=== PATIENT | male | born 1950 | race Caucasian/White ===

== ENCOUNTER 2020-01-16 11:38 | Inpatient (IN) ==
[2020-01-16] MEDS ORDERED: HYDROcodone/APAP 10/325MG TABLET PO ONE (11:56)
--- NOTE | 2020-01-16 11:59 | Emergency Department Note ---
Male Urogenital HPI General Chief complaint: Skin/Abscess/Rash Stated complaint: wound on penis Time Seen by Provider: 01/16/20 11:42 Source: patient Mode of arrival: wheelchair Limitations: no limitations History of Present Illness HPI Narrative: Narrative: 70-year-old male patient referred to the emergency department from the urology clinic with chief complaint of ongoing difficulty with urination, ulceration to the glans penis, as well as suspected necrosis to the foreskin. Patient underwent a prostate resection several weeks ago. Unfortunately he has not been able to urinate since that time. Is an indwelling catheter in place that is being changed out every 4 weeks. Unfortunately he was evaluated by the urologist (Dr. Wren) earlier this morning and noted to have the ulceration as well as the necrotic tissue developing. At that time the urologist recommended the patient be sent over to the emergency department and then eventually admitted to the hospital for surgical management. Upon arrival, patient complains of some moderate pain to his penis. He still has the Morelos catheter in place. 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 ROS: Denies systemic illness, fever, sweats, chills. Denies runny nose, sinus congestion, or cough. Denies shortness of breath. Denies retrosternal chest pain or palpitations. Denies abdominal pain, nausea, vomiting, or diarrhea. Denies generalized or focal weakness. Related Data Home Medications Medication Instructions Recorded Confirmed Avatrip countor next test in vitro #1 ea 12/27/17 01/16/20 strip pen needle, diabetic 32 gauge x #50 each 12/27/17 01/16/20 1/4" spironolactone 25 mg tablet 25 mg PO QAM tab 12/27/17 01/16/20 omeprazole 20 mg capsule,delayed 40 mg PO QDAY cap 12/28/17 01/16/20 release insulin aspart U-100 100 unit/mL See Rx Instructions SUB-Q .COMPLEX 04/24/19 01/16/20 (3 mL) subcutaneous pen insulin glargine 100 unit/mL (3 65 unit SUB-Q QDAY ml 04/24/19 01/16/20 mL) subcutaneous pen dulaglutide 0.75 mg/0.5 mL 1.5 mg SUB-Q QWEEK 09/06/19 01/16/20 subcutaneous pen injector tamsulosin 0.4 mg capsule 0.8 mg PO QDAY cap 09/11/19 01/16/20 torsemide 20 mg tablet 40 mg PO QDAY tab 09/11/19 01/16/20 acetaminophen 325 mg capsule 650 mg PO Q6H PRN 10/29/19 01/16/20 aspirin 81 mg tablet,delayed 81 mg PO QDAY 10/29/19 01/16/20 release bethanechol chloride 50 mg tablet 50 mg PO BID 10/29/19 01/16/20 ferrous sulfate 325 mg (65 mg 325 mg PO QDAY 10/29/19 01/16/20 iron) tablet fexofenadine 180 mg tablet 180 mg PO Q24H 10/29/19 01/16/20 hydrocodone 10 mg-acetaminophen 1 tab PO Q4-5H PRN tab 10/29/19 01/16/20 325 mg tablet magnesium hydroxide 400 mg/5 mL 100 mg PO ONCE PRN ml 10/29/19 01/16/20 oral suspension escitalopram oxalate 5 mg tablet 5 mg PO QDAY 11/28/19 01/16/20 Previous Rx's Medication Instructions Recorded cholecalciferol (vitamin D3) 100 4,000 unit PO QDAY #90 tab 04/27/19 mcg (4,000 unit) tablet potassium chloride 10 mEq 10 meq PO QDAY #30 tab 08/06/19 tablet,extended release(part/cryst) atorvastatin 40 mg tablet 40 mg PO QDAY #30 tab 08/13/19 Allergies Allergy/AdvReac Type Severity Reaction Status Date / Time piperacillin [From Zosyn] Allergy Mild Rash Verified 01/16/20 13:39 tazobactam [From Zosyn] Allergy Mild Rash Verified 01/16/20 13:39 Sulfa (Sulfonamide Allergy Unknown Verified 01/16/20 11:46 Antibiotics) Review of Systems ROS ROS Narrative: Narrative: All systems ED: reviewed and negative except as stated. [facility] Narrative Patient History Narrative: Narrative: Medical/Surgical/Family History All Active Problems (Updated 01/16/20 @ 14:15 by Kojo Stone PA-C) Necrosis (Acute) Urethral erosion by catheter (Acute) Hydronephrosis (Acute) Balanitis (Acute) Cellulitis (Acute) Elevated serum creatinine (Acute) Localized edema due to fluid overload (Chronic) Secondary hyperparathyroidism of renal origin (Chronic) Vitamin D deficiency (Chronic) Anemia in stage 3 chronic kidney disease (Chronic) 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) Acute on chronic renal failure (Acute) Bladder mass (Acute) Status post insertion of Morelos catheter (Chronic) GERD (gastroesophageal reflux disease) (Chronic) Benign prostatic hyperplasia (Chronic) Edema (Chronic) Weakness (Chronic) Bilateral hydronephrosis (Chronic) Leukocytosis (Chronic) Hypoglycemia (Chronic) Obstructive uropathy (Chronic) Acute renal failure (Chronic) Morelos catheter in place (Chronic) Urinary retention (Chronic) Poor hygiene (Chronic) Knee pain (Chronic) Fatigue (Chronic) Hypertension (Chronic) Gout (Chronic) Elevated liver enzymes (Chronic) Mentally challenged (Chronic) Diabetes (Chronic) Arthritis (Chronic) Anxiety (Chronic) Bronchitis (Chronic) Asthma (Chronic) Shortness of breath (Chronic) Chronic kidney disease, stage 3 (Chronic) Medical History Acute renal failure (Chronic) Anxiety (Chronic) Arthritis (Chronic) Asthma (Chronic) Benign prostatic hyperplasia (Chronic) Bilateral hydronephrosis (Chronic) Bronchitis (Chronic) Chronic kidney disease, stage 3 (Chronic) Diabetes (Chronic) Edema (Chronic) Elevated liver enzymes (Chronic) Fatigue (Chronic) Morelos catheter in place (Chronic) GERD (gastroesophageal reflux disease) (Chronic) Gout (Chronic) Hypertension (Chronic) Hypoglycemia (Chronic) Knee pain (Chronic) Leukocytosis (Chronic) Mentally challenged (Chronic) Obstructive uropathy (Chronic) Poor hygiene (Chronic) Shortness of breath (Chronic) Urinary retention (Chronic) Weakness (Chronic) Surgical History History of colonoscopy (Chronic) Dr. Guevara Status post insertion of Morelos catheter (Chronic) Family History Mother Diabetes Father Heart disease Social History Smoking Status: Never smoker Alcohol Intake Frequency: does not drink Substance Use: does not use Exam Narrative Narrative: Narrative: General Limitations: no limitations General appearance: Present other (Well-developed, well-nourished, 70-year-old male patient laying semierect in no acute distress. He is afebrile with normal vital signs.) Eye Eye: Present normal appearance, PERRL and EOMI; Absent scleral icterus and conjunctival injection ENT ENT: Present normal oropharynx and mucous membranes moist Neck Neck: Present trachea midline; Absent lymphadenopathy and thyromegaly Chest Chest: Present symmetric chest wall rise Respiratory Respiratory: Present normal lung sounds bilaterally; Absent respiratory distress, wheezes, stridor, accessory muscle use and prolonged expiratory phase Cardiovascular Cardiovascular: Present regular rate and normal rhythm; Absent systolic murmur and diastolic murmur Adbominal Abdominal: Present soft; Absent distention, tenderness, guarding, rebound, rigidity, organomegaly and mass : Absent normal inspection Expanded : Present penile swelling, induration, erythema, balanitis, ulcerations and other (Morelos catheter still in place. Some dry as well as fresh bleeding noted to surrounding penis. Ulceration to the glans penis noted. Area of necrosis noted to the foreskin that extends circumferentially.) Extremities Extremities: Present normal inspection, full ROM and normal capillary refill Neurological Neurological: Present alert and oriented X3 Psychiatric Psychiatric: Present normal affect and normal mood Skin Skin: Present warm (WNL), dry and normal color Course Course Course Narrative: Patient was referred to the emergency department from urology for likely admission and surgical debridement of the wound to his penis. We are going to get some preoperative laboratory studies as well as EKG. Patient will get Zosyn 3.337 g IV. Patient has some discomfort and is currently on hydrocodone/APAP 10-325 mg tablets. I will give him two 5 mg hydrocodone tablets here prior to nursing staff cleansing his penis dressing this area. Reevaluation(s) Reevaluation #1: I reviewed the patient's diagnostics of the following: CBC WBC 9.8, RBC 4.03, hemoglobin 12.2, hematocrit 36.7, platelets 445. CMP BUN 26, creatinine 1.6, glucose 159, all others normal limits. Patient had the Zosyn infusion. Within approximately 5minutes of his completion the patient's left arm started becoming erythematous and itchy. Patient was given diphenhydramine 25 mg IV to help with this. Time: 14:10 Reevaluation #2: After reviewing all the data I reached out to our hospitalist (Dr. Powers) and discussed the case with him. At this time Dr. Powers mention that patient needs to be managed by urology in order to definitively treat the penile ulcer and necrosis. However he is happy to admit the patient here to our facility. He did recommend Maxipime 2 g every 12 hours. This was ordered. At this time patient is going to be admitted under the care of both the hospitalist as well as the urologist (Dr. Wren). All further treatment decisions, modalities, and ultimate patient disposition be carried out by the urologist in conjunction with the hospitalist. Time: 14:14 Vital Signs Vital signs: Vital Signs Temperature 98.7 F 01/16/20 11:43 Pulse Rate 80 01/16/20 11:43 Respiratory Rate 18 01/16/20 11:43 Blood Pressure 166/85 01/16/20 11:43 Pulse Oximetry (%) 100 01/16/20 11:43 Temperature 98.7 F 01/16/20 11:43 Pulse Rate 78 01/16/20 14:33 Respiratory Rate 18 01/16/20 14:33 Blood Pressure 105/80 01/16/20 14:33 Pulse Oximetry (%) 97 01/16/20 14:33 MDM MDM Narrative Medical decision making narrative: Narrative: Lab Data Lab results reviewed: Yes I reviewed the patient's lab results. Result diagrams: 01/16/20 12:20 01/16/20 12:20 Labs: Lab Results 01/16/20 01/16/20 Range/Units 12:20 12:20 WBC 9.8 (4.5-11.0) K/mcL RBC 4.03 L (4.50-5.90) M/mcL Hgb 12.2 L (13.5-16.5) g/dL Hct 36.7 L (41.0-55.0) % MCV 91.1 (80.0-100.0) fL MCH 30.3 (26.0-34.0) pg MCHC 33.2 (31.0-36.0) g/dL RDW 13.0 (11.5-14.5) % Plt Count 445 H (140-440) K/mcL MPV 9.5 (7.4-10.4) fL Neut % (Auto) 77.5 (38.0-78.0) % Lymph % (Auto) 12.1 L (15.0-49.0) % Pender % (Auto) 6.6 (1.0-12.0) % Eos % (Auto) 3.1 (0.0-7.0) % Baso % (Auto) 0.7 (0.0-2.0) % Lymph # (Auto) 1.18 L (1.50-4.80) K/mcL Pender # (Auto) 0.65 (0.10-0.90) K/mcL Eos # (Auto) 0.30 (0.00-0.70) K/mcL Baso # (Auto) 0.07 (0.00-0.20) K/mcL Absolute Neutrophils 7.59 (1.80-8.00) K/mcL Sodium 135 (133-145) mmol/L Potassium 4.0 (3.3-5.1) mmol/L Chloride 97 (96-108) mmol/L Carbon Dioxide 25 (22-30) mmol/L Anion Gap 13.0 (8.0-16.0) BUN 26 H (8-23) mg/dL Creatinine 1.6 H (0.7-1.2) mg/dL GFR Calculation 43 Glucose 159 H (70-105) mg/dL Calcium 9.8 (8.6-10.4) mg/dL Total Bilirubin 0.4 (0.1-1.0) mg/dL AST 20 (<40) U/L ALT 20 (<40) U/L Alkaline Phosphatase 96 (39-117) U/L Total Protein 6.9 (5.9-8.4) gm/dL Albumin 3.5 (3.2-5.2) gm/dL Globulin 3.4 (2.2-3.7) gm/dL Albumin/Globulin Ratio 1.0 (1.0-2.3) Discharge Plan Patient/Caregiver Discharge Instructions Pt seen by SPIKE DRIVER/PA only: Yes Clinical Impression: Necrosis Urethral erosion by catheter Qualifiers: Encounter type: initial encounter Qualified Code(s): T83.89XA - Other specified complication of genitourinary prosthetic devices, implants and grafts, initial encounter Cellulitis Qualifiers: Site of cellulitis: other site Qualified Code(s): L03.818 - Cellulitis of other sites Patient Disposition: Xfer As Inpt ([facility]) Condition: Good
[2020-01-16] MEDS ORDERED: PIPERACILLIN SODIUM/TAZOBACTAM 3.375 GM in DEXTROSE 5% IN WATER 50 ML IV ONE (12:00)
[2020-01-16] MEDS ORDERED: HYDROcodone/APAP 5/325MG TABLET PO ONE (12:09)
[2020-01-16 12:59] LABS: Basophils # (Auto) 0.07 K/mcL (0.00-0.20); Basophils % (Auto) 0.7 % (0.0-2.0); Eosinophils % (Auto) 3.1 % (0.0-7.0); Hematocrit 36.7 % (41.0-55.0); Hemoglobin 12.2 g/dL (13.5-16.5); Lymphocytes # (Auto) 1.18 K/mcL (1.50-4.80); Lymphocytes % (Auto) 12.1 % (15.0-49.0); Mean Cell Volume 91.1 fL (80.0-100.0); Mean Corpuscular HGB Conc 33.2 g/dL (31.0-36.0); Mean Platelet Volume 9.5 fL (7.4-10.4); Monocytes # (Auto) 0.65 K/mcL (0.10-0.90); Monocytes % (Auto) 6.6 % (1.0-12.0); Neutrophils % (Auto) 77.5 % (38.0-78.0); Platelet Count 445 K/mcL (140-440); RBC 4.03 M/mcL (4.50-5.90); WBC 9.8 K/mcL (4.5-11.0)
[2020-01-16 13:14] LABS: ALT/SGPT 20 U/L (<40); AST/SGOT 20 U/L (<40); Albumin 3.5 gm/dL (3.2-5.2); Alkaline Phosphatase 96 U/L (39-117); Bilirubin,Total 0.4 mg/dL (0.1-1.0); Blood Urea Nitrogen 26 mg/dL (8-23); Calcium 9.8 mg/dL (8.6-10.4); Carbon Dioxide 25 mmol/L (22-30); Chloride 97 mmol/L (96-108); Globulin 3.4 gm/dL (2.2-3.7); Glomerular Filtration Rate 43; Glucose 159 mg/dL (70-105)
[2020-01-16] MEDS ORDERED: diphenhydrAMINE 50 MG/ML VIAL IV ONE (13:24)
[2020-01-16] MEDS ORDERED: CEFEPIME 2 GM VIAL IV ONE (14:08)
--- NOTE | 2020-01-16 14:12 | Internal Med History&Physical ---
HPI History of Present Illness Patient information: Note initiated : 01/16/20 at 2:11 pm Service Date, if different from initiated Date: [] Patient: Fritz Esquivel 70 y/o M admitted on for wound on penis. Chief Complaint: Penile ulcer History of present illness: Mr. Esquivel is a 70 year old M with a history of DM type II/HTN/recent prostate surgery treated at [place] following urine retention and obstructive uropathy/RADHA, now with indwelling Morelos's, anxiety disorder/high functioning autistic/Aspergers who resides at [facility] and was evaluated at urology office for penile ulcer. Patient was transferred to the ER for suspected worsening of penile meatus/ureter ulcer likely secondary to catheter eroding into the urethra. Patient does endorse to abdominal discomfort/pain and burning sensation over the last couple of days but denies fever, shaking chills, diarrhea. Initial work-up in the ER was unremarkable except for creatinine 1.6. Hospital service was consulted while patient will undergo operative intervention for penile ulcer. At the time of my evaluation patient is alert and was able to answer most the questions. He endorsed history as above however could not provide an elaborate history and most of the information was obtained from review of medical records and ER physician and previous documentations. Denies chest pain, diarrhea, headache, photophobia, fever or shaking chills. Review of systems 10 point review system was performed and is negative except for ones discussed above PFSH PFSH All Active Problems Necrosis (Acute) Urethral erosion by catheter (Acute) Hydronephrosis (Acute) Balanitis (Acute) Cellulitis (Acute) Elevated serum creatinine (Acute) Localized edema due to fluid overload (Chronic) Secondary hyperparathyroidism of renal origin (Chronic) Vitamin D deficiency (Chronic) Anemia in stage 3 chronic kidney disease (Chronic) 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) Acute on chronic renal failure (Acute) Bladder mass (Acute) Status post insertion of Morelos catheter (Chronic) GERD (gastroesophageal reflux disease) (Chronic) Benign prostatic hyperplasia (Chronic) Edema (Chronic) Weakness (Chronic) Bilateral hydronephrosis (Chronic) Leukocytosis (Chronic) Hypoglycemia (Chronic) Obstructive uropathy (Chronic) Acute renal failure (Chronic) Morelos catheter in place (Chronic) Urinary retention (Chronic) Poor hygiene (Chronic) Knee pain (Chronic) Fatigue (Chronic) Hypertension (Chronic) Gout (Chronic) Elevated liver enzymes (Chronic) Mentally challenged (Chronic) Diabetes (Chronic) Arthritis (Chronic) Anxiety (Chronic) Bronchitis (Chronic) Asthma (Chronic) Shortness of breath (Chronic) Chronic kidney disease, stage 3 (Chronic) Medical History Acute renal failure (Chronic) Anxiety (Chronic) Arthritis (Chronic) Asthma (Chronic) Benign prostatic hyperplasia (Chronic) Bilateral hydronephrosis (Chronic) Bronchitis (Chronic) Chronic kidney disease, stage 3 (Chronic) Diabetes (Chronic) Edema (Chronic) Elevated liver enzymes (Chronic) Fatigue (Chronic) Morelos catheter in place (Chronic) GERD (gastroesophageal reflux disease) (Chronic) Gout (Chronic) Hypertension (Chronic) Hypoglycemia (Chronic) Knee pain (Chronic) Leukocytosis (Chronic) Mentally challenged (Chronic) Obstructive uropathy (Chronic) Poor hygiene (Chronic) Shortness of breath (Chronic) Urinary retention (Chronic) Weakness (Chronic) Surgical History History of colonoscopy (Chronic) Dr. Guevara Status post insertion of Morelos catheter (Chronic) Family History Mother Diabetes Father Heart disease Social History caregiver/support person: Yes household members: alone marital status: single education level: high school smoking status: Never smoker alcohol intake frequency: does not drink substance use type: does not use MEDS/ALLERGIES Home Medications and Allergies Home Medications Medication Instructions Recorded Confirmed Type Estevan countor next test in vitro #1 ea 12/27/17 01/16/20 History strip pen needle, diabetic 32 gauge x #50 each 12/27/17 01/16/20 History 1/4" spironolactone 25 mg tablet 25 mg PO QAM tab 12/27/17 01/16/20 History omeprazole 20 mg capsule,delayed 40 mg PO QDAY cap 12/28/17 01/16/20 History release insulin glargine 100 unit/mL (3 65 unit SUB-Q QDAY ml 04/24/19 01/16/20 History mL) subcutaneous pen cholecalciferol (vitamin D3) 100 4,000 unit PO QDAY #90 tab 04/27/19 01/16/20 Rx mcg (4,000 unit) tablet potassium chloride 10 mEq 10 meq PO QDAY #30 tab 08/06/19 01/16/20 Rx tablet,extended release(part/cryst) atorvastatin 40 mg tablet 40 mg PO QDAY #30 tab 08/13/19 01/16/20 Rx dulaglutide 0.75 mg/0.5 mL 1.5 mg SUB-Q QWEEK 09/06/19 01/16/20 History subcutaneous pen injector tamsulosin 0.4 mg capsule 0.8 mg PO QDAY cap 09/11/19 01/16/20 History torsemide 20 mg tablet 40 mg PO QDAY tab 09/11/19 01/16/20 History acetaminophen 325 mg capsule 650 mg PO Q4H PRN 10/29/19 01/16/20 History aspirin 81 mg tablet,delayed 81 mg PO QDAY 10/29/19 01/16/20 History release bethanechol chloride 50 mg tablet 50 mg PO BID 10/29/19 01/16/20 History ferrous sulfate 325 mg (65 mg 325 mg PO QDAY 10/29/19 01/16/20 History iron) tablet fexofenadine 180 mg tablet 180 mg PO Q24H 10/29/19 01/16/20 History hydrocodone 10 mg-acetaminophen 1 tab PO Q4 PRN tab 10/29/19 01/16/20 History 325 mg tablet escitalopram oxalate 5 mg tablet 5 mg PO QDAY 11/28/19 01/16/20 History Adult Probiotic 100 mg BID 01/16/20 01/16/20 History cholecalciferol (vitamin D3) 50,000 units WEEKLY 01/16/20 01/16/20 History doxycycline hyclate 100 mg BID 01/16/20 01/16/20 History insulin lispro See Rx Instructions .ROUTE .COMPLEX 01/16/20 01/16/20 History Allergies Allergy/AdvReac Type Severity Reaction Status Date / Time piperacillin [From Zosyn] Allergy Mild Rash Verified 01/16/20 13:39 tazobactam [From Zosyn] Allergy Mild Rash Verified 01/16/20 13:39 Sulfa (Sulfonamide Allergy Unknown Unknown Verified 01/17/20 07:07 Antibiotics) EXAM Constitutional Vitals: Temp Pulse Resp BP Pulse Ox 98.7 F 79 18 117/71 99 01/16/20 11:43 01/16/20 12:46 01/16/20 11:43 01/16/20 12:46 01/16/20 12:46 Anxious but alert and respond to commands Head normocephalic Oral cavity moist No ear nose discharge Eye movement symmetrical Neck supple no lymphadenopathy S1-S2 nonlabored breathing Nonlabored breathing Nondistended nontender abdomen, Morelos draining cloudy urine. Penile meatal/urethral ulceration Lower extremity no cyanosis clubbing or joint swelling Skin no suspicious lesion Psych anxious but alert cooperative Neuro moving all 4 extremities DATA Data Completed and Pending Labs: Labs from last 24 hours 01/16/20 01/16/20 12:20 12:20 WBC 9.8 RBC 4.03 L Hgb 12.2 L Hct 36.7 L MCV 91.1 MCH 30.3 MCHC 33.2 RDW 13.0 Plt Count 445 H MPV 9.5 Neut % (Auto) 77.5 Lymph % (Auto) 12.1 L Brown % (Auto) 6.6 Eos % (Auto) 3.1 Baso % (Auto) 0.7 Lymph # (Auto) 1.18 L Brown # (Auto) 0.65 Eos # (Auto) 0.30 Baso # (Auto) 0.07 Absolute Neutrophils 7.59 Sodium 135 Potassium 4.0 Chloride 97 Carbon Dioxide 25 Anion Gap 13.0 BUN 26 H Creatinine 1.6 H GFR Calculation 43 Glucose 159 H Calcium 9.8 Total Bilirubin 0.4 AST 20 ALT 20 Alkaline Phosphatase 96 Total Protein 6.9 Albumin 3.5 Globulin 3.4 Albumin/Globulin Ratio 1.0 A/P Narrative A/P Narrative: * Penile ulcer likely hardware related-urology consult for surgical int ervention. Initiate antibiotic coverage. * CKD stage IIIb, continue monitoring. Avoid nephrotoxins. * DM type II continue basal panel insulin * Hyperlipidemia continue statin * Anxiety disorder continue Lexapro * Hypertension continue spironolactone * urine retention continue BPH * GERD continue PPI * History Asperger's/autism high functioning. Continue directed therapies * prophylaxis heparin Plan * Observation admit * Urology consult * Antibiotic coverage * Pre-existing medical condition management as above * PT OT nutrition support Time Spent With Patient Time: Total time spent is greater than 50% in coordination of care (as documented) at patient's floor/unit and/or counseling patient:
[2020-01-16] MEDS ORDERED: MELATONIN 3 MG TABLET PO PRN (15:35)
[2020-01-16] MEDS ORDERED: POTASSIUM CHLORIDE 40 MEQ in DEXTROSE 5% IN WATER 500 ML IV PRN (15:35)
[2020-01-16] MEDS ORDERED: VANCOMYCIN PER PHARMACY IV SCH (15:35)
[2020-01-16] MEDS ORDERED: NON FORMULARY MEDICATION 1 DOSE MISCELL (Insulin Aspart U-100 [Novolog Flexpen U-100 Insul SUB-Q SCH (15:35)
[2020-01-16] MEDS ORDERED: 0.9 % SODIUM CHLORIDE 1,000 ML IV SCH (15:35)
[2020-01-16] MEDS ORDERED: ONDANSETRON 4 MG ODT TABLET SL PRN (15:35)
[2020-01-16] MEDS ORDERED: ACETAMINOPHEN 650 MG/65 ML BAG IV PRN (15:35)
[2020-01-16] MEDS ORDERED: POLYETHYLENE GLYCOL 3350 17 GM PACKET PO PRN (15:35)
[2020-01-16] MEDS ORDERED: MAGNESIUM HYDROXIDE 30 ML ORAL.SUSP PO PRN ×2 (15:35→21:00)
[2020-01-16] MEDS ORDERED: POTASSIUM CHLORIDE 20 MEQ PACKET PO PRN (15:35)
[2020-01-16] MEDS ORDERED: MAGNESIUM SULFATE 2 GM/50 ML BAG IV PRN (15:35)
[2020-01-16] MEDS ORDERED: ONDANSETRON 4 MG/2 ML VIAL IV PRN ×2 (15:35→22:22)
[2020-01-16] MEDS ORDERED: HYDROcodone/APAP 10/325MG TABLET PO PRN (15:35)
[2020-01-16] MEDS ORDERED: DEXTROSE 31 GM ORAL.SUSP PO PRN (15:35)
[2020-01-16] MEDS ORDERED: ACETAMINOPHEN 325 MG TABLET PO PRN (15:35)
[2020-01-16] MEDS ORDERED: DEXTROSE 50% 50 ML VIAL IV PRN (15:35)
[2020-01-16] MEDS ORDERED: CEFEPIME 2 GM in DEXTROSE 5% IN WATER 50 ML IV SCH (15:35)
[2020-01-16] MEDS ORDERED: NON FORMULARY MEDICATION 1 DOSE MISCELL (Acetaminophen 650 MG) PO PRN (15:35)
[2020-01-16] MEDS ORDERED: BISACODYL 10 MG SUPP.RECT PR PRN (15:35)
[2020-01-16] MEDS ORDERED: 0.9 % SODIUM CHLORIDE 1,000 ML IV ONE (15:56)
[2020-01-16] MEDS ORDERED: CEFEPIME 1 GM VIAL IV SCH (16:00)
[2020-01-16] MEDS ORDERED: VANCOMYCIN 1,500 MG in 0.9 % SODIUM CHLORIDE 500 ML IV SCH (16:00)
[2020-01-16] MEDS: INSULIN LISPRO 1 UNIT/0.01 ML UNIT SQ SCH ×2 (17:19→20:45)
[2020-01-16] MEDS ORDERED: HEPARIN 5,000 UNIT/ML VIAL SQ SCH (21:00)
[2020-01-16] MEDS ORDERED: SENNOSIDES/DOCUSATE SODIUM 1 TAB TABLET PO SCH (21:00)
[2020-01-16] MEDS ORDERED: DOCUSATE SODIUM 100 MG CAPSULE PO SCH (21:00)
[2020-01-16] MEDS ORDERED: BETHANECHOL 10 MG TABLET PO SCH (21:00)
[2020-01-16] MEDS ORDERED: 0.9 % SODIUM CHLORIDE 10 ML SYRINGE IV SCH (22:00)
--- NOTE | 2020-01-16 22:10 | Internal Medicine Consult Note ---
HPI Data of Consult Primary Care Provider: LAURIE Evans Consult Narrative Patient Information: Note initiated : 01/16/20 at 9:58 pm Service Date, if different from initiated Date: [] Patient: Fritz Esquivel 70 y/o M admitted on 01/16/20 for wound on penis. Patient with h/o urinary retention and possible prostate resection with the [place] urologist but still with indwelling catheter. Patient was seen today in clinic and found to have: 1) severe urethral traction erosion to near base scrotum from his urethral catheter with blood stained depends 2) necrotic area 2 o'clock on the foreskin with surrounding erythema Patient currently feels well. He was admitted as concern for very high risk progressive infection. Plan for local debridement and conversion to SP tube tomorrow in the OR with antibiotics tonight to address his likely colonized urine and possible burgeoning cellulitis of the foreskin. No signs fourniers when see in the clinic today. Evaluating the patient tonight for a wound check. Patient now concerningly unsure if he is circumcised or not. Denies increased penile pain. Chief Complaint: [] cc:: CC: Juan Diop Constitutional Constitutional: Absent chills, fever(s) and lethargy EENT Eyes: Absent blind spots, blurry vision and itchy eyes Cardiovascular Cardiovascular: Absent chest pain, chest pain at rest and chest pain with activity Respiratory Respiratory: Absent cough, dyspnea, dyspnea on exertion and wheezing Gastrointestinal Gastrointestinal: Absent abdominal pain, nausea and vomiting Genitourinary Genitourinary: as per HPI Musculoskeletal Musculoskeletal: Absent joint swelling, numbness and tingling Integumentary Integumentary: Present as per HPI Neurological Neurological: Absent dizziness, numbness and tingling Psychiatric Psychiatric: Absent anxiety, change in appetite and irritability Endocrine Endocrine: Absent palpitations, polydipsia and polyuria Hematologic/Lymphatic Hematologic/Lymphatic: Absent easy bleeding, easy bruising and lymphadenopathy Allergic/Immunologic Allergic/Immunologic: Absent itchy eyes, uticaria and wheezing PFSH PFSH All Active Problems Necrosis (Acute) Urethral erosion by catheter (Acute) Hydronephrosis (Acute) Balanitis (Acute) Cellulitis (Acute) Elevated serum creatinine (Acute) Localized edema due to fluid overload (Chronic) Secondary hyperparathyroidism of renal origin (Chronic) Vitamin D deficiency (Chronic) Anemia in stage 3 chronic kidney disease (Chronic) 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) Acute on chronic renal failure (Acute) Bladder mass (Acute) Status post insertion of Morelos catheter (Chronic) GERD (gastroesophageal reflux disease) (Chronic) Benign prostatic hyperplasia (Chronic) Edema (Chronic) Weakness (Chronic) Bilateral hydronephrosis (Chronic) Leukocytosis (Chronic) Hypoglycemia (Chronic) Obstructive uropathy (Chronic) Acute renal failure (Chronic) Morelos catheter in place (Chronic) Urinary retention (Chronic) Poor hygiene (Chronic) Knee pain (Chronic) Fatigue (Chronic) Hypertension (Chronic) Gout (Chronic) Elevated liver enzymes (Chronic) Mentally challenged (Chronic) Diabetes (Chronic) Arthritis (Chronic) Anxiety (Chronic) Bronchitis (Chronic) Asthma (Chronic) Shortness of breath (Chronic) Chronic kidney disease, stage 3 (Chronic) Medical History Acute renal failure (Chronic) Anxiety (Chronic) Arthritis (Chronic) Asthma (Chronic) Benign prostatic hyperplasia (Chronic) Bilateral hydronephrosis (Chronic) Bronchitis (Chronic) Chronic kidney disease, stage 3 (Chronic) Diabetes (Chronic) Edema (Chronic) Elevated liver enzymes (Chronic) Fatigue (Chronic) Morelos catheter in place (Chronic) GERD (gastroesophageal reflux disease) (Chronic) Gout (Chronic) Hypertension (Chronic) Hypoglycemia (Chronic) Knee pain (Chronic) Leukocytosis (Chronic) Mentally challenged (Chronic) Obstructive uropathy (Chronic) Poor hygiene (Chronic) Shortness of breath (Chronic) Urinary retention (Chronic) Weakness (Chronic) Surgical History History of colonoscopy (Chronic) Dr. Guevara Status post insertion of Morelos catheter (Chronic) Family History Mother Diabetes Father Heart disease Social History caregiver/support person: Yes household members: alone marital status: single education level: high school smoking status: Never smoker alcohol intake frequency: does not drink substance use type: does not use MEDS/ALLERGIES Home Medications and Allergies Home Medications Medication Instructions Recorded Confirmed Type Estevan countor next test in vitro #1 ea 12/27/17 01/16/20 History strip pen needle, diabetic 32 gauge x #50 each 12/27/17 01/16/20 History 1/4" spironolactone 25 mg tablet 25 mg PO QAM tab 12/27/17 01/16/20 History omeprazole 20 mg capsule,delayed 40 mg PO QDAY cap 12/28/17 01/16/20 History release insulin glargine 100 unit/mL (3 65 unit SUB-Q QDAY ml 04/24/19 01/16/20 History mL) subcutaneous pen cholecalciferol (vitamin D3) 100 4,000 unit PO QDAY #90 tab 04/27/19 01/16/20 Rx mcg (4,000 unit) tablet potassium chloride 10 mEq 10 meq PO QDAY #30 tab 08/06/19 01/16/20 Rx tablet,extended release(part/cryst) atorvastatin 40 mg tablet 40 mg PO QDAY #30 tab 08/13/19 01/16/20 Rx dulaglutide 0.75 mg/0.5 mL 1.5 mg SUB-Q QWEEK 09/06/19 01/16/20 History subcutaneous pen injector tamsulosin 0.4 mg capsule 0.8 mg PO QDAY cap 09/11/19 01/16/20 History torsemide 20 mg tablet 40 mg PO QDAY tab 09/11/19 01/16/20 History acetaminophen 325 mg capsule 650 mg PO Q4H PRN 10/29/19 01/16/20 History aspirin 81 mg tablet,delayed 81 mg PO QDAY 10/29/19 01/16/20 History release bethanechol chloride 50 mg tablet 50 mg PO BID 10/29/19 01/16/20 History ferrous sulfate 325 mg (65 mg 325 mg PO QDAY 10/29/19 01/16/20 History iron) tablet fexofenadine 180 mg tablet 180 mg PO Q24H 10/29/19 01/16/20 History hydrocodone 10 mg-acetaminophen 1 tab PO Q4 PRN tab 10/29/19 01/16/20 History 325 mg tablet escitalopram oxalate 5 mg tablet 5 mg PO QDAY 11/28/19 01/16/20 History Adult Probiotic 100 mg BID 01/16/20 01/16/20 History cholecalciferol (vitamin D3) 50,000 units WEEKLY 01/16/20 01/16/20 History doxycycline hyclate 100 mg BID 01/16/20 01/16/20 History insulin lispro See Rx Instructions .ROUTE .COMPLEX 01/16/20 01/16/20 History Allergies Allergy/AdvReac Type Severity Reaction Status Date / Time piperacillin [From Zosyn] Allergy Mild Rash Verified 01/16/20 13:39 tazobactam [From Zosyn] Allergy Mild Rash Verified 01/16/20 13:39 Sulfa (Sulfonamide Allergy Unknown Verified 01/16/20 11:46 Antibiotics) EXAM Constitutional Vitals: Temp Pulse Resp BP Pulse Ox 98.2 F 77 14 126/77 100 01/16/20 18:43 01/16/20 18:43 01/16/20 18:43 01/16/20 18:43 01/16/20 18:43 General appearance: average body habitus, cooperative and no acute distress Eye Eye exam: Present normal appearance; Absent periorbital swelling and scleral icterus Respiratory Respiratory exam: Absent respiratory distress, stridor and wheezes Cardiovascular Cardiovascular exam: Present RRR GI/Abdominal GI/Abdominal exam: Present soft; Absent distended, firm, guarding and rebound External exam: Present erythema and lacerations Additional comments: 1) urethral erosion to scrotum 2) necrotic area seen in clinic now sloughed and larger area involved with edema and concerning increase in necrosis and sloughed foreskin. No crepitus and no scrotal edema and does not appear to involve pubis. Penis paritaly buried in suprapubic fat pad Neurological Exam Neurological exam: Present alert and oriented X3 Psychiatric Psychiatric exam: Present normal affect; Absent agitated and anxious DATA Data Completed and Pending Labs: Labs from last 24 hours 01/16/20 01/16/20 12:20 12:20 WBC 9.8 RBC 4.03 L Hgb 12.2 L Hct 36.7 L MCV 91.1 MCH 30.3 MCHC 33.2 RDW 13.0 Plt Count 445 H MPV 9.5 Neut % (Auto) 77.5 Lymph % (Auto) 12.1 L [place] % (Auto) 6.6 Eos % (Auto) 3.1 Baso % (Auto) 0.7 Lymph # (Auto) 1.18 L [place] # (Auto) 0.65 Eos # (Auto) 0.30 Baso # (Auto) 0.07 Absolute Neutrophils 7.59 Sodium 135 Potassium 4.0 Chloride 97 Carbon Dioxide 25 Anion Gap 13.0 BUN 26 H Creatinine 1.6 H GFR Calculation 43 Glucose 159 H Calcium 9.8 Total Bilirubin 0.4 AST 20 ALT 20 Alkaline Phosphatase 96 Total Protein 6.9 Albumin 3.5 Globulin 3.4 Albumin/Globulin Ratio 1.0 A/P Narrative A/P Narrative: 1) urethral erosion secondary to catheter traction injury -will convert to suprapubic tube via cystotomy incision 2) Concern for necrotizing infection foreskin -his small necrotic area has sloughed and expanded, scrotum currently seems uninvolved -will take him emergently to the OR for radical debridement -his partially buried phallus may make wound care challenging -depending on the extent of the debridement necessary, he may need snf wound care, possible skin grafting or will see if [facility]cell wound sheets are available (or equivalent) This was gone over extensively with the patient, all questions were answered and he agreed to the above Time Spent With Patient Time: Total time spent is greater than 50% in coordination of care (as documented) at patient's floor/unit and/or counseling patient:
[2020-01-16] MEDS ORDERED: MEPERIDINE 25 MG/ML SYRINGE IV PRN (22:22)
[2020-01-16] MEDS ORDERED: BENZOCAINE/MENTHOL 1 LOZENGE PO PRN (22:22)
[2020-01-16] MEDS ORDERED: IPRATROPIUM/ALBUTEROL 3 ML AMPUL.NEB NEB PRN (22:22)
[2020-01-16] MEDS ORDERED: diphenhydrAMINE 50 MG/ML VIAL IV PRN (22:22)
[2020-01-16] MEDS ORDERED: NALOXONE HCL 0.4 MG/ML VIAL IV PRN (22:22)
[2020-01-16] MEDS ORDERED: PROMETHAZINE 25 MG/ML VIAL IV PRN (22:22)
[2020-01-16] MEDS ORDERED: LACTATED RINGERS 250 ML IV PRN (22:22)
[2020-01-16] MEDS ORDERED: ACETAMINOPHEN 1,000 MG/100 ML BAG IV ONE (22:22)
[2020-01-16] MEDS ORDERED: LACTATED RINGERS 1,000 ML IV SCH (22:30)
[2020-01-16] MEDS ORDERED: KETAMINE 100 MG/ML ML ONE (22:36)
[2020-01-16] MEDS ORDERED: LIDOCAINE HCL/PF 100 MG/5 ML SYRINGE IV ONE (22:36)
[2020-01-16] MEDS ORDERED: DEXAMETHASONE 10 MG/ML VIAL ONE (22:36)
[2020-01-16] MEDS ORDERED: PROPOFOL 200 MG/20 ML VIAL IV ONE (22:36)
[2020-01-16] MEDS ORDERED: ONDANSETRON 4 MG/2 ML VIAL ONE (22:36)
[2020-01-16] MEDS ORDERED: BACITRACIN TOPICAL OINT 15 GM TUBE TOPICAL ONE (22:50)
[2020-01-16] MEDS ORDERED: GENTAMICIN SULFATE 800 MG/20 ML VIAL IR ONE (22:50)
[2020-01-16] MEDS ORDERED: OPIUM/BELLADONNA ALKALOIDS 60 MG SUPP.RECT PR ONE ×2 (23:37→23:47)
--- NOTE | 2020-01-16 23:51 | Brief Operative Note ---
Brief Operative Note Date of procedure: 01/16/20 Pre-op diagnosis: necrotising infection foreskin, urethral traction injury Post-op diagnosis: same (evidence resection prostate with undermined bladder neck ) Procedure: radical debridement penis, cystoscopy, suprapubic tube placement via cystotomy incision, complicated urethral catheter placement over a wire Grafts/Implants: Yes (20 samoan suprapubic tube, 16 samoan [place] tipped catheter ) Anesthesia: GETA Findings: necrotic foreskin on dorsum phallus without obvious involvement scrotum or pubis, previously resected prostate with undermined bladder neck, no grossly visible urothelial lesions Complications: none Surgeon: Max Wren Estimated blood loss (cc): 25 Specimens Removed/Pathology: other (foreskin ) Condition: stable Disposition: PACU
[2020-01-17] MEDS: fentaNYL 100 MCG/2 ML VIAL IV PRN ×2 (00:02→00:05)
[2020-01-17] MEDS ORDERED: fentaNYL 100 MCG/2 ML VIAL IV ONE (00:08)
[2020-01-17] MEDS ORDERED: ONDANSETRON 4 MG/2 ML VIAL IV PRN (00:36)
[2020-01-17] MEDS ORDERED: ONDANSETRON 4 MG ODT TABLET SL PRN (00:36)
[2020-01-17] MEDS ORDERED: BISACODYL 10 MG SUPP.RECT PR PRN (00:36)
[2020-01-17] MEDS ORDERED: DEXTROSE 31 GM ORAL.SUSP PO PRN (00:36)
[2020-01-17] MEDS ORDERED: MELATONIN 3 MG TABLET PO PRN (00:36)
[2020-01-17] MEDS ORDERED: POLYETHYLENE GLYCOL 3350 17 GM PACKET PO PRN (00:36)
[2020-01-17] MEDS ORDERED: DEXTROSE 50% 50 ML VIAL IV PRN (00:36)
[2020-01-17] MEDS ORDERED: INSULIN LISPRO SCH (00:36)
[2020-01-17] MEDS ORDERED: POTASSIUM CHLORIDE 20 MEQ PACKET PO PRN (00:36)
[2020-01-17] MEDS ORDERED: VANCOMYCIN PER PHARMACY IV SCH (00:36)
[2020-01-17] MEDS ORDERED: MAGNESIUM HYDROXIDE 30 ML ORAL.SUSP PO PRN (00:36)
[2020-01-17] MEDS ORDERED: MAGNESIUM SULFATE 2 GM/50 ML BAG IV PRN (00:36)
[2020-01-17] MEDS ORDERED: ACETAMINOPHEN 650 MG/65 ML BAG IV PRN (00:36)
[2020-01-17] MEDS ORDERED: POTASSIUM CHLORIDE 40 MEQ in DEXTROSE 5% IN WATER 500 ML IV PRN (00:36)
[2020-01-17] MEDS: 0.9 % SODIUM CHLORIDE 1,000 ML IV SCH ×4 (01:00→19:34)
--- NOTE | 2020-01-17 01:03 | Operative Note ---
Operative Note Operative Note: Date of procedure: 01/16/20 Pre-op diagnosis: necrotising infection foreskin, urethral traction injury Post-op diagnosis: same (evidence resection prostate with undermined bladder neck ) Procedure: radical debridement penis, cystoscopy, suprapubic tube placement via cystotomy incision, complicated urethral catheter placement over a wire Grafts/Implants: Yes (20 romansh suprapubic tube, 16 romansh [place] tipped catheter ) Anesthesia: GETA Findings: necrotic foreskin on dorsum phallus without obvious involvement scrotum or pubis, previously resected prostate with undermined bladder neck, no grossly visible urothelial lesions Complications: none Surgeon: Max Wren Estimated blood loss (cc): 25 Specimens Removed/Pathology: other (foreskin ) Condition: stable Disposition: PACU Informed consent was obtained and preoperative antibiotics were given. Patient was taken to the operative suite and placed on the table in the supine position. Adequate anesthesia was initiated. Patient was then prepped and draped in the usual sterile fashion after being placed in the dorsolithotomy position. We began with evaluation of his penis. There is extensive urethral erosion due to catheter traction splitting his urethra down to nearly at the penoscrotal junction. On the dorsum of the penis at 2:00 there is a frankly necrotic area with surrounding skin sloughing and then a greater area of dusky color edematous foreskin. Allis clamps were used to grab the foreskin and provide countertraction and Metzenbaum scissors were used to sharply incise the necrotic foreskin and cut around the perimeter of the dusky tissue excising all avascular tissue and creating a margin of good vascularity on the remaining foreskin. About 45% of the foreskin was removed, removing most of the foreskin on the dorsum of the penis. All the edges had good vascularity. Palpation of the ventral portion of the foreskin over the residual portion of his urethra and the scrotum and the mons pubis revealed no crepitus, no edema, and good capillary refill of the tissue. The wound bed was then pulse lavaged extensively with antibiotic solution and the wound bed, was pink and well perfused after such. Electrocautery was used to achieve hemostasis of the wound bed. Attention was then turned to placement of the suprapubic tube catheter. The 21 Lao cystoscope with a 30 degree lens was attempted to be guided into the urethra and bladder. Once we reach his prostatic fossa there was evidence of previous resection. He had a very high riding and partially undermined bladder neck suggestive that his catheter had not been placed correctly into the bladder and there was trauma to the bladder neck. With some great difficulty we were able to navigate the scope over his undermined and very high riding bladder neck and enter into the bladder where the urine was cloudy. The bladder was drained and refilled and examined with a 30 and 70 degree lens. Her visibility was limited by his scarred and undermined and high riding bladder neck. There were no gross bladder lesions and were able to fill the bladder and palpate 2 fingers breaths above the symphysis pubis and seen excellent place for placement of the suprapubic tube. Patient was placed in steep Trendelenburg position. The bladder was filled. The scope was removed and with some difficulty given his high riding bladder neck we were able to navigate the Lowsley retractor into the bladder and around the symphysis pubis and palpate such 2 fingers breaths above the symphysis pubis. A scalpel was used to cut through the skin down on to the Lowsley retractor through the bladder creating a cystotomy incision. The Lowsley retractor was passed through the skin, a 20 Lao catheter was grasped and the jaws of the Lowsley retractor and pulled back out through the urethra. With finger palpation the catheter was backed into the bladder and inflated to 30 cc. The cystoscope was reentered into the bladder and we confirmed excellent position of the suprapubic tube catheter into the bladder lumen. Given the trauma seen to his bladder neck a stiff body Glidewire was placed into the bladder and the camera was removed and over this a 16 Lao [place] tip catheter was placed to allow us to have further access through the urethra if need be. The super pubic tube catheter incision was then closed with 2-0 nylon which was used to create a secure stitch to hold the catheter in place. Drain sponges and Tegaderm was applied. The catheter was connected to a StatLock and drainage bag. We applied a Vaseline gauze dressing to the clean wound bed on the penis. Covered with Telfa and fluff gauze the catheter was secured to another StatLock and drainage bag and mesh underwear was applied. Belladonna opiate suppository was placed. Patient tolerated the procedure well and went to recovery room in excellent condition. We will plan on repeat wound evaluation, repeat debridement if necessary but his wound was very clean so hopefully this will be sufficient. Wound care RNs will plan further management.
[2020-01-17] MEDS ORDERED: HYDROcodone/APAP 10/325MG TABLET PO ONE (01:59)
[2020-01-17] MEDS ORDERED: CEFEPIME 1 GM VIAL ONE (03:39)
[2020-01-17] MEDS: CEFEPIME 1 GM VIAL IV SCH ×2 (03:40→17:04)
[2020-01-17] MEDS: 0.9 % SODIUM CHLORIDE 10 ML SYRINGE IV SCH ×3 (06:08→20:38)
[2020-01-17] MEDS: OPIUM/BELLADONNA ALKALOIDS 60 MG SUPP.RECT PR SCH ×3 (06:08→23:00)
[2020-01-17] MEDS ORDERED: OPIUM/BELLADONNA ALKALOIDS 60 MG SUPP.RECT PR ONE (06:11)
[2020-01-17] MEDS: OMEPRAZOLE 20 MG CAPSULE PO SCH (07:27)
[2020-01-17] MEDS ORDERED: OMEPRAZOLE 20 MG CAPSULE PO SCH (07:30)
[2020-01-17] MEDS: INSULIN LISPRO 1 UNIT/0.01 ML UNIT SQ SCH ×4 (07:34→20:38)
[2020-01-17 07:53] LABS: ALT/SGPT 17 U/L (<40); AST/SGOT 15 U/L (<40); Albumin 3.4 gm/dL (3.2-5.2); Albumin/Globulin Ratio 1.1 (1.0-2.3); Alkaline Phosphatase 92 U/L (39-117); Bilirubin,Direct < 0.2 mg/dL (<0.3); Bilirubin,Total 0.4 mg/dL (0.1-1.0); Blood Urea Nitrogen 24 mg/dL (8-23); Calcium 9.2 mg/dL (8.6-10.4); Carbon Dioxide 22 mmol/L (22-30); Chloride 104 mmol/L (96-108); Globulin 3.1 gm/dL (2.2-3.7); Glomerular Filtration Rate 43; Glucose 155 mg/dL (70-105); Lactate Dehydrogenase 162 U/L (135-225); Phosphorous 3.8 mg/dL (2.5-4.5); Triglycerides 79 mg/dL (<150); Uric Acid 6.9 mg/dL (2.5-8.0)
[2020-01-17] MEDS ORDERED: POTASSIUM CHLORIDE 10 MEQ TABLET PO SCH (08:00)
[2020-01-17 08:22] LABS: Band Neutrophils % 2 % (0-10); Eosinophils % (Manual) 1 % (0-7); Hemoglobin 11.4 g/dL (13.5-16.5); Lymphocytes % 10 % (15-49); Mean Corpuscular HGB Conc 31.7 g/dL (31.0-36.0); Mean Platelet Volume 9.3 fL (7.4-10.4); Monocytes % (Manual) 1 % (1-12); Platelet Count 404 K/mcL (140-440); Platelet Estimate NORMAL (Normal); RBC 3.75 M/mcL (4.50-5.90); RBC Morphology NORMAL (Normal); Red Cell Distribution Width 13.1 % (11.5-14.5); Segmented Neutrophils % 86 % (38-78); WBC 8.7 K/mcL (4.5-11.0)
[2020-01-17] MEDS: HEPARIN 5,000 UNIT/ML VIAL SQ SCH ×2 (08:58→20:37)
[2020-01-17] MEDS: ATORVASTATIN 40 MG TABLET PO SCH (08:59)
[2020-01-17] MEDS: TORSEMIDE 10 MG TABLET PO SCH (08:59)
[2020-01-17] MEDS: POTASSIUM CHLORIDE 10 MEQ TABLET PO SCH (08:59)
[2020-01-17] MEDS ORDERED: MULTIVIT,THER IRON,CA,FA & MIN 1 TABLET PO SCH (09:00)
[2020-01-17] MEDS ORDERED: TAMSULOSIN 0.4 MG CAPSULE PO SCH (09:00)
[2020-01-17] MEDS ORDERED: ASPIRIN 81 MG TAB.CHEW PO SCH (09:00)
[2020-01-17] MEDS ORDERED: ATORVASTATIN 40 MG TABLET PO SCH (09:00)
[2020-01-17] MEDS ORDERED: TORSEMIDE 10 MG TABLET PO SCH (09:00)
[2020-01-17] MEDS ORDERED: SPIRONOLACTONE 25 MG TABLET PO SCH (09:00)
[2020-01-17] MEDS ORDERED: INSULIN GLARGINE, HUMAN 1 UNIT/0.01 ML SQ SCH (09:00)
[2020-01-17] MEDS ORDERED: VITAMIN D3 1,000 UNIT TABLET PO SCH (09:00)
[2020-01-17] MEDS ORDERED: ESCITALOPRAM 10 MG TABLET PO SCH (09:00)
[2020-01-17] MEDS: SPIRONOLACTONE 25 MG TABLET PO SCH (09:01)
[2020-01-17] MEDS: ESCITALOPRAM 10 MG TABLET PO SCH (09:01)
[2020-01-17] MEDS: VITAMIN D3 1,000 UNIT TABLET PO SCH (09:01)
[2020-01-17] MEDS: MULTIVIT,THER IRON,CA,FA & MIN 1 TABLET PO SCH (09:01)
[2020-01-17] MEDS: TAMSULOSIN 0.4 MG CAPSULE PO SCH (09:02)
[2020-01-17] MEDS: DOCUSATE SODIUM 100 MG CAPSULE PO SCH ×2 (09:02→20:37)
[2020-01-17] MEDS: ASPIRIN 81 MG TAB.CHEW PO SCH (09:02)
[2020-01-17] MEDS: INSULIN GLARGINE, HUMAN 1 UNIT/0.01 ML SQ SCH (09:05)
[2020-01-17] MEDS: VANCOMYCIN 1,500 MG in 0.9 % SODIUM CHLORIDE 500 ML IV SCH (09:29)
--- NOTE | 2020-01-17 12:01 | Internal Med Progress Note ---
SUBJECTIVE Subjective Patient information: Note initiated : 01/17/20 at 11:59 am Service Date, if different from initiated Date: [] Patient: Fritz Esquivel 70 y/o M admitted on 01/17/20 for urethral traction injury and foreskin necrosis that became progressively worsen last night and taken for emergent debridement last night and SP tube placed. Urethral hanley left for the short term to allow drainage. patient did well overnight. Pain well controlled. Tolerating PO. no fevers, no chills. Seen by architectural engineering teacher at bedside with me to evaluate wound bed. no issues with dressing overnight Chief Complaint: [] Constitutional Vitals: Vital Signs Temp Pulse Resp BP Pulse Ox 98.2 F 89 22 110/62 96 01/17/20 08:53 01/17/20 08:53 01/17/20 08:53 01/17/20 08:53 01/17/20 08:53 Period Temp Pulse Resp BP Sys/[place] Pulse Ox Last 24 Hr 97.3 F-98.7 F 51-96 - 100-156/60-89 81-100 Intake and Output 01/16/20 01/17/20 01/17/20 21:59 05:59 13:59 Intake Total 1620 1960 1240 Output Total 1250 300 Balance 370 1660 1240 Weight 211 lb 4.8 oz Intake & Output: Intake & Output 01/16/20 01/17/20 01/17/20 21:59 05:59 13:59 Intake Total 1620 1960 1240 Output Total 1250 300 Balance 370 1660 1240 Weight 211 lb 4.8 oz Intake: IV 4935 545 5646 Sodium Chloride 0.9% 1,000 ml @ 6660 868 8962 125 mls/hr IV .Q8H [facility] Rx#: [id number] Vancomycin 1,500 mg In Sodium 500 Chloride 0.9% 500 ml @ 333.3 mls/hr IV DAILY [facility] Rx#: [id number] Oral 120 360 240 IV - Manual Only 1400 Output: Urine Catheter Amount 1250 250 Estimated Blood Loss 50 Other: Meal Breakfast Percent of Meal Consumed 100% Feeding Ability Independent Urine Appearance Clear Clear Suprapubic Hematuria Clear Uretheral ([place]) Clear Hematuria Clear Urine Color Bright Yellow Blood Tinged Suprapubic Blood Tinged Straw Uretheral (Hanley) Dark Yellow Blood Tinged Straw Urine Odor Strong Uretheral (Hanley) Strong Stool Size Small Smear Stool Color Brown Brown Stool Consistency Soft Soft # of times incontinent of 1 1 Bowels General appearance: cooperative and no acute distress Head Head exam: Present atraumatic and normocephalic Eye Eye exam: Present EOMI; Absent periorbital swelling and scleral icterus Respiratory Respiratory exam: Absent respiratory distress, stridor and wheezes Cardiovascular Cardiovascular exam: Present RRR GI/Abdominal GI/Abdominal exam: Present soft; Absent distended, firm, guarding, mass, rebound and tenderness Additional comments: SP tube draining clear yellow urine, no pain at site, mild strike through on dressing. Additional comments: Wound bed with very mild fibrinous exudate, base pink and perfused, no gross necrosis present. urethral catheter well secured and tension free OBJ DATA Labs CBC & Chem 7: 01/17/20 05:43 01/17/20 05:43 Labs: Abnormal Lab Results 01/17/20 01/17/20 01/16/20 05:43 05:43 12:20 RBC 3.75 L Hgb 11.4 L Hct 36.0 L Plt Count Lymph % (Auto) Lymph # (Auto) Seg Neutrophils % 86 H Lymphocytes % 10 L BUN 24 H 26 H Creatinine 1.6 H 1.6 H Glucose 155 H 159 H 01/16/20 12:20 RBC 4.03 L Hgb 12.2 L Hct 36.7 L Plt Count 445 H Lymph % (Auto) 12.1 L Lymph # (Auto) 1.18 L Seg Neutrophils % Lymphocytes % BUN Creatinine Glucose Meds: Medications Acetaminophen (Tylenol) 650 mg PO Q4-6HP PRN; Protocol PRN Reason: Per Pain Protocol/Fever > 101 Hydrocodone Bitart/Acetaminophen ([place] 10/325mg) 1 tab PO Q4-5HP PRN; Protocol PRN Reason: Pain Aspirin (Aspirin) 81 mg PO DAILY [facility] Last Admin: 01/17/20 09:02 Dose: 81 mg Documented by: Atorvastatin Calcium (Lipitor) 40 mg PO QDAY [facility] Last Admin: 01/17/20 08:59 Dose: 40 mg Documented by: Belladonna Alkaloids/Opium (B & O) 60 mg NH Q8 [facility] Last Admin: 01/17/20 06:08 Dose: 60 mg Documented by: Bisacodyl (Dulcolax) 10 mg NH Q2-3DAYS PRN PRN Reason: Constipation Cefepime HCl (Maxipime) 1 gm IV Q12H [facility] Last Admin: 01/17/20 03:40 Dose: Not Given Documented by: Dextrose (Dextrose 50%) 0 ml IV UD PRN PRN Reason: Hypoglycemia Diagnostic Test (Pha) (Accu-Chek) 1 each FS ACHS [facility] Last Admin: 01/17/20 11:42 Dose: 1 each Documented by: Docusate Sodium (Colace) 100 mg PO BID [facility] Last Admin: 01/17/20 09:02 Dose: Not Given Documented by: Escitalopram Oxalate (Lexapro) 5 mg PO DAILY [facility] Last Admin: 01/17/20 09:01 Dose: 5 mg Documented by: Glucose (Insta-Glucose) 15 gm PO PRN PRN PRN Reason: Hypoglycemia Heparin Sodium (Porcine) (Heparin) 5,000 unit SQ Q12 [facility] Last Admin: 01/17/20 08:58 Dose: 5,000 unit Documented by: Magnesium Sulfate (Magnesium Sulfate) 2 gm in 50 mls @ 50 mls/hr IV UD PRN PRN Reason: MG = or < 1.7 Potassium Chloride 40 meq/ (Dextrose) 520 mls @ 130 mls/hr IV UD PRN PRN Reason: K+ = or < 3.5 Sodium Chloride (Sodium Chloride 0.9%) 1,000 mls @ 125 mls/hr IV .Q8H [facility] Stop: 01/18/20 00:35 Last Admin: 01/17/20 09:21 Dose: 125 mls/hr Documented by: Acetaminophen (Ofirmev) 650 mg in 65 mls @ 130 mls/hr IV Q6HP PRN; Protocol PRN Reason: Per Pain Protocol/Fever > 101 Vancomycin HCl 1,500 mg/ (Sodium Chloride) 500 mls @ 333.3 mls/hr IV DAILY [facility] Last Admin: 01/17/20 09:29 Dose: 333.3 mls/hr Documented by: Insulin Glargine (Lantus) 65 unit SQ DAILY [facility] Last Admin: 01/17/20 09:05 Dose: 65 units Documented by: Insulin Human Lispro (Humalog) 0 unit SQ ACHS [facility]; Protocol Last Admin: 01/17/20 07:34 Dose: Not Given Documented by: Iron Carb/Multivit/[place]/Folic Acid (Multivitamin W/Minerals) 1 tab PO DAILY [facility] Last Admin: 01/17/20 09:01 Dose: 1 tab Documented by: Magnesium Hydroxide (Milk Of Magnesia) 30 ml PO HSP PRN PRN Reason: Constipation Melatonin (Melatonin 3mg Tablet) 3 mg PO HSP PRN PRN Reason: Insomnia Omeprazole (Prilosec) 40 mg PO ACB [facility] Last Admin: 01/17/20 07:27 Dose: 40 mg Documented by: Ondansetron HCl (Zofran Odt) 4 mg SL Q4-6HP PRN; Protocol PRN Reason: Nausea And Vomiting Ondansetron HCl (Zofran) 4 mg IV Q4-6HP PRN; Protocol PRN Reason: Nausea And Vomiting Dulaglutide 1.5 Mg (Subcutaneous) 1 dose SUB-Q Mo@0900 [facility] Polyethylene Glycol (Miralax) 17 gm PO DAILYP PRN PRN Reason: Constipation Potassium Chloride (Kdur) 10 meq PO QAMCC [facility] Last Admin: 01/17/20 08:59 Dose: 10 meq Documented by: Potassium Chloride (Klor-Con) 40 meq PO DAILYP PRN PRN Reason: K+ < 3.5 Senna/Docusate Sodium (Senna Plus Tablet) 1 tab PO [facility] Sodium Chloride (Saline Flush) 10 ml IV Q8 [facility] Last Admin: 01/17/20 06:08 Dose: 10 ml Documented by: Spironolactone (Aldactone) 25 mg PO QAM [facility] Last Admin: 01/17/20 09:01 Dose: 25 mg Documented by: Tamsulosin HCl (Flomax) 0.8 mg PO QDAY [facility] Last Admin: 01/17/20 09:02 Dose: 0.8 mg Documented by: Torsemide (Demadex) 40 mg PO DAILY [facility] Last Admin: 01/17/20 08:59 Dose: 40 mg Documented by: Vancomycin HCl (Vancomycin Per Pharmacy) 1 order IV [facility]; Protocol Vitamin D (Vitamin D3) 4,000 unit PO DAILY [facility] Last Admin: 01/17/20 09:01 Dose: 4,000 unit Documented by: A/P Narrative A/P Narrative: POD#1 radical debridement foreskin and SP tube placement -evaluated with wound care team -they will start dressing and skin protectant protocol -social work consult for eventual wound care needs and placement Time Spent With Patient Time: Total time spent is greater than 50% in coordination of care (as documented) at patient's floor/unit and/or counseling patient: Total time spent with greater than 50% in coordination of care (as documented) at patient's floor/unit and/or counseling patient:: less than 15 minutes QUALITY VTE Deep Vein Thrombosis/Pulmonary Embolism Present on Admission: No
--- NOTE | 2020-01-17 16:39 | Internal Med Progress Note ---
SUBJECTIVE Subjective Patient information: Note initiated : 01/17/20 at 4:36 pm Service Date, if different from initiated Date: [] Patient: Fritz Esquivel 70 y/o M admitted on 01/17/20 for wound on penis. Chief Complaint: Mr. Esquivel is a 70 year old M with a history of DM type II/HTN/recent prostate surgery treated at [place] following urine retention and obstructive uropathy/RADHA, now with indwelling Morelos's, anxiety disorder/high functioning autistic/Aspergers who resides at [facility] and was evaluated at urology office for penile ulcer. Patient was transferred to the ER for suspected wo rsening of penile meatus/ureter ulcer likely secondary to catheter eroding into the urethra. Patient does endorse to abdominal discomfort/pain and burning sensation over the last couple of days but denies fever, shaking chills, diarrhea. Initial work-up in the ER was unremarkable except for creatinine 1.6. Hospital service was consulted while patient will undergo operative intervention for peni le ulcer. At the time of my evaluation patient is alert and was able to answer most the questions. He endorsed history as above however could not provide an elaborate history and most of the information was obtained from review of medical records and ER physician and previous documentations. Denies chest pain, diarrhea, headache, photophobia, fever or shaking chills. 01/16-patient doing well. No overnight events. Postop day 1. Reviewed by urology. Continue postop care per urology. On antibiotic coverage. Continue home medications for pre-existing medical issues. No fever chills. Wound care consulted Constitutional Vitals: Vital Signs Temp Pulse Resp BP Pulse Ox 98.6 F 85 97 H 138/68 97 01/17/20 16:00 01/17/20 16:00 01/17/20 16:00 01/17/20 16:00 01/17/20 16:00 Period Temp Pulse Resp BP Sys/[place] Pulse Ox Last 24 Hr 97.3 F-98.6 F 71-96 12-97 100-156/54-89 81-100 Intake and Output 01/17/20 01/17/20 01/17/20 05:59 13:59 21:59 Intake Total 1960 1240 480 Output Total 300 Balance 1660 1240 480 alert oriented no anxiety Nonlabored breathing Morelos is draining clear urine Intake & Output: Intake & Output 01/17/20 01/17/20 01/17/20 05:59 13:59 21:59 Intake Total 1960 1240 480 Output Total 300 Balance 1660 1240 480 Intake: IV 200 1000 Sodium Chloride 0.9% 1,000 ml @ 100 1000 125 mls/hr IV .Q8H [facility] Rx#: [id number] Oral 360 240 480 IV - Manual Only 1400 Output: Urine Catheter Amount 250 Estimated Blood Loss 50 Other: Meal Breakfast Lunch Percent of Meal Consumed 100% 100% Feeding Ability Independent Independent Urine Appearance Clear Suprapubic Hematuria Clear Uretheral (Morelos) Hematuria Clear Urine Color Blood Tinged Suprapubic Blood Tinged Straw Uretheral (Morelos) Blood Tinged Straw Stool Size Small Smear Stool Color Brown Brown Stool Consistency Soft Soft # of times incontinent of 1 1 Bowels OBJ DATA Labs CBC & Chem 7: 01/17/20 05:43 01/17/20 05:43 Labs: Abnormal Lab Results 01/17/20 01/17/20 01/16/20 05:43 05:43 12:20 RBC 3.75 L Hgb 11.4 L Hct 36.0 L Plt Count Lymph % (Auto) Lymph # (Auto) Seg Neutrophils % 86 H Lymphocytes % 10 L BUN 24 H 26 H Creatinine 1.6 H 1.6 H Glucose 155 H 159 H 01/16/20 12:20 RBC 4.03 L Hgb 12.2 L Hct 36.7 L Plt Count 445 H Lymph % (Auto) 12.1 L Lymph # (Auto) 1.18 L Seg Neutrophils % Lymphocytes % BUN Creatinine Glucose Meds: Medications Acetaminophen (Tylenol) 650 mg PO Q4-6HP PRN; Protocol PRN Reason: Per Pain Protocol/Fever > 101 Hydrocodone Bitart/Acetaminophen ([place] 10/325mg) 1 tab PO Q4-5HP PRN; Protocol PRN Reason: Pain Aspirin (Aspirin) 81 mg PO DAILY [facility] Last Admin: 01/17/20 09:02 Dose: 81 mg Documented by: Atorvastatin Calcium (Lipitor) 40 mg PO QDAY [facility] Last Admin: 01/17/20 08:59 Dose: 40 mg Documented by: Belladonna Alkaloids/Opium (B & O) [address] Q8 [facility] Last Admin: 01/17/20 06:08 Dose: 60 mg Documented by: Bisacodyl (Dulcolax) [address] Q2-3DAYS PRN PRN Reason: Constipation Cefepime HCl (Maxipime) 1 gm IV Q12H [facility] Last Admin: 01/17/20 03:40 Dose: Not Given Documented by: Dextrose (Dextrose 50%) 0 ml IV UD PRN PRN Reason: Hypoglycemia Diagnostic Test (Pha) (Accu-Chek) 1 each FS ACHS [facility] Last Admin: 01/17/20 11:42 Dose: 1 each Documented by: Docusate Sodium (Colace) 100 mg PO BID [facility] Last Admin: 01/17/20 09:02 Dose: Not Given Documented by: Escitalopram Oxalate (Lexapro) 5 mg PO DAILY [facility] Last Admin: 01/17/20 09:01 Dose: 5 mg Documented by: Glucose (Insta-Glucose) 15 gm PO PRN PRN PRN Reason: Hypoglycemia Heparin Sodium (Porcine) (Heparin) 5,000 unit SQ Q12 [facility] Last Admin: 01/17/20 08:58 Dose: 5,000 unit Documented by: Magnesium Sulfate (Magnesium Sulfate) 2 gm in 50 mls @ 50 mls/hr IV UD PRN PRN Reason: MG = or < 1.7 Potassium Chloride 40 meq/ (Dextrose) 520 mls @ 130 mls/hr IV UD PRN PRN Reason: K+ = or < 3.5 Sodium Chloride (Sodium Chloride 0.9%) 1,000 mls @ 125 mls/hr IV .Q8H [facility] Stop: 01/18/20 00:35 Last Admin: 01/17/20 09:21 Dose: 125 mls/hr Documented by: Acetaminophen (Ofirmev) 650 mg in 65 mls @ 130 mls/hr IV Q6HP PRN; Protocol PRN Reason: Per Pain Protocol/Fever > 101 Vancomycin HCl 1,500 mg/ (Sodium Chloride) 500 mls @ 333.3 mls/hr IV DAILY [facility] Last Admin: 01/17/20 09:29 Dose: 333.3 mls/hr Documented by: Insulin Glargine (Lantus) 65 unit SQ DAILY [facility] Last Admin: 01/17/20 09:05 Dose: 65 units Documented by: Insulin Human Lispro (Humalog) 0 unit SQ ACHS [facility]; Protocol Last Admin: 01/17/20 12:16 Dose: 2 units Documented by: Iron Carb/Multivit/[place]/Folic Acid (Multivitamin W/Minerals) 1 tab PO DAILY [facility] Last Admin: 01/17/20 09:01 Dose: 1 tab Documented by: Magnesium Hydroxide (Milk Of Magnesia) 30 ml PO HSP PRN PRN Reason: Constipation Melatonin (Melatonin 3mg Tablet) 3 mg PO HSP PRN PRN Reason: Insomnia Mupirocin (Bactroban Oint 2%) 1 dose NARES BID [facility] Omeprazole (Prilosec) 40 mg PO ACB [facility] Last Admin: 01/17/20 07:27 Dose: 40 mg Documented by: Ondansetron HCl (Zofran Odt) 4 mg SL Q4-6HP PRN; Protocol PRN Reason: Nausea And Vomiting Ondansetron HCl (Zofran) 4 mg IV Q4-6HP PRN; Protocol PRN Reason: Nausea And Vomiting Dulaglutide 1.5 Mg (Subcutaneous) 1 dose SUB-Q Mo@0900 [facility] Polyethylene Glycol (Miralax) 17 gm PO DAILYP PRN PRN Reason: Constipation Potassium Chloride (Kdur) 10 meq PO QAMCC [facility] Last Admin: 01/17/20 08:59 Dose: 10 meq Documented by: Potassium Chloride (Klor-Con) 40 meq PO DAILYP PRN PRN Reason: K+ < 3.5 Senna/Docusate Sodium (Senna Plus Tablet) 1 tab PO HS [facility] Sodium Chloride (Saline Flush) 10 ml IV Q8 [facility] Last Admin: 01/17/20 06:08 Dose: 10 ml Documented by: Spironolactone (Aldactone) 25 mg PO QAM [facility] Last Admin: 01/17/20 09:01 Dose: 25 mg Documented by: Tamsulosin HCl (Flomax) 0.8 mg PO QDAY [facility] Last Admin: 01/17/20 09:02 Dose: 0.8 mg Documented by: Torsemide (Demadex) 40 mg PO DAILY [facility] Last Admin: 01/17/20 08:59 Dose: 40 mg Documented by: Vancomycin HCl (Vancomycin Per Pharmacy) 1 order IV UD [facility]; Protocol Vitamin D (Vitamin D3) 4,000 unit PO DAILY [facility] Last Admin: 01/17/20 09:01 Dose: 4,000 unit Documented by: A/P Narrative A/P Narrative: * Penile ulcer -postop day 1. Managed per urology * Postsurgical wound continue management per wound care Dr. Phan Hospitalist consult for management of medical issues as below * CKD stage IIIb, stable. Avoid nephrotoxins * DM type II continue basal panel insulin * Hyperlipidemia continue statin * Anxiety disorder stable on home dose Lexapro * Hypertension continue spironolactone * urine retention continue BPH * GERD continue PPI * History Asperger's/autism high functioning. Continue directed therapies * prophylaxis heparin Plan * Postop care per urology * Wound care per Dr. Phan * Continue antibiotic coverage * Pre-existing medical condition management as above * PT OT nutrition support * Discharge planning per case management likely SNF Time Spent With Patient Time: Total time spent is greater than 50% in coordination of care (as documented) at patient's floor/unit and/or counseling patient: QUALITY VTE Deep Vein Thrombosis/Pulmonary Embolism Present on Admission: No
[2020-01-17] MEDS: MUPIROCIN OINT 2% 22GM NARES SCH (20:37)
[2020-01-17] MEDS: SENNOSIDES/DOCUSATE SODIUM 1 TAB TABLET PO SCH (20:37)
[2020-01-18] MEDS: CEFEPIME 1 GM VIAL IV SCH ×2 (03:46→16:28)
[2020-01-18] MEDS: 0.9 % SODIUM CHLORIDE 10 ML SYRINGE IV SCH ×2 (05:53→16:28)
[2020-01-18] MEDS: OPIUM/BELLADONNA ALKALOIDS 60 MG SUPP.RECT PR SCH ×3 (05:54→23:20)
--- NOTE | 2020-01-18 06:24 | XRay Report ---
INDICATION: Interval Change. Altered mental status TECHNIQUE: AP portable upright chest x-ray COMPARISON: None FINDINGS: Lungs:Lungs are negative. No focal pulmonary parenchymal infiltrate or mass Heart, vascular:No significant cardiomegaly. Pulmonary vascularity is normal. No pulmonary edema or pulmonary congestion Mediastinum, destiny:No mediastinal widening. No hilar mass Pleura:No pleural fluid. No pleural-based mass or calcification Skeletal:Negative. IMPRESSION: Negative AP chest six Interpreted and Authenticated by: Lauro Mary 01/18/20
[2020-01-18] MEDS: INSULIN LISPRO 1 UNIT/0.01 ML UNIT SQ SCH ×4 (07:17→21:35)
[2020-01-18 07:21] LABS: ALT/SGPT 14 U/L (<40); AST/SGOT 15 U/L (<40); Albumin 2.9 gm/dL (3.2-5.2); Alkaline Phosphatase 75 U/L (39-117); Bilirubin,Direct < 0.2 mg/dL (<0.3); Bilirubin,Total 0.2 mg/dL (0.1-1.0); Blood Urea Nitrogen 25 mg/dL (8-23); Calcium 8.8 mg/dL (8.6-10.4); Carbon Dioxide 24 mmol/L (22-30); Chloride 103 mmol/L (96-108); Globulin 2.8 gm/dL (2.2-3.7); Glomerular Filtration Rate 47; Glucose 101 mg/dL (70-105); Lactate Dehydrogenase 145 U/L (135-225); Phosphorous 3.3 mg/dL (2.5-4.5); Triglycerides 90 mg/dL (<150); Uric Acid 6.8 mg/dL (2.5-8.0)
[2020-01-18 08:14] LABS: Basophils # (Auto) 0.04 K/mcL (0.00-0.20); Basophils % (Auto) 0.4 % (0.0-2.0); Eosinophils # (Auto) 0.09 K/mcL (0.00-0.70); Hematocrit 31.5 % (41.0-55.0); Hemoglobin 10.1 g/dL (13.5-16.5); Lymphocytes # (Auto) 1.39 K/mcL (1.50-4.80); Lymphocytes % (Auto) 15.1 % (15.0-49.0); Mean Cell Volume 95.2 fL (80.0-100.0); Mean Corpuscular HGB Conc 32.1 g/dL (31.0-36.0); Mean Platelet Volume 10.6 fL (7.4-10.4); Monocytes # (Auto) 0.79 K/mcL (0.10-0.90); Monocytes % (Auto) 8.6 % (1.0-12.0); Neutrophils % (Auto) 74.9 % (38.0-78.0); Platelet Count 291 K/mcL (140-440); RBC 3.31 M/mcL (4.50-5.90); Red Cell Distribution Width 13.3 % (11.5-14.5); WBC 9.2 K/mcL (4.5-11.0)
[2020-01-18] MEDS: POTASSIUM CHLORIDE 10 MEQ TABLET PO SCH (08:16)
[2020-01-18] MEDS: MULTIVIT,THER IRON,CA,FA & MIN 1 TABLET PO SCH (08:16)
[2020-01-18] MEDS: ESCITALOPRAM 10 MG TABLET PO SCH (08:16)
[2020-01-18] MEDS: TAMSULOSIN 0.4 MG CAPSULE PO SCH (08:17)
[2020-01-18] MEDS: SPIRONOLACTONE 25 MG TABLET PO SCH (08:17)
[2020-01-18] MEDS: TORSEMIDE 10 MG TABLET PO SCH (08:18)
[2020-01-18] MEDS: ATORVASTATIN 40 MG TABLET PO SCH (08:18)
[2020-01-18] MEDS: VITAMIN D3 1,000 UNIT TABLET PO SCH (08:19)
[2020-01-18] MEDS: ASPIRIN 81 MG TAB.CHEW PO SCH (08:20)
[2020-01-18] MEDS: OMEPRAZOLE 20 MG CAPSULE PO SCH (08:20)
[2020-01-18] MEDS: MUPIROCIN OINT 2% 22GM NARES SCH ×2 (08:21→21:48)
[2020-01-18] MEDS: DOCUSATE SODIUM 100 MG CAPSULE PO SCH ×2 (08:22→21:51)
[2020-01-18] MEDS: HEPARIN 5,000 UNIT/ML VIAL SQ SCH ×2 (08:22→21:48)
[2020-01-18] MEDS: INSULIN GLARGINE, HUMAN 1 UNIT/0.01 ML SQ SCH (08:22)
--- NOTE | 2020-01-18 09:05 | Internal Med Progress Note ---
SUBJECTIVE Subjective Patient information: 01/17Note initiated : 01/18/20 at 9:02 am Service Date, if different from initiated Date: [] Patient: Fritz Esquivel 70 y/o M admitted on 01/17/20 for wound on penis. Chief Complaint: Mr. Esquivel is a 70 year old M with a history of DM type II/HTN/recent prostate surgery treated at [place] following urine retention and obstructive uropathy/RADHA, now with indwelling Morelos's, anxiety disorder/high functioning autistic/Aspergers who resides at [facility] and was evaluated at urology office for penile ulcer. Patient was transferred to the ER for suspected worsening of penile meatus/ureter ulcer likely secondary to catheter eroding into the urethra. Patient does endorse to abdominal discomfort/pain and burning sensation over the last couple of days but denies fever, shaking chills, diarrhea. Initial work-up in the ER was unremarkable except for creatinine 1.6. Hospital service was consulted while patient will undergo operative intervention for penile ulcer. At the time of my evaluation patient is alert and was able to answer most the questions. He endorsed history as above however could not provide an elaborate history and most of the information was obtained from review of medical records and ER physician and previous documentations. Denies chest pain, diarrhea, headache, photophobia, fever or shaking chills. 01/16-patient doing well. No overnight events. Postop day 1. Reviewed by urology. Continue postop care per urology. On antibiotic coverage. Continue home medications for pre-existing medical issues. No fever chills. Wound care consulted 01/17-Patient doing well. No overnight events. Suprapubic catheter in place. No hematuria. Denies abdominal discomfort. Case management coordinating SNF transfer. Ongoing postoperative care per urology. Stable hemodynamics and labs. Creatinine baseline 1.5. Constitutional Vitals: Vital Signs Temp Pulse Resp BP Pulse Ox 97.2 F 86 20 124/86 95 01/18/20 06:56 01/18/20 06:56 01/18/20 06:56 01/18/20 06:56 01/18/20 06:56 Period Temp Pulse Resp BP Sys/[place]gl[place] Pulse Ox Last 24 Hr 97.2 F-98.7 F 69-86 16-97 107-138/54-86 93-97 Intake and Output 01/17/20 01/18/20 01/18/20 21:59 05:59 13:59 Intake Total 1480 120 200 Output Total 925 2475 Balance 555 -3433 200 Weight 97.976 kg No anxiety Nonlabored breathing suprapubic catheter Nondistended abdomen Intake & Output: Intake & Output 01/17/20 01/18/20 01/18/20 21:59 05:59 13:59 Intake Total 1480 120 200 Output Total 925 6832 Balance 555 -1790 200 Weight 97.976 kg Intake: IV 1000 Sodium Chloride 0.9% 1,000 ml @ 1000 125 mls/hr IV .Q8H [facility] Rx#: [id number] Oral 480 120 200 Output: Urine Catheter Amount 921 2083 Other: Meal Lunch Breakfast Percent of Meal Consumed 100% 100% Feeding Ability Independent Independent Urine Appearance Clear Clear Clear Suprapubic Clear Clear Clear Uretheral (Morelos) Clear Clear Urine Color Pale Pale Pale Suprapubic Pale Pale Pale Uretheral (Morelos) Pale Pale Urine Odor Normal Stool Size Small Smear Stool Color Brown Brown Stool Consistency Soft Soft # of times incontinent of 1 Bowels OBJ DATA Labs CBC & Chem 7: 01/18/20 05:23 01/18/20 05:22 Labs: Abnormal Lab Results 01/18/20 01/18/20 01/17/20 05:23 05:22 05:43 RBC 3.31 L 3.75 L Hgb 10.1 L 11.4 L Hct 31.5 L 36.0 L Plt Count MPV 10.6 H Lymph % (Auto) Lymph # (Auto) 1.39 L Seg Neutrophils % 86 H Lymphocytes % 10 L BUN 25 H Creatinine 1.5 H Glucose Total Protein 5.7 L Albumin 2.9 L 01/17/20 01/16/20 01/16/20 05:43 12:20 12:20 RBC 4.03 L Hgb 12.2 L Hct 36.7 L Plt Count 445 H MPV Lymph % (Auto) 12.1 L Lymph # (Auto) 1.18 L Seg Neutrophils % Lymphocytes % BUN 24 H 26 H Creatinine 1.6 H 1.6 H Glucose 155 H 159 H Total Protein Albumin Meds: Medications Acetaminophen (Tylenol) 650 mg PO Q4-6HP PRN; Protocol PRN Reason: Per Pain Protocol/Fever > 101 Hydrocodone Bitart/Acetaminophen ([place] 10/325mg) 1 tab PO Q4-5HP PRN; Protocol PRN Reason: Pain Aspirin (Aspirin) 81 mg PO DAILY [facility] Last Admin: 01/18/20 08:20 Dose: 81 mg Documented by: Atorvastatin Calcium (Lipitor) 40 mg PO QDAY [facility] Last Admin: 01/18/20 08:18 Dose: 40 mg Documented by: Belladonna Alkaloids/Opium (B & O) 60 mg PA Q8 [facility] Last Admin: 01/18/20 05:54 Dose: 60 mg Documented by: Bisacodyl (Dulcolax) 10 mg PA Q2-3DAYS PRN PRN Reason: Constipation Cefepime HCl (Maxipime) 1 gm IV Q12H [facility] Last Admin: 01/18/20 03:46 Dose: 1 gm Documented by: Dextrose (Dextrose 50%) 0 ml IV UD PRN PRN Reason: Hypoglycemia Diagnostic Test (Pha) (Accu-Chek) 1 each FS ACHS [facility] Last Admin: 01/18/20 07:17 Dose: 1 each Documented by: Docusate Sodium (Colace) 100 mg PO BID [facility] Last Admin: 01/18/20 08:22 Dose: Not Given Documented by: Escitalopram Oxalate (Lexapro) 5 mg PO DAILY [facility] Last Admin: 01/18/20 08:16 Dose: 5 mg Documented by: Glucose (Insta-Glucose) 15 gm PO PRN PRN PRN Reason: Hypoglycemia Heparin Sodium (Porcine) (Heparin) 5,000 unit SQ Q12 [facility] Last Admin: 01/18/20 08:22 Dose: 5,000 unit Documented by: Magnesium Sulfate (Magnesium Sulfate) 2 gm in 50 mls @ 50 mls/hr IV UD PRN PRN Reason: MG = or < 1.7 Potassium Chloride 40 meq/ (Dextrose) 520 mls @ 130 mls/hr IV UD PRN PRN Reason: K+ = or < 3.5 Acetaminophen (Ofirmev) 650 mg in 65 mls @ 130 mls/hr IV Q6HP PRN; Protocol PRN Reason: Per Pain Protocol/Fever > 101 Vancomycin HCl 1,500 mg/ (Sodium Chloride) 500 mls @ 333.3 mls/hr IV DAILY [facility] Last Infusion: 01/17/20 11:00 Dose: Infused Documented by: Insulin Glargine (Lantus) 65 unit SQ DAILY [facility] Last Admin: 01/18/20 08:22 Dose: 65 units Documented by: Insulin Human Lispro (Humalog) 0 unit SQ [facility]; Protocol Last Admin: 01/18/20 07:17 Dose: Not Given Documented by: Iron Carb/Multivit/[place]/Folic Acid (Multivitamin W/Minerals) 1 tab PO DAILY [facility] Last Admin: 01/18/20 08:16 Dose: 1 tab Documented by: Magnesium Hydroxide (Milk Of Magnesia) 30 ml PO HSP PRN PRN Reason: Constipation Melatonin (Melatonin 3mg Tablet) 3 mg PO HSP PRN PRN Reason: Insomnia Mupirocin (Bactroban Oint 2%) 1 dose NARES BID [facility] Last Admin: 01/18/20 08:21 Dose: 1 dose Documented by: Omeprazole (Prilosec) 40 mg PO ACB [facility] Last Admin: 01/18/20 08:20 Dose: 40 mg Documented by: Ondansetron HCl (Zofran Odt) 4 mg SL Q4-6HP PRN; Protocol PRN Reason: Nausea And Vomiting Ondansetron HCl (Zofran) 4 mg IV Q4-6HP PRN; Protocol PRN Reason: Nausea And Vomiting Dulaglutide 1.5 Mg (Subcutaneous) 1 dose SUB-Q Mo@0900 [facility] Polyethylene Glycol (Miralax) 17 gm PO DAILYP PRN PRN Reason: Constipation Potassium Chloride (Kdur) 10 meq PO QAMCC [facility] Last Admin: 01/18/20 08:16 Dose: 10 meq Documented by: Potassium Chloride (Klor-Con) 40 meq PO DAILYP PRN PRN Reason: K+ < 3.5 Senna/Docusate Sodium (Senna Plus Tablet) 1 tab PO HS [facility] Last Admin: 01/17/20 20:37 Dose: 1 tab Documented by: Sodium Chloride (Saline Flush) 10 ml IV Q8 [facility] Last Admin: 01/18/20 05:53 Dose: 10 ml Documented by: Spironolactone (Aldactone) 25 mg PO QAM [facility] Last Admin: 01/18/20 08:17 Dose: 25 mg Documented by: Tamsulosin HCl (Flomax) 0.8 mg PO QDAY [facility] Last Admin: 01/18/20 08:17 Dose: 0.8 mg Documented by: Torsemide (Demadex) 40 mg PO DAILY [facility] Last Admin: 01/18/20 08:18 Dose: 40 mg Documented by: Vancomycin HCl (Vancomycin Per Pharmacy) 1 order IV UD [facility]; Protocol Vitamin D (Vitamin D3) 4,000 unit PO DAILY [facility] Last Admin: 01/18/20 08:19 Dose: 4,000 unit Documented by: A/P Narrative A/P Narrative: * Penile ulcer -postop day 2. Managed per urology. Suprapubic catheter in place * Postsurgical wound continue management per wound care Dr. Juárez Hospitalist consult for management of medical issues as below * CKD stage IIIb, stable. Creatinine 1.5 * DM type II well controlled on basal prandial insulin. A.m. blood sugar 101 * Hyperlipidemia continue statin * Anxiety disorder stable on home dose Lexapro * Hypertension continue spironolactone * urine retention continue BPH * GERD continue PPI * History Asperger's/autism high functioning at baseline. Continue directed therapies * prophylaxis heparin Plan * Continue postop care per urology * Wound care per Dr. Juárez * Continue antibiotic coverage * Pre-existing medical condition management as above * PT OT nutrition support * SNF transfer coordination per case management Time Spent With Patient Time: Total time spent is greater than 50% in coordination of care (as documented) at patient's floor/unit and/or counseling patient: QUALITY VTE Deep Vein Thrombosis/Pulmonary Embolism Present on Admission: No
[2020-01-18] MEDS: VANCOMYCIN 1,500 MG in 0.9 % SODIUM CHLORIDE 500 ML IV SCH (10:28)
[2020-01-18] MEDS: VANCOMYCIN 1,000 MG in 0.9 % SODIUM CHLORIDE 250 ML IV SCH (10:42)
[2020-01-18] MEDS: ACETAMINOPHEN 325 MG TABLET PO PRN ×2 (11:50→19:36)
--- NOTE | 2020-01-18 13:25 | General Surgery Consult Note ---
HPI Data of Consult Primary Care Provider: LAURIE Evans Consult Narrative Patient Information: Note initiated : 01/18/20 at 1:12 pm Service Date, if different from initiated Date: [] Patient: Fritz Esquivel 70 y/o M admitted on 01/17/20 for wound on penis. Chief Complaint: [] cc:: CC: Juan Diop Encounter Note: I saw this gentleman along with Valerie NAVA. Subsequently discussed his care with treating urologist Dr. Nadia Wren. This 70 year old gentleman underwent Urological surgical procedures for urethral scarring and trauma following a prostatectomy procedure in past. He needed a Penile catheter insertion after glide wire manipulation and cystoscopy. Additionally he underwent a suprapubic catheter placement as well. He tolerated these procedures and recovered well. O/E WBWN gentleman in no distress. AVSS. HD Stable. Unremarkable GEMINI. L/E. Soft abdomen. SP catheter functioning well. Clear urine. Penile Red Catheter for stenting urethral passage. NO signs of acute infection or inflammation. Assessment: Successful catheterization of penile urethra and SP catheter placement. Satisfactory post surgical progress and wound healing. Plan: Wound care as discussed with Valerie NAVA. Anticipate removal of urethral catheter later. Supra Pubic catheter to stay. Will see patient intermittently, whilst still hospitalized OR F/U at wound care center after discharge. Thanks for the courtesy of this consult. PFSH PFSH All Active Problems Necrosis (Acute) Urethral erosion by catheter (Acute) Hydronephrosis (Acute) Balanitis (Acute) Cellulitis (Acute) Elevated serum creatinine (Acute) Localized edema due to fluid overload (Chronic) Secondary hyperparathyroidism of renal origin (Chronic) Vitamin D deficiency (Chronic) Anemia in stage 3 chronic kidney disease (Chronic) 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) Acute on chronic renal failure (Acute) Bladder mass (Acute) Status post insertion of Morelos catheter (Chronic) GERD (gastroesophageal reflux disease) (Chronic) Benign prostatic hyperplasia (Chronic) Edema (Chronic) Weakness (Chronic) Bilateral hydronephrosis (Chronic) Leukocytosis (Chronic) Hypoglycemia (Chronic) Obstructive uropathy (Chronic) Acute renal failure (Chronic) Morelos catheter in place (Chronic) Urinary retention (Chronic) Poor hygiene (Chronic) Knee pain (Chronic) Fatigue (Chronic) Hypertension (Chronic) Gout (Chronic) Elevated liver enzymes (Chronic) Mentally challenged (Chronic) Diabetes (Chronic) Arthritis (Chronic) Anxiety (Chronic) Bronchitis (Chronic) Asthma (Chronic) Shortness of breath (Chronic) Chronic kidney disease, stage 3 (Chronic) Medical History Acute renal failure (Chronic) Anxiety (Chronic) Arthritis (Chronic) Asthma (Chronic) Benign prostatic hyperplasia (Chronic) Bilateral hydronephrosis (Chronic) Bronchitis (Chronic) Chronic kidney disease, stage 3 (Chronic) Diabetes (Chronic) Edema (Chronic) Elevated liver enzymes (Chronic) Fatigue (Chronic) Morelos catheter in place (Chronic) GERD (gastroesophageal reflux disease) (Chronic) Gout (Chronic) Hypertension (Chronic) Hypoglycemia (Chronic) Knee pain (Chronic) Leukocytosis (Chronic) Mentally challenged (Chronic) Obstructive uropathy (Chronic) Poor hygiene (Chronic) Shortness of breath (Chronic) Urinary retention (Chronic) Weakness (Chronic) Surgical History History of colonoscopy (Chronic) Dr. Guevara Status post insertion of Morelos catheter (Chronic) Family History Mother Diabetes Father Heart disease Social History caregiver/support person: Yes household members: alone marital status: single education level: high school smoking status: Never smoker alcohol intake frequency: does not drink substance use type: does not use MEDS/ALLERGIES Home Medications and Allergies Home Medications Medication Instructions Recorded Confirmed Type Estevan countor next test in vitro #1 ea 12/27/17 01/16/20 History strip pen needle, diabetic 32 gauge x #50 each 12/27/17 01/16/20 History 1/4" spironolactone 25 mg tablet 25 mg PO QAM tab 12/27/17 01/16/20 History omeprazole 20 mg capsule,delayed 40 mg PO QDAY cap 12/28/17 01/16/20 History release insulin glargine 100 unit/mL (3 65 unit SUB-Q QDAY ml 04/24/19 01/16/20 History mL) subcutaneous pen cholecalciferol (vitamin D3) 100 4,000 unit PO QDAY #90 tab 04/27/19 01/16/20 Rx mcg (4,000 unit) tablet potassium chloride 10 mEq 10 meq PO QDAY #30 tab 08/06/19 01/16/20 Rx tablet,extended release(part/cryst) atorvastatin 40 mg tablet 40 mg PO QDAY #30 tab 08/13/19 01/16/20 Rx dulaglutide 0.75 mg/0.5 mL 1.5 mg SUB-Q QWEEK 09/06/19 01/16/20 History subcutaneous pen injector tamsulosin 0.4 mg capsule 0.8 mg PO QDAY cap 09/11/19 01/16/20 History torsemide 20 mg tablet 40 mg PO QDAY tab 09/11/19 01/16/20 History acetaminophen 325 mg capsule 650 mg PO Q4H PRN 10/29/19 01/16/20 History aspirin 81 mg tablet,delayed 81 mg PO QDAY 10/29/19 01/16/20 History release bethanechol chloride 50 mg tablet 50 mg PO BID 10/29/19 01/16/20 History ferrous sulfate 325 mg (65 mg 325 mg PO QDAY 10/29/19 01/16/20 History iron) tablet fexofenadine 180 mg tablet 180 mg PO Q24H 10/29/19 01/16/20 History hydrocodone 10 mg-acetaminophen 1 tab PO Q4 PRN tab 10/29/19 01/16/20 History 325 mg tablet escitalopram oxalate 5 mg tablet 5 mg PO QDAY 11/28/19 01/16/20 History Adult Probiotic 100 mg BID 01/16/20 01/16/20 History cholecalciferol (vitamin D3) 50,000 units WEEKLY 01/16/20 01/16/20 History doxycycline hyclate 100 mg BID 01/16/20 01/16/20 History insulin lispro See Rx Instructions .ROUTE .COMPLEX 01/16/20 01/16/20 History Allergies Allergy/AdvReac Type Severity Reaction Status Date / Time piperacillin [From Zosyn] Allergy Mild Rash Verified 01/16/20 13:39 tazobactam [From Zosyn] Allergy Mild Rash Verified 01/16/20 13:39 Sulfa (Sulfonamide Allergy Unknown Unknown Verified 01/17/20 07:07 Antibiotics) Physical Examination Vital Signs Vital signs: Temp Pulse Resp BP Pulse Ox 97.7 F 63 18 118/82 94 01/18/20 12:00 01/18/20 12:00 01/18/20 12:00 01/18/20 12:00 01/18/20 12:00 Results Labs Result diagrams: 01/18/20 05:23 01/18/20 05:22 Labs: Abnormal lab results 01/18/20 01/18/20 Range/Units 05:22 05:23 RBC 3.31 L (4.50-5.90) M/mcL Hgb 10.1 L (13.5-16.5) g/dL Hct 31.5 L (41.0-55.0) % MPV 10.6 H (7.4-10.4) fL Lymph # (Auto) 1.39 L (1.50-4.80) K/mcL BUN 25 H (8-23) mg/dL Creatinine 1.5 H (0.7-1.2) mg/dL Total Protein 5.7 L (5.9-8.4) gm/dL Albumin 2.9 L (3.2-5.2) gm/dL Diabetes panel 01/18/20 Range/Units 05:22 Sodium 137 (133-145) mmol/L Potassium 4.2 (3.3-5.1) mmol/L Chloride 103 (96-108) mmol/L Carbon Dioxide 24 (22-30) mmol/L BUN 25 H (8-23) mg/dL Creatinine 1.5 H (0.7-1.2) mg/dL Glucose 101 (70-105) mg/dL Calcium 8.8 (8.6-10.4) mg/dL AST 15 (<40) U/L ALT 14 (<40) U/L Alkaline Phosphatase 75 (39-117) U/L Total Protein 5.7 L (5.9-8.4) gm/dL Albumin 2.9 L (3.2-5.2) gm/dL Triglycerides 90 (<150) mg/dL Calcium panel 01/18/20 Range/Units 05:22 Calcium 8.8 (8.6-10.4) mg/dL Phosphorus 3.3 (2.5-4.5) mg/dL Albumin 2.9 L (3.2-5.2) gm/dL Pituitary panel 01/18/20 Range/Units 05:22 Sodium 137 (133-145) mmol/L Potassium 4.2 (3.3-5.1) mmol/L Chloride 103 (96-108) mmol/L Carbon Dioxide 24 (22-30) mmol/L BUN 25 H (8-23) mg/dL Creatinine 1.5 H (0.7-1.2) mg/dL Glucose 101 (70-105) mg/dL Calcium 8.8 (8.6-10.4) mg/dL Adrenal panel 01/18/20 Range/Units 05:22 Sodium 137 (133-145) mmol/L Potassium 4.2 (3.3-5.1) mmol/L Chloride 103 (96-108) mmol/L Carbon Dioxide 24 (22-30) mmol/L BUN 25 H (8-23) mg/dL Creatinine 1.5 H (0.7-1.2) mg/dL Glucose 101 (70-105) mg/dL Calcium 8.8 (8.6-10.4) mg/dL Total Bilirubin 0.2 (0.1-1.0) mg/dL AST 15 (<40) U/L ALT 14 (<40) U/L Alkaline Phosphatase 75 (39-117) U/L Total Protein 5.7 L (5.9-8.4) gm/dL Albumin 2.9 L (3.2-5.2) gm/dL All other labs normal. A/P Time Spent With Patient Time: Total time spent is greater than 50% in coordination of care (as documented) at patient's floor/unit and/or counseling patient:
--- NOTE | 2020-01-18 13:42 | Surgical Pathology Report ---
Histology Microscopic Diagnosis Specimen A- PENIS, FORESKIN, EXCISION: -- ULCERATION AND NECROSIS WITH ACUTE/CHRONIC INFLAMMATION. -- NO DYSPLASIA OR MALIGNANCY IDENTIFIED. (RLF:sln) Gross Description Received in formalin labeled penis biopsy, is a 3.1 x 2.3 x 0.9 cm wrinkled portion of sharma skin. On the skin surface there is a 2.5 x 1 cm discolored woodard-sharma to red-brown area. The margin is inked black. Sectioned, totally submitted - four cassettes with the tips in A1. (KGW:sln) Electronically Signed Janet Escalera MD, FCAP Electronically Signed 01/18/2020 1:39 PM
[2020-01-18] MEDS: SENNOSIDES/DOCUSATE SODIUM 1 TAB TABLET PO SCH (22:09)
[2020-01-19] MEDS: 0.9 % SODIUM CHLORIDE 10 ML SYRINGE IV SCH ×4 (00:32→23:55)
[2020-01-19] MEDS: ACETAMINOPHEN 325 MG TABLET PO PRN (02:41)
[2020-01-19] MEDS: CEFEPIME 1 GM VIAL IV SCH ×2 (04:27→15:51)
[2020-01-19] MEDS: HYDROcodone/APAP 10/325MG TABLET PO PRN ×2 (04:48→20:17)
[2020-01-19] MEDS: OPIUM/BELLADONNA ALKALOIDS 60 MG SUPP.RECT PR SCH ×3 (05:37→21:15)
[2020-01-19 07:01] LABS: Basophils # (Auto) 0.05 K/mcL (0.00-0.20); Basophils % (Auto) 0.7 % (0.0-2.0); Eosinophils # (Auto) 0.44 K/mcL (0.00-0.70); Eosinophils % (Auto) 5.8 % (0.0-7.0); Hematocrit 34.7 % (41.0-55.0); Lymphocytes # (Auto) 1.66 K/mcL (1.50-4.80); Lymphocytes % (Auto) 21.9 % (15.0-49.0); Mean Cell Volume 95.3 fL (80.0-100.0); Mean Corpuscular HGB Conc 31.7 g/dL (31.0-36.0); Mean Platelet Volume 9.7 fL (7.4-10.4); Monocytes # (Auto) 0.72 K/mcL (0.10-0.90); Monocytes % (Auto) 9.5 % (1.0-12.0); Neutrophils % (Auto) 62.1 % (38.0-78.0); Platelet Count 408 K/mcL (140-440); RBC 3.64 M/mcL (4.50-5.90); Red Cell Distribution Width 13.3 % (11.5-14.5); WBC 7.6 K/mcL (4.5-11.0)
[2020-01-19 08:16] LABS: ALT/SGPT 25 U/L (<40); AST/SGOT 25 U/L (<40); Alkaline Phosphatase 79 U/L (39-117); Bilirubin,Direct < 0.2 mg/dL (<0.3); Bilirubin,Total < 0.2 mg/dL (0.1-1.0); Blood Urea Nitrogen 26 mg/dL (8-23); Calcium 9.3 mg/dL (8.6-10.4); Carbon Dioxide 27 mmol/L (22-30); Chloride 103 mmol/L (96-108); Globulin 3.1 gm/dL (2.2-3.7); Glomerular Filtration Rate 51; Glucose 90 mg/dL (70-105); Lactate Dehydrogenase 148 U/L (135-225); Triglycerides 148 mg/dL (<150)
--- NOTE | 2020-01-19 08:58 | Internal Med Progress Note ---
SUBJECTIVE Subjective Patient information: Note initiated : 01/19/20 at 8:55 am Service Date, if different from initiated Date: [] Patient: Fritz Esquivel 70 y/o M admitted on 01/17/20 for wound on penis. Chief Complaint: [] Interval history: Mr. Esquivel is a 70 year old M with a history of DM type II/HTN/recent prostate surgery treated at [place] following urine retention and obstructive uropathy/RADHA, now with indwelling Morelos's, anxiety disorder/high functioning autistic/Aspergers who resides at [facility] and was evaluated at urology office for penile ulcer. Patient was transferred to the ER for suspected worsening of penile meatus/ureter ulcer likely secondary to catheter eroding into the urethra. Patient does endorse to abdominal discomfort/pain and burning sensation over the last couple of days but denies fever, shaking chills, diarrhea. Initial work-up in the ER was unremarkable except for creatinine 1.6. Hospital service was consulted while patient will undergo operative intervention for penile ulcer. At the time of my evaluation patient is alert and was able to answer most the questions. He endorsed history as above however could not provide an elaborate history and most of the information was obtained from review of medical records and ER physician and previous documentations. Denies chest pain, diarrhea, headache, photophobia, fever or shaking chills. 01/16-patient doing well. No overnight events. Postop day 1. Reviewed by urology. Continue postop care per urology. On antibiotic coverage. Continue home medications for pre-existing medical issues. No fever chills. Wound care consulted 01/17-Patient doing well. No overnight events. Suprapubic catheter in place. No hematuria. Denies abdominal discomfort. Case management coordinating SNF transfer. Ongoing postoperative care per urology. Stable hemodynamics and labs. Creatinine baseline 1.5. 01/18-patient doing well. No overnight events. No active concerns per nursing staff. Suprapubic catheter draining clear urine. Ongoing care per wound physician Dr. Juárez and Dr. Balderas urology. White count 7.6, hemoglobin 11, creatinine 1.4, stable hemodynamics. Constitutional Vitals: Vital Signs Temp Pulse Resp BP Pulse Ox 97.9 F 76 18 118/78 97 01/19/20 06:51 01/19/20 06:51 01/19/20 06:51 01/19/20 06:51 01/19/20 06:51 Period Temp Pulse Resp BP Sys/Anglin Pulse Ox Last 24 Hr 97.7 F-98.5 F 63-76 99-118/62-82 94-97 Intake and Output 01/18/20 01/19/20 01/19/20 21:59 05:59 13:59 Intake Total 480 745 Output Total 950 475 Balance -470 270 Weight 96.751 kg Pleasant elderly No anxiety Suprapubic cath draining clear urine Intake & Output: Intake & Output 01/18/20 01/19/20 01/19/20 21:59 05:59 13:59 Intake Total 480 745 Output Total 950 475 Balance -470 270 Weight 96.751 kg Intake: Oral 480 745 Output: Urine Catheter Amount 475 Void Amount 950 Other: Meal Dinner Percent of Meal Consumed 100% Feeding Ability Independent Urine Appearance Clear Clear Suprapubic Clear Urine Color Pale Bright Yellow Suprapubic Bright Yellow Stool Size Smear Smear Stool Color Brown Brown # Bowel Movements 1 1 OBJ DATA Labs CBC & Chem 7: 01/19/20 05:16 01/19/20 05:16 Labs: Abnormal Lab Results 01/19/20 01/19/20 01/18/20 05:16 05:16 05:23 RBC 3.64 L 3.31 L Hgb 11.0 L 10.1 L Hct 34.7 L 31.5 L Plt Count MPV 10.6 H Lymph % (Auto) Lymph # (Auto) 1.39 L Seg Neutrophils % Lymphocytes % BUN 26 H Creatinine 1.4 H Glucose Total Protein Albumin 3.0 L 01/18/20 01/17/20 01/17/20 05:22 05:43 05:43 RBC 3.75 L Hgb 11.4 L Hct 36.0 L Plt Count MPV Lymph % (Auto) Lymph # (Auto) Seg Neutrophils % 86 H Lymphocytes % 10 L BUN 25 H 24 H Creatinine 1.5 H 1.6 H Glucose 155 H Total Protein 5.7 L Albumin 2.9 L 01/16/20 01/16/20 12:20 12:20 RBC 4.03 L Hgb 12.2 L Hct 36.7 L Plt Count 445 H MPV Lymph % (Auto) 12.1 L Lymph # (Auto) 1.18 L Seg Neutrophils % Lymphocytes % BUN 26 H Creatinine 1.6 H Glucose 159 H Total Protein Albumin Meds: Medications Acetaminophen (Tylenol) 650 mg PO Q4-6HP PRN; Protocol PRN Reason: Per Pain Protocol/Fever > 101 Last Admin: 01/19/20 02:41 Dose: 650 mg Documented by: Hydrocodone Bitart/Acetaminophen ([place] 10/325mg) 1 tab PO Q4-5HP PRN; Protocol PRN Reason: Pain Last Admin: 01/19/20 04:48 Dose: 1 tab Documented by: Aspirin (Aspirin) 81 mg PO DAILY [facility] Last Admin: 01/18/20 08:20 Dose: 81 mg Documented by: Atorvastatin Calcium (Lipitor) 40 mg PO QDAY [facility] Last Admin: 01/18/20 08:18 Dose: 40 mg Documented by: Belladonna Alkaloids/Opium (B & O) 60 mg OK Q8 [facility] Last Admin: 01/19/20 05:37 Dose: 60 mg Documented by: Bisacodyl (Dulcolax) 10 mg OK Q2-3DAYS PRN PRN Reason: Constipation Cefepime HCl (Maxipime) 1 gm IV Q12H [facility] Last Admin: 01/19/20 04:27 Dose: 1 gm Documented by: Dextrose (Dextrose 50%) 0 ml IV UD PRN PRN Reason: Hypoglycemia Diagnostic Test (Pha) (Accu-Chek) 1 each FS ACHS [facility] Last Admin: 01/18/20 19:35 Dose: 1 each Documented by: Docusate Sodium (Colace) 100 mg PO BID [facility] Last Admin: 01/18/20 21:51 Dose: 100 mg Documented by: Escitalopram Oxalate (Lexapro) 5 mg PO DAILY [facility] Last Admin: 01/18/20 08:16 Dose: 5 mg Documented by: Glucose (Insta-Glucose) 15 gm PO PRN PRN PRN Reason: Hypoglycemia Heparin Sodium (Porcine) (Heparin) 5,000 unit SQ Q12 [facility] Last Admin: 01/18/20 21:48 Dose: 5,000 unit Documented by: Magnesium Sulfate (Magnesium Sulfate) 2 gm in 50 mls @ 50 mls/hr IV UD PRN PRN Reason: MG = or < 1.7 Potassium Chloride 40 meq/ (Dextrose) 520 mls @ 130 mls/hr IV UD PRN PRN Reason: K+ = or < 3.5 Acetaminophen (Ofirmev) 650 mg in 65 mls @ 130 mls/hr IV Q6HP PRN; Protocol PRN Reason: Per Pain Protocol/Fever > 101 Vancomycin HCl 1,000 mg/ (Sodium Chloride) 250 mls @ 250 mls/hr IV DAILY [facility] Last Infusion: 01/18/20 11:42 Dose: Infused Documented by: Insulin Glargine (Lantus) 65 unit SQ DAILY [facility] Last Admin: 01/18/20 08:22 Dose: 65 units Documented by: Insulin Human Lispro (Humalog) 0 unit SQ ACHS [facility]; Protocol Last Admin: 01/18/20 21:35 Dose: Not Given Documented by: Iron Carb/Multivit/Lucas/Folic Acid (Multivitamin W/Minerals) 1 tab PO DAILY [facility] Last Admin: 01/18/20 08:16 Dose: 1 tab Documented by: Magnesium Hydroxide (Milk Of Magnesia) 30 ml PO HSP PRN PRN Reason: Constipation Melatonin (Melatonin 3mg Tablet) 3 mg PO HSP PRN PRN Reason: Insomnia Mupirocin (Bactroban Oint 2%) 1 dose NARES BID [facility] Last Admin: 01/18/20 21:48 Dose: 1 dose Documented by: Omeprazole (Prilosec) 40 mg PO ACB [facility] Last Admin: 01/18/20 08:20 Dose: 40 mg Documented by: Ondansetron HCl (Zofran Odt) 4 mg SL Q4-6HP PRN; Protocol PRN Reason: Nausea And Vomiting Ondansetron HCl (Zofran) 4 mg IV Q4-6HP PRN; Protocol PRN Reason: Nausea And Vomiting Dulaglutide 1.5 Mg (Subcutaneous) 1 dose SUB-Q Mo@0900 [facility] Polyethylene Glycol (Miralax) 17 gm PO DAILYP PRN PRN Reason: Constipation Potassium Chloride (Kdur) 10 meq PO QAMCC [facility] Last Admin: 01/18/20 08:16 Dose: 10 meq Documented by: Potassium Chloride (Klor-Con) 40 meq PO DAILYP PRN PRN Reason: K+ < 3.5 Senna/Docusate Sodium (Senna Plus Tablet) 1 tab PO HS [facility] Last Admin: 01/18/20 22:09 Dose: Not Given Documented by: Sodium Chloride (Saline Flush) 10 ml IV Q8 [facility] Last Admin: 01/19/20 04:35 Dose: 10 ml Documented by: Spironolactone (Aldactone) 25 mg PO QAM [facility] Last Admin: 01/18/20 08:17 Dose: 25 mg Documented by: Tamsulosin HCl (Flomax) 0.8 mg PO QDAY [facility] Last Admin: 01/18/20 08:17 Dose: 0.8 mg Documented by: Torsemide (Demadex) 40 mg PO DAILY [facility] Last Admin: 01/18/20 08:18 Dose: 40 mg Documented by: Vancomycin HCl (Vancomycin Per Pharmacy) 1 order IV UD [facility]; Protocol Vitamin D (Vitamin D3) 4,000 unit PO DAILY [facility] Last Admin: 01/18/20 08:19 Dose: 4,000 unit Documented by: A/P Narrative A/P Narrative: * Penile ulcer -postop day 2. Managed per urology. Suprapubic catheter in place * Postsurgical wound continue management per wound care Dr. Juárez Hospitalist consult for management of medical issues as below * CKD stage IIIb, stable. Creatinine 1.4 * DM type II well controlled on basal prandial insulin. Blood sugars at goal * Hyperlipidemia continue statin * Anxiety disorder stable on home dose Lexapro * Hypertension continue spironolactone * urine retention continue BPH * GERD continue PPI * History Asperger's/autism high functioning at baseline. Continue directed therapies * prophylaxis heparin Plan * Continue postoperative care/suprapubic catheter per urology * Wound care per Dr. Juárez * De-escalate antibiotic coverage in 24 hours * Pre-existing medical condition management as above * PT OT nutrition support * SNF transfer coordination per case management Time Spent With Patient Time: Total time spent is greater than 50% in coordination of care (as documented) at patient's floor/unit and/or counseling patient: QUALITY VTE Deep Vein Thrombosis/Pulmonary Embolism Present on Admission: No
[2020-01-19] MEDS: INSULIN LISPRO 1 UNIT/0.01 ML UNIT SQ SCH ×4 (09:43→20:21)
[2020-01-19] MEDS: ESCITALOPRAM 10 MG TABLET PO SCH (09:49)
[2020-01-19] MEDS ORDERED: INSULIN GLARGINE, HUMAN 1 UNIT/0.01 ML SQ SCH (09:50)
[2020-01-19] MEDS: OMEPRAZOLE 20 MG CAPSULE PO SCH (09:50)
[2020-01-19] MEDS: POTASSIUM CHLORIDE 10 MEQ TABLET PO SCH (09:51)
[2020-01-19] MEDS: ATORVASTATIN 40 MG TABLET PO SCH (09:52)
[2020-01-19] MEDS: TAMSULOSIN 0.4 MG CAPSULE PO SCH (09:52)
[2020-01-19] MEDS: DOCUSATE SODIUM 100 MG CAPSULE PO SCH ×2 (09:53→20:17)
[2020-01-19] MEDS: SPIRONOLACTONE 25 MG TABLET PO SCH (09:53)
[2020-01-19] MEDS: MULTIVIT,THER IRON,CA,FA & MIN 1 TABLET PO SCH (09:53)
[2020-01-19] MEDS: ASPIRIN 81 MG TAB.CHEW PO SCH (09:54)
[2020-01-19] MEDS: VITAMIN D3 1,000 UNIT TABLET PO SCH (09:54)
[2020-01-19] MEDS: TORSEMIDE 10 MG TABLET PO SCH (09:56)
[2020-01-19] MEDS: VANCOMYCIN 1,000 MG in 0.9 % SODIUM CHLORIDE 250 ML IV SCH (09:57)
[2020-01-19] MEDS: INSULIN GLARGINE, HUMAN 1 UNIT/0.01 ML SQ SCH ×2 (10:03→10:21)
[2020-01-19] MEDS: HEPARIN 5,000 UNIT/ML VIAL SQ SCH ×2 (10:06→20:16)
[2020-01-19] MEDS: MUPIROCIN OINT 2% 22GM NARES SCH ×2 (10:08→21:15)
[2020-01-19] MEDS: SENNOSIDES/DOCUSATE SODIUM 1 TAB TABLET PO SCH (20:42)
--- NOTE | 2020-01-19 22:14 | Internal Med Progress Note ---
SUBJECTIVE Subjective Patient information: Note initiated : 01/19/20 at 10:03 pm Service Date, if different from initiated Date: [] Patient: Fritz Esquivel 70 y/o M admitted on 01/17/20 for wound on penis. Patient doing well. Urethral hanley removed yesterday and tolerating SP tube without pain. No leakage urine per urethra. Tolerating dressing changes well. He is worried about his placement after he is discharged. no fevers, no chills, no nausea, no emesis. Chief Complaint: [] Constitutional Vitals: Vital Signs Temp Pulse Resp BP Pulse Ox 97.7 F 64 18 127/72 96 01/19/20 19:22 01/19/20 19:22 01/19/20 19:22 01/19/20 19:22 01/19/20 19:22 Period Temp Pulse Resp BP Sys/[place] Pulse Ox Last 24 Hr 97.6 F-98.5 F 64-83 16-20 99-127/64-78 96-97 Intake and Output 01/19/20 01/19/20 01/20/20 13:59 21:59 05:59 Intake Total 890 556 Output Total 400 1550 Balance 490 -994 Weight 214 lb 12.8 oz Patient Weight 01/20/20 05:59 Weight 214 lb 12.8 oz Intake & Output: Intake & Output 01/19/20 01/19/20 01/20/20 13:59 21:59 05:59 Intake Total 890 556 Output Total 400 1550 Balance 490 -994 Weight 214 lb 12.8 oz Intake: IV 250 Vancomycin 1,000 mg In Sodium 250 Chloride 0.9% 250 ml @ 250 mls/ hr IV DAILY [facility] Rx#:[id number] Oral 640 556 Output: Void Amount 400 1550 Other: Meal Lunch Dinner Percent of Meal Consumed 75% 100% Feeding Ability Assist with Tray Set Up Needs Supervision Urine Appearance Clear Cloudy Suprapubic Clear Clear Urine Color Bright Yellow Dark Yellow Suprapubic Bright Yellow Bright Yellow Urine Odor Normal Normal Suprapubic Normal Stool Size Small Stool Color Brown Stool Consistency Soft # Bowel Movements 1 # of times incontinent of 1 Bowels General appearance: cooperative and no acute distress Head Head exam: Present atraumatic and normocephalic Eye Eye exam: Absent periorbital swelling and scleral icterus Respiratory Respiratory exam: Absent respiratory distress, stridor and wheezes Cardiovascular Cardiovascular exam: Present RRR GI/Abdominal GI/Abdominal exam: Present soft; Absent firm, guarding, mass, rebound, rigid and tenderness Additional comments: SP tube in good position with no erythema, no discharge, no induration, no tenderness around site. Draining clear yellow urine. Phallus debridement site pink with out further necrosis. Psychiatric Psychiatric exam: Present flat affect; Absent agitated and anxious OBJ DATA Labs CBC & Chem 7: 01/19/20 05:16 01/19/20 05:16 Labs: Abnormal Lab Results 01/19/20 01/19/20 01/18/20 05:16 05:16 05:23 RBC 3.64 L 3.31 L Hgb 11.0 L 10.1 L Hct 34.7 L 31.5 L MPV 10.6 H Lymph # (Auto) 1.39 L Seg Neutrophils % Lymphocytes % BUN 26 H Creatinine 1.4 H Glucose Total Protein Albumin 3.0 L 01/18/20 01/17/20 01/17/20 05:22 05:43 05:43 RBC 3.75 L Hgb 11.4 L Hct 36.0 L MPV Lymph # (Auto) Seg Neutrophils % 86 H Lymphocytes % 10 L BUN 25 H 24 H Creatinine 1.5 H 1.6 H Glucose 155 H Total Protein 5.7 L Albumin 2.9 L Meds: Medications Acetaminophen (Tylenol) 650 mg PO Q4-6HP PRN; Protocol PRN Reason: Per Pain Protocol/Fever > 101 Last Admin: 01/19/20 02:41 Dose: 650 mg Documented by: Hydrocodone Bitart/Acetaminophen ([place] 10/325mg) 1 tab PO Q4-5HP PRN; Protocol PRN Reason: Pain Last Admin: 01/19/20 20:17 Dose: 1 tab Documented by: Aspirin (Aspirin) 81 mg PO DAILY [facility] Last Admin: 01/19/20 09:54 Dose: 81 mg Documented by: Atorvastatin Calcium (Lipitor) 40 mg PO QDAY [facility] Last Admin: 01/19/20 09:52 Dose: 40 mg Documented by: Belladonna Alkaloids/Opium (B & O) 60 mg NV Q8 [facility] Last Admin: 01/19/20 21:15 Dose: 60 mg Documented by: Bisacodyl (Dulcolax) 10 mg NV Q2-3DAYS PRN PRN Reason: Constipation Cefepime HCl (Maxipime) 1 gm IV Q12H [facility] Last Admin: 01/19/20 15:51 Dose: 1 gm Documented by: Dextrose (Dextrose 50%) 0 ml IV UD PRN PRN Reason: Hypoglycemia Diagnostic Test (Pha) (Accu-Chek) 1 each FS ACHS [facility] Last Admin: 01/19/20 20:16 Dose: 1 each Documented by: Docusate Sodium (Colace) 100 mg PO BID [facility] Last Admin: 01/19/20 20:17 Dose: 100 mg Documented by: Escitalopram Oxalate (Lexapro) 5 mg PO DAILY [facility] Last Admin: 01/19/20 09:49 Dose: 5 mg Documented by: Glucose (Insta-Glucose) 15 gm PO PRN PRN PRN Reason: Hypoglycemia Heparin Sodium (Porcine) (Heparin) 5,000 unit SQ Q12 [facility] Last Admin: 01/19/20 20:16 Dose: 5,000 unit Documented by: Magnesium Sulfate (Magnesium Sulfate) 2 gm in 50 mls @ 50 mls/hr IV UD PRN PRN Reason: MG = or < 1.7 Potassium Chloride 40 meq/ (Dextrose) 520 mls @ 130 mls/hr IV UD PRN PRN Reason: K+ = or < 3.5 Acetaminophen (Ofirmev) 650 mg in 65 mls @ 130 mls/hr IV Q6HP PRN; Protocol PRN Reason: Per Pain Protocol/Fever > 101 Vancomycin HCl 1,000 mg/ (Sodium Chloride) 250 mls @ 250 mls/hr IV DAILY [facility] Last Infusion: 01/19/20 11:00 Dose: Infused Documented by: Insulin Glargine (Lantus) 50 unit SQ DAILY [facility] Last Admin: 01/19/20 10:03 Dose: 50 units Documented by: Insulin Human Lispro (Humalog) 0 unit SQ ACHS [facility]; Protocol Last Admin: 01/19/20 20:21 Dose: Not Given Documented by: Iron Carb/Multivit/[place]/Folic Acid (Multivitamin W/Minerals) 1 tab PO DAILY [facility] Last Admin: 01/19/20 09:53 Dose: 1 tab Documented by: Magnesium Hydroxide (Milk Of Magnesia) 30 ml PO HSP PRN PRN Reason: Constipation Melatonin (Melatonin 3mg Tablet) 3 mg PO HSP PRN PRN Reason: Insomnia Mupirocin (Bactroban Oint 2%) 1 dose NARES BID [facility] Last Admin: 01/19/20 21:15 Dose: 1 dose Documented by: Omeprazole (Prilosec) 40 mg PO ACB [facility] Last Admin: 01/19/20 09:50 Dose: 40 mg Documented by: Ondansetron HCl (Zofran Odt) 4 mg SL Q4-6HP PRN; Protocol PRN Reason: Nausea And Vomiting Ondansetron HCl (Zofran) 4 mg IV Q4-6HP PRN; Protocol PRN Reason: Nausea And Vomiting Dulaglutide 1.5 Mg (Subcutaneous) 1 dose SUB-Q Mo@0900 [facility] Polyethylene Glycol (Miralax) 17 gm PO DAILYP PRN PRN Reason: Constipation Potassium Chloride (Kdur) 10 meq PO QAMCC [facility] Last Admin: 01/19/20 09:51 Dose: 10 meq Documented by: Potassium Chloride (Klor-Con) 40 meq PO DAILYP PRN PRN Reason: K+ < 3.5 Senna/Docusate Sodium (Senna Plus Tablet) 1 tab PO HS [facility] Last Admin: 01/19/20 20:42 Dose: Not Given Documented by: Sodium Chloride (Saline Flush) 10 ml IV Q8 [facility] Last Admin: 01/19/20 14:32 Dose: 10 ml Documented by: Spironolactone (Aldactone) 25 mg PO QAM [facility] Last Admin: 01/19/20 09:53 Dose: 25 mg Documented by: Tamsulosin HCl (Flomax) 0.8 mg PO QDAY [facility] Last Admin: 01/19/20 09:52 Dose: 0.8 mg Documented by: Torsemide (Demadex) 40 mg PO DAILY [facility] Last Admin: 01/19/20 09:56 Dose: 40 mg Documented by: Vancomycin HCl (Vancomycin Per Pharmacy) 1 order IV UD [facility]; Protocol Vitamin D (Vitamin D3) 4,000 unit PO DAILY [facility] Last Admin: 01/19/20 09:54 Dose: 4,000 unit Documented by: A/P Narrative A/P Narrative: POD#3 radical debridement foreskin for necrosis and placement suprapubic tube for severe urethral erosion due to catheter traction. -urethral catheter removed (he had an undermined bladder neck from recent prostate resection and possible catheter placed into prostatic fossa) and doing well with just SP tube -appreciate wound care involvement and management of the debridement site -plan to remove sutures around the SP tube site after one week and first SP tube change 4-6 weeks and then q 4 weeks thereafter Time Spent With Patient Time: Total time spent is greater than 50% in coordination of care (as documented) at patient's floor/unit and/or counseling patient: QUALITY VTE Deep Vein Thrombosis/Pulmonary Embolism Present on Admission: No
[2020-01-20] MEDS: CEFEPIME 1 GM VIAL IV SCH ×2 (04:03→15:26)
[2020-01-20] MEDS: 0.9 % SODIUM CHLORIDE 10 ML SYRINGE IV SCH ×4 (04:03→22:10)
[2020-01-20] MEDS: OPIUM/BELLADONNA ALKALOIDS 60 MG SUPP.RECT PR SCH ×3 (05:30→22:09)
[2020-01-20 06:41] LABS: Basophils # (Auto) 0.08 K/mcL (0.00-0.20); Basophils % (Auto) 0.9 % (0.0-2.0); Eosinophils # (Auto) 0.53 K/mcL (0.00-0.70); Eosinophils % (Auto) 6.1 % (0.0-7.0); Hematocrit 37.7 % (41.0-55.0); Lymphocytes # (Auto) 1.72 K/mcL (1.50-4.80); Lymphocytes % (Auto) 19.9 % (15.0-49.0); Mean Cell Volume 94.7 fL (80.0-100.0); Mean Corpuscular HGB Conc 31.8 g/dL (31.0-36.0); Mean Platelet Volume 9.7 fL (7.4-10.4); Monocytes # (Auto) 0.84 K/mcL (0.10-0.90); Monocytes % (Auto) 9.7 % (1.0-12.0); Neutrophils % (Auto) 63.4 % (38.0-78.0); Platelet Count 409 K/mcL (140-440); RBC 3.98 M/mcL (4.50-5.90); Red Cell Distribution Width 13.2 % (11.5-14.5); WBC 8.7 K/mcL (4.5-11.0)
[2020-01-20 07:06] LABS: ALT/SGPT 29 U/L (<40); AST/SGOT 24 U/L (<40); Albumin 3.3 gm/dL (3.2-5.2); Alkaline Phosphatase 78 U/L (39-117); Bilirubin,Direct < 0.2 mg/dL (<0.3); Bilirubin,Total 0.3 mg/dL (0.1-1.0); Blood Urea Nitrogen 27 mg/dL (8-23); Calcium 9.6 mg/dL (8.6-10.4); Carbon Dioxide 30 mmol/L (22-30); Chloride 100 mmol/L (96-108); Globulin 3.2 gm/dL (2.2-3.7); Glomerular Filtration Rate 56; Glucose 97 mg/dL (70-105); Lactate Dehydrogenase 155 U/L (135-225); Phosphorous 3.3 mg/dL (2.5-4.5); Triglycerides 181 mg/dL (<150); Uric Acid 7.2 mg/dL (2.5-8.0)
[2020-01-20] MEDS: POTASSIUM CHLORIDE 10 MEQ TABLET PO SCH (07:32)
[2020-01-20] MEDS: OMEPRAZOLE 20 MG CAPSULE PO SCH (07:32)
[2020-01-20] MEDS: INSULIN LISPRO 1 UNIT/0.01 ML UNIT SQ SCH ×4 (07:38→22:10)
[2020-01-20] MEDS: TORSEMIDE 10 MG TABLET PO SCH (08:51)
[2020-01-20] MEDS: TAMSULOSIN 0.4 MG CAPSULE PO SCH (08:52)
[2020-01-20] MEDS: ESCITALOPRAM 10 MG TABLET PO SCH (08:52)
[2020-01-20] MEDS: MULTIVIT,THER IRON,CA,FA & MIN 1 TABLET PO SCH (08:53)
[2020-01-20] MEDS: ATORVASTATIN 40 MG TABLET PO SCH (08:53)
[2020-01-20] MEDS: ASPIRIN 81 MG TAB.CHEW PO SCH (08:53)
[2020-01-20] MEDS: DOCUSATE SODIUM 100 MG CAPSULE PO SCH ×2 (08:53→22:10)
[2020-01-20] MEDS: VITAMIN D3 1,000 UNIT TABLET PO SCH (08:53)
[2020-01-20] MEDS: SPIRONOLACTONE 25 MG TABLET PO SCH (08:53)
[2020-01-20] MEDS: HEPARIN 5,000 UNIT/ML VIAL SQ SCH ×2 (08:56→22:09)
[2020-01-20] MEDS: MUPIROCIN OINT 2% 22GM NARES SCH ×2 (08:59→22:10)
[2020-01-20] MEDS: VANCOMYCIN 1,000 MG in 0.9 % SODIUM CHLORIDE 250 ML IV SCH (10:15)
[2020-01-20] MEDS: INSULIN GLARGINE, HUMAN 1 UNIT/0.01 ML SQ SCH (10:19)
--- NOTE | 2020-01-20 18:38 | Internal Med Progress Note ---
SUBJECTIVE Subjective Patient information: Note initiated : 01/20/20 at 6:31 pm Service Date, if different from initiated Date: [] Patient: Fritz Esquivel 70 y/o M admitted on 01/17/20 for wound on penis. Chief Complaint: [Wound on penis] Interval history: Mr. Esquivel is a 70 year old M with a history of DM type II/HTN/recent prostate surgery treated at [facility] following urine retention and obstructive uropathy/RADHA, now with indwelling Morelos's, anxiety disorder/high functioning autistic/Aspergers who resides at [facility] and was evaluated at urology office for penile ulcer. Patient was transferred to the ER for suspected worsening of penile meatus/ureter ulcer likely secondary to catheter eroding into the urethra. Patient does endorse to abdominal discomfort/pain and burning sensation over the last couple of days but denies fever, shaking chills, diarrhea. Initial work-up in the ER was unremarkable except for creatinine 1.6. Hospital service was consulted while patient will undergo operative intervention for penile ulcer. 01/16-patient doing well. No overnight events. Postop day 1. Reviewed by urology. Continue postop care per urology. On antibiotic coverage. Continue home medications for pre-existing medical issues. No fever chills. Wound care consulted 01/17-Patient doing well. No overnight events. Suprapubic catheter in place. No hematuria. Denies abdominal discomfort. Case management coordinating SNF transfer. Ongoing postoperative care per urology. Stable hemodynamics and labs. Creatinine baseline 1.5. 01/18-patient doing well. No overnight events. No active concerns per nursing staff. Suprapubic catheter draining clear urine. Ongoing care per wound physician Dr. Juárez and Dr. Balderas urology. White count 7.6, hemoglobin 11, creatinine 1.4, stable hemodynamics. 01/19-patient stable, Morelos catheter removed 01/17, de-escalate antibiotics to cephalexin, anticipate discharge tomorrow to SNF. Constitutional Vitals: Vital Signs Temp Pulse Resp BP Pulse Ox 97.3 F 64 16 114/76 96 01/20/20 15:54 01/20/20 15:54 01/20/20 15:54 01/20/20 15:54 01/20/20 15:54 Period Temp Pulse Resp BP Sys/[place]gl[place] Pulse Ox Last 24 Hr 97.3 F-97.7 F 59-72 16-18 112-128/63-76 95-97 Intake and Output 01/20/20 01/20/20 01/20/20 05:59 13:59 21:59 Intake Total 600 600 300 Output Total 2700 1000 650 Balance -2100 -400 -350 Intake & Output: Intake & Output 01/20/20 01/20/20 01/20/20 05:59 13:59 21:59 Intake Total 600 600 300 Output Total 2700 1000 650 Balance -2100 -400 -350 Intake: Oral 600 600 300 Output: Urine Catheter Amount 2700 650 Void Amount 1000 Other: Meal Breakfast Lunch Percent of Meal Consumed 75% 100% Feeding Ability Independent Assist with Tray Set Up Urine Appearance Clear Clear Clear Suprapubic Clear Clear Urine Color Bright Yellow Pale Pale Suprapubic Bright Yellow Bright Yellow Urine Odor Normal Suprapubic Normal Normal Stool Size Smear Small Stool Color Brown Brown Stool Consistency Soft Soft # Bowel Movements 1 # of times incontinent of 1 1 Bowels Head Head exam: Present atraumatic and normal inspection Eye Eye exam: Present normal appearance Neck Neck exam: Present full ROM Respiratory Respiratory exam: Present normal respiratory exam Cardiovascular Cardiovascular exam: Present normal rate and rhythm GI/Abdominal GI/Abdominal exam: Present soft; Absent tenderness Additional comments: Wound on penis does not appear infected. Extremities Exam Extremities exam: Present full ROM and normal inspection Neurological Exam Neurological exam: Present CN II-XII intact and oriented X3 Psychiatric Psychiatric exam: Present normal mood; Absent agitated and anxious Skin Additional comments: Wound present on penis does not appear infected. OBJ DATA Labs CBC & Chem 7: 01/20/20 05:25 01/20/20 05:25 Labs: Abnormal Lab Results 01/20/20 01/20/20 01/20/20 08:12 05:25 05:25 RBC 3.98 L Hgb 12.0 L Hct 37.7 L MPV Lymph # (Auto) BUN 27 H Creatinine 1.3 H Total Protein Albumin Triglycerides 181 H Vancomycin Trough 20.2 H* 01/19/20 01/19/20 01/18/20 05:16 05:16 05:23 RBC 3.64 L 3.31 L Hgb 11.0 L 10.1 L Hct 34.7 L 31.5 L MPV 10.6 H Lymph # (Auto) 1.39 L BUN 26 H Creatinine 1.4 H Total Protein Albumin 3.0 L Triglycerides Vancomycin Trough 01/18/20 05:22 RBC Hgb Hct MPV Lymph # (Auto) BUN 25 H Creatinine 1.5 H Total Protein 5.7 L Albumin 2.9 L Triglycerides Vancomycin Trough Meds: Medications Acetaminophen (Tylenol) 650 mg PO Q4-6HP PRN; Protocol PRN Reason: Per Pain Protocol/Fever > 101 Last Admin: 01/19/20 02:41 Dose: 650 mg Documented by: Hydrocodone Bitart/Acetaminophen ([place] 10/325mg) 1 tab PO Q4-5HP PRN; Protocol PRN Reason: Pain Last Admin: 01/19/20 20:17 Dose: 1 tab Documented by: Aspirin (Aspirin) 81 mg PO DAILY [facility] Last Admin: 01/20/20 08:53 Dose: 81 mg Documented by: Atorvastatin Calcium (Lipitor) 40 mg PO QDAY [facility] Last Admin: 01/20/20 08:53 Dose: 40 mg Documented by: Belladonna Alkaloids/Opium (B & O) 60 mg UT Q8 [facility] Last Admin: 01/20/20 14:38 Dose: 60 mg Documented by: Bisacodyl (Dulcolax) 10 mg UT Q2-3DAYS PRN PRN Reason: Constipation Cefepime HCl (Maxipime) 1 gm IV Q12H [facility] Last Admin: 01/20/20 15:26 Dose: 1 gm Documented by: Dextrose (Dextrose 50%) 0 ml IV UD PRN PRN Reason: Hypoglycemia Diagnostic Test (Pha) (Accu-Chek) 1 each FS ACHS [facility] Last Admin: 01/20/20 16:52 Dose: 1 each Documented by: Docusate Sodium (Colace) 100 mg PO BID [facility] Last Admin: 01/20/20 08:53 Dose: 100 mg Documented by: Escitalopram Oxalate (Lexapro) 5 mg PO DAILY [facility] Last Admin: 01/20/20 08:52 Dose: 5 mg Documented by: Glucose (Insta-Glucose) 15 gm PO PRN PRN PRN Reason: Hypoglycemia Heparin Sodium (Porcine) (Heparin) 5,000 unit SQ Q12 [facility] Last Admin: 01/20/20 08:56 Dose: 5,000 unit Documented by: Magnesium Sulfate (Magnesium Sulfate) 2 gm in 50 mls @ 50 mls/hr IV UD PRN PRN Reason: MG = or < 1.7 Potassium Chloride 40 meq/ (Dextrose) 520 mls @ 130 mls/hr IV UD PRN PRN Reason: K+ = or < 3.5 Acetaminophen (Ofirmev) 650 mg in 65 mls @ 130 mls/hr IV Q6HP PRN; Protocol PRN Reason: Per Pain Protocol/Fever > 101 Insulin Glargine (Lantus) 50 unit SQ DAILY [facility] Last Admin: 01/20/20 10:19 Dose: 50 units Documented by: Insulin Human Lispro (Humalog) 0 unit SQ ACHS [facility]; Protocol Last Admin: 01/20/20 16:58 Dose: 1 units Documented by: Iron Carb/Multivit/[place]/Folic Acid (Multivitamin W/Minerals) 1 tab PO DAILY [facility] Last Admin: 01/20/20 08:53 Dose: 1 tab Documented by: Magnesium Hydroxide (Milk Of Magnesia) 30 ml PO HSP PRN PRN Reason: Constipation Melatonin (Melatonin 3mg Tablet) 3 mg PO HSP PRN PRN Reason: Insomnia Mupirocin (Bactroban Oint 2%) 1 dose NARES BID [facility] Last Admin: 01/20/20 08:59 Dose: 1 dose Documented by: Omeprazole (Prilosec) 40 mg PO ACB [facility] Last Admin: 01/20/20 07:32 Dose: 40 mg Documented by: Ondansetron HCl (Zofran Odt) 4 mg SL Q4-6HP PRN; Protocol PRN Reason: Nausea And Vomiting Ondansetron HCl (Zofran) 4 mg IV Q4-6HP PRN; Protocol PRN Reason: Nausea And Vomiting Dulaglutide 1.5 Mg (Subcutaneous) 1 dose SUB-Q Mo@0900 [facility] Polyethylene Glycol (Miralax) 17 gm PO DAILYP PRN PRN Reason: Constipation Potassium Chloride (Kdur) 10 meq PO QAMCC [facility] Last Admin: 01/20/20 07:32 Dose: 10 meq Documented by: Potassium Chloride (Klor-Con) 40 meq PO DAILYP PRN PRN Reason: K+ < 3.5 Senna/Docusate Sodium (Senna Plus Tablet) 1 tab PO HS [facility] Last Admin: 01/19/20 20:42 Dose: Not Given Documented by: Sodium Chloride (Saline Flush) 10 ml IV Q8 [facility] Last Admin: 01/20/20 14:42 Dose: 10 ml Documented by: Spironolactone (Aldactone) 25 mg PO QAM [facility] Last Admin: 01/20/20 08:53 Dose: 25 mg Documented by: Tamsulosin HCl (Flomax) 0.8 mg PO QDAY [facility] Last Admin: 01/20/20 08:52 Dose: 0.8 mg Documented by: Torsemide (Demadex) 40 mg PO DAILY [facility] Last Admin: 01/20/20 08:51 Dose: 40 mg Documented by: Vancomycin HCl (Vancomycin Per Pharmacy) 1 order IV UD [facility]; Protocol Vitamin D (Vitamin D3) 4,000 unit PO DAILY [facility] Last Admin: 01/20/20 08:53 Dose: 4,000 unit Documented by: A/P Narrative A/P Narrative: Assessment: 70-year-old male with DM type II, CKD stage III, hyperlipidemia, anxiety, hypertension, urinary retention secondary to BPH, GERD, Asperger's/autism admitted for penile ulcer secondary to Morelos catheter. The patient had a radical debridement of skin for necrosis and now has a suprapubic catheter, ongoing wound care and discharge planning. #Penile ulcer-appears to be healing well after a debridement, discontinued vancomycin IV and cefepime, started Cephalexin 500 mg QID for completion of antibiotics treatment-planning for 7 total days. Follow-up with urology to remove sutures around suprapubic catheter site, first suprapubic catheter exchange in 4 to 6 weeks then 4 weeks thereafter. #Diastolic heart failure-stable, continue torsemide and spironolactone. #Hyperlipidemia-continue atorvastatin. #Diabetes mellitus-stable continue basal bolus. #BPH-flomax. #Depression-lexapro. #GERD-prilosec. #DVT prophylaxis-heparin SQ. Time Spent With Patient Time: Total time spent is greater than 50% in coordination of care (as documented) at patient's floor/unit and/or counseling patient: Total time spent with greater than 50% in coordination of care (as documented) at patient's floor/unit and/or counseling patient:: 25 - 35 minutes QUALITY VTE Deep Vein Thrombosis/Pulmonary Embolism Present on Admission: No
[2020-01-20] MEDS ORDERED: CEPHALEXIN 500 MG CAPSULE PO SCH (21:00)
[2020-01-20] MEDS: SENNOSIDES/DOCUSATE SODIUM 1 TAB TABLET PO SCH (22:10)
[2020-01-21] MEDS: OPIUM/BELLADONNA ALKALOIDS 60 MG SUPP.RECT PR SCH ×2 (05:16→16:35)
[2020-01-21] MEDS: 0.9 % SODIUM CHLORIDE 10 ML SYRINGE IV SCH ×2 (05:16→16:35)
[2020-01-21 06:47] LABS: Basophils # (Auto) 0.07 K/mcL (0.00-0.20); Basophils % (Auto) 0.8 % (0.0-2.0); Eosinophils # (Auto) 0.43 K/mcL (0.00-0.70); Eosinophils % (Auto) 4.6 % (0.0-7.0); Hematocrit 37.6 % (41.0-55.0); Lymphocytes # (Auto) 1.47 K/mcL (1.50-4.80); Lymphocytes % (Auto) 15.8 % (15.0-49.0); Mean Cell Volume 93.8 fL (80.0-100.0); Mean Corpuscular HGB Conc 31.9 g/dL (31.0-36.0); Mean Platelet Volume 9.8 fL (7.4-10.4); Monocytes # (Auto) 0.98 K/mcL (0.10-0.90); Monocytes % (Auto) 10.5 % (1.0-12.0); Neutrophils % (Auto) 68.3 % (38.0-78.0); Platelet Count 429 K/mcL (140-440); RBC 4.01 M/mcL (4.50-5.90); Red Cell Distribution Width 13.2 % (11.5-14.5); WBC 9.3 K/mcL (4.5-11.0)
[2020-01-21 06:54] LABS: Vancomycin,Random 11.9 ug/mL
[2020-01-21] MEDS: OMEPRAZOLE 20 MG CAPSULE PO SCH (07:11)
[2020-01-21] MEDS: POTASSIUM CHLORIDE 10 MEQ TABLET PO SCH (07:12)
[2020-01-21 07:13] LABS: ALT/SGPT 28 U/L (<40); AST/SGOT 23 U/L (<40); Albumin 3.2 gm/dL (3.2-5.2); Alkaline Phosphatase 83 U/L (39-117); Bilirubin,Direct < 0.2 mg/dL (<0.3); Bilirubin,Total 0.2 mg/dL (0.1-1.0); Blood Urea Nitrogen 31 mg/dL (8-23); Calcium 9.6 mg/dL (8.6-10.4); Carbon Dioxide 26 mmol/L (22-30); Chloride 98 mmol/L (96-108); Globulin 3.2 gm/dL (2.2-3.7); Glomerular Filtration Rate 51; Glucose 123 mg/dL (70-105); Lactate Dehydrogenase 163 U/L (135-225); Phosphorous 3.3 mg/dL (2.5-4.5); Triglycerides 175 mg/dL (<150)
[2020-01-21] MEDS: INSULIN LISPRO 1 UNIT/0.01 ML UNIT SQ SCH ×2 (07:14→11:16)
[2020-01-21] MEDS ORDERED: BACITRACIN TOPICAL OINT 15 GM TUBE TOPICAL SCH (09:00)
[2020-01-21] MEDS: TORSEMIDE 10 MG TABLET PO SCH (11:07)
[2020-01-21] MEDS: TAMSULOSIN 0.4 MG CAPSULE PO SCH (11:08)
[2020-01-21] MEDS: MULTIVIT,THER IRON,CA,FA & MIN 1 TABLET PO SCH (11:09)
[2020-01-21] MEDS: SPIRONOLACTONE 25 MG TABLET PO SCH (11:09)
[2020-01-21] MEDS: ESCITALOPRAM 10 MG TABLET PO SCH (11:09)
[2020-01-21] MEDS: ATORVASTATIN 40 MG TABLET PO SCH (11:10)
[2020-01-21] MEDS: DOCUSATE SODIUM 100 MG CAPSULE PO SCH (11:11)
[2020-01-21] MEDS: ASPIRIN 81 MG TAB.CHEW PO SCH (11:11)
[2020-01-21] MEDS: HEPARIN 5,000 UNIT/ML VIAL SQ SCH (11:12)
[2020-01-21] MEDS: INSULIN GLARGINE, HUMAN 1 UNIT/0.01 ML SQ SCH (11:14)
[2020-01-21] MEDS: MUPIROCIN OINT 2% 22GM NARES SCH ×2 (11:17→11:19)
--- NOTE | 2020-01-21 11:59 | Discharge Summary ---
Discharge Provider Provider Patient information: Note initiated : 01/21/20 at 11:46 am Service Date, if different from initiated Date: [] Patient: Fritz Esquivel 70 y/o M admitted on 01/17/20 for wound on penis. Chief Complaint: [Penile wound] Date of admission: 01/17/20 00:20 Discharge date: 01/21/20 Primary care physician: LAURIE Evans Consults: 01/16/20 14:07 Consult to Physician [CONS] Stat Comment: Consulting Provider: Juan Diop Reason For Exam: Physician to Consult 01/16/20 15:35 Consult to Physician [CONS] Routine Comment: Consulting Provider: Max Wren Reason For Exam: Physician to Consult 01/17/20 10:49 Consult to Physician [CONS] Routine Comment: examine penile debridement Consulting Provider: Emiliano Juárez Reason For Exam: Physician to Consult Discharge Meds Discharge Medications Home Medications Estevan countor next test in vitro strip #1 ea 12/27/17 [History Confirmed 01/16/20 Last Taken Unknown] pen needle, diabetic 32 gauge x 1/4" #50 each 12/27/17 [History Confirmed 01/16/20 Last Taken Unknown] spironolactone 25 mg tablet 25 mg PO QAM tab 12/27/17 [History Confirmed 01/16/20 Last Taken 01/16/20] omeprazole 20 mg capsule,delayed release 40 mg PO QDAY cap 12/28/17 [History Confirmed 01/16/20 Last Taken 01/16/20] cholecalciferol (vitamin D3) 100 mcg (4,000 unit) tablet 4,000 unit PO QDAY #90 tab 04/27/19 [Rx Confirmed 01/16/20 Last Taken 01/16/20] potassium chloride 10 mEq tablet,extended release(part/cryst) 10 meq PO QDAY #30 tab 08/06/19 [Rx Confirmed 01/16/20 Last Taken 01/16/20] atorvastatin 40 mg tablet 40 mg PO QDAY #30 tab 08/13/19 [Rx Confirmed 01/16/20 Last Taken 01/16/20] dulaglutide 0.75 mg/0.5 mL subcutaneous pen injector 1.5 mg SUB-Q QWEEK 09/06/19 [History Confirmed 01/16/20 Last Taken 01/14/20] tamsulosin 0.4 mg capsule 0.8 mg PO QDAY cap 09/11/19 [History Confirmed 01/16/20 Last Taken 01/15/20] torsemide 20 mg tablet 40 mg PO QDAY tab 09/11/19 [History Confirmed 01/16/20 Last Taken 01/16/20] acetaminophen 325 mg capsule 650 mg PO Q4H PRN 10/29/19 [History Confirmed 01/16/20 Last Taken 01/10/20] aspirin 81 mg tablet,delayed release 81 mg PO QDAY 10/29/19 [History Confirmed 01/16/20 Last Taken 01/16/20] bethanechol chloride 50 mg tablet 50 mg PO BID 10/29/19 [History Confirmed 01/16/20 Last Taken 01/15/20] ferrous sulfate 325 mg (65 mg iron) tablet 325 mg PO QDAY 10/29/19 [History Confirmed 01/16/20 Last Taken 01/16/20] fexofenadine 180 mg tablet 180 mg PO Q24H 10/29/19 [History Confirmed 01/16/20 Last Taken 01/15/20] hydrocodone 10 mg-acetaminophen 325 mg tablet 1 tab PO Q4 PRN tab 10/29/19 [History Confirmed 01/16/20 Last Taken 01/15/20] escitalopram oxalate 5 mg tablet 5 mg PO QDAY 11/28/19 [History Confirmed 01/16/20 Last Taken 01/16/20] Adult Probiotic 100 mg BID 01/16/20 [History Confirmed 01/16/20 Last Taken 01/16/20] cholecalciferol (vitamin D3) 50,000 units WEEKLY 01/16/20 [History Confirmed 01/16/20 Last Taken 01/14/20] insulin lispro See Rx Instructions .ROUTE .COMPLEX 01/16/20 [History Confirmed 01/16/20 Last Taken 01/16/20 07:30] bacitracin 1 applic TOPICAL TID 14 Days #14 g 01/21/20 [Rx Last Taken Unknown] insulin glargine [Lantus U-100 Insulin] 50 unit SQ DAILY #10 ml 01/21/20 [Rx [facility] Taken Unknown] COURSE Hospital Course Hospital course: Mr. Esquivel is a 70 year old M with a history of DM type II/HTN/CKD/recent prostate surgery treated at [facility] following urine retention and obstructive uropathy/RADHA, now with indwelling Hanley's, anxiety disorder/high functioning autistic/Aspergers who was at [facility] prior to this admission. The patinet was evaluated at urology office for penile ulcer and transferred to the ED for suspected worsening of penile meatus/ureter ulcer likely secondary to catheter eroding into the urethra. ED workup was remarkable for an elevated creatinine of 1.6 consistent with an RADHA on CKD. The patient was started on antibiotics, urology continued to follow, wound surgery was consulted. A suprapubic catheter was placed and the hanley catheter removed. The RADHA resolved and there were no issues with the suprapubic catheter. Wound surgery continued to follow, the wound appeared to be healing well. Topical bacitracin was started and systemic antibiotics discontinued. The plan is for the patient to follow up with wound surgery and urology after discharge. The patient was discharged to a SNF. At discharge I continued Lantus 50 unit daily instead of the 65 units daily which was patient was previously taking as his morning blood sugars were well controlled with Lantus 50 units daily. To do; Follow up with urology to remove suprapubic catheter sutures in about a week and for the first catheter exchange in 4 - 6 weeks. Follow up with wound surgery. Follow glucose leves for recent decrease in Lantus dose from 65 unit daily to 50 units daily. Wound cares for penile wound-topical bacitracin until ok to discontinue per wound surgery, bandage exchanges, keep wound clean. Discharge diagnosis: Penile wound Time Spent with Patient Time attestation: Total time spent providing and/or coordinating discharge services: Time spent: Greater than 30 minutes EXAM Constitutional Vitals: Temp Pulse Resp BP Pulse Ox 98.0 F 68 18 119/75 98 01/21/20 08:00 01/21/20 08:00 01/21/20 08:00 01/21/20 08:00 01/21/20 08:00 Head Head exam: Present atraumatic and normal inspection Eye Eye exam: Present normal appearance; Absent scleral icterus Neck Neck exam: Present full ROM Respiratory Respiratory exam: Absent accessory muscle use and respiratory distress Cardiovascular Cardiovascular exam: Present normal rate and rhythm GI/Abdominal GI/Abdominal exam: Present soft; Absent tenderness Additional comments: Penile wound covered in clean bandage. Extremities Exam Extremities exam: Present full ROM and normal inspection Neurological Exam Neurological exam: Present alert and CN II-XII intact Psychiatric Psychiatric exam: Present anxious and normal mood; Absent agitated Skin Additional comments: Penile wound does not appear infected. Discharge Data Data Completed and Pending Labs on day of discharge: Labs from last 24 hours 01/21/20 01/21/20 01/21/20 05:47 05:47 05:47 WBC 9.3 RBC 4.01 L Hgb 12.0 L Hct 37.6 L MCV 93.8 MCH 29.9 MCHC 31.9 RDW 13.2 Plt Count 429 MPV 9.8 Neut % (Auto) 68.3 Lymph % (Auto) 15.8 Desha % (Auto) 10.5 Eos % (Auto) 4.6 Baso % (Auto) 0.8 Lymph # (Auto) 1.47 L Desha # (Auto) 0.98 H Eos # (Auto) 0.43 Baso # (Auto) 0.07 Absolute Neutrophils 6.34 Sodium 136 Potassium 4.0 Chloride 98 Carbon Dioxide 26 Anion Gap 12.0 BUN 31 H Creatinine 1.4 H GFR Calculation 51 Glucose 123 H Uric Acid 7.0 Calcium 9.6 Phosphorus 3.3 Magnesium 2.0 Total Bilirubin 0.2 Direct Bilirubin < 0.2 GGT 19 AST 23 ALT 28 Alkaline Phosphatase 83 Lactate Dehydrogenase 163 Total Protein 6.4 Albumin 3.2 Globulin 3.2 Albumin/Globulin Ratio 1.0 Triglycerides 175 H Random Vancomycin 11.9 Preliminary micro results at discharge 01/16/20 12:20 Blood Culture - Preliminary Blood 01/16/20 12:16 Blood Culture - Preliminary Blood Discharge Plan Patient/Caregiver Discharge Instructions Activity: resume usual activities as tolerated Diet: Low Sodium (2gm) and Consistent Carbohydrate Activity Restrictions/Additional Instructions: Wound care for penile ulcer, apply topical bacitracin TID. Prescriptions: New Lantus U-100 Insulin 100 unit/mL Solution 50 unit SQ DAILY Qty: 10 RF: 4 bacitracin 500 unit/gram Ointment 1 applic topical TID 14 Days Qty: 14 RF: 1 Continued potassium chloride [Klor-Con M10] 10 mEq tablet,ER particles/crystals 10 meq PO QDAY Qty: 30 RF: 4 atorvastatin [Lipitor] 40 mg tablet 40 mg PO QDAY Qty: 30 RF: 4 spironolactone 25 mg tablet 25 mg PO QAM RF: 0 (DME) pen needle, diabetic [CareFine Pen Needle] 32 gauge x 1/4" needle See Dose Instructions .ROUTE .MEDSUPPLY Qty: 50 RF: 0 (DME) Estevan countor next test in vitro strip Qty: 1 RF: 0 omeprazole 20 mg capsule,delayed release(DR/EC) 40 mg PO QDAY RF: 0 dulaglutide 0.75 mg/0.5 mL pen injector 1.5 mg SUB-Q QWEEK RF: 0 tamsulosin 0.4 mg capsule 0.8 mg PO QDAY RF: 0 torsemide 20 mg tablet 40 mg PO QDAY RF: 0 cholecalciferol (vitamin D3) 4,000 unit tablet 4,000 unit PO QDAY Qty: 90 RF: 4 acetaminophen 325 mg capsule 650 mg PO Q4H PRN (Reason: Pain) RF: 0 aspirin [Adult Aspirin Regimen] 81 mg tablet,delayed release (DR/EC) 81 mg PO QDAY RF: 0 bethanechol chloride 50 mg tablet 50 mg PO BID RF: 0 ferrous sulfate 325 mg (65 mg iron) tablet 325 mg PO QDAY RF: 0 fexofenadine [Allergy Relief (fexofenadine)] 180 mg tablet 180 mg PO Q24H RF: 0 hydrocodone-acetaminophen 10-325 mg tablet 1 tab PO Q4 PRN (Reason: Pain) RF: 0 escitalopram oxalate [Lexapro] 5 mg tablet 5 mg PO QDAY RF: 0 Adult Probiotic 100 mg 100 mg BID RF: 0 cholecalciferol (vitamin D3) 50,000 unit 50,000 units WEEKLY RF: 0 insulin lispro 100 units/ml See Rx Instructions .ROUTE .COMPLEX RF: 0 Discontinued Lantus Solostar U-100 Insulin 100 unit/mL (3 mL) insulin pen 65 unit SUB-Q QDAY RF: 0 doxycycline hyclate 100 mg 100 mg BID RF: 0 Follow Up Plan Follow up with: Max Wren MD [Physician] - 01/28/20 (Follow up for suprapubic catheter suture removal. ) Emiliano Juárez MD [Physician] - 01/23/20 (Penile wound cares. ) Wilberto Rivera ARNP [Primary Care Provider] - Patient Disposition: Xfer SNF Prognosis: Good I certify that the patient requires SNF services: Yes Discharge Orders: Discharge Order (Routine); Ordered 12/14/20 Ordered By: Andrea KNAPP VTE Deep Vein Thrombosis/Pulmonary Embolism Present on Admission: No
[2020-01-28] MEDS ORDERED: DULAGLUTIDE 1.5 MG SUB-Q SCH ×2 (09:00)
== END 2020-01-21 14:13 | DRG 988 ==
LOC: ED 11:38 → MEDSUR 11:38
PROVIDERS: ADMIT Internal Medicine; ATTEND Internal Medicine

== ENCOUNTER 2020-01-28 07:50 | Inpatient (IN) ==
--- NOTE | 2020-01-28 08:11 | Emergency Department Note ---
Weakness HPI General Chief complaint: Weakness Stated complaint: sweatiness Time Seen by Provider: 01/28/20 08:00 Source: patient, EMS and RN notes reviewed Mode of arrival: EMS Limitations: no limitations History of Present Illness HPI Narrative: This patient was sent in from a [facility] because he had had sweats and diaphoresis through the night and had to change his sheets. This patient is mentally delayed. He seems to indicate that he is having some discomfort in his abdomen but no history of nausea vomiting or diarrhea. He was tested negative for Covid yesterday. Has not had cough or shortness of breath. His vital signs are normal. Related Data Home Medications Medication Instructions Recorded Confirmed spironolactone 25 mg tablet 25 mg PO QAM tab 12/27/17 01/16/20 omeprazole 20 mg capsule,delayed 40 mg PO QDAY cap 12/28/17 01/16/20 release dulaglutide 0.75 mg/0.5 mL 1.5 mg SUB-Q QWEEK 09/06/19 01/16/20 subcutaneous pen injector tamsulosin 0.4 mg capsule 0.8 mg PO QDAY cap 09/11/19 01/16/20 torsemide 20 mg tablet 40 mg PO QDAY tab 09/11/19 01/16/20 acetaminophen 325 mg capsule 650 mg PO Q4H PRN 10/29/19 01/16/20 aspirin 81 mg tablet,delayed 81 mg PO QDAY 10/29/19 01/16/20 release bethanechol chloride 50 mg tablet 50 mg PO BID 10/29/19 01/16/20 ferrous sulfate 325 mg (65 mg 325 mg PO QDAY 10/29/19 01/16/20 iron) tablet fexofenadine 180 mg tablet 180 mg PO Q24H 10/29/19 01/16/20 hydrocodone 10 mg-acetaminophen 1 tab PO Q4 PRN tab 10/29/19 01/16/20 325 mg tablet escitalopram oxalate 5 mg tablet 5 mg PO QDAY 11/28/19 01/16/20 Adult Probiotic 100 mg BID 01/16/20 01/16/20 cholecalciferol (vitamin D3) 50,000 units WEEKLY 01/16/20 01/16/20 insulin lispro See Rx Instructions .ROUTE .COMPLEX 01/16/20 01/16/20 Previous Rx's Medication Instructions Recorded cholecalciferol (vitamin D3) 100 4,000 unit PO QDAY #90 tab 04/27/19 mcg (4,000 unit) tablet potassium chloride 10 mEq 10 meq PO QDAY #30 tab 08/06/19 tablet,extended release(part/cryst) atorvastatin 40 mg tablet 40 mg PO QDAY #30 tab 08/13/19 insulin glargine [Lantus U-100 50 unit SQ DAILY #10 ml 01/21/20 Insulin] Allergies Allergy/AdvReac Type Severity Reaction Status Date / Time piperacillin [From Zosyn] Allergy Mild Rash Verified 01/28/20 07:56 tazobactam [From Zosyn] Allergy Mild Rash Verified 01/28/20 07:56 Sulfa (Sulfonamide Allergy Unknown Unknown Verified 01/28/20 07:56 Antibiotics) Review of Systems ROS ROS Narrative: Narrative: All systems ED: reviewed and negative except as stated. [facility] Narrative Patient History Narrative: Narrative: Medical/Surgical/Family History All Active Problems (Updated 01/28/20 @ 08:58 by Micheal Dasilva MD) Cold sweat (Acute) Necrosis (Acute) Urethral erosion by catheter (Acute) Hydronephrosis (Acute) Balanitis (Acute) Cellulitis (Acute) Elevated serum creatinine (Acute) Localized edema due to fluid overload (Chronic) Secondary hyperparathyroidism of renal origin (Chronic) Vitamin D deficiency (Chronic) Anemia in stage 3 chronic kidney disease (Chronic) 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) Acute on chronic renal failure (Acute) Bladder mass (Acute) Status post insertion of Morelos catheter (Chronic) GERD (gastroesophageal reflux disease) (Chronic) Benign prostatic hyperplasia (Chronic) Edema (Chronic) Weakness (Chronic) Bilateral hydronephrosis (Chronic) Leukocytosis (Chronic) Hypoglycemia (Chronic) Obstructive uropathy (Chronic) Acute renal failure (Chronic) Morelos catheter in place (Chronic) Urinary retention (Chronic) Poor hygiene (Chronic) Knee pain (Chronic) Fatigue (Chronic) Hypertension (Chronic) Gout (Chronic) Elevated liver enzymes (Chronic) Mentally challenged (Chronic) Diabetes (Chronic) Arthritis (Chronic) Anxiety (Chronic) Bronchitis (Chronic) Asthma (Chronic) Shortness of breath (Chronic) Chronic kidney disease, stage 3 (Chronic) Medical History (Updated 01/28/20 @ 08:58 by Micheal Dasilva MD) Acute renal failure (Chronic) Anxiety (Chronic) Arthritis (Chronic) Asthma (Chronic) Benign prostatic hyperplasia (Chronic) Bilateral hydronephrosis (Chronic) Bronchitis (Chronic) Chronic kidney disease, stage 3 (Chronic) Diabetes (Chronic) Edema (Chronic) Elevated liver enzymes (Chronic) Fatigue (Chronic) Morelos catheter in place (Chronic) GERD (gastroesophageal reflux disease) (Chronic) Gout (Chronic) Hypertension (Chronic) Hypoglycemia (Chronic) Knee pain (Chronic) Leukocytosis (Chronic) Mentally challenged (Chronic) Obstructive uropathy (Chronic) Poor hygiene (Chronic) Shortness of breath (Chronic) Urinary retention (Chronic) Weakness (Chronic) Surgical History History of colonoscopy (Chronic) Dr. Guevara Status post insertion of Morelos catheter (Chronic) Family History Mother Diabetes Father Heart disease Social History Smoking Status: Never smoker Alcohol Intake Frequency: does not drink Substance Use: does not use Exam Narrative Narrative: Narrative: General Limitations: no limitations Head Head: Present atraumatic, normocephalic and normal inspection Eye Eye: Present normal appearance and EOMI; Absent scleral icterus and conjunctival injection ENT ENT: Present normal exam, normal oropharynx and mucous membranes moist Neck Neck: Present normal inspection and full ROM Chest Chest: Present normal inspection and symmetric chest wall rise; Absent tenderness Respiratory Respiratory: Present other (Patient is unable to sit up due to some discomfort in his abdomen but listening to his lungs in the supine position sounds normal) Cardiovascular Cardiovascular: Present regular rate, normal rhythm and normal heart sounds Adbominal Abdominal: Present soft, tenderness, normal bowel sounds and other (Patient is very obese); Absent distention, guarding, rebound and rigidity Expanded Abdominal Abdominal Tenderness: Present diffuse and mild Extremities Extremities: Present normal inspection and full ROM; Absent pedal edema and pretibial edema Neurological Neurological: Present alert Psychiatric Psychiatric: Present normal affect Skin Skin: Present warm (WNL) and diaphoresis (Very mild diaphoresis) Course Vital Signs Vital signs: Vital Signs Temperature 97.8 F 01/28/20 07:54 Pulse Rate 92 H 01/28/20 07:54 Respiratory Rate 16 01/28/20 07:54 Blood Pressure 124/80 01/28/20 07:54 Pulse Oximetry (%) 94 01/28/20 07:54 Temperature 97.8 F 01/28/20 07:54 Pulse Rate 86 01/28/20 08:45 Respiratory Rate 16 01/28/20 08:45 Blood Pressure 96/67 01/28/20 08:45 Pulse Oximetry (%) 92 01/28/20 08:45 MDM MDM Narrative Medical decision making narrative: Narrative: Case handed off to Dr. Mcintosh at 9:00am Lab Data Result diagrams: 01/28/20 08:07 01/28/20 08:07 Discharge Plan Patient/Caregiver Discharge Instructions Pt seen by PROVIDER RELATIONS REPRESENTATIVE/PA only: No Clinical Impression: Cold sweat Patient Disposition: Still a Patient Follow up with: Wilberto Rivera ARNP [Primary Care Provider] - Prescriptions: No Action potassium chloride [Klor-Con M10] 10 mEq tablet,ER particles/crystals 10 meq PO QDAY Qty: 30 RF: 4 atorvastatin [Lipitor] 40 mg tablet 40 mg PO QDAY Qty: 30 RF: 4 spironolactone 25 mg tablet 25 mg PO QAM RF: 0 omeprazole 20 mg capsule,delayed release(DR/EC) 40 mg PO QDAY RF: 0 dulaglutide 0.75 mg/0.5 mL pen injector 1.5 mg SUB-Q QWEEK RF: 0 tamsulosin 0.4 mg capsule 0.8 mg PO QDAY RF: 0 torsemide 20 mg tablet 40 mg PO QDAY RF: 0 cholecalciferol (vitamin D3) 4,000 unit tablet 4,000 unit PO QDAY Qty: 90 RF: 4 acetaminophen 325 mg capsule 650 mg PO Q4H PRN (Reason: Pain) RF: 0 aspirin [Adult Aspirin Regimen] 81 mg tablet,delayed release (DR/EC) 81 mg PO QDAY RF: 0 bethanechol chloride 50 mg tablet 50 mg PO BID RF: 0 ferrous sulfate 325 mg (65 mg iron) tablet 325 mg PO QDAY RF: 0 fexofenadine [Allergy Relief (fexofenadine)] 180 mg tablet 180 mg PO Q24H RF: 0 hydrocodone-acetaminophen 10-325 mg tablet 1 tab PO Q4 PRN (Reason: Pain) RF: 0 escitalopram oxalate [Lexapro] 5 mg tablet 5 mg PO QDAY RF: 0 Adult Probiotic 100 mg 100 mg BID RF: 0 cholecalciferol (vitamin D3) 50,000 unit 50,000 units WEEKLY RF: 0 insulin lispro 100 units/ml See Rx Instructions .ROUTE .COMPLEX RF: 0 Lantus U-100 Insulin 100 unit/mL Solution 50 unit SQ DAILY Qty: 10 RF: 4
[2020-01-28] MEDS: LACTATED RINGERS 1,000 ML IV SCH ×2 (08:34→13:48)
--- NOTE | 2020-01-28 08:53 | XRay Report ---
CLINICAL INFORMATION: Diaphoresis COMPARISON: 01/18/2020 TECHNIQUE: Portable FINDINGS: The heart size, mediastinum and pulmonary vessels are unremarkable. The lungs are clear. There are no effusions. The bones and soft tissues are within normal limits. IMPRESSION: Normal chest. Interpreted and Authenticated by: Lauro Rodney 01/28/20
[2020-01-28 09:08] LABS: ALT/SGPT 35 U/L (<40); AST/SGOT 22 U/L (<40); Albumin/Globulin Ratio 0.9 (1.0-2.3); Alkaline Phosphatase 148 U/L (39-117); Bilirubin,Total 0.6 mg/dL (0.1-1.0); Blood Urea Nitrogen 46 mg/dL (8-23); Calcium 10.6 mg/dL (8.6-10.4); Carbon Dioxide 23 mmol/L (22-30); Chloride 101 mmol/L (96-108); Globulin 4.4 gm/dL (2.2-3.7); Glomerular Filtration Rate 27; Glucose 233 mg/dL (70-105)
[2020-01-28 09:16] LABS: Basophils # (Auto) 0.04 K/mcL (0.00-0.20); Basophils % (Auto) 0.1 % (0.0-2.0); Eosinophils # (Auto) 0.05 K/mcL (0.00-0.70); Eosinophils % (Auto) 0.1 % (0.0-7.0); Hematocrit 48.7 % (41.0-55.0); Hemoglobin 15.6 g/dL (13.5-16.5); Lymphocytes # (Auto) 0.78 K/mcL (1.50-4.80); Lymphocytes % (Auto) 2.1 % (15.0-49.0); Mean Cell Volume 95.5 fL (80.0-100.0); Mean Platelet Volume 9.5 fL (7.4-10.4); Monocytes # (Auto) 1.84 K/mcL (0.10-0.90); Monocytes % (Auto) 4.9 % (1.0-12.0); Neutrophils % (Auto) 92.8 % (38.0-78.0); Platelet Count 645 K/mcL (140-440); Red Cell Distribution Width 14.4 % (11.5-14.5); WBC 37.3 K/mcL (4.5-11.0)
[2020-01-28] MEDS ORDERED: LEVOFLOXACIN 500 MG/100 ML BAG IV ONE (09:58)
[2020-01-28] MEDS ORDERED: 0.9 % SODIUM CHLORIDE 1,000 ML IV ONE (10:15)
--- NOTE | 2020-01-28 10:29 | Cat Scan Report ---
CLINICAL INFORMATION: Abdominal pain. Evaluate for infection COMPARISON: None. TECHNIQUE: Enteric contrast was utilized. 80 cc of Isovue-[id number] were injected intravenously, and 50 seconds later 2.5 mm helical slices were obtained from the lung apices through the subtrochanteric regions of the femurs. Following reconstruction, 2.5 mm sagittal, coronal and axial reformatted images were processed and reviewed at multiple windows and levels. 7 mm MIP reconstructions were obtained through the lungs to optimize nodule detection.The exam was performed using radiation dose optimization techniques including, but not limited to, automated exposure control, adjustment of the mA and/or kV according to patient size and use of iterative reconstruction technique. FINDINGS: Pulmonary parenchymal windows shows bronchitis featuring elevated lung volumes and dilatation/wall thickening of the bronchi. On the right, there is tubular bronchiectasis within the segmental and subsegmental medial posterior basilar segmental bronchi of the left lower lobe. Minimal patchy airspace disease in the lingula and the posterior lower lobe likely reflects atelectasis and/or scarring. No definite infiltrate. No effusions. The mediastinal windows show the noncontrast thoracic aorta and pulmonary arteries are normal diameter. The heart is normal in size. Heavy calcification in the aortic valve appreciated. There is only minimal scattered calcific plaque in the coronary arteries. Esophagus is moderately dilated possibly due to a GE junction stricture. There is no adenopathy in the mediastinal, hilar or axillary region. The thyroid is unremarkable. Abdominal images show the noncontrasted gallbladder and bile ducts, liver, both adrenal glands, spleen, pancreas and aorta are likely normal in size configuration and attenuation without focal lesion. 18 mm simple cyst present in the anterior mid left kidney. A 7 mm hyperdense lesion, in the inferior pole left kidney, likely represents hyperdense cyst. There is moderate bilateral hydroureter/hydronephrosis with bilateral ureteral dilatation to the level of the iliac crossing. Both distal ureters appear to be narrow. The urinary bladder, is decompressed by suprapubic catheter, but demonstrates only diffuse wall thickening. A very large amount of stool is present within the rectosigmoid colon. Mild mucosal enhancement and wall thickening of the rectum is appreciated. The remaining colon, appendix small bowel and stomach are grossly normal. There is no free air, free fluid or adenopathy within the abdomen or pelvis Bone windows show chronic bilateral L5-S1 spondylolysis with grade 1 spondylolisthesis resulting in severe bilateral IV foraminal narrowing impinging exiting L5 nerve roots. Moderate central canal stenosis. No focal osseous lesions. IMPRESSION: 1. Urinary bladder is decompressed by a well-positioned suprapubic catheter. Probable diffuse urinary bladder wall thickening suggesting cystitis or other pathologic infiltration. There is moderate bilateral hydronephrosis/hydroureter. It is unclear, on the basis of this noncontrast study, whether the obstruction is at the bladder level or due to bilateral distal ureteral strictures. Consider urology evaluation. 2. Very large amount of stool in rectosigmoid colon. There is minimal wall thickening and mucosal enhancement of the rectum. Although, this is likely within normal limits, the possibility of proctitis should be entertained. Mild ileus is noted. 3. Moderate esophageal dilatation possibly due to a stricture of the distal esophagus at the GE junction. Suggest esophagram 4. Chronic bronchitis changes with minimal scarring in the posterior left lower lobe and lingula. No patricia infiltrate. 5. Chronic bilateral L5-S1 spondylolysis grade 1 spondylolisthesis and disc protrusion results in severe IV foraminal narrowing with compression the exiting L5 nerve roots. Moderate central canal stenosis Interpreted and Authenticated by: Lauro Rodney 01/28/20
--- NOTE | 2020-01-28 10:34 | Emergency Department Note ---
HPI General Chief complaint: Weakness Stated complaint: sweatiness Time Seen by Provider: 01/28/20 08:00 Source: patient, EMS and RN notes reviewed Mode of arrival: EMS Limitations: no limitations History of Present Illness HPI Narrative: Narrative: See history and physical dictated by Dr. Dasilva. I am assuming care of patient after change in shift. Related Data Home Medications Medication Instructions Recorded Confirmed spironolactone 25 mg tablet 25 mg PO QAM tab 12/27/17 01/28/20 omeprazole 20 mg capsule,delayed 40 mg PO QDAY cap 12/28/17 01/28/20 release dulaglutide 0.75 mg/0.5 mL 1.5 mg SUB-Q QWEEK 09/06/19 01/28/20 subcutaneous pen injector tamsulosin 0.4 mg capsule 0.8 mg PO QDAY cap 09/11/19 01/28/20 torsemide 20 mg tablet 40 mg PO QDAY tab 09/11/19 01/28/20 acetaminophen 325 mg capsule 650 mg PO Q4H PRN 10/29/19 01/28/20 aspirin 81 mg tablet,delayed 81 mg PO QDAY 10/29/19 01/28/20 release bethanechol chloride 50 mg tablet 50 mg PO BID 10/29/19 01/28/20 ferrous sulfate 325 mg (65 mg 325 mg PO QDAY 10/29/19 01/28/20 iron) tablet fexofenadine 180 mg tablet 180 mg PO Q24H 10/29/19 01/28/20 hydrocodone 10 mg-acetaminophen 1 tab PO Q4 PRN tab 10/29/19 01/28/20 325 mg tablet escitalopram oxalate 5 mg tablet 5 mg PO QDAY 11/28/19 01/28/20 Adult Probiotic 100 mg BID 01/16/20 01/28/20 cholecalciferol (vitamin D3) 50,000 units WEEKLY 01/16/20 01/28/20 insulin lispro See Rx Instructions .ROUTE .COMPLEX 01/16/20 01/28/20 Previous Rx's Medication Instructions Recorded cholecalciferol (vitamin D3) 100 4,000 unit PO QDAY #90 tab 04/27/19 mcg (4,000 unit) tablet potassium chloride 10 mEq 10 meq PO QDAY #30 tab 08/06/19 tablet,extended release(part/cryst) atorvastatin 40 mg tablet 40 mg PO QDAY #30 tab 08/13/19 insulin glargine [Lantus U-100 50 unit SQ DAILY #10 ml 01/21/20 Insulin] Allergies Allergy/AdvReac Type Severity Reaction Status Date / Time piperacillin [From Zosyn] Allergy Mild Rash Verified 01/28/20 07:56 tazobactam [From Zosyn] Allergy Mild Rash Verified 01/28/20 07:56 Sulfa (Sulfonamide Allergy Unknown Unknown Verified 01/28/20 07:56 Antibiotics) FOR[facility]LY [facility], [facility] Narrative Patient History Narrative: Narrative: Medical/Surgical/Family History All Active Problems (Updated 01/28/20 @ 11:29 by Julien Mcintosh DO) Sepsis (Acute) Urinary tract infection associated with cystostomy catheter (Acute) Chronic renal failure, stage 3 (moderate) (Acute) Hypoxia (Acute) Status post excisional debridement (Acute) Necrosis (Acute) Urethral erosion by catheter (Acute) Hydronephrosis (Acute) Balanitis (Acute) Cellulitis (Acute) Elevated serum creatinine (Acute) Localized edema due to fluid overload (Chronic) Secondary hyperparathyroidism of renal origin (Chronic) Vitamin D deficiency (Chronic) Anemia in stage 3 chronic kidney disease (Chronic) 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) Acute on chronic renal failure (Acute) Bladder mass (Acute) Status post insertion of Morelos catheter (Chronic) GERD (gastroesophageal reflux disease) (Chronic) Benign prostatic hyperplasia (Chronic) Edema (Chronic) Weakness (Chronic) Bilateral hydronephrosis (Chronic) Leukocytosis (Chronic) Hypoglycemia (Chronic) Obstructive uropathy (Chronic) Acute renal failure (Chronic) Morelos catheter in place (Chronic) Urinary retention (Chronic) Poor hygiene (Chronic) Knee pain (Chronic) Fatigue (Chronic) Hypertension (Chronic) Gout (Chronic) Elevated liver enzymes (Chronic) Mentally challenged (Chronic) Diabetes (Chronic) Arthritis (Chronic) Anxiety (Chronic) Bronchitis (Chronic) Asthma (Chronic) Shortness of breath (Chronic) Chronic kidney disease, stage 3 (Chronic) Medical History (Updated 01/28/20 @ 11:29 by Julien Mcintosh DO) Acute renal failure (Chronic) Anxiety (Chronic) Arthritis (Chronic) Asthma (Chronic) Benign prostatic hyperplasia (Chronic) Bilateral hydronephrosis (Chronic) Bronchitis (Chronic) Chronic kidney disease, stage 3 (Chronic) Diabetes (Chronic) Edema (Chronic) Elevated liver enzymes (Chronic) Fatigue (Chronic) Morelos catheter in place (Chronic) GERD (gastroesophageal reflux disease) (Chronic) Gout (Chronic) Hypertension (Chronic) Hypoglycemia (Chronic) Knee pain (Chronic) Leukocytosis (Chronic) Mentally challenged (Chronic) Obstructive uropathy (Chronic) Poor hygiene (Chronic) Shortness of breath (Chronic) Urinary retention (Chronic) Weakness (Chronic) Surgical History (Updated 01/28/20 @ 11:29 by Julien Mcintosh DO) History of colonoscopy (Chronic) Dr. Guevara Status post insertion of Morelos catheter (Chronic) Family History Father Diabetes Mother Heart disease Father Social History Smoking Status: Never smoker Alcohol Intake Frequency: does not drink Substance Use: does not use Exam Narrative Narrative: Narrative: See exam by Dr. Dasilva. On my exam he is alert and interactive. He is quite simplistic childlike in some of his observations, comments, questions, conversation. He is not toxic in any way. He appears alert and appropriate. Is on oxygen with saturations above 92%. Abdomen is quite large and somewhat bloated and even a little temp and headache but only mildly tender. See the CT scan results below. Rectal exam done also see below. Extremities: No cyanosis or clubbing. No calf tenderness. General Limitations: no limitations Course Vital Signs Vital signs: Vital Signs Temperature 97.8 F 01/28/20 07:54 Pulse Rate 92 H 01/28/20 07:54 Respiratory Rate 16 01/28/20 07:54 Blood Pressure 124/80 01/28/20 07:54 Pulse Oximetry (%) 94 01/28/20 07:54 Temperature 97.8 F 01/28/20 07:54 Pulse Rate 92 H 01/28/20 11:00 Respiratory Rate 12 01/28/20 11:00 Blood Pressure 119/70 01/28/20 11:00 Pulse Oximetry (%) 95 01/28/20 11:00 [facility] Narrative Medical decision making narrative: Narrative: 10:30 AM I was notified earlier of patient's elevated white count of 37.3, and then later lactic acid 5.0, also quite elevated. Blood cultures have been ob tained. Urine culture being obtained. Levaquin has already been ordered. He is allergic with a rash to Zosyn. Additional review includes sodium 146, anion gap 22.0, BUN and creatinine 46 and 2.4 which is elevated from his normal chronic renal insufficiency with creatinines in the range of 1.3-1.6 most of the time. Because the source of his sweating and abdominal discomfort, poor historian, etc ., imaging was necessary and a CT of his chest abdomen and pelvis was ordered. This without contrast due to his elevated creatinine. Results now show: 1. Urinary bladder is decompressed by a well-positioned suprapubic catheter. Probable diffuse urinary bladder wall thickening suggesting cystitis or other pathologic infiltration. There is moderate bilateral hydronephrosis/hydroureter. It is unclear, on the basis of this noncontrast study, whether the obstruction is at the bladder level or due to bilateral distal ureteral strictures. Consider urology evaluation. 2. Very large amount of stool in rectosigmoid colon. There is minimal wall thickening and mucosal enhancement of the rectum. Although, this is likely within normal limits, the possibility of proctitis should be entertained. Mild ileus is noted. 3. Moderate esophageal dilatation possibly due to a stricture of the distal esophagus at the GE junction. Suggest esophagram. 4. Chronic bronchitis changes with minimal scarring in the posterior left lower lobe and lingula. No patricia infiltrate. 5. Chronic bilateral L5-S1 spondylolysis grade 1 spondylolisthesis and disc protrusion results in severe IV foraminal narrowing with compression the exiting L5 nerve roots. Moderate central canal stenosis. 10:44 AM - call out to urology to discuss the above findings. 10:53 AM I spoke with Dr. Wren, urologist, who is seen this patient recently. There was debridement of necrotic skin around the penis around the 11 17 or . She reviewed the CT scan findings. The hydronephrosis is chronic. The thickening of the gallbladder is thickening. This is urosepsis as long as there is not a cellulitis of significance. The catheter that is suprapubic has been recently changed. It can be flushed if there is suspicion of blockage. But it does not need to be changed out. She recommends wound care and admission for urosepsis. 11:05 AM call out to hospitalist. Of note is that patient was examined for cellulitis. There is no erythema or swelling of the penis. There is no swelling or erythema around the suprapubic site but a little tiny bit of mucoid discharge and some drainage. There is some drainage of the penile area as well. There is some erythema and granulation tissue around the distal penis near the alba where previous debridement/surgical attention had been given. There is discharge on his depends that have been placed that appears serosanguineous/possibly mildly purulent. No foul odor present. It is tender to retract the fat pad and visualize this area. He has some rectal incontinence currently. The CT scan above showed constipation. Digital rectal exam reveals a large amount of stool in the rectal vault that is moderately soft. Treatment with enema could be helpful but could contaminate other areas. Will try Dulcolax suppository. Hemoccult is negative. Prostate is moderate in size. 11:21 AM - spoke with hospitalist, Dr. Mark Anthony Hawley, who accepts this patient and will be down soon to see him. I spoke with him regarding wound care, conversation with Dr. De Souza, etc. Antibiotic choice also. Source of his hypoxia still uncertain at this point. Lab Data Result diagrams: 01/28/20 08:07 01/28/20 08:07 Labs: Lab Results 01/28/20 01/28/20 01/28/20 Range/Units 08:07 08:07 08:27 WBC 37.3 H* (4.5-11.0) K/mcL RBC 5.10 (4.50-5.90) M/mcL Hgb 15.6 (13.5-16.5) g/dL Hct 48.7 (41.0-55.0) % MCV 95.5 (80.0-100.0) fL MCH 30.6 (26.0-34.0) pg MCHC 32.0 (31.0-36.0) g/dL RDW 14.4 (11.5-14.5) % Plt Count 645 H (140-440) K/mcL MPV 9.5 (7.4-10.4) fL Neut % (Auto) 92.8 H (38.0-78.0) % Lymph % (Auto) 2.1 L (15.0-49.0) % [place] % (Auto) 4.9 (1.0-12.0) % Eos % (Auto) 0.1 (0.0-7.0) % Baso % (Auto) 0.1 (0.0-2.0) % Lymph # (Auto) 0.78 L (1.50-4.80) K/mcL [place] # (Auto) 1.84 H (0.10-0.90) K/mcL Eos # (Auto) 0.05 (0.00-0.70) K/mcL Baso # (Auto) 0.04 (0.00-0.20) K/mcL Absolute Neutrophils 34.58 H (1.80-8.00) K/mcL VBG Lactic Acid 5.0 H* (0.5-2.0) mmol/L Sodium 146 H (133-145) mmol/L Potassium 5.1 (3.3-5.1) mmol/L Chloride 101 (96-108) mmol/L Carbon Dioxide 23 (22-30) mmol/L Anion Gap 22.0 H (8.0-16.0) BUN 46 H (8-23) mg/dL Creatinine 2.4 H (0.7-1.2) mg/dL GFR Calculation 27 Glucose 233 H (70-105) mg/dL Calcium 10.6 H (8.6-10.4) mg/dL Total Bilirubin 0.6 (0.1-1.0) mg/dL AST 22 (<40) U/L ALT 35 (<40) U/L Alkaline Phosphatase 148 H (39-117) U/L Total Protein 8.4 (5.9-8.4) gm/dL Albumin 4.0 (3.2-5.2) gm/dL Globulin 4.4 H (2.2-3.7) gm/dL Albumin/Globulin Ratio 0.9 L (1.0-2.3) Discharge Plan Patient/Caregiver Discharge Instructions 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: No Clinical Impression: Hypoxia, Status post excisional debridement Sepsis Qualifiers: Sepsis type: sepsis due to unspecified organism Sepsis acute organ dysfunction status: with acute organ dysfunction Severe sepsis acute organ dysfunction type: acute renal failure Acute renal failure type: unspecified Severe sepsis shock status: without septic shock Qualified Code(s): A41.9 - Sepsis, unspecified organism Urinary tract infection associated with cystostomy catheter Qualifiers: Encounter type: initial encounter Qualified Code(s): T83.510A - Infection and inflammatory reaction due to cystostomy catheter, initial encounter Chronic renal failure, stage 3 (moderate) Qualifiers: Chronic kidney disease stage 3 subtype: unspecified whether 3a or 3b Qualified Code(s): N18.30 - Chronic kidney disease, stage 3 unspecified Patient Disposition: Still a Patient Follow up with: Wilberto Rivera ARNP [Primary Care Provider] - Prescriptions: No Action potassium chloride [Klor-Con M10] 10 mEq tablet,ER particles/crystals 10 meq PO QDAY Qty: 30 RF: 4 atorvastatin [Lipitor] 40 mg tablet 40 mg PO QDAY Qty: 30 RF: 4 spironolactone 25 mg tablet 25 mg PO QAM RF: 0 omeprazole 20 mg capsule,delayed release(DR/EC) 40 mg PO QDAY RF: 0 dulaglutide 0.75 mg/0.5 mL pen injector 1.5 mg SUB-Q QWEEK RF: 0 tamsulosin 0.4 mg capsule 0.8 mg PO QDAY RF: 0 torsemide 20 mg tablet 40 mg PO QDAY RF: 0 cholecalciferol (vitamin D3) 4,000 unit tablet 4,000 unit PO QDAY Qty: 90 RF: 4 acetaminophen 325 mg capsule 650 mg PO Q4H PRN (Reason: Pain) RF: 0 aspirin [Adult Aspirin Regimen] 81 mg tablet,delayed release (DR/EC) 81 mg PO QDAY RF: 0 bethanechol chloride 50 mg tablet 50 mg PO BID RF: 0 ferrous sulfate 325 mg (65 mg iron) tablet 325 mg PO QDAY RF: 0 fexofenadine [Allergy Relief (fexofenadine)] 180 mg tablet 180 mg PO Q24H RF: 0 hydrocodone-acetaminophen 10-325 mg tablet 1 tab PO Q4 PRN (Reason: Pain) RF: 0 escitalopram oxalate [Lexapro] 5 mg tablet 5 mg PO QDAY RF: 0 Adult Probiotic 100 mg 100 mg BID RF: 0 cholecalciferol (vitamin D3) 50,000 unit 50,000 units WEEKLY RF: 0 insulin lispro 100 units/ml See Rx Instructions .ROUTE .COMPLEX RF: 0 Lantus U-100 Insulin 100 unit/mL Solution 50 unit SQ DAILY Qty: 10 RF: 4
[2020-01-28] MEDS ORDERED: BISACODYL 10 MG SUPP.RECT PR ONE (11:18)
--- NOTE | 2020-01-28 11:48 | Internal Med History&Physical ---
HPI History of Present Illness Patient information: Note initiated : 01/28/20 at 11:38 am Service Date, if different from initiated Date: [] Patient: Fritz Esquivel 70 y/o M admitted on for Sweatiness. Chief Complaint: [] History of present illness: Mr. Esquivel is a 70 year old M Presents from [facility] due to being sweaty all night and feeling lightheaded and weak. Did have episode nausea vomiting last night as well. He has some degree of mental delay and history is most days obtained from chart. He had a rapid Covid test which was negative. He was afebrile in the ED but found to have a leukocytosis of 37,000. His lact ate was 5.0. Had acute kidney injury. Elevated sodium. Low blood pressure on arrival. Given several liters of IV fluid in the ED. Imaging of the chest abdomen pelvis residual view of the lungs to be okay, there was a concern initially from aspiration. Did show hydroureters and hydronephrosis. Case discussed with Dr. Wren recently put in a suprapubic catheter for ulcer and cellulitis earlier in the month. Blood pressure stable. Patient also found of constipation. Says he was feeling fine yesterday morning but in the afternoon started feeling crummy and lightheaded weak and sweaty. Review of Systems: Pertinent positives as above. Denies headache/fever/chills/chest pain/cough/dyspnea/diarrhea. Many 10 point review of system reviewed negative PFSH PFSH All Active Problems (Updated 01/28/20 @ 11:29 by Julien Mcintosh DO) Sepsis (Acute) Urinary tract infection associated with cystostomy catheter (Acute) Chronic renal failure, stage 3 (moderate) (Acute) Hypoxia (Acute) Status post excisional debridement (Acute) Necrosis (Acute) Urethral erosion by catheter (Acute) Hydronephrosis (Acute) Balanitis (Acute) Cellulitis (Acute) Elevated serum creatinine (Acute) Localized edema due to fluid overload (Chronic) Secondary hyperparathyroidism of renal origin (Chronic) Vitamin D deficiency (Chronic) Anemia in stage 3 chronic kidney disease (Chronic) 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) Acute on chronic renal failure (Acute) Bladder mass (Acute) Status post insertion of Morelos catheter (Chronic) GERD (gastroesophageal reflux disease) (Chronic) Benign prostatic hyperplasia (Chronic) Edema (Chronic) Weakness (Chronic) Bilateral hydronephrosis (Chronic) Leukocytosis (Chronic) Hypoglycemia (Chronic) Obstructive uropathy (Chronic) Acute renal failure (Chronic) Morelos catheter in place (Chronic) Urinary retention (Chronic) Poor hygiene (Chronic) Knee pain (Chronic) Fatigue (Chronic) Hypertension (Chronic) Gout (Chronic) Elevated liver enzymes (Chronic) Mentally challenged (Chronic) Diabetes (Chronic) Arthritis (Chronic) Anxiety (Chronic) Bronchitis (Chronic) Asthma (Chronic) Shortness of breath (Chronic) Chronic kidney disease, stage 3 (Chronic) Medical History (Updated 01/28/20 @ 11:29 by Julien Mcintosh DO) Acute renal failure (Chronic) Anxiety (Chronic) Arthritis (Chronic) Asthma (Chronic) Benign prostatic hyperplasia (Chronic) Bilateral hydronephrosis (Chronic) Bronchitis (Chronic) Chronic kidney disease, stage 3 (Chronic) Diabetes (Chronic) Edema (Chronic) Elevated liver enzymes (Chronic) Fatigue (Chronic) Morelos catheter in place (Chronic) GERD (gastroesophageal reflux disease) (Chronic) Gout (Chronic) Hypertension (Chronic) Hypoglycemia (Chronic) Knee pain (Chronic) Leukocytosis (Chronic) Mentally challenged (Chronic) Obstructive uropathy (Chronic) Poor hygiene (Chronic) Shortness of breath (Chronic) Urinary retention (Chronic) Weakness (Chronic) Surgical History (Updated 01/28/20 @ 11:29 by Julien Mcintosh DO) History of colonoscopy (Chronic) Dr. Guevara Status post insertion of Morelos catheter (Chronic) Family History Mother Diabetes Father Heart disease Social History caregiver/support person: Yes household members: alone marital status: single education level: high school smoking status: Never smoker alcohol intake frequency: does not drink substance use type: does not use MEDS/ALLERGIES Home Medications and Allergies Home Medications Medication Instructions Recorded Confirmed Type spironolactone 25 mg tablet 25 mg PO QAM tab 12/27/17 01/28/20 History omeprazole 20 mg capsule,delayed 40 mg PO QDAY cap 12/28/17 01/28/20 History release cholecalciferol (vitamin D3) 100 4,000 unit PO QDAY #90 tab 04/27/19 01/28/20 Rx mcg (4,000 unit) tablet potassium chloride 10 mEq 10 meq PO QDAY #30 tab 08/06/19 01/28/20 Rx tablet,extended release(part/cryst) atorvastatin 40 mg tablet 40 mg PO QDAY #30 tab 08/13/19 01/28/20 Rx dulaglutide 0.75 mg/0.5 mL 1.5 mg SUB-Q QWEEK 09/06/19 01/28/20 History subcutaneous pen injector tamsulosin 0.4 mg capsule 0.8 mg PO QDAY cap 09/11/19 01/28/20 History torsemide 20 mg tablet 40 mg PO QDAY tab 09/11/19 01/28/20 History acetaminophen 325 mg capsule 650 mg PO Q4H PRN 10/29/19 01/28/20 History aspirin 81 mg tablet,delayed 81 mg PO QDAY 10/29/19 01/28/20 History release bethanechol chloride 50 mg tablet 50 mg PO BID 10/29/19 01/28/20 History ferrous sulfate 325 mg (65 mg 325 mg PO QDAY 10/29/19 01/28/20 History iron) tablet fexofenadine 180 mg tablet 180 mg PO Q24H 10/29/19 01/28/20 History hydrocodone 10 mg-acetaminophen 1 tab PO Q4 PRN tab 10/29/19 01/28/20 History 325 mg tablet escitalopram oxalate 5 mg tablet 5 mg PO QDAY 11/28/19 01/28/20 History Adult Probiotic 100 mg BID 01/16/20 01/28/20 History cholecalciferol (vitamin D3) 50,000 units WEEKLY 01/16/20 01/28/20 History insulin lispro See Rx Instructions .ROUTE .COMPLEX 01/16/20 01/28/20 History insulin glargine [Lantus U-100 50 unit SQ DAILY #10 ml 01/21/20 01/28/20 Rx Insulin] Allergies Allergy/AdvReac Type Severity Reaction Status Date / Time piperacillin [From Zosyn] Allergy Mild Rash Verified 01/28/20 07:56 tazobactam [From Zosyn] Allergy Mild Rash Verified 01/28/20 07:56 Sulfa (Sulfonamide Allergy Unknown Unknown Verified 01/28/20 07:56 Antibiotics) EXAM Constitutional Vitals: Temp Pulse Resp BP Pulse Ox 97.8 F 90 13 122/74 100 01/28/20 07:54 01/28/20 11:30 01/28/20 11:30 01/28/20 11:30 01/28/20 11:30 Exam: General: Alert, Awake, No acute Distress Eyes/N/T: EOMI, PERRL, dry MM Head/Neck: neck supple, normocephalic atraumatic CV: RRR, No murmurs, normal s1/s2 Pulm: Clear b/l, no wheezing/rhonchi/rales Abd: soft, nontender, +BS x4, suprapubic catheter in place Ext: no clubbing/cyanosis/edema Neuro: Alert, no focal deficits, moves all extremities, CN 2-12 grossly intact, symmetrical strength b/l upper/lower, sensations intact b/l upper/lower Skin: warm/dry DATA Data Completed and Pending Labs: Labs from last 24 hours 01/28/20 01/28/20 01/28/20 11:12 08:27 08:07 WBC RBC Hgb Hct MCV MCH MCHC RDW Plt Count MPV Neut % (Auto) Lymph % (Auto) [place] % (Auto) Eos % (Auto) Baso % (Auto) Lymph # (Auto) [place] # (Auto) Eos # (Auto) Baso # (Auto) Absolute Neutrophils Platelet Estimate RBC Morphology VBG Lactic Acid 5.0 H* Sodium Potassium Chloride Carbon Dioxide Anion Gap BUN Creatinine GFR Calculation Glucose Calcium Total Bilirubin AST ALT Alkaline Phosphatase Total Protein Albumin Globulin Albumin/Globulin Ratio Procalcitonin Pending Urine Color Pending Urine Appearance Pending Urine pH Pending Ur Specific [place] Pending Urine Protein Pending Urine Glucose (UA) Pending Urine Ketones Pending Urine Occult Blood Pending Urine Nitrate Pending Urine Bilirubin Pending Urine Urobilinogen Pending Ur Leukocyte Esterase Pending 01/28/20 01/28/20 01/28/20 08:07 08:07 08:07 WBC 37.3 H* RBC 5.10 Hgb 15.6 Hct 48.7 MCV 95.5 MCH 30.6 MCHC 32.0 RDW 14.4 Plt Count 645 H MPV 9.5 Neut % (Auto) 92.8 H Lymph % (Auto) 2.1 L [place] % (Auto) 4.9 Eos % (Auto) 0.1 Baso % (Auto) 0.1 Lymph # (Auto) 0.78 L [place] # (Auto) 1.84 H Eos # (Auto) 0.05 Baso # (Auto) 0.04 Absolute Neutrophils 34.58 H Platelet Estimate Pending RBC Morphology Pending VBG Lactic Acid Sodium 146 H Potassium 5.1 Chloride 101 Carbon Dioxide 23 Anion Gap 22.0 H BUN 46 H Creatinine 2.4 H GFR Calculation 27 Glucose 233 H Calcium 10.6 H Total Bilirubin 0.6 AST 22 ALT 35 Alkaline Phosphatase 148 H Total Protein 8.4 Albumin 4.0 Globulin 4.4 H Albumin/Globulin Ratio 0.9 L Procalcitonin Urine Color Urine Appearance Urine pH Ur Specific [place] Urine Protein Urine Glucose (UA) Urine Ketones Urine Occult Blood Urine Nitrate Urine Bilirubin Urine Urobilinogen Ur Leukocyte Esterase A/P Narrative A/P Narrative: A: *Sepsis w/lactic acidosis: 2/2 likely source given recent penile ulcer/cellulitis -Chest imaging unremarkable -LA 5.0, wbc 37k, reactive thrombocytopenia *RADHA on CKD III: *b/l hydroureter: ?significance per urology, Urology following *Recent penile ulcer/cellulitis: suprapubic cath placed by Urology last admit *Hypernatermia/dehydration: *Mental delay: *DM: *h/o diastolic(grade I)CHF: *GERD: *Depression *Constipation: * P: -IVF, f/u lactate -Cefepime, pending BC/UC -Urology following -hold home aldactone/torsemide - -basal and SSI -bowel regimen -pt/ot -ppx: lovenox/home ppi Time Spent With Patient Time: Total time spent is greater than 50% in coordination of care (as documented) at patient's floor/unit and/or counseling patient:
[2020-01-28 12:05] LABS: Appearance,Urine HAZY (Clear); Bacteria,Urine FEW /hpf (0); Bilirubin,Urine Negative (Negative); Calcium Oxalate Crystals,Urine MANY /hpf; Color,Urine AMBER; Culture Indicated,Urine yes; Glucose,Urine (UA) Negative (Negative); Ketones,Urine Negative (Negative); Leukocyte Esterase,Urine 250 /ug (Negative); Nitrate,Urine Negative (Negative); Protein,Urine 30 mg/dL (Negative); Specific Gravity,Urine 1.024 (1.000-1.035); Sulfosalicylic Acid,Urine 1+ mg/dL (NEGATIVE); Urine Broad Cast 5 /lph (0-0); Urine Hyaline Cast 5 /lph (0-2); Urine RBC 62 /hpf (0-1); Urine Squamous Epithelial Cell < 1 /hpf (0-4); Urine Transitional Epi Cells < 1 /hpf (0-2); Urine WBC 74 /hpf (0-4)
[2020-01-28 12:11] LABS: Band Neutrophils % 4 % (0-10); Lymphocytes % 4 % (15-49); Monocytes % (Manual) 6 % (1-12); Platelet Estimate INCREASED (Normal); RBC Morphology NORMAL (Normal); Segmented Neutrophils % 86 % (38-78)
[2020-01-28] MEDS ORDERED: LACTULOSE 20 GM/30 ML ORAL.SOL PO PRN (13:46)
[2020-01-28] MEDS ORDERED: POLYETHYLENE GLYCOL 3350 17 GM PACKET PO PRN (13:46)
[2020-01-28] MEDS ORDERED: POTASSIUM CHLORIDE 20 MEQ TABLET PO PRN ×2 (13:46)
[2020-01-28] MEDS ORDERED: POTASSIUM CHLORIDE 40 MEQ in DEXTROSE 5% IN WATER 500 ML IV PRN (13:46)
[2020-01-28] MEDS ORDERED: MAGNESIUM SULFATE 2 GM/50 ML BAG IV PRN (13:46)
[2020-01-28] MEDS ORDERED: SENNOSIDES 1 TABLET PO PRN (13:46)
[2020-01-28] MEDS ORDERED: INSULIN LISPRO SCH (13:46)
[2020-01-28] MEDS ORDERED: IPRATROPIUM/ALBUTEROL 3 ML AMPUL.NEB NEB PRN (13:46)
[2020-01-28] MEDS: 0.45 % SODIUM CHLORIDE 1,000 ML IV SCH ×2 (13:52→23:51)
[2020-01-28] MEDS ORDERED: ACETAMINOPHEN 325 MG TABLET PO PRN (13:54)
[2020-01-28] MEDS: 0.9 % SODIUM CHLORIDE 10 ML SYRINGE IV SCH ×2 (13:57→21:24)
[2020-01-28] MEDS: INSULIN LISPRO 1 UNIT/0.01 ML UNIT SQ SCH ×2 (17:11→20:39)
[2020-01-28] MEDS: LACTOBACILLUS 1 CAPSULE PO SCH (20:18)
[2020-01-28] MEDS: DOCUSATE SODIUM 100 MG CAPSULE PO SCH (20:19)
[2020-01-28] MEDS: CEFEPIME 2 GM VIAL IV SCH (20:39)
[2020-01-28] MEDS: BETHANECHOL 10 MG TABLET PO SCH (21:23)
[2020-01-28] MEDS: ONDANSETRON 4 MG/2 ML VIAL IV PRN (23:51)
[2020-01-29] MEDS: ONDANSETRON 4 MG/2 ML VIAL IV PRN (05:09)
[2020-01-29] MEDS: 0.9 % SODIUM CHLORIDE 10 ML SYRINGE IV SCH ×3 (05:09→20:25)
[2020-01-29 06:42] LABS: Hematocrit 41.5 % (41.0-55.0); Hemoglobin 13.3 g/dL (13.5-16.5); Mean Cell Volume 94.5 fL (80.0-100.0); Mean Platelet Volume 10.2 fL (7.4-10.4); Platelet Count 498 K/mcL (140-440); RBC 4.39 M/mcL (4.50-5.90); Red Cell Distribution Width 14.6 % (11.5-14.5); WBC 24.3 K/mcL (4.5-11.0)
[2020-01-29 07:15] LABS: ALT/SGPT 22 U/L (<40); AST/SGOT 21 U/L (<40); Albumin 3.1 gm/dL (3.2-5.2); Albumin/Globulin Ratio 0.8 (1.0-2.3); Alkaline Phosphatase 118 U/L (39-117); Bilirubin,Direct < 0.2 mg/dL (<0.3); Bilirubin,Total 0.3 mg/dL (0.1-1.0); Blood Urea Nitrogen 54 mg/dL (8-23); Calcium 9.3 mg/dL (8.6-10.4); Carbon Dioxide 21 mmol/L (22-30); Chloride 102 mmol/L (96-108); Globulin 3.9 gm/dL (2.2-3.7); Glomerular Filtration Rate 35; Glucose 136 mg/dL (70-105); Lactate Dehydrogenase 315 U/L (135-225); Phosphorous 4.6 mg/dL (2.5-4.5); Triglycerides 135 mg/dL (<150); Uric Acid 7.8 mg/dL (2.5-8.0)
[2020-01-29] MEDS ORDERED: MINERAL OIL 1 DOSE ENEMA PR ONE (07:26)
--- NOTE | 2020-01-29 07:28 | Internal Med Progress Note ---
SUBJECTIVE Subjective Patient information: Note initiated : 01/29/20 at 7:24 am Service Date, if different from initiated Date: [] Patient: Fritz Esquivel 70 y/o M admitted on 01/28/20 for Sweatiness. Chief Complaint: [] Interval history: History of present illness: Mr. Esquivel is a 70 year old M Presents from [facility] due to being sweaty all night and feeling lightheaded and weak. Did have episode nausea vomiting last night as well. He has some degree of mental delay and history is most days obtained from chart. He had a rapid Covid test which was negative. He was afebrile in the ED but found to have a leukocytosis of 37,000. His lactate was 5.0. Had acute kidney injury. Elevated sodium. Low blood pressure on arrival. Given several liters of IV fluid in the ED. Imaging of the chest abdomen pelvis residual view of the lungs to be okay, there was a concern initially from aspiration. Did show hydroureters and hydronephrosis. Case discussed with Dr. Wren recently put in a suprapubic catheter for ulcer and cellulitis earlier in the month. Blood pressure stable. Patient also found of constipation. Says he was feeling fine yesterday morning but in the afternoon started feeling crummy and lightheaded weak and sweaty. 01/28 Feeling better today. Leukocytosis improving. Lactic acidosis resolved. Renal function slowly improving. pEnding cultures. Review of Systems: denies headache/fever/chills/nausea/vomiting/chest or abdominal pain/cough/dyspnea/diarrhea. Otherwise see above. Constitutional Vitals: Vital Signs Temp Pulse Resp BP Pulse Ox 98.4 F 97 H 21 134/75 97 01/29/20 05:31 01/28/20 13:52 01/29/20 05:01 01/29/20 05:01 01/29/20 02:00 Period Temp Pulse Resp BP Sys/[place] Pulse Ox Last 24 Hr 96.9 F-98.8 F 84-97 -26 91-156/59-99 86-100 Intake and Output 01/28/20 01/29/20 01/29/20 21:59 05:59 13:59 Intake Total 480 2153 Output Total 225 725 Balance 255 1428 Weight 93.984 kg Intake & Output: Intake & Output 01/28/20 01/29/20 01/29/20 21:59 05:59 13:59 Intake Total 480 2153 Output Total 225 725 Balance 255 1428 Weight 93.984 kg Intake: IV 998 Sodium Chloride 0.45% 1,000 ml 998 @ 100 mls/hr IV .Q10H [facility] Rx#: [id number] Oral 480 1155 Output: Urine Catheter Amount 225 350 Emesis 375 Other: Meal Dinner Percent of Meal Consumed 100% Feeding Ability Assist with Tray Set Up Urine Appearance Cloudy Cloudy Suprapubic Cloudy Cloudy Urine Color Dark Lexi Tea Colored Suprapubic Dark Yellow Dark Yellow Urine Odor Strong Strong Suprapubic Strong Strong Exam: General: Alert, Awake, No acute Distress Eyes/N/T: EOMI, Head/Neck: neck supple, CV: RRR, No murmurs, Pulm: Clear b/l, no wheezing/rhonchi/rales Abd: soft, nontender, +BS x4, suprapubic catheter in place Ext: no clubbing/cyanosis/edema Neuro: Alert, no focal deficits, moves all extremities, Skin: warm/dry OBJ DATA Labs CBC & Chem 7: 01/29/20 05:25 01/29/20 05:25 Labs: Abnormal Lab Results 01/29/20 01/29/20 01/28/20 05:25 05:25 16:10 WBC 24.3 H RBC 4.39 L Hgb 13.3 L RDW 14.6 H Plt Count 498 H Neut % (Auto) Lymph % (Auto) Lymph # (Auto) [place] # (Auto) Seg Neutrophils % Lymphocytes % Absolute Neutrophils Platelet Estimate VBG Lactic Acid 3.2 H Sodium Carbon Dioxide 21 L Anion Gap 17.0 H BUN 54 H Creatinine 1.9 H Glucose 136 H Calcium Phosphorus 4.6 H Magnesium 3.3 H Alkaline Phosphatase 118 H Lactate Dehydrogenase 315 H Albumin 3.1 L Globulin 3.9 H Albumin/Globulin Ratio 0.8 L Procalcitonin Urine Appearance Urine Protein Prot Sulfosalicylic Acd Urine Urobilinogen Ur Leukocyte Esterase Urine RBC Urine WBC Calcium Oxalate Crystal Urine Bacteria Hyaline Casts Broad Casts 01/28/20 01/28/20 01/28/20 11:12 08:27 08:07 WBC RBC Hgb RDW Plt Count Neut % (Auto) Lymph % (Auto) Lymph # (Auto) [place] # (Auto) Seg Neutrophils % Lymphocytes % Absolute Neutrophils Platelet Estimate VBG Lactic Acid 5.0 H* Sodium Carbon Dioxide Anion Gap BUN Creatinine Glucose Calcium Phosphorus Magnesium Alkaline Phosphatase Lactate Dehydrogenase Albumin Globulin Albumin/Globulin Ratio Procalcitonin 2.79 H Urine Appearance Hazy A Urine Protein 30 A Prot Sulfosalicylic Acd 1+ A Urine Urobilinogen 4.0 A Ur Leukocyte Esterase 250 A Urine RBC 62 H Urine WBC 74 H Calcium Oxalate Crystal Many A Urine Bacteria Few A Hyaline Casts 5 H Broad Casts 5 H 01/28/20 01/28/20 01/28/20 08:07 08:07 08:07 WBC 37.3 H* RBC Hgb RDW Plt Count 645 H Neut % (Auto) 92.8 H Lymph % (Auto) 2.1 L Lymph # (Auto) 0.78 L [place] # (Auto) 1.84 H Seg Neutrophils % 86 H Lymphocytes % 4 L Absolute Neutrophils 34.58 H Platelet Estimate Increased A VBG Lactic Acid Sodium 146 H Carbon Dioxide Anion Gap 22.0 H BUN 46 H Creatinine 2.4 H Glucose 233 H Calcium 10.6 H Phosphorus Magnesium Alkaline Phosphatase 148 H Lactate Dehydrogenase Albumin Globulin 4.4 H Albumin/Globulin Ratio 0.9 L Procalcitonin Urine Appearance Urine Protein Prot Sulfosalicylic Acd Urine Urobilinogen Ur Leukocyte Esterase Urine RBC Urine WBC Calcium Oxalate Crystal Urine Bacteria Hyaline Casts Broad Casts Meds: Medications Acetaminophen (Tylenol) 650 mg PO Q4HP PRN PRN Reason: PAIN/FEVER > 101 Last Admin: 01/29/20 02:23 Dose: 650 mg Documented by: Hydrocodone Bitart/Acetaminophen ([place] 10/325mg) 1 tab PO Q4 PRN; Protocol PRN Reason: Pain Albuterol/Ipratropium (Duoneb) 3 ml NEB Q4HP PRN PRN Reason: Shortness Of Breath Last Admin: 01/29/20 04:21 Dose: 3 ml Documented by: Aspirin (Aspirin) 81 mg PO DAILY [facility] Atorvastatin Calcium (Lipitor) 40 mg PO QDAY [facility] Bethanechol Chloride (Urecholine) 50 mg PO BID [facility] Last Admin: 01/28/20 21:23 Dose: 50 mg Documented by: Cefepime HCl (Maxipime) 2 gm IV Q12H [facility]; Protocol Last Admin: 01/28/20 20:39 Dose: 2 gm Documented by: Diagnostic Test (Pha) (Accu-Chek) 1 each FS ACHS [facility] Last Admin: 01/28/20 20:19 Dose: 1 each Documented by: Docusate Sodium (Colace) 100 mg PO BID [facility] Last Admin: 01/28/20 20:19 Dose: 100 mg Documented by: Enoxaparin Sodium (Lovenox) 30 mg SQ DAILY [facility] Escitalopram Oxalate (Lexapro) 5 mg PO DAILY [facility] Potassium Chloride 40 meq/ (Dextrose) 520 mls @ 130 mls/hr IV UD PRN PRN Reason: Potassium < 3 Magnesium Sulfate (Magnesium Sulfate) 2 gm in 50 mls @ 50 mls/hr IV UD PRN PRN Reason: Magnesium </= 1.6 Sodium Chloride (Sodium Chloride 0.45%) 1,000 mls @ 100 mls/hr IV .Q10H [facility] Stop: 01/29/20 09:45 Last Admin: 01/28/20 23:51 Dose: 100 mls/hr Documented by: Insulin Glargine (Lantus) 50 unit SQ DAILY [facility] Insulin Human Lispro (Humalog) 0 unit SQ ACHS [facility]; Protocol Last Admin: 01/28/20 20:39 Dose: 2 units Documented by: Lactobacillus Rhamnosus (Culturelle) 1 cap PO BID [facility] Last Admin: 01/28/20 20:18 Dose: 1 cap Documented by: Lactulose (Cephulac) 20 gm PO DAILYP PRN PRN Reason: Constipation Last Admin: 01/29/20 01:14 Dose: 20 gm Documented by: Omeprazole (Prilosec) 40 mg PO QDAY [facility] Ondansetron HCl (Zofran) 4 mg IV Q4HP PRN PRN Reason: Nausea And Vomiting Last Admin: 01/29/20 05:09 Dose: 4 mg Documented by: Polyethylene Glycol (Miralax) 17 gm PO DAILYP PRN PRN Reason: Constipation Potassium Chloride (Kdur) 40 meq PO UD PRN PRN Reason: Potssium is 3-3.5 Potassium Chloride (Kdur) 40 meq PO UD PRN PRN Reason: Potassium < 3 Senna (Senokot) 2 tab PO DAILYP PRN PRN Reason: Constipation Sodium Chloride (Saline Flush) 10 ml IV Q8 [facility] Last Admin: 01/29/20 05:09 Dose: 10 ml Documented by: Tamsulosin HCl (Flomax) 0.8 mg PO QDAY [facility] A/P Narrative A/P Narrative: A: *Sepsis w/lactic acidosis: 2/2 likely source given recent penile ulcer/cellulitis -Chest imaging unremarkable -leukocytosis improving, lactic acidosis resolved *RADHA on CKD III: -improving *b/l hydroureter: ?significance per urology, Urology following *Recent penile ulcer/cellulitis: suprapubic cath placed by Urology last admit *Hypernatermia w/dehydration: resolved *Mental delay: *DM: *h/o diastolic(grade I)CHF: *GERD: *Depression *Constipation: * P: -IVF, f/u lactate -Cefepime, pending BC/UC -Urology following -hold home aldactone/torsemide - -basal and SSI -bowel regimen -pt/ot -ppx: lovenox/home ppi Time Spent With Patient Time: Total time spent is greater than 50% in coordination of care (as documented) at patient's floor/unit and/or counseling patient: QUALITY VTE Deep Vein Thrombosis/Pulmonary Embolism Present on Admission: No
[2020-01-29] MEDS: INSULIN LISPRO 1 UNIT/0.01 ML UNIT SQ SCH ×4 (08:21→20:30)
[2020-01-29] MEDS: HYDROcodone/APAP 10/325MG TABLET PO PRN ×2 (08:57→13:07)
[2020-01-29] MEDS ORDERED: OMEPRAZOLE 20 MG CAPSULE PO SCH (09:00)
[2020-01-29] MEDS ORDERED: ESCITALOPRAM 10 MG TABLET PO SCH (09:00)
[2020-01-29] MEDS ORDERED: ASPIRIN 81 MG TAB.CHEW PO SCH (09:00)
[2020-01-29] MEDS ORDERED: ATORVASTATIN 40 MG TABLET PO SCH (09:00)
[2020-01-29] MEDS ORDERED: ENOXAPARIN 30 MG/0.3 ML SYRINGE SQ SCH (09:00)
[2020-01-29] MEDS ORDERED: INSULIN GLARGINE, HUMAN 1 UNIT/0.01 ML SQ SCH (09:00)
[2020-01-29] MEDS ORDERED: TAMSULOSIN 0.4 MG CAPSULE PO SCH (09:00)
[2020-01-29] MEDS: BETHANECHOL 10 MG TABLET PO SCH ×2 (09:09→20:25)
[2020-01-29] MEDS: CEFEPIME 2 GM VIAL IV SCH ×2 (09:09→20:25)
[2020-01-29] MEDS: DOCUSATE SODIUM 100 MG CAPSULE PO SCH ×2 (09:10→20:25)
[2020-01-29 09:16] LABS: Basophils % (Manual) 1 % (0-2); Lymphocytes % 4 % (15-49); Monocytes % (Manual) 10 % (1-12); Platelet Estimate INCREASED (Normal); RBC Morphology NORMAL (Normal); Segmented Neutrophils % 85 % (38-78)
[2020-01-29] MEDS: LACTOBACILLUS 1 CAPSULE PO SCH ×2 (09:59→20:25)
[2020-01-29] MEDS ORDERED: POTASSIUM CHLORIDE 20 MEQ TABLET PO PRN (17:45)
[2020-01-29] MEDS ORDERED: POTASSIUM CHLORIDE 40 MEQ in DEXTROSE 5% IN WATER 500 ML IV PRN (17:45)
[2020-01-29] MEDS ORDERED: MAGNESIUM SULFATE 2 GM/50 ML BAG IV PRN (17:45)
[2020-01-29] MEDS ORDERED: ONDANSETRON 4 MG/2 ML VIAL IV PRN (17:45)
[2020-01-29] MEDS ORDERED: IPRATROPIUM/ALBUTEROL 3 ML AMPUL.NEB NEB PRN (17:45)
[2020-01-30] MEDS: 0.9 % SODIUM CHLORIDE 10 ML SYRINGE IV SCH ×3 (06:00→20:10)
[2020-01-30 06:36] LABS: Basophils # (Auto) 0.08 K/mcL (0.00-0.20); Basophils % (Auto) 0.5 % (0.0-2.0); Eosinophils # (Auto) 0.14 K/mcL (0.00-0.70); Eosinophils % (Auto) 0.9 % (0.0-7.0); Hematocrit 36.1 % (41.0-55.0); Hemoglobin 11.5 g/dL (13.5-16.5); Lymphocytes # (Auto) 0.89 K/mcL (1.50-4.80); Lymphocytes % (Auto) 5.9 % (15.0-49.0); Mean Cell Volume 94.8 fL (80.0-100.0); Mean Corpuscular HGB Conc 31.9 g/dL (31.0-36.0); Mean Platelet Volume 10.1 fL (7.4-10.4); Monocytes # (Auto) 1.46 K/mcL (0.10-0.90); Monocytes % (Auto) 9.6 % (1.0-12.0); Neutrophils % (Auto) 83.1 % (38.0-78.0); Platelet Count 449 K/mcL (140-440); RBC 3.81 M/mcL (4.50-5.90); Red Cell Distribution Width 14.6 % (11.5-14.5); WBC 15.1 K/mcL (4.5-11.0)
[2020-01-30 07:04] LABS: ALT/SGPT 26 U/L (<40); AST/SGOT 24 U/L (<40); Albumin 2.8 gm/dL (3.2-5.2); Albumin/Globulin Ratio 0.8 (1.0-2.3); Alkaline Phosphatase 94 U/L (39-117); Bilirubin,Direct < 0.2 mg/dL (<0.3); Bilirubin,Total 0.3 mg/dL (0.1-1.0); Blood Urea Nitrogen 52 mg/dL (8-23); Calcium 8.9 mg/dL (8.6-10.4); Carbon Dioxide 22 mmol/L (22-30); Chloride 100 mmol/L (96-108); Globulin 3.3 gm/dL (2.2-3.7); Glomerular Filtration Rate 47; Glucose 95 mg/dL (70-105); Lactate Dehydrogenase 181 U/L (135-225); Phosphorous 2.9 mg/dL (2.5-4.5); Triglycerides 122 mg/dL (<150); Uric Acid 7.9 mg/dL (2.5-8.0)
[2020-01-30] MEDS: INSULIN LISPRO 1 UNIT/0.01 ML UNIT SQ SCH ×4 (07:51→20:06)
[2020-01-30] MEDS: LACTOBACILLUS 1 CAPSULE PO SCH ×2 (08:19→19:59)
[2020-01-30] MEDS: ESCITALOPRAM 10 MG TABLET PO SCH (08:19)
[2020-01-30] MEDS: ASPIRIN 81 MG TAB.CHEW PO SCH (08:20)
[2020-01-30] MEDS: ATORVASTATIN 40 MG TABLET PO SCH (08:20)
[2020-01-30] MEDS: OMEPRAZOLE 20 MG CAPSULE PO SCH (08:21)
[2020-01-30] MEDS: DOCUSATE SODIUM 100 MG CAPSULE PO SCH ×2 (08:21→19:59)
[2020-01-30] MEDS: TAMSULOSIN 0.4 MG CAPSULE PO SCH (08:21)
[2020-01-30] MEDS: CEFEPIME 2 GM VIAL IV SCH ×2 (08:23→20:10)
[2020-01-30] MEDS: INSULIN GLARGINE, HUMAN 1 UNIT/0.01 ML SQ SCH (08:25)
[2020-01-30] MEDS: ENOXAPARIN 30 MG/0.3 ML SYRINGE SQ SCH (08:25)
[2020-01-30] MEDS: BETHANECHOL 10 MG TABLET PO SCH ×2 (08:26→19:59)
[2020-01-30] MEDS: HYDROcodone/APAP 10/325MG TABLET PO PRN (20:00)
--- NOTE | 2020-01-30 22:09 | Internal Med Progress Note ---
SUBJECTIVE Subjective Patient information: Note initiated : 01/30/20 at 10:03 pm Service Date, if different from initiated Date: [] Patient: Fritz Esquivel 70 y/o M admitted on 01/28/20 for Sweatiness. Chief Complaint: [] Interval history: History of present illness: Mr. Esquivel is a 70 year old M Presents from [facility] due to being sweaty all night and feeling lightheaded and weak. Did have episode nausea vomiting last night as well. He has some degree of mental delay and history is most days obtained from chart. He had a rapid Covid test which was negative. He was afebrile in the ED but found to have a leukocytosis of 37,000. His lactate was 5.0. Had acute kidney injury. Elevated sodium. Low blood pressure on arrival. Given several liters of IV fluid in the ED. Imaging of the chest abdomen pelvis residual view of the lungs to be okay, there was a concern initially from aspiration. Did show hydroureters and hydronephrosis. Case discussed with Dr. Wren recently put in a suprapubic catheter for ulcer and cellulitis earlier in the month. Blood pressure stable. Patient also found of constipation. Says he was feeling fine yesterday morning but in the afternoon started feeling crummy and lightheaded weak and sweaty. 01/28 Feeling better today. Leukocytosis improving. Lactic acidosis resolved. Renal function slowly improving. pEnding cultures. 01/29 Patient does not have any complaints today. WBC 15.1 which was 24.3 yesterday Creatinine 1.5 which was 1.[address] Wren for Hydroureter Review of Systems: denies headache/fever/chills/nausea/vomiting/chest or abdominal pain/cough/dyspnea/diarrhea. Otherwise see above. Constitutional Vitals: Vital Signs Temp Pulse Resp BP Pulse Ox 98.2 F 87 16 113/60 96 01/30/20 18:56 01/30/20 18:56 01/30/20 18:56 01/30/20 18:56 01/30/20 18:56 Period Temp Pulse Resp BP Sys/[place]glin Pulse Ox Last 24 Hr 97.4 F-98.4 F 82-95 16-18 113-163/60-75 93-98 Intake and Output 01/30/20 01/30/20 01/31/20 13:59 21:59 05:59 Intake Total 720 360 Balance 720 360 Weight 94.937 kg Patient Weight 01/31/20 05:59 Weight 94.937 kg Intake & Output: Intake & Output 01/30/20 01/30/20 01/31/20 13:59 21:59 05:59 Intake Total 720 360 Balance 720 360 Weight 94.937 kg Intake: Oral 720 360 Other: Meal Lunch Dinner Percent of Meal Consumed 75% 25% Feeding Ability Independent Independent Urine Appearance Clear Suprapubic Cloudy Urine Color Bright Yellow Suprapubic Dark Yellow Urine Odor Strong Suprapubic Strong Stool Size Small Stool Color Brown Stool Consistency Formed # Bowel Movements 1 Additional findings Additional findings: General: Alert, Awake, No acute Distress Eyes/N/T: EOMI, Head/Neck: neck supple, CV: RRR, No murmurs, Pulm: Clear b/l, no wheezing/rhonchi/rales Abd: soft, nontender, +BS x4, suprapubic catheter in place Ext: no clubbing/cyanosis/edema Neuro: Alert, no focal deficits, moves all extremities, Skin: warm/dry OBJ DATA Labs CBC & Chem 7: 01/30/20 05:11 01/30/20 05:11 Labs: Abnormal Lab Results 01/30/20 01/30/20 01/30/20 05:11 05:11 05:11 WBC 15.1 H RBC 3.81 L Hgb 11.5 L Hct 36.1 L RDW 14.6 H Plt Count 449 H Neut % (Auto) 83.1 H Lymph % (Auto) 5.9 L Lymph # (Auto) 0.89 L [place] # (Auto) 1.46 H Seg Neutrophils % Lymphocytes % Absolute Neutrophils 12.56 H Platelet Estimate VBG Lactic Acid Sodium Carbon Dioxide Anion Gap BUN 52 H Creatinine 1.5 H Glucose Calcium Phosphorus Magnesium 3.0 H Alkaline Phosphatase Lactate Dehydrogenase Albumin 2.8 L Globulin Albumin/Globulin Ratio 0.8 L Procalcitonin 0.87 H Urine Appearance Urine Protein Prot Sulfosalicylic Acd Urine Urobilinogen Ur Leukocyte Esterase Urine RBC Urine WBC Calcium Oxalate Crystal Urine Bacteria Hyaline Casts Broad Casts 01/29/20 01/29/20 01/29/20 05:25 05:25 05:25 WBC 24.3 H RBC 4.39 L Hgb 13.3 L Hct RDW 14.6 H Plt Count 498 H Neut % (Auto) Lymph % (Auto) Lymph # (Auto) [place] # (Auto) Seg Neutrophils % 85 H Lymphocytes % 4 L Absolute Neutrophils Platelet Estimate Increased A VBG Lactic Acid Sodium Carbon Dioxide 21 L Anion Gap 17.0 H BUN 54 H Creatinine 1.9 H Glucose 136 H Calcium Phosphorus 4.6 H Magnesium 3.3 H Alkaline Phosphatase 118 H Lactate Dehydrogenase 315 H Albumin 3.1 L Globulin 3.9 H Albumin/Globulin Ratio 0.8 L Procalcitonin 1.51 H Urine Appearance Urine Protein Prot Sulfosalicylic Acd Urine Urobilinogen Ur Leukocyte Esterase Urine RBC Urine WBC Calcium Oxalate Crystal Urine Bacteria Hyaline Casts Broad Casts 01/28/20 01/28/20 01/28/20 16:10 11:12 08:27 WBC RBC Hgb Hct RDW Plt Count Neut % (Auto) Lymph % (Auto) Lymph # (Auto) [place] # (Auto) Seg Neutrophils % Lymphocytes % Absolute Neutrophils Platelet Estimate VBG Lactic Acid 3.2 H 5.0 H* Sodium Carbon Dioxide Anion Gap BUN Creatinine Glucose Calcium Phosphorus Magnesium Alkaline Phosphatase Lactate Dehydrogenase Albumin Globulin Albumin/Globulin Ratio Procalcitonin Urine Appearance Hazy A Urine Protein 30 A Prot Sulfosalicylic Acd 1+ A Urine Urobilinogen 4.0 A Ur Leukocyte Esterase 250 A Urine RBC 62 H Urine WBC 74 H Calcium Oxalate Crystal Many A Urine Bacteria Few A Hyaline Casts 5 H Broad Casts 5 H 01/28/20 01/28/20 01/28/20 08:07 08:07 08:07 WBC RBC Hgb Hct RDW Plt Count Neut % (Auto) Lymph % (Auto) Lymph # (Auto) [place] # (Auto) Seg Neutrophils % 86 H Lymphocytes % 4 L Absolute Neutrophils Platelet Estimate Increased A VBG Lactic Acid Sodium 146 H Carbon Dioxide Anion Gap 22.0 H BUN 46 H Creatinine 2.4 H Glucose 233 H Calcium 10.6 H Phosphorus Magnesium Alkaline Phosphatase 148 H Lactate Dehydrogenase Albumin Globulin 4.4 H Albumin/Globulin Ratio 0.9 L Procalcitonin 2.79 H Urine Appearance Urine Protein Prot Sulfosalicylic Acd Urine Urobilinogen Ur Leukocyte Esterase Urine RBC Urine WBC Calcium Oxalate Crystal Urine Bacteria Hyaline Casts Broad Casts 01/28/20 08:07 WBC 37.3 H* RBC Hgb Hct RDW Plt Count 645 H Neut % (Auto) 92.8 H Lymph % (Auto) 2.1 L Lymph # (Auto) 0.78 L [place] # (Auto) 1.84 H Seg Neutrophils % Lymphocytes % Absolute Neutrophils 34.58 H Platelet Estimate VBG Lactic Acid Sodium Carbon Dioxide Anion Gap BUN Creatinine Glucose Calcium Phosphorus Magnesium Alkaline Phosphatase Lactate Dehydrogenase Albumin Globulin Albumin/Globulin Ratio Procalcitonin Urine Appearance Urine Protein Prot Sulfosalicylic Acd Urine Urobilinogen Ur Leukocyte Esterase Urine RBC Urine WBC Calcium Oxalate Crystal Urine Bacteria Hyaline Casts Broad Casts Meds: Medications Acetaminophen (Tylenol) 650 mg PO Q4HP PRN PRN Reason: PAIN/FEVER > 101 Hydrocodone Bitart/Acetaminophen ([place] 10/325mg) 1 tab PO Q4HP PRN; Protocol PRN Reason: Pain Last Admin: 01/30/20 20:00 Dose: 1 tab Documented by: Albuterol/Ipratropium (Duoneb) 3 ml NEB Q4HP PRN PRN Reason: Shortness Of Breath Aspirin (Aspirin) 81 mg PO DAILY [facility] Last Admin: 01/30/20 08:20 Dose: 81 mg Documented by: Atorvastatin Calcium (Lipitor) 40 mg PO QDAY [facility] Last Admin: 01/30/20 08:20 Dose: 40 mg Documented by: Bethanechol Chloride (Urecholine) 50 mg PO BID [facility] Last Admin: 01/30/20 19:59 Dose: 50 mg Documented by: Cefepime HCl (Maxipime) 2 gm IV Q12H [facility]; Protocol Last Admin: 01/30/20 20:10 Dose: 2 gm Documented by: Diagnostic Test (Pha) (Accu-Chek) 1 each FS ACHS [facility] Last Admin: 01/30/20 19:59 Dose: 1 each Documented by: Docusate Sodium (Colace) 100 mg PO BID [facility] Last Admin: 01/30/20 19:59 Dose: 100 mg Documented by: Enoxaparin Sodium (Lovenox) 30 mg SQ DAILY [facility] Last Admin: 01/30/20 08:25 Dose: 30 mg Documented by: Escitalopram Oxalate (Lexapro) 5 mg PO DAILY [facility] Last Admin: 01/30/20 08:19 Dose: 5 mg Documented by: Magnesium Sulfate (Magnesium Sulfate) 2 gm in 50 mls @ 50 mls/hr IV UD PRN PRN Reason: Magnesium </= 1.6 Potassium Chloride 40 meq/ (Dextrose) 520 mls @ 130 mls/hr IV UD PRN PRN Reason: Potassium < 3 Insulin Glargine (Lantus) 50 unit SQ DAILY [facility] Last Admin: 01/30/20 08:25 Dose: 50 units Documented by: Insulin Human Lispro (Humalog) 0 unit SQ ACHS [facility]; Protocol Last Admin: 01/30/20 20:06 Dose: Not Given Documented by: Lactobacillus Rhamnosus (Culturelle) 1 cap PO BID [facility] Last Admin: 01/30/20 19:59 Dose: 1 cap Documented by: Lactulose (Cephulac) 20 gm PO DAILYP PRN PRN Reason: Constipation Omeprazole (Prilosec) 40 mg PO ACB [facility] Last Admin: 01/30/20 08:21 Dose: 40 mg Documented by: Ondansetron HCl (Zofran) 4 mg IV Q4HP PRN PRN Reason: Nausea And Vomiting Polyethylene Glycol (Miralax) 17 gm PO DAILYP PRN PRN Reason: Constipation Potassium Chloride (Kdur) 40 meq PO UD PRN PRN Reason: Potssium is 3-3.5 Potassium Chloride (Kdur) 40 meq PO UD PRN PRN Reason: Potassium < 3 Senna (Senokot) 2 tab PO DAILYP PRN PRN Reason: Constipation Sodium Chloride (Saline Flush) 10 ml IV Q8 [facility] Last Admin: 01/30/20 20:10 Dose: 10 ml Documented by: Tamsulosin HCl (Flomax) 0.8 mg PO QDAY [facility] Last Admin: 01/30/20 08:21 Dose: 0.8 mg Documented by: A/P Narrative A/P Narrative: 1. Sepsis w/lactic acidosis: 2/2 likely source given recent penile ulcer/cellulitis -Chest imaging unremarkable -leukocytosis improving, lactic acidosis resolved 2. RADHA on CKD III: -improving 3. b/l hydroureter: Urology Dr. Wren is on board. Really appreciate it. 4. Recent penile ulcer/cellulitis: suprapubic cath placed by Urology last admit 5. Hypernatermia w/dehydration: resolved 6. Mental delay: 7. DM: 8. h/o diastolic(grade I)CHF: 9. GERD: 10. Depression 11. Constipation: 12. Esophageal stricture: f/u with GI as an outpt. P: -IVF -Continue Cefepime, pending BC/UC -Urology following -hold home aldactone/torsemide -basal and SSI -bowel regimen -pt/ot -ppx: lovenox/home ppi Time Spent With Patient Time: Total time spent is greater than 50% in coordination of care (as documented) at patient's floor/unit and/or counseling patient: QUALITY VTE Deep Vein Thrombosis/Pulmonary Embolism Present on Admission: No
--- NOTE | 2020-01-31 01:26 | Internal Medicine Consult Note ---
HPI Data of Consult Consult date: 01/30/20 Primary Care Provider: LAURIE Evans Consult Narrative Patient Information: Note initiated : 01/31/20 at 1:06 am Service Date, if different from initiated Date: [] Patient: Fritz Esquivel 70 y/o M admitted on 01/28/20 for Sweatiness. 70-year-old gentleman known to us for necrosis of the foreskin which was radically debrided and a suprapubic tube was placed additionally because he had a severely eroded urethra from catheter trauma. He was sent off to a an assisted living facility to continue his wound care but presented back to the emergency room with likely severe urinary tract infection and some degree of hydronephrosis. His suprapubic tube was draining nicely and he was admitted for IV antibiotics. He has now improved markedly, feels well, and reports no pain. He is happy with the suprapubic tube. And he has been seen routinely by wound care who is managing the penile wound. He reports no issues around the suprapubic tube site, no tenderness, no discharge, no urine leakage, no erythema or induration. So far, his urine and blood cultures have not grown any organisms. He did have a profound leucocytosis, renal insufficiency and constipation though. Ct scan with increased hydronephrosis but SP tube draining well. 1. Urinary bladder is decompressed by a well-positioned suprapubic catheter. Probable diffuse urinary bladder wall thickening suggesting cystitis or other pathologic infiltration. There is moderate bilateral hydronephrosis/hydroureter. It is unclear, on the basis of this noncontrast study, whether the obstruction is at the bladder level or due to bilateral distal ureteral strictures. Consider urology evaluation. 2. Very large amount of stool in rectosigmoid colon. There is minimal wall thickening and mucosal enhancement of the rectum. Although, this is likely within normal limits, the possibility of proctitis should be entertained. Mild ileus is noted. 3. Moderate esophageal dilatation possibly due to a stricture of the distal esophagus at the GE junction. Suggest esophagram 4. Chronic bronchitis changes with minimal scarring in the posterior left lower lobe and lingula. No patricia infiltrate. 5. Chronic bilateral L5-S1 spondylolysis grade 1 spondylolisthesis and disc protrusion results in severe IV foraminal narrowing with compression the exiting L5 nerve roots. Moderate central canal stenosis Chief Complaint: [] cc:: CC: Mark Anthony Hawley Constitutional Constitutional: Absent anorexia, chills and fever(s) EENT Eyes: Absent dry eye, irritation and itchy eyes Cardiovascular Cardiovascular: Absent chest pain, chest pain at rest, chest pain with activity and diaphoresis Respiratory Respiratory: Absent cough, dyspnea, dyspnea on exertion and wheezing Gastrointestinal Gastrointestinal: Absent abdominal pain, nausea and vomiting Genitourinary Genitourinary: as per HPI Musculoskeletal Musculoskeletal: Present muscle weakness; Absent numbness and tingling Integumentary Integumentary: Absent new lesions, non-healing lesions, pruritus and rash Neurological Neurological: Present weakness; Absent sensory deficit and tingling Psychiatric Psychiatric: Absent behavioral changes, confusion and memory loss Endocrine Endocrine: Absent palpitations, polydipsia and polyuria Hematologic/Lymphatic Hematologic/Lymphatic: Absent easy bleeding, easy bruising and lymphadenopathy Allergic/Immunologic Allergic/Immunologic: Absent itchy eyes, uticaria and wheezing PFSH PFSH All Active Problems Sepsis (Acute) Urinary tract infection associated with cystostomy catheter (Acute) Chronic renal failure, stage 3 (moderate) (Acute) Hypoxia (Acute) Status post excisional debridement (Acute) Necrosis (Acute) Urethral erosion by catheter (Acute) Hydronephrosis (Acute) Balanitis (Acute) Cellulitis (Acute) Elevated serum creatinine (Acute) Localized edema due to fluid overload (Chronic) Secondary hyperparathyroidism of renal origin (Chronic) Vitamin D deficiency (Chronic) Anemia in stage 3 chronic kidney disease (Chronic) 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) Acute on chronic renal failure (Acute) Bladder mass (Acute) Status post insertion of Morelos catheter (Chronic) GERD (gastroesophageal reflux disease) (Chronic) Benign prostatic hyperplasia (Chronic) Edema (Chronic) Weakness (Chronic) Bilateral hydronephrosis (Chronic) Leukocytosis (Chronic) Hypoglycemia (Chronic) Obstructive uropathy (Chronic) Acute renal failure (Chronic) Morelos catheter in place (Chronic) Urinary retention (Chronic) Poor hygiene (Chronic) Knee pain (Chronic) Fatigue (Chronic) Hypertension (Chronic) Gout (Chronic) Elevated liver enzymes (Chronic) Mentally challenged (Chronic) Diabetes (Chronic) Arthritis (Chronic) Anxiety (Chronic) Bronchitis (Chronic) Asthma (Chronic) Shortness of breath (Chronic) Chronic kidney disease, stage 3 (Chronic) Medical History Acute renal failure (Chronic) Anxiety (Chronic) Arthritis (Chronic) Asthma (Chronic) Benign prostatic hyperplasia (Chronic) Bilateral hydronephrosis (Chronic) Bronchitis (Chronic) Chronic kidney disease, stage 3 (Chronic) Diabetes (Chronic) Edema (Chronic) Elevated liver enzymes (Chronic) Fatigue (Chronic) Morelos catheter in place (Chronic) GERD (gastroesophageal reflux disease) (Chronic) Gout (Chronic) Hypertension (Chronic) Hypoglycemia (Chronic) Knee pain (Chronic) Leukocytosis (Chronic) Mentally challenged (Chronic) Obstructive uropathy (Chronic) Poor hygiene (Chronic) Shortness of breath (Chronic) Urinary retention (Chronic) Weakness (Chronic) Surgical History History of colonoscopy (Chronic) Dr. Guevara Status post insertion of Morelos catheter (Chronic) Family History Mother Diabetes Father Heart disease Social History caregiver/support person: Yes household members: alone marital status: single education level: high school smoking status: Never smoker alcohol intake frequency: does not drink substance use type: does not use MEDS/ALLERGIES Home Medications and Allergies Home Medications Medication Instructions Recorded Confirmed Type spironolactone 25 mg tablet 25 mg PO QAM tab 12/27/17 01/28/20 History omeprazole 20 mg capsule,delayed 40 mg PO QDAY cap 12/28/17 01/28/20 History release cholecalciferol (vitamin D3) 100 4,000 unit PO QDAY #90 tab 04/27/19 01/28/20 Rx mcg (4,000 unit) tablet potassium chloride 10 mEq 10 meq PO QDAY #30 tab 08/06/19 01/28/20 Rx tablet,extended release(part/cryst) atorvastatin 40 mg tablet 40 mg PO QDAY #30 tab 08/13/19 01/28/20 Rx dulaglutide 0.75 mg/0.5 mL 1.5 mg SUB-Q QWEEK 09/06/19 01/28/20 History subcutaneous pen injector tamsulosin 0.4 mg capsule 0.8 mg PO QDAY cap 09/11/19 01/28/20 History torsemide 20 mg tablet 40 mg PO QDAY tab 09/11/19 01/28/20 History acetaminophen 325 mg capsule 650 mg PO Q4H PRN 10/29/19 01/28/20 History aspirin 81 mg tablet,delayed 81 mg PO QDAY 10/29/19 01/28/20 History release bethanechol chloride 50 mg tablet 50 mg PO BID 10/29/19 01/28/20 History ferrous sulfate 325 mg (65 mg 325 mg PO QDAY 10/29/19 01/28/20 History iron) tablet fexofenadine 180 mg tablet 180 mg PO Q24H 10/29/19 01/28/20 History hydrocodone 10 mg-acetaminophen 1 tab PO Q4 PRN tab 10/29/19 01/28/20 History 325 mg tablet escitalopram oxalate 5 mg tablet 5 mg PO QDAY 11/28/19 01/28/20 History Adult Probiotic 100 mg BID 01/16/20 01/28/20 History cholecalciferol (vitamin D3) 50,000 units WEEKLY 01/16/20 01/28/20 History insulin lispro See Rx Instructions .ROUTE .COMPLEX 01/16/20 01/28/20 History insulin glargine [Lantus U-100 50 unit SQ DAILY #10 ml 01/21/20 01/28/20 Rx Insulin] Allergies Allergy/AdvReac Type Severity Reaction Status Date / Time piperacillin [From Zosyn] Allergy Mild Rash Verified 01/28/20 07:56 tazobactam [From Zosyn] Allergy Mild Rash Verified 01/28/20 07:56 Sulfa (Sulfonamide Allergy Unknown Unknown Verified 01/28/20 07:56 Antibiotics) EXAM Constitutional Vitals: Temp Pulse Resp BP Pulse Ox 98.1 F 94 H 16 129/77 96 01/30/20 22:36 01/30/20 22:36 01/30/20 22:36 01/30/20 22:36 01/30/20 22:36 General appearance: cooperative and no acute distress Head Head exam: Present atraumatic and normal inspection Eye Eye exam: Present EOMI and normal appearance; Absent scleral icterus Respiratory Respiratory exam: Absent respiratory distress, stridor and wheezes Cardiovascular Cardiovascular exam: Present RRR GI/Abdominal GI/Abdominal exam: Present soft; Absent distended, firm, guarding, mass, rebound, rigid and tenderness Additional comments: SP tube in good position with site well healed. Sutures removed easily. catheter in good position draining clear urine. Phallus wound bed with increased granulation tissue and no signs infection. Neurological Exam Neurological exam: Present alert and oriented X3 Psychiatric Psychiatric exam: Present flat affect and normal mood; Absent agitated and anxious DATA Data Completed and Pending Labs: Labs from last 24 hours 01/30/20 01/30/20 01/30/20 05:11 05:11 05:11 WBC 15.1 H RBC 3.81 L Hgb 11.5 L Hct 36.1 L MCV 94.8 MCH 30.2 MCHC 31.9 RDW 14.6 H Plt Count 449 H MPV 10.1 Neut % (Auto) 83.1 H Lymph % (Auto) 5.9 L [place] % (Auto) 9.6 Eos % (Auto) 0.9 Baso % (Auto) 0.5 Lymph # (Auto) 0.89 L [place] # (Auto) 1.46 H Eos # (Auto) 0.14 Baso # (Auto) 0.08 Absolute Neutrophils 12.56 H Sodium 135 Potassium 4.1 Chloride 100 Carbon Dioxide 22 Anion Gap 13.0 BUN 52 H Creatinine 1.5 H GFR Calculation 47 Glucose 95 Uric Acid 7.9 Calcium 8.9 Phosphorus 2.9 Magnesium 3.0 H Total Bilirubin 0.3 Direct Bilirubin < 0.2 GGT 17 AST 24 ALT 26 Alkaline Phosphatase 94 Lactate Dehydrogenase 181 Total Protein 6.1 Albumin 2.8 L Globulin 3.3 Albumin/Globulin Ratio 0.8 L Triglycerides 122 Procalcitonin 0.87 H Preliminary micro results at discharge 01/28/20 08:27 Blood Culture - Preliminary Blood 01/28/20 08:20 Blood Culture - Preliminary Blood A/P Assessment and plan (1) Urethral erosion by catheter: Status: Acute Qualifiers: Encounter type: initial encounter Qualified Code(s): T83.89XA - Other specified complication of genitourinary prosthetic devices, implants and grafts, initial encounter; N36.8 - Other specified disorders of urethra (2) Hydronephrosis: Status: Acute (3) Status post excisional debridement: Status: Acute (4) Sepsis: Status: Acute Qualifiers: Acute renal failure type: unspecified Sepsis acute organ dysfunction status: with acute organ dysfunction Sepsis type: sepsis due to unspecified organism Severe sepsis acute organ dysfunction type: acute renal failure Severe sepsis shock status: without septic shock Qualified Code(s): A41.9 - Sepsis, unspecified organism; R65.20 - Severe sepsis without septic shock; N17.9 - Acute kidney failure, unspecified Narrative A/P Narrative: 1) Marked leucocytosis: -urine and blood cultures negative but improving with antibiotics -CPM for now as he is improving -WBC decreased from 37 to 15 2) constipation: -would aggressively correct as can be contributing to his hydronephrosis -repeat CT KUB (without oral or IV contrast in the am to monitor for improvement or need for further intervention) 3) hydronephrosis: -both acute urinary tract infection and constipation can lead to hydroureter -repeat CT KUB (without oral or IV contrast in the am to monitor for improvement or need for further intervention) -Cr improved from 2.4 to 1.5 4) penile debridement site -wound care is managing well and improved granulation tissue and no further signs acute infection 5) urethral trauma: -traumatic hypospadia from catheter now less inflamed with catheter removed 6) SP tube: -sutures removed and site well healed and draining well -first change due at 4-6 weeks in the office by the [employer] -then change Q 3-4 weeks and PRN issues -would prefer it be changed in the urology office and NOT at the facility repeat CT KUB in the am to assess for improvement in constipation and hydronephrosis Time Spent With Patient Time: Total time spent is greater than 50% in coordination of care (as documented) at patient's floor/unit and/or counseling patient:
[2020-01-31] MEDS: 0.9 % SODIUM CHLORIDE 10 ML SYRINGE IV SCH ×3 (06:00→20:28)
[2020-01-31] MEDS: INSULIN LISPRO 1 UNIT/0.01 ML UNIT SQ SCH ×4 (07:34→20:14)
[2020-01-31] MEDS: HYDROcodone/APAP 10/325MG TABLET PO PRN ×2 (07:36→22:49)
[2020-01-31] MEDS: OMEPRAZOLE 20 MG CAPSULE PO SCH (07:36)
[2020-01-31 09:19] LABS: Basophils # (Auto) 0.08 K/mcL (0.00-0.20); Basophils % (Auto) 0.8 % (0.0-2.0); Eosinophils # (Auto) 0.28 K/mcL (0.00-0.70); Eosinophils % (Auto) 2.8 % (0.0-7.0); Hemoglobin 11.4 g/dL (13.5-16.5); Lymphocytes # (Auto) 0.81 K/mcL (1.50-4.80); Lymphocytes % (Auto) 8.2 % (15.0-49.0); Mean Cell Volume 95.2 fL (80.0-100.0); Mean Corpuscular HGB Conc 31.7 g/dL (31.0-36.0); Mean Platelet Volume 9.9 fL (7.4-10.4); Monocytes # (Auto) 1.03 K/mcL (0.10-0.90); Monocytes % (Auto) 10.4 % (1.0-12.0); Neutrophils % (Auto) 77.8 % (38.0-78.0); Platelet Count 455 K/mcL (140-440); RBC 3.78 M/mcL (4.50-5.90); Red Cell Distribution Width 14.5 % (11.5-14.5); WBC 9.9 K/mcL (4.5-11.0)
--- NOTE | 2020-01-31 09:19 | XRay Report ---
CLINICAL INFORMATION: constipation COMPARISON: None. FINDINGS: A large amount of stool is seen throughout the colon which is mildly dilated. Stomach and small bowel are grossly normal. No free air, soft tissue mass organomegaly or pathologic calcification. IMPRESSION: Large amount of colonic stool. No acute disease Interpreted and Authenticated by: Lauro Rodney 01/31/20
[2020-01-31 09:39] LABS: ALT/SGPT 58 U/L (<40); AST/SGOT 53 U/L (<40); Albumin 2.5 gm/dL (3.2-5.2); Albumin/Globulin Ratio 0.6 (1.0-2.3); Alkaline Phosphatase 92 U/L (39-117); Bilirubin,Total 0.4 mg/dL (0.1-1.0); Blood Urea Nitrogen 41 mg/dL (8-23); Calcium 9.5 mg/dL (8.6-10.4); Carbon Dioxide 21 mmol/L (22-30); Chloride 103 mmol/L (96-108); Globulin 3.9 gm/dL (2.2-3.7); Glomerular Filtration Rate 56; Glucose 120 mg/dL (70-105)
[2020-01-31] MEDS ORDERED: FLEETS ADULT ENEMA PR ONE (09:43)
[2020-01-31] MEDS: CEFEPIME 2 GM VIAL IV SCH ×2 (10:24→20:27)
[2020-01-31] MEDS: LACTULOSE 20 GM/30 ML ORAL.SOL PO PRN (10:24)
[2020-01-31] MEDS: ENOXAPARIN 30 MG/0.3 ML SYRINGE SQ SCH (10:24)
[2020-01-31] MEDS: INSULIN GLARGINE, HUMAN 1 UNIT/0.01 ML SQ SCH (10:24)
[2020-01-31] MEDS: LACTOBACILLUS 1 CAPSULE PO SCH ×2 (10:24→20:15)
[2020-01-31] MEDS: BETHANECHOL 10 MG TABLET PO SCH ×2 (10:25→20:14)
[2020-01-31] MEDS: ESCITALOPRAM 10 MG TABLET PO SCH (10:25)
[2020-01-31] MEDS: TAMSULOSIN 0.4 MG CAPSULE PO SCH (10:25)
[2020-01-31] MEDS: ASPIRIN 81 MG TAB.CHEW PO SCH (10:25)
[2020-01-31] MEDS: ATORVASTATIN 40 MG TABLET PO SCH (10:26)
[2020-01-31] MEDS: DOCUSATE SODIUM 100 MG CAPSULE PO SCH ×2 (10:26→20:15)
--- NOTE | 2020-01-31 14:21 | Internal Med Progress Note ---
SUBJECTIVE Subjective Patient information: Note initiated : 01/31/20 at 2:16 pm Service Date, if different from initiated Date: [] Patient: Fritz Esquivel 70 y/o M admitted on 01/28/20 for Sweatiness. Chief Complaint: [] Interval history: History of present illness: Mr. Esquivel is a 70 year old M Presents from [facility] due to being sweaty all night and feeling lightheaded and weak. Did have episode nausea vomiting last night as well. He has some degree of mental delay and history is most days obtained from chart. He had a rapid Covid test which was negative. He was afebrile in the ED but found to have a leukocytosis of 37,000. His lactate was 5.0. Had acute kidney injury. Elevated sodium. Low blood pressure on arrival. Given several liters of IV fluid in the ED. Imaging of the chest abdomen pelvis residual view of the lungs to be okay, there was a concern initially from aspiration. Did show hydroureters and hydronephrosis. Case discussed with Dr. Wren recently put in a suprapubic catheter for ulcer and cellulitis earlier in the month. Blood pressure stable. Patient also found of constipation. Says he was feeling fine yesterday morning but in the afternoon started feeling crummy and lightheaded weak and sweaty. 01/28 Feeling better today. Leukocytosis improving. Lactic acidosis resolved. Renal function slowly improving. pEnding cultures. 01/29 Patient does not have any complaints today. WBC 15.1 which was 24.3 yesterday Creatinine 1.5 which was 1.[address] Wren for Hydroureter 01/30 Patient does not have any new complaints. He told me this morning he had a little bowel movement last night. WBC normalized today, 9.9. Creatinine 1.3 today Liver enzymes AST 53 and LAT 58 today Abd xray - Large amount of colonic stool. fleet enema Review of Systems: denies headache/fever/chills/nausea/vomiting/chest or abdominal pain/cough/dyspnea/diarrhea. Otherwise see above Constitutional Vitals: Vital Signs Temp Pulse Resp BP Pulse Ox 97.6 F 80 18 142/80 97 01/31/20 12:00 01/31/20 12:01/31/20 12:01/31/20 12:00 01/31/20 12:00 Period Temp Pulse Resp BP Sys/Anglin Pulse Ox Last 24 Hr 97.4 F-98.2 F 75-94 16-18 113-149/60-80 95-98 Intake and Output 01/31/20 01/31/20 01/31/20 05:59 13:59 21:59 Intake Total 200 520 Output Total 400 Balance -200 520 Intake & Output: Intake & Output 01/31/20 01/31/20 01/31/20 05:59 13:59 21:59 Intake Total 200 520 Output Total 400 Balance -200 520 Intake: Oral 200 520 Output: Urine Catheter Amount 400 Other: Meal Lunch Percent of Meal Consumed 75% Feeding Ability Independent Urine Appearance Clear Suprapubic Clear Urine Color Dark Yellow Suprapubic Dark Yellow Stool Size Large Stool Color Brown Stool Consistency Soft Additional findings Additional findings: General: Alert, Awake, No acute Distress Eyes/N/T: EOMI, Head/Neck: neck supple, CV: RRR, No murmurs, Pulm: Clear b/l, no wheezing/rhonchi/rales Abd: soft, nontender, +BS x4, suprapubic catheter in place Ext: no clubbing/cyanosis/edema Neuro: Alert, no focal deficits, moves all extremities, Skin: warm/dry OBJ DATA Labs CBC & Chem 7: 01/31/20 08:40 01/31/20 08:40 Labs: Abnormal Lab Results 01/31/20 01/31/20 01/30/20 08:40 08:40 05:11 WBC RBC 3.78 L Hgb 11.4 L Hct 36.0 L RDW Plt Count 455 H Neut % (Auto) Lymph % (Auto) 8.2 L Lymph # (Auto) 0.81 L [place] # (Auto) 1.03 H Seg Neutrophils % Lymphocytes % Absolute Neutrophils Platelet Estimate VBG Lactic Acid Carbon Dioxide 21 L Anion Gap BUN 41 H 52 H Creatinine 1.3 H 1.5 H Glucose 120 H Phosphorus Magnesium 3.0 H AST 53 H ALT 58 H Alkaline Phosphatase Lactate Dehydrogenase Albumin 2.5 L 2.8 L Globulin 3.9 H Albumin/Globulin Ratio 0.6 L 0.8 L Procalcitonin 01/30/20 01/30/20 01/29/20 05:11 05:11 05:25 WBC 15.1 H RBC 3.81 L Hgb 11.5 L Hct 36.1 L RDW 14.6 H Plt Count 449 H Neut % (Auto) 83.1 H Lymph % (Auto) 5.9 L Lymph # (Auto) 0.89 L [place] # (Auto) 1.46 H Seg Neutrophils % Lymphocytes % Absolute Neutrophils 12.56 H Platelet Estimate VBG Lactic Acid Carbon Dioxide 21 L Anion Gap 17.0 H BUN 54 H Creatinine 1.9 H Glucose 136 H Phosphorus 4.6 H Magnesium 3.3 H AST ALT Alkaline Phosphatase 118 H Lactate Dehydrogenase 315 H Albumin 3.1 L Globulin 3.9 H Albumin/Globulin Ratio 0.8 L Procalcitonin 0.87 H 01/29/20 01/29/20 01/28/20 05:25 05:25 16:10 WBC 24.3 H RBC 4.39 L Hgb 13.3 L Hct RDW 14.6 H Plt Count 498 H Neut % (Auto) Lymph % (Auto) Lymph # (Auto) [place] # (Auto) Seg Neutrophils % 85 H Lymphocytes % 4 L Absolute Neutrophils Platelet Estimate Increased A VBG Lactic Acid 3.2 H Carbon Dioxide Anion Gap BUN Creatinine Glucose Phosphorus Magnesium AST ALT Alkaline Phosphatase Lactate Dehydrogenase Albumin Globulin Albumin/Globulin Ratio Procalcitonin 1.51 H Meds: Medications Acetaminophen (Tylenol) 650 mg PO Q4HP PRN PRN Reason: PAIN/FEVER > 101 Hydrocodone Bitart/Acetaminophen (Jarratt 10/325mg) 1 tab PO Q4HP PRN; Protocol PRN Reason: Pain Last Admin: 01/31/20 07:36 Dose: 1 tab Documented by: Albuterol/Ipratropium (Duoneb) 3 ml NEB Q4HP PRN PRN Reason: Shortness Of Breath Aspirin (Aspirin) 81 mg PO DAILY [facility] Last Admin: 01/31/20 10:25 Dose: 81 mg Documented by: Atorvastatin Calcium (Lipitor) 40 mg PO QDAY [facility] Last Admin: 01/31/20 10:26 Dose: 40 mg Documented by: Bethanechol Chloride (Urecholine) 50 mg PO BID [facility] Last Admin: 01/31/20 10:25 Dose: 50 mg Documented by: Cefepime HCl (Maxipime) 2 gm IV Q12H [facility]; Protocol Last Admin: 01/31/20 10:24 Dose: 2 gm Documented by: Diagnostic Test (Pha) (Accu-Chek) 1 each FS ACHS [facility] Last Admin: 01/31/20 10:27 Dose: 1 each Documented by: Docusate Sodium (Colace) 100 mg PO BID [facility] Last Admin: 01/31/20 10:26 Dose: 100 mg Documented by: Enoxaparin Sodium (Lovenox) 30 mg SQ DAILY [facility] Last Admin: 01/31/20 10:24 Dose: 30 mg Documented by: Escitalopram Oxalate (Lexapro) 5 mg PO DAILY [facility] Last Admin: 01/31/20 10:25 Dose: 5 mg Documented by: Magnesium Sulfate (Magnesium Sulfate) 2 gm in 50 mls @ 50 mls/hr IV UD PRN PRN Reason: Magnesium </= 1.6 Potassium Chloride 40 meq/ (Dextrose) 520 mls @ 130 mls/hr IV UD PRN PRN Reason: Potassium < 3 Insulin Glargine (Lantus) 50 unit SQ DAILY [facility] Last Admin: 01/31/20 10:24 Dose: 50 units Documented by: Insulin Human Lispro (Humalog) 0 unit SQ [facility]; Protocol Last Admin: 01/31/20 11:50 Dose: Not Given Documented by: Lactobacillus Rhamnosus (Culturelle) 1 cap PO BID [facility] Last Admin: 01/31/20 10:24 Dose: 1 cap Documented by: Lactulose (Cephulac) 20 gm PO DAILYP PRN PRN Reason: Constipation Last Admin: 01/31/20 10:24 Dose: 20 gm Documented by: Omeprazole (Prilosec) 40 mg PO ACB [facility] Last Admin: 01/31/20 07:36 Dose: 40 mg Documented by: Ondansetron HCl (Zofran) 4 mg IV Q4HP PRN PRN Reason: Nausea And Vomiting Polyethylene Glycol (Miralax) 17 gm PO DAILYP PRN PRN Reason: Constipation Potassium Chloride (Kdur) 40 meq PO UD PRN PRN Reason: Potssium is 3-3.5 Potassium Chloride (Kdur) 40 meq PO UD PRN PRN Reason: Potassium < 3 Senna (Senokot) 2 tab PO DAILYP PRN PRN Reason: Constipation Sodium Chloride (Saline Flush) 10 ml IV Q8 [facility] Last Admin: 01/31/20 06:00 Dose: Not Given Documented by: Tamsulosin HCl (Flomax) 0.8 mg PO QDAY [facility] Last Admin: 01/31/20 10:25 Dose: 0.8 mg Documented by: A/P Narrative A/P Narrative: 1. Sepsis w/lactic acidosis: 2/2 likely source given recent penile ulcer/cellulitis -Chest imaging unremarkable -WBC normalized today, 9.9, lactic acidosis resolved 2. RADHA on CKD III: -improving 3. b/l hydroureter: Urology Dr. Wren is on board. Really appreciate it. 4. Recent penile ulcer/cellulitis: suprapubic cath placed by Urology last admit 5. Hypernatermia w/dehydration: resolved 6. Mental delay: 7. DM: 8. h/o diastolic(grade I)CHF: 9. GERD: 10. Depression 11. Constipation: as per Dr. Wren, contipation and UTI can contribute to hydroneprhosis. Abd xray - Large amount of colonic stool. fleet enema 12. Esophageal stricture: f/u with GI as an outpt. P: -IVF -Continue Cefepime, pending BC/UC -Urology following -hold home aldactone/torsemide -basal and SSI -bowel regimen -pt/ot -ppx: lovenox/home ppi Time Spent With Patient Time: Total time spent is greater than 50% in coordination of care (as documented) at patient's floor/unit and/or counseling patient: QUALITY VTE Deep Vein Thrombosis/Pulmonary Embolism Present on Admission: No
[2020-01-31] MEDS: POLYETHYLENE GLYCOL 3350 17 GM PACKET PO PRN (15:21)
[2020-01-31] MEDS: SENNOSIDES 1 TABLET PO PRN (20:15)
[2020-02-01] MEDS: POLYETHYLENE GLYCOL 3350 17 GM PACKET PO PRN (02:39)
[2020-02-01] MEDS: ACETAMINOPHEN 325 MG TABLET PO PRN ×3 (02:39→21:05)
[2020-02-01] MEDS: LACTULOSE 20 GM/30 ML ORAL.SOL PO PRN (03:45)
[2020-02-01] MEDS: 0.9 % SODIUM CHLORIDE 10 ML SYRINGE IV SCH ×3 (05:59→21:41)
[2020-02-01] MEDS: INSULIN LISPRO 1 UNIT/0.01 ML UNIT SQ SCH ×4 (07:28→21:40)
[2020-02-01] MEDS: OMEPRAZOLE 20 MG CAPSULE PO SCH (07:31)
[2020-02-01] MEDS: ESCITALOPRAM 10 MG TABLET PO SCH (08:54)
[2020-02-01] MEDS: INSULIN GLARGINE, HUMAN 1 UNIT/0.01 ML SQ SCH (08:54)
[2020-02-01] MEDS: TAMSULOSIN 0.4 MG CAPSULE PO SCH (08:54)
[2020-02-01] MEDS: ENOXAPARIN 30 MG/0.3 ML SYRINGE SQ SCH (08:55)
[2020-02-01] MEDS: DOCUSATE SODIUM 100 MG CAPSULE PO SCH ×2 (08:55→21:05)
[2020-02-01] MEDS: LACTOBACILLUS 1 CAPSULE PO SCH ×2 (08:55→21:05)
[2020-02-01] MEDS: ASPIRIN 81 MG TAB.CHEW PO SCH (08:55)
[2020-02-01] MEDS: ATORVASTATIN 40 MG TABLET PO SCH (08:55)
[2020-02-01] MEDS: BETHANECHOL 10 MG TABLET PO SCH ×2 (08:57→21:40)
[2020-02-01] MEDS: CEFEPIME 2 GM VIAL IV SCH ×2 (10:00→21:05)
--- NOTE | 2020-02-01 12:16 | Internal Med Progress Note ---
SUBJECTIVE Subjective Patient information: Note initiated : 02/01/20 at 12:14 pm Service Date, if different from initiated Date: [] Patient: Fritz Esquivel 70 y/o M admitted on 01/28/20 for Sweatiness. Chief Complaint: [] Interval history: History of present illness: Mr. Esquivel is a 70 year old M Presents from [facility] due to being sweaty all night and feeling lightheaded and weak. Did have episode nausea vomiting last night as well. He has some degree of mental delay and history is most days obtained from chart. He had a rapid Covid test which was negative. He was afebrile in the ED but found to have a leukocytosis of 37,000. His lactate was 5.0. Had acute kidney injury. Elevated sodium. Low blood pressure on arrival. Given several liters of IV fluid in the ED. Imaging of the chest abdomen pelvis residual view of the lungs to be okay, there was a concern initially from aspiration. Did show hydroureters and hydronephrosis. Case discussed with Dr. Wren recently put in a suprapubic catheter for ulcer and cellulitis earlier in the month. Blood pressure stable. Patient also found of constipation. Says he was feeling fine yesterday morning but in the afternoon started feeling crummy and lightheaded weak and sweaty. 01/28 Feeling better today. Leukocytosis improving. Lactic acidosis resolved. Renal function slowly improving. pEnding cultures. 01/29 Patient does not have any complaints today. WBC 15.1 which was 24.3 yesterday Creatinine 1.5 which was 1.[address] Wren for Hydroureter 01/30 Patient does not have any new complaints. He told me this morning he had a little bowel movement last night. WBC normalized today, 9.9. Creatinine 1.3 today Liver enzymes AST 53 and LAT 58 today Abd xray - Large amount of colonic stool. fleet enema 01/31 No new complaints. He had a large bowel movement yesterday and a small bowel movement today. Morning labs not available today Review of Systems: denies headache/fever/chills/nausea/vomiting/chest or abdominal pain/cough/dyspnea/diarrhea. Otherwise see above Constitutional Vitals: Vital Signs Temp Pulse Resp BP Pulse Ox 97.8 F 91 H 22 161/87 95 02/01/20 11:41 02/01/20 11:41 02/01/20 11:41 02/01/20 11:41 02/01/20 11:41 Period Temp Pulse Resp BP Sys/[place] Pulse Ox Last 24 Hr 97.8 F-98.4 F 81-103 18-91 119-161/71-87 94-97 Intake and Output 01/31/20 02/01/20 02/01/20 21:59 05:59 13:59 Intake Total 480 1040 Output Total 700 650 Balance -220 390 Weight 95.283 kg Intake & Output: Intake & Output 01/31/20 02/01/20 02/01/20 21:59 05:59 13:59 Intake Total 480 1040 Output Total 700 650 Balance -220 390 Weight 95.283 kg Intake: Oral 480 1040 Output: Urine Catheter Amount 700 Void Amount 650 Other: Meal Dinner Percent of Meal Consumed 50% Feeding Ability Assist with Tray Set Up Urine Appearance Clear Clear Clear Suprapubic Clear Clear Urine Color Dark Yellow Straw Straw Suprapubic Straw Straw Urine Odor Strong Suprapubic Normal Stool Size Moderate Smear Stool Color Brown Brown Stool Consistency Soft Soft # Bowel Movements 1 # of times incontinent of 1 Bowels OBJ DATA Labs CBC & Chem 7: 01/31/20 08:40 01/31/20 08:40 Labs: Abnormal Lab Results 01/31/20 01/31/20 01/30/20 08:40 08:40 05:11 WBC RBC 3.78 L Hgb 11.4 L Hct 36.0 L RDW Plt Count 455 H Neut % (Auto) Lymph % (Auto) 8.2 L Lymph # (Auto) 0.81 L [place] # (Auto) 1.03 H Absolute Neutrophils Carbon Dioxide 21 L BUN 41 H 52 H Creatinine 1.3 H 1.5 H Glucose 120 H Magnesium 3.0 H AST 53 H ALT 58 H Albumin 2.5 L 2.8 L Globulin 3.9 H Albumin/Globulin Ratio 0.6 L 0.8 L Procalcitonin 01/30/20 01/30/20 05:11 05:11 WBC 15.1 H RBC 3.81 L Hgb 11.5 L Hct 36.1 L RDW 14.6 H Plt Count 449 H Neut % (Auto) 83.1 H Lymph % (Auto) 5.9 L Lymph # (Auto) 0.89 L [place] # (Auto) 1.46 H Absolute Neutrophils 12.56 H Carbon Dioxide BUN Creatinine Glucose Magnesium AST ALT Albumin Globulin Albumin/Globulin Ratio Procalcitonin 0.87 H Meds: Medications Acetaminophen (Tylenol) 650 mg PO Q4HP PRN PRN Reason: PAIN/FEVER > 101 Last Admin: 02/01/20 02:39 Dose: 650 mg Documented by: Hydrocodone Bitart/Acetaminophen ([place] 10/325mg) 1 tab PO Q4HP PRN; Protocol PRN Reason: Pain Last Admin: 01/31/20 22:49 Dose: 1 tab Documented by: Albuterol/Ipratropium (Duoneb) 3 ml NEB Q4HP PRN PRN Reason: Shortness Of Breath Aspirin (Aspirin) 81 mg PO DAILY [facility] Last Admin: 02/01/20 08:55 Dose: 81 mg Documented by: Atorvastatin Calcium (Lipitor) 40 mg PO QDAY [facility] Last Admin: 02/01/20 08:55 Dose: 40 mg Documented by: Bethanechol Chloride (Urecholine) 50 mg PO BID [facility] Last Admin: 02/01/20 08:57 Dose: 50 mg Documented by: Cefepime HCl (Maxipime) 2 gm IV Q12H [facility]; Protocol Last Admin: 02/01/20 10:00 Dose: 2 gm Documented by: Diagnostic Test (Pha) (Accu-Chek) 1 each FS ACHS [facility] Last Admin: 02/01/20 11:20 Dose: 1 each Documented by: Docusate Sodium (Colace) 100 mg PO BID [facility] Last Admin: 02/01/20 08:55 Dose: 100 mg Documented by: Enoxaparin Sodium (Lovenox) 30 mg SQ DAILY [facility] Last Admin: 02/01/20 08:55 Dose: 30 mg Documented by: Escitalopram Oxalate (Lexapro) 5 mg PO DAILY [facility] Last Admin: 02/01/20 08:54 Dose: 5 mg Documented by: Magnesium Sulfate (Magnesium Sulfate) 2 gm in 50 mls @ 50 mls/hr IV UD PRN PRN Reason: Magnesium </= 1.6 Potassium Chloride 40 meq/ (Dextrose) 520 mls @ 130 mls/hr IV UD PRN PRN Reason: Potassium < 3 Insulin Glargine (Lantus) 50 unit SQ DAILY [facility] Last Admin: 02/01/20 08:54 Dose: 50 units Documented by: Insulin Human Lispro (Humalog) 0 unit SQ ACHS [facility]; Protocol Last Admin: 02/01/20 11:37 Dose: 2 units Documented by: Lactobacillus Rhamnosus (Culturelle) 1 cap PO BID [facility] Last Admin: 02/01/20 08:55 Dose: 1 cap Documented by: Lactulose (Cephulac) 20 gm PO DAILYP PRN PRN Reason: Constipation Last Admin: 02/01/20 03:45 Dose: 20 gm Documented by: Omeprazole (Prilosec) 40 mg PO ACB [facility] Last Admin: 02/01/20 07:31 Dose: 40 mg Documented by: Ondansetron HCl (Zofran) 4 mg IV Q4HP PRN PRN Reason: Nausea And Vomiting Polyethylene Glycol (Miralax) 17 gm PO DAILYP PRN PRN Reason: Constipation Last Admin: 02/01/20 02:39 Dose: 17 gm Documented by: Potassium Chloride (Kdur) 40 meq PO UD PRN PRN Reason: Potssium is 3-3.5 Potassium Chloride (Kdur) 40 meq PO UD PRN PRN Reason: Potassium < 3 Senna (Senokot) 2 tab PO DAILYP PRN PRN Reason: Constipation Last Admin: 01/31/20 20:15 Dose: 2 tab Documented by: Sodium Chloride (Saline Flush) 10 ml IV Q8 [facility] Last Admin: 02/01/20 05:59 Dose: 10 ml Documented by: Tamsulosin HCl (Flomax) 0.8 mg PO QDAY [facility] Last Admin: 02/01/20 08:54 Dose: 0.8 mg Documented by: A/P Narrative A/P Narrative: 1. Sepsis w/lactic acidosis: 2/2 likely source given recent penile ulcer/cellulitis -Chest imaging unremarkable -WBC normalized today, 9.9, lactic acidosis resolved 2. RADHA on CKD III: -improving 3. b/l hydroureter: Urology Dr. Wren is on board. Really appreciate it. 4. Recent penile ulcer/cellulitis: suprapubic cath placed by Urology last admit 5. Hypernatermia w/dehydration: resolved 6. Mental delay: 7. DM: 8. h/o diastolic(grade I)CHF: 9. GERD: 10. Depression 11. Constipation: Had a large BM yesterday and a small BM today. 12. Esophageal stricture: f/u with GI as an outpt. P: -IVF -Continue Cefepime, pending BC/UC -Urology following -hold home aldactone/torsemide -basal and SSI -bowel regimen -pt/ot -ppx: lovenox/home ppi Time Spent With Patient Time: Total time spent is greater than 50% in coordination of care (as documented) at patient's floor/unit and/or counseling patient: QUALITY VTE Deep Vein Thrombosis/Pulmonary Embolism Present on Admission: No
[2020-02-01] MEDS: SENNOSIDES 1 TABLET PO PRN (15:24)
[2020-02-01 17:54] LABS: Basophils # (Auto) 0.11 K/mcL (0.00-0.20); Basophils % (Auto) 0.8 % (0.0-2.0); Eosinophils # (Auto) 0.21 K/mcL (0.00-0.70); Eosinophils % (Auto) 1.6 % (0.0-7.0); Hematocrit 40.7 % (41.0-55.0); Hemoglobin 13.1 g/dL (13.5-16.5); Lymphocytes # (Auto) 0.89 K/mcL (1.50-4.80); Lymphocytes % (Auto) 6.8 % (15.0-49.0); Mean Cell Volume 94.2 fL (80.0-100.0); Mean Corpuscular HGB Conc 32.2 g/dL (31.0-36.0); Mean Platelet Volume 9.6 fL (7.4-10.4); Monocytes # (Auto) 1.86 K/mcL (0.10-0.90); Monocytes % (Auto) 14.2 % (1.0-12.0); Neutrophils % (Auto) 76.6 % (38.0-78.0); Platelet Count 553 K/mcL (140-440); RBC 4.32 M/mcL (4.50-5.90); Red Cell Distribution Width 14.4 % (11.5-14.5); WBC 13.1 K/mcL (4.5-11.0)
[2020-02-01 18:39] LABS: ALT/SGPT 68 U/L (<40); AST/SGOT 53 U/L (<40); Albumin 2.9 gm/dL (3.2-5.2); Albumin/Globulin Ratio 0.8 (1.0-2.3); Alkaline Phosphatase 95 U/L (39-117); Bilirubin,Total 0.4 mg/dL (0.1-1.0); Blood Urea Nitrogen 34 mg/dL (8-23); Calcium 9.8 mg/dL (8.6-10.4); Carbon Dioxide 22 mmol/L (22-30); Chloride 104 mmol/L (96-108); Globulin 3.8 gm/dL (2.2-3.7); Glomerular Filtration Rate 61; Glucose 116 mg/dL (70-105)
[2020-02-01] MEDS ORDERED: FLEETS ADULT ENEMA PR ONE ×3 (19:02→21:06)
[2020-02-01] MEDS ORDERED: 0.9 % SODIUM CHLORIDE 1,000 ML IV SCH (22:45)
[2020-02-01] MEDS ORDERED: morphine 2 MG/ML VIAL IV PRN (22:45)
--- NOTE | 2020-02-01 23:25 | Event Note ---
Event Note Event Note: This afternoon pt complained of N/V and abd distension. He had a large BM yesterday and small BM today. 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 But Mechanical obstruction is not fully excluded. Discussed with GS Dr. Moore, who suggested NG tube low degree intermittent suction. NPO IVF Pain meds Dr. Moore will follow tomorrow. Really appreciate it.
--- NOTE | 2020-02-02 05:36 | XRay Report ---
CLINICAL INFORMATION: constipation, abd distended COMPARISON: 01/31/2020 FINDINGS: The descending and rectosigmoid colon are now decompressed. The right and transverse colon are mildly dilated and stool-filled. Multiple loops of small bowel and stomach are mildly dilated. There is no free air, soft tissue mass or organomegaly. 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 If Abdomen and pelvic CT are repeated, suggest oral enteric contrast with delayed imaging (six hours following oral contrast administration) Interpreted and Authenticated by: Lauro Rodney 02/02/20
--- NOTE | 2020-02-02 05:38 | XRay Report ---
CLINICAL INFORMATION: NG placement COMPARISON: Plain films 02/01/2020 1918 hours FINDINGS: NG tube overlies the mid gastric region. Stomach, small bowel right and transverse colon are mildly dilated - as previously seen. Descending colon decompressed. No free air IMPRESSION: NG tube overlies the epigastric region. Issac pattern unchanged Interpreted and Authenticated by: Lauro Rodney 02/02/20
[2020-02-02 06:00] LABS: Basophils % (Auto) 0.9 % (0.0-2.0); Eosinophils % (Auto) 1.8 % (0.0-7.0); Hematocrit 39.6 % (41.0-55.0); Hemoglobin 12.6 g/dL (13.5-16.5); Lymphocytes # (Auto) 0.94 K/mcL (1.50-4.80); Lymphocytes % (Auto) 8.4 % (15.0-49.0); Mean Cell Volume 93.6 fL (80.0-100.0); Mean Corpuscular HGB Conc 31.8 g/dL (31.0-36.0); Mean Platelet Volume 9.8 fL (7.4-10.4); Monocytes # (Auto) 1.56 K/mcL (0.10-0.90); Monocytes % (Auto) 13.9 % (1.0-12.0); Platelet Count 518 K/mcL (140-440); RBC 4.23 M/mcL (4.50-5.90); Red Cell Distribution Width 14.4 % (11.5-14.5); WBC 11.2 K/mcL (4.5-11.0)
[2020-02-02 06:44] LABS: ALT/SGPT 64 U/L (<40); AST/SGOT 44 U/L (<40); Albumin 3.1 gm/dL (3.2-5.2); Albumin/Globulin Ratio 0.8 (1.0-2.3); Alkaline Phosphatase 114 U/L (39-117); Bilirubin,Total 0.5 mg/dL (0.1-1.0); Blood Urea Nitrogen 45 mg/dL (8-23); Calcium 10.1 mg/dL (8.6-10.4); Carbon Dioxide 22 mmol/L (22-30); Chloride 105 mmol/L (96-108); Globulin 3.9 gm/dL (2.2-3.7); Glomerular Filtration Rate 47; Glucose 115 mg/dL (70-105)
[2020-02-02] MEDS: 0.9 % SODIUM CHLORIDE 10 ML SYRINGE IV SCH ×3 (07:08→21:19)
[2020-02-02] MEDS: OMEPRAZOLE 20 MG CAPSULE PO SCH (07:36)
[2020-02-02] MEDS: INSULIN LISPRO 1 UNIT/0.01 ML UNIT SQ SCH ×4 (07:36→20:52)
[2020-02-02] MEDS: DOCUSATE SODIUM 100 MG CAPSULE PO SCH ×2 (08:03→20:51)
[2020-02-02] MEDS: ASPIRIN 81 MG TAB.CHEW PO SCH (08:03)
[2020-02-02] MEDS: BETHANECHOL 10 MG TABLET PO SCH ×2 (08:04→20:50)
[2020-02-02] MEDS: ATORVASTATIN 40 MG TABLET PO SCH (08:04)
[2020-02-02] MEDS: LACTOBACILLUS 1 CAPSULE PO SCH ×2 (08:04→20:50)
[2020-02-02] MEDS: TAMSULOSIN 0.4 MG CAPSULE PO SCH (08:04)
[2020-02-02] MEDS: ESCITALOPRAM 10 MG TABLET PO SCH (08:04)
[2020-02-02] MEDS: INSULIN GLARGINE, HUMAN 1 UNIT/0.01 ML SQ SCH (08:12)
[2020-02-02] MEDS: ENOXAPARIN 40 MG/0.4 ML SYRINGE SQ SCH (08:12)
[2020-02-02] MEDS: CEFEPIME 2 GM VIAL IV SCH ×2 (08:21→21:19)
[2020-02-02] MEDS ORDERED: LACTATED RINGERS 1,000 ML IV SCH (10:00)
--- NOTE | 2020-02-02 12:04 | Internal Med Progress Note ---
SUBJECTIVE Subjective Patient information: Note initiated : 02/02/20 at 12:03 pm Service Date, if different from initiated Date: [] Patient: Fritz Esquivel 70 y/o M admitted on 01/28/20 for Sweatiness. Chief Complaint: [] Interval history: History of present illness: Mr. Esquivel is a 70 year old M Presents from [facility] due to being sweaty all night and feeling lightheaded and weak. Did have episode nausea vomiting last night as well. He has some degree of mental delay and history is most days obtained from chart. He had a rapid Covid test which was negative. He was afebrile in the ED but found to have a leukocytosis of 37,000. His lactate was 5.0. Had acute kidney injury. Elevated sodium. Low blood pressure on arrival. Given several liters of IV fluid in the ED. Imaging of the chest abdomen pelvis residual view of the lungs to be okay, there was a concern initially from aspiration. Did show hydroureters and hydronephrosis. Case discussed with Dr. Wren recently put in a suprapubic catheter for ulcer and cellulitis earlier in the month. Blood pressure stable. Patient also found of constipation. Says he was feeling fine yesterday morning but in the afternoon started feeling crummy and lightheaded weak and sweaty. 01/28 Feeling better today. Leukocytosis improving. Lactic acidosis resolved. Renal function slowly improving. pEnding cultures. 01/29 Patient does not have any complaints today. WBC 15.1 which was 24.3 yesterday Creatinine 1.5 which was 1.[address] Wren for Hydroureter 01/30 Patient does not have any new complaints. He told me this morning he had a little bowel movement last night. WBC normalized today, 9.9. Creatinine 1.3 today Liver enzymes AST 53 and LAT 58 today Abd xray - Large amount of colonic stool. fleet enema 01/31 No new complaints. He had a large bowel movement yesterday and a small bowel movement today. Morning labs not available today 02/01 Patient abdomen was more distended than yesterday. Also patient felt nauseated and vomiting yesterday. abdomen x-ray showed possible Issac syndrome and a mechanical obstruction cannot be excluded Discussed with general surgeon Dr. Lorenzo, NG tube was placed was suction was started. But earlier this morning patient pulled NG tube out. 1200 cc was out in total. Patient abdomen is less distended. He also has a large very loose bowel movement. Heart rate 104 WBC 12.2 Creatinine 1[address] Wren and Dr Toribio are on board Review of Systems: denies headache/fever/chills/nausea/vomiting/chest or abdominal pain/cough/dyspnea/diarrhea. Otherwise see above Constitutional Vitals: Vital Signs Temp Pulse Resp BP Pulse Ox 98.2 F 101 H 18 128/84 94 02/02/20 11:39 02/02/20 11:39 02/02/20 11:39 02/02/20 11:39 02/02/20 11:39 Period Temp Pulse Resp BP Sys/[place] Pulse Ox Last 24 Hr 97.5 F-98.2 F 100-130 18-24 91-154/60-84 94-97 Intake and Output 02/01/20 02/02/20 02/02/20 21:59 05:59 13:59 Intake Total 560 300 Output Total 500 2175 Balance 60 -1875 Weight 95.51 kg Intake & Output: Intake & Output 02/01/20 02/02/20 02/02/20 21:59 05:59 13:59 Intake Total 560 300 Output Total 500 2175 Balance 60 -1875 Weight 95.51 kg Intake: Oral 560 300 Output: Gastric Drainage 1950 NG/OG 1950 Urine Catheter Amount 500 225 Other: Meal Dinner Percent of Meal Consumed 75% Feeding Ability Independent Urine Appearance Clear Clear Suprapubic Clear Clear Urine Color Light Lexi Dark Yellow Dark Yellow Suprapubic Straw Straw Urine Odor Strong Suprapubic Normal Stool Size Large Large Copious Stool Color Brown Brown Brown Stool Consistency Soft Soft Liquid # Unmeasured Emesis 1 # Bowel Movements 1 # of times incontinent of 2 1 2 Bowels Additional findings Additional findings: General: Alert, Awake, No acute Distress Eyes/N/T: EOMI, Head/Neck: neck supple, CV: RRR, No murmurs, Pulm: Clear b/l, no wheezing/rhonchi/rales Abd: soft, nontender, distended, decreased BSs, suprapubic catheter in place Ext: no clubbing/cyanosis/edema Neuro: Alert, no focal deficits, moves all extremities, Skin: warm/dry OBJ DATA Labs CBC & Chem 7: 02/02/20 04:55 02/02/20 04:54 Labs: Abnormal Lab Results 02/02/20 02/02/20 02/02/20 04:55 04:54 04:54 WBC 11.2 H RBC 4.23 L Hgb 12.6 L Hct 39.6 L Plt Count 518 H Lymph % (Auto) 8.4 L [place] % (Auto) 13.9 H Lymph # (Auto) 0.94 L [place] # (Auto) 1.56 H Absolute Neutrophils 8.41 H Carbon Dioxide BUN 45 H Creatinine 1.5 H Glucose 115 H Magnesium 2.8 H AST 44 H ALT 64 H Albumin 3.1 L Globulin 3.9 H Albumin/Globulin Ratio 0.8 L 02/01/20 02/01/20 01/31/20 17:32 05:40 08:40 WBC 13.1 H RBC 4.32 L Hgb 13.1 L Hct 40.7 L Plt Count 553 H Lymph % (Auto) 6.8 L [place] % (Auto) 14.2 H Lymph # (Auto) 0.89 L [place] # (Auto) 1.86 H Absolute Neutrophils 10.01 H Carbon Dioxide 21 L BUN 34 H 41 H Creatinine 1.3 H Glucose 116 H 120 H Magnesium AST 53 H 53 H ALT 68 H 58 H Albumin 2.9 L 2.5 L Globulin 3.8 H 3.9 H Albumin/Globulin Ratio 0.8 L 0.6 L 01/31/20 08:40 WBC RBC 3.78 L Hgb 11.4 L Hct 36.0 L Plt Count 455 H Lymph % (Auto) 8.2 L [place] % (Auto) Lymph # (Auto) 0.81 L [place] # (Auto) 1.03 H Absolute Neutrophils Carbon Dioxide BUN Creatinine Glucose Magnesium AST ALT Albumin Globulin Albumin/Globulin Ratio Meds: Medications Acetaminophen (Tylenol) 650 mg PO Q4HP PRN PRN Reason: PAIN/FEVER > 101 Last Admin: 02/01/20 21:05 Dose: 650 mg Documented by: Hydrocodone Bitart/Acetaminophen ([place] 10/325mg) 1 tab PO Q4HP PRN; Protocol PRN Reason: Pain Last Admin: 01/31/20 22:49 Dose: 1 tab Documented by: Albuterol/Ipratropium (Duoneb) 3 ml NEB Q4HP PRN PRN Reason: Shortness Of Breath Aspirin (Aspirin) 81 mg PO DAILY [facility] Last Admin: 02/02/20 08:03 Dose: Not Given Documented by: Atorvastatin Calcium (Lipitor) 40 mg PO QDAY [facility] Last Admin: 02/02/20 08:04 Dose: Not Given Documented by: Bethanechol Chloride (Urecholine) 50 mg PO BID [facility] Last Admin: 02/02/20 08:04 Dose: Not Given Documented by: Cefepime HCl (Maxipime) 2 gm IV Q12H [facility]; Protocol Last Admin: 02/02/20 08:21 Dose: 2 gm Documented by: Diagnostic Test (Pha) (Accu-Chek) 1 each FS ACHS [facility] Last Admin: 02/02/20 11:12 Dose: 1 each Documented by: Docusate Sodium (Colace) 100 mg PO BID [facility] Last Admin: 02/02/20 08:03 Dose: Not Given Documented by: Enoxaparin Sodium (Lovenox) 40 mg SQ DAILY [facility] Last Admin: 02/02/20 08:12 Dose: 40 mg Documented by: Escitalopram Oxalate (Lexapro) 5 mg PO DAILY [facility] Last Admin: 02/02/20 08:04 Dose: Not Given Documented by: Magnesium Sulfate (Magnesium Sulfate) 2 gm in 50 mls @ 50 mls/hr IV UD PRN PRN Reason: Magnesium </= 1.6 Potassium Chloride 40 meq/ (Dextrose) 520 mls @ 130 mls/hr IV UD PRN PRN Reason: Potassium < 3 Lactated Ringer's (Lactated Ringers) 1,000 mls @ 150 mls/hr IV .Q6H40M [facility] Last Admin: 02/02/20 10:33 Dose: 150 mls/hr Documented by: Insulin Glargine (Lantus) 50 unit SQ DAILY [facility] Last Admin: 02/02/20 08:12 Dose: 50 units Documented by: Insulin Human Lispro (Humalog) 0 unit SQ ACHS [facility]; Protocol Last Admin: 02/02/20 11:13 Dose: Not Given Documented by: Lactobacillus Rhamnosus (Culturelle) 1 cap PO BID [facility] Last Admin: 02/02/20 08:04 Dose: Not Given Documented by: Lactulose (Cephulac) 20 gm PO DAILYP PRN PRN Reason: Constipation Last Admin: 02/01/20 03:45 Dose: 20 gm Documented by: Morphine Sulfate (Morphine) 2 mg IV Q4HP PRN; Protocol PRN Reason: Per Pain Protocol Omeprazole (Prilosec) 40 mg PO ACB [facility] Last Admin: 02/02/20 07:36 Dose: Not Given Documented by: Ondansetron HCl (Zofran) 4 mg IV Q4HP PRN PRN Reason: Nausea And Vomiting Last Admin: 02/01/20 22:35 Dose: 4 mg Documented by: Polyethylene Glycol (Miralax) 34 gm PO BID [facility] Potassium Chloride (Kdur) 40 meq PO UD PRN PRN Reason: Potssium is 3-3.5 Potassium Chloride (Kdur) 40 meq PO UD PRN PRN Reason: Potassium < 3 Senna (Senokot) 2 tab PO DAILYP PRN PRN Reason: Constipation Last Admin: 02/01/20 15:24 Dose: 2 tab Documented by: Sodium Chloride (Saline Flush) 10 ml IV Q8 [facility] Last Admin: 02/02/20 07:08 Dose: Not Given Documented by: Tamsulosin HCl (Flomax) 0.8 mg PO QDAY [facility] Last Admin: 02/02/20 08:04 Dose: Not Given Documented by: A/P Narrative A/P Narrative: 1. Sepsis w/lactic acidosis: 2/2 likely source given recent penile ulcer/cellulitis -Chest imaging unremarkable -WBC 11.2 today, lactic acidosis resolved 2. RADHA on CKD III: -improving 3. b/l hydroureter: Urology Dr. Wren is on board. Really appreciate it. 4. Recent penile ulcer/cellulitis: suprapubic cath placed by Urology last admit 5. Hypernatermia w/dehydration: resolved 6. Mental delay: 7. DM: 8. h/o diastolic(grade I)CHF: 9. GERD: 10. Depression 11. Constipation: Had a large BM yesterday and a small BM today. 12. Esophageal stricture: f/u with GI as an outpt. 13. 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 Wren and Dr Toribio are on board - NPO, NG tube was removed by pt self and refused to reinsert it. -IVF -Continue Cefepime, pending BC/UC -hold home aldactone/torsemide -basal and SSI -bowel regimen -pt/ot -ppx: lovenox/home ppi Time Spent With Patient Time: Total time spent is greater than 50% in coordination of care (as d ocumented) at patient's floor/unit and/or counseling patient: QUALITY VTE Deep Vein Thrombosis/Pulmonary Embolism Present on Admission: No
--- NOTE | 2020-02-02 12:40 | XRay Report ---
CLINICAL INFORMATION: NG placement COMPARISON: 02/01/2020 FINDINGS: NG tube coiled in the gastric body. The stomach and small bowel are partially decompressed following NG suction. There is also less gas within the visualized transverse colon. No free air IMPRESSION: NG tube coiled in the gastric body. Interval partial decompression of the stomach, small bowel and colon. Interpreted and Authenticated by: Lauro Rodney 02/02/20
[2020-02-02] MEDS: 0.9 % SODIUM CHLORIDE 1,000 ML IV SCH (12:44)
--- NOTE | 2020-02-02 14:50 | General Surgery Consult Note ---
HPI Data of Consult Primary Care Provider: LAURIE Evans Consult Narrative Patient Information: Note initiated : 02/02/20 at 2:31 pm Service Date, if different from initiated Date: [] Patient: Fritz Esquivel 70 y/o M admitted on 01/28/20 for Sweatiness. Chief Complaint: abdominal distention 70 yo man with history of suprapubic urinary catheter placement after penile wound now HD6 after being admitted for suspected pyelonephritis and sepsis with initial WBC of 37 and lactate of 5. He was noted to have hydroureter perhaps from a remarkably large amount of stool burden in rectum/sigmoid colon as well as elsewhere in the colon. 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 Pt with nausea and vomiting. However pt had several large bowel movements with aid of enemas and bowel regiment. He again had a large BM this morning. Yesterday evening a NGT was placed with 1.9L of output I reviewed his admission CT and his serial abdominal plain films. Showing diminished stool burden but dilated loops of large and small bowel as well as distended stomach. cc:: CC: Mark Anthony Hawley Constitutional Constitutional: Present fatigue EENT Ears: Absent ear discharge Cardiovascular Cardiovascular: Present diaphoresis Respiratory Respiratory: Absent stridor Gastrointestinal Gastrointestinal: Present belching Musculoskeletal Musculoskeletal: Present muscle cramps Integumentary Integumentary: Absent acne Neurological Neurological: Absent abnormal speech Psychiatric Psychiatric: Absent visual hallucinations Hematologic/Lymphatic Hematologic/Lymphatic: Absent easy bleeding PFSH PFSH All Active Problems (Updated 02/02/20 @ 14:50 by Pravin Deleon MD) Ileus (Acute) Sepsis (Acute) Urinary tract infection associated with cystostomy catheter (Acute) Chronic renal failure, stage 3 (moderate) (Acute) Hypoxia (Acute) Status post excisional debridement (Acute) Necrosis (Acute) Urethral erosion by catheter (Acute) Hydronephrosis (Acute) Balanitis (Acute) Cellulitis (Acute) Elevated serum creatinine (Acute) Localized edema due to fluid overload (Chronic) Secondary hyperparathyroidism of renal origin (Chronic) Vitamin D deficiency (Chronic) Anemia in stage 3 chronic kidney disease (Chronic) 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) Acute on chronic renal failure (Acute) Bladder mass (Acute) Status post insertion of Morelos catheter (Chronic) GERD (gastroesophageal reflux disease) (Chronic) Benign prostatic hyperplasia (Chronic) Edema (Chronic) Weakness (Chronic) Bilateral hydronephrosis (Chronic) Leukocytosis (Chronic) Hypoglycemia (Chronic) Obstructive uropathy (Chronic) Acute renal failure (Chronic) Morelos catheter in place (Chronic) Urinary retention (Chronic) Poor hygiene (Chronic) Knee pain (Chronic) Fatigue (Chronic) Hypertension (Chronic) Gout (Chronic) Elevated liver enzymes (Chronic) Mentally challenged (Chronic) Diabetes (Chronic) Arthritis (Chronic) Anxiety (Chronic) Bronchitis (Chronic) Asthma (Chronic) Shortness of breath (Chronic) Chronic kidney disease, stage 3 (Chronic) Medical History Acute renal failure (Chronic) Anxiety (Chronic) Arthritis (Chronic) Asthma (Chronic) Benign prostatic hyperplasia (Chronic) Bilateral hydronephrosis (Chronic) Bronchitis (Chronic) Chronic kidney disease, stage 3 (Chronic) Diabetes (Chronic) Edema (Chronic) Elevated liver enzymes (Chronic) Fatigue (Chronic) Morelos catheter in place (Chronic) GERD (gastroesophageal reflux disease) (Chronic) Gout (Chronic) Hypertension (Chronic) Hypoglycemia (Chronic) Knee pain (Chronic) Leukocytosis (Chronic) Mentally challenged (Chronic) Obstructive uropathy (Chronic) Poor hygiene (Chronic) Shortness of breath (Chronic) Urinary retention (Chronic) Weakness (Chronic) Surgical History History of colonoscopy (Chronic) Dr. Guevara Status post insertion of Morelos catheter (Chronic) Family History Mother Diabetes Father Heart disease Social History caregiver/support person: Yes household members: alone marital status: single education level: high school smoking status: Never smoker alcohol intake frequency: does not drink substance use type: does not use MEDS/ALLERGIES Home Medications and Allergies Home Medications Medication Instructions Recorded Confirmed Type spironolactone 25 mg tablet 25 mg PO QAM tab 12/27/17 01/28/20 History omeprazole 20 mg capsule,delayed 40 mg PO QDAY cap 12/28/17 01/28/20 History release cholecalciferol (vitamin D3) 100 4,000 unit PO QDAY #90 tab 04/27/19 01/28/20 Rx mcg (4,000 unit) tablet potassium chloride 10 mEq 10 meq PO QDAY #30 tab 08/06/19 01/28/20 Rx tablet,extended release(part/cryst) atorvastatin 40 mg tablet 40 mg PO QDAY #30 tab 08/13/19 01/28/20 Rx dulaglutide 0.75 mg/0.5 mL 1.5 mg SUB-Q QWEEK 09/06/19 01/28/20 History subcutaneous pen injector tamsulosin 0.4 mg capsule 0.8 mg PO QDAY cap 09/11/19 01/28/20 History torsemide 20 mg tablet 40 mg PO QDAY tab 09/11/19 01/28/20 History acetaminophen 325 mg capsule 650 mg PO Q4H PRN 10/29/19 01/28/20 History aspirin 81 mg tablet,delayed 81 mg PO QDAY 10/29/19 01/28/20 History release bethanechol chloride 50 mg tablet 50 mg PO BID 10/29/19 01/28/20 History ferrous sulfate 325 mg (65 mg 325 mg PO QDAY 10/29/19 01/28/20 History iron) tablet fexofenadine 180 mg tablet 180 mg PO Q24H 10/29/19 01/28/20 History hydrocodone 10 mg-acetaminophen 1 tab PO Q4 PRN tab 10/29/19 01/28/20 History 325 mg tablet escitalopram oxalate 5 mg tablet 5 mg PO QDAY 11/28/19 01/28/20 History Adult Probiotic 100 mg BID 01/16/20 01/28/20 History cholecalciferol (vitamin D3) 50,000 units WEEKLY 01/16/20 01/28/20 History insulin lispro See Rx Instructions .ROUTE .COMPLEX 01/16/20 01/28/20 History insulin glargine [Lantus U-100 50 unit SQ DAILY #10 ml 01/21/20 01/28/20 Rx Insulin] Allergies Allergy/AdvReac Type Severity Reaction Status Date / Time piperacillin [From Zosyn] Allergy Mild Rash Verified 01/28/20 07:56 tazobactam [From Zosyn] Allergy Mild Rash Verified 01/28/20 07:56 Sulfa (Sulfonamide Allergy Unknown Unknown Verified 01/28/20 07:56 Antibiotics) Physical Examination Vital Signs Vital signs: Temp Pulse Resp BP Pulse Ox 36.8 C 101 H 18 128/84 94 02/02/20 11:39 02/02/20 11:39 02/02/20 11:39 02/02/20 11:39 02/02/20 11:39 General physical appearance General physical exam: other (oriented to hospital, date, time etc) Eyes Eye exam: negative icteric ENT ENT exam: negative normal mucosa Head Head exam IM: Present atraumatic and normocephalic Neck Neck exam: negative no lymphadenopathy Cardiovascular Cardiovascular: strong radial pulse Respiratory Respiratory exam: other (breathing easily) Abdomen Abdomen: Present soft (distended reportedly less than yesterday, soft, tympanitic, minimally tender in RLQ - not impressive, neg bedshake test ) Genitourinary Genitourinary (Male): Present other (super pubic cath in place - with clear yellow urine) Integumentary Integumentary: Present no rash Results Labs Result diagrams: 02/02/20 04:55 02/02/20 04:54 Labs: Abnormal lab results 02/01/20 02/01/20 02/02/20 Range/Units 05:40 17:32 04:54 WBC 13.1 H (4.5-11.0) K/mcL RBC 4.32 L (4.50-5.90) M/mcL Hgb 13.1 L (13.5-16.5) g/dL Hct 40.7 L (41.0-55.0) % Plt Count 553 H (140-440) K/mcL Lymph % (Auto) 6.8 L (15.0-49.0) % [place] % (Auto) 14.2 H (1.0-12.0) % Lymph # (Auto) 0.89 L (1.50-4.80) K/mcL [place] # (Auto) 1.86 H (0.10-0.90) K/mcL Absolute Neutrophils 10.01 H (1.80-8.00) K/mcL BUN 34 H 45 H (8-23) mg/dL Creatinine 1.5 H (0.7-1.2) mg/dL Glucose 116 H 115 H (70-105) mg/dL Magnesium (1.6-2.5) mg/dL AST 53 H 44 H (<40) U/L ALT 68 H 64 H (<40) U/L Albumin 2.9 L 3.1 L (3.2-5.2) gm/dL Globulin 3.8 H 3.9 H (2.2-3.7) gm/dL Albumin/Globulin Ratio 0.8 L 0.8 L (1.0-2.3) 02/02/20 02/02/20 Range/Units 04:54 04:55 WBC 11.2 H (4.5-11.0) K/mcL RBC 4.23 L (4.50-5.90) M/mcL Hgb 12.6 L (13.5-16.5) g/dL Hct 39.6 L (41.0-55.0) % Plt Count 518 H (140-440) K/mcL Lymph % (Auto) 8.4 L (15.0-49.0) % [place] % (Auto) 13.9 H (1.0-12.0) % Lymph # (Auto) 0.94 L (1.50-4.80) K/mcL [place] # (Auto) 1.56 H (0.10-0.90) K/mcL Absolute Neutrophils 8.41 H (1.80-8.00) K/mcL BUN (8-23) mg/dL Creatinine (0.7-1.2) mg/dL Glucose (70-105) mg/dL Magnesium 2.8 H (1.6-2.5) mg/dL AST (<40) U/L ALT (<40) U/L Albumin (3.2-5.2) gm/dL Globulin (2.2-3.7) gm/dL Albumin/Globulin Ratio (1.0-2.3) Diabetes panel 02/01/20 02/02/20 Range/Units 05:40 04:54 Sodium 136 138 (133-145) mmol/L Potassium 4.3 4.7 (3.3-5.1) mmol/L Chloride 104 105 (96-108) mmol/L Carbon Dioxide 22 22 (22-30) mmol/L BUN 34 H 45 H (8-23) mg/dL Creatinine 1.2 1.5 H (0.7-1.2) mg/dL Glucose 116 H 115 H (70-105) mg/dL Calcium 9.8 10.1 (8.6-10.4) mg/dL AST 53 H 44 H (<40) U/L ALT 68 H 64 H (<40) U/L Alkaline Phosphatase 95 114 (39-117) U/L Total Protein 6.7 7.0 (5.9-8.4) gm/dL Albumin 2.9 L 3.1 L (3.2-5.2) gm/dL Calcium panel 02/01/20 02/02/20 Range/Units 05:40 04:54 Calcium 9.8 10.1 (8.6-10.4) mg/dL Albumin 2.9 L 3.1 L (3.2-5.2) gm/dL Pituitary panel 02/01/20 02/02/20 Range/Units 05:40 04:54 Sodium 136 138 (133-145) mmol/L Potassium 4.3 4.7 (3.3-5.1) mmol/L Chloride 104 105 (96-108) mmol/L Carbon Dioxide 22 22 (22-30) mmol/L BUN 34 H 45 H (8-23) mg/dL Creatinine 1.2 1.5 H (0.7-1.2) mg/dL Glucose 116 H 115 H (70-105) mg/dL Calcium 9.8 10.1 (8.6-10.4) mg/dL Adrenal panel 02/01/20 02/02/20 Range/Units 05:40 04:54 Sodium 136 138 (133-145) mmol/L Potassium 4.3 4.7 (3.3-5.1) mmol/L Chloride 104 105 (96-108) mmol/L Carbon Dioxide 22 22 (22-30) mmol/L BUN 34 H 45 H (8-23) mg/dL Creatinine 1.2 1.5 H (0.7-1.2) mg/dL Glucose 116 H 115 H (70-105) mg/dL Calcium 9.8 10.1 (8.6-10.4) mg/dL Total Bilirubin 0.4 0.5 (0.1-1.0) mg/dL AST 53 H 44 H (<40) U/L ALT 68 H 64 H (<40) U/L Alkaline Phosphatase 95 114 (39-117) U/L Total Protein 6.7 7.0 (5.9-8.4) gm/dL Albumin 2.9 L 3.1 L (3.2-5.2) gm/dL All other labs normal. A/P Assessment and plan (1) Ileus: Status: Acute Comment: 70 yo man with distended large and small bowel and very large stomach now admitted for resolving sepsis from urinary source. Overall picture is one of ileus. He is having bowel function with several large BM's that effectively rules out Issac syndrome. Additionally pts large stool burden on admission and potential contribution to ureter obstruction and pyelonephritis - needs a stool clean out and a home bowel regiment to prevent recurrence. Plan: Ileus management: - NGT to LWIS, ok for PO/PT meds with 1hr clamp - Keep K above 4, and mag above 2 - Encourage early ambulation Stool burden - Miralax ordered 34g BID - Home regiment upon discharge for 1-2 soft BM daily Pravin Deleon MD Time Spent With Patient Time: Total time spent is greater than 50% in coordination of care (as documented) at patient's floor/unit and/or counseling patient:
[2020-02-02] MEDS: POLYETHYLENE GLYCOL 3350 17 GM PACKET PO SCH (20:51)
[2020-02-03] MEDS: 0.9 % SODIUM CHLORIDE 1,000 ML IV SCH ×2 (01:52→15:23)
[2020-02-03] MEDS ORDERED: DEXTROSE 50% 50 ML SYRINGE IV PRN (03:02)
[2020-02-03] MEDS: 0.9 % SODIUM CHLORIDE 10 ML SYRINGE IV SCH ×3 (04:38→21:44)
[2020-02-03] MEDS: OMEPRAZOLE 20 MG CAPSULE PO SCH (07:11)
[2020-02-03] MEDS: INSULIN LISPRO 1 UNIT/0.01 ML UNIT SQ SCH ×4 (07:17→21:43)
[2020-02-03 07:21] LABS: Basophils % (Auto) 1.2 % (0.0-2.0); Hematocrit 39.6 % (41.0-55.0); Hemoglobin 12.9 g/dL (13.5-16.5); Lymphocytes # (Auto) 1.16 K/mcL (1.50-4.80); Mean Cell Volume 93.4 fL (80.0-100.0); Mean Corpuscular HGB Conc 32.6 g/dL (31.0-36.0); Mean Platelet Volume 10.2 fL (7.4-10.4); Monocytes % (Auto) 12.1 % (1.0-12.0); Neutrophils % (Auto) 66.7 % (38.0-78.0); Platelet Count 391 K/mcL (140-440); RBC 4.24 M/mcL (4.50-5.90); Red Cell Distribution Width 14.8 % (11.5-14.5); WBC 8.3 K/mcL (4.5-11.0)
[2020-02-03 07:40] LABS: ALT/SGPT 49 U/L (<40); AST/SGOT 35 U/L (<40); Albumin 2.7 gm/dL (3.2-5.2); Albumin/Globulin Ratio 0.8 (1.0-2.3); Alkaline Phosphatase 103 U/L (39-117); Bilirubin,Total 0.2 mg/dL (0.1-1.0); Blood Urea Nitrogen 45 mg/dL (8-23); Calcium 9.3 mg/dL (8.6-10.4); Carbon Dioxide 21 mmol/L (22-30); Chloride 108 mmol/L (96-108); Globulin 3.5 gm/dL (2.2-3.7); Glomerular Filtration Rate 56; Glucose 83 mg/dL (70-105)
[2020-02-03] MEDS: INSULIN GLARGINE, HUMAN 1 UNIT/0.01 ML SQ SCH (07:52)
[2020-02-03] MEDS: ASPIRIN 81 MG TAB.CHEW PO SCH (08:21)
[2020-02-03] MEDS: ATORVASTATIN 40 MG TABLET PO SCH (08:21)
[2020-02-03] MEDS: LACTOBACILLUS 1 CAPSULE PO SCH ×2 (08:21→21:43)
[2020-02-03] MEDS: POLYETHYLENE GLYCOL 3350 17 GM PACKET PO SCH (08:21)
[2020-02-03] MEDS: ESCITALOPRAM 10 MG TABLET PO SCH (08:21)
[2020-02-03] MEDS: ENOXAPARIN 40 MG/0.4 ML SYRINGE SQ SCH (08:22)
[2020-02-03] MEDS: TAMSULOSIN 0.4 MG CAPSULE PO SCH (08:22)
[2020-02-03] MEDS: BETHANECHOL 10 MG TABLET PO SCH ×2 (08:27→21:42)
[2020-02-03] MEDS: CEFEPIME 2 GM VIAL IV SCH ×2 (08:27→21:44)
[2020-02-03] MEDS: DOCUSATE SODIUM 100 MG CAPSULE PO SCH ×2 (08:36→21:44)
[2020-02-03] MEDS ORDERED: INSULIN GLARGINE, HUMAN 1 UNIT/0.01 ML SQ SCH (09:00)
--- NOTE | 2020-02-03 11:38 | General Surgery Progress Note ---
SUBJECTIVE Subjective Patient information: Note initiated : 02/03/20 at 11:34 am Service Date, if different from initiated Date: [] Patient: Fritz Esquivel 70 y/o M admitted on 01/28/20 for Sweatiness. Chief Complaint: S: feeling better, no nausea, hungry repetively asking for food and soda. Feels abd distention is less, no abdominal pain O: VSS NGT 750 in last 24hrs, bilious Abd rotund, soft, still but less distended and tympanitic from my exam yesteray periphery warm A/P 70 yo man HD7 with ileus from resolving sepsis from urinary source. falling NGT output and improving distention. Ongoing BMs, XR today with signficantly less stool burden Plan: Ileus management: - NGT to LWIS, ok for PO/PT meds with 1hr clamp - Keep K above 4, and mag above 2 - Encourage early ambulation Stool burden - Miralax reduced to 17g daily - Home regiment upon discharge for 1-2 soft BM daily Will continue to follow with you, Pravin Deleon MD Constitutional Vitals: Vital Signs Temp Pulse Resp BP Pulse Ox 36.4 C 80 18 112/59 96 02/03/20 09:00 02/03/20 09:00 02/03/20 09:00 02/03/20 09:00 02/03/20 09:00 Period Temp Pulse Resp BP Sys/[place] Pulse Ox Last 24 Hr 36.4 C-36.8 C 75-101 18-20 108-150/59-84 94-99 Intake and Output 02/02/20 02/03/20 02/03/20 21:59 05:59 13:59 Intake Total 240 1345 Output Total 550 1050 Balance -310 295 Weight 93.242 kg Intake & Output: Intake & Output 02/02/20 02/03/20 02/03/20 21:59 05:59 13:59 Intake Total 240 1345 Output Total 550 1050 Balance -310 295 Weight 93.242 kg Intake: IV 985 Sodium Chloride 0.9% 1,000 ml @ 985 75 mls/hr IV .[id number] [facility] Rx#: [id number] Oral 240 360 Output: Gastric Drainage 150 600 NG/OG 150 600 Urine Catheter Amount 400 450 Other: Urine Appearance Clear Clear Sediment Sediment Suprapubic Sediment Sediment Urine Color Dark Yellow Dark Yellow Suprapubic Dark Yellow Dark Yellow Urine Odor Normal Normal Suprapubic Normal Stool Size Copious Moderate Moderate Stool Color Brown Brown Brown Stool Consistency Liquid Soft Loose # Bowel Movements 1 # of times incontinent of 1 1 1 Bowels A/P Time Spent With Patient Time: Total time spent is greater than 50% in coordination of care (as documented) at patient's floor/unit and/or counseling patient:
--- NOTE | 2020-02-03 13:58 | Internal Med Progress Note ---
SUBJECTIVE Subjective Patient information: Note initiated : 02/03/20 at 1:53 pm Service Date, if different from initiated Date: [] Patient: Fritz Esquivel 70 y/o M admitted on 01/28/20 for Sweatiness. Chief Complaint: [] Interval history: History of present illness: Mr. Esquivel is a 70 year old M Presents from [facility] due to being sweaty all night and feeling lightheaded and weak. Did have episode nausea vomiting last night as well. He has some degree of mental delay and history is most days obtained from chart. He had a rapid Covid test which was negative. He was afebrile in the ED but found to have a leukocytosis of 37,000. His lactate was 5.0. Had acute kidney injury. Elevated sodium. Low blood pressure on arrival. Given several liters of IV fluid in the ED. Imaging of the chest abdomen pelvis residual view of the lungs to be okay, there was a concern initially from aspiration. Did show hydroureters and hydronephrosis. Case discussed with Dr. Wren recently put in a suprapubic catheter for ulcer and cellulitis earlier in the month. Blood pressure stable. Patient also found of constipation. Says he was feeling fine yesterday morning but in the afternoon started feeling crummy and lightheaded weak and sweaty. 01/28 Feeling better today. Leukocytosis improving. Lactic acidosis resolved. Renal function slowly improving. pEnding cultures. 01/29 Patient does not have any complaints today. WBC 15.1 which was 24.3 yesterday Creatinine 1.5 which was 1.[address] Wren for Hydroureter 01/30 Patient does not have any new complaints. He told me this morning he had a little bowel movement last night. WBC normalized today, 9.9. Creatinine 1.3 today Liver enzymes AST 53 and LAT 58 today Abd xray - Large amount of colonic stool. fleet enema 01/31 No new complaints. He had a large bowel movement yesterday and a small bowel movement today. Morning labs not available today 02/01 Patient abdomen was more distended than yesterday. Also patient felt nauseated and vomiting yesterday. abdomen x-ray showed possible Issac syndrome and a mechanical obstruction cannot be excluded Discussed with general surgeon Dr. Lorenzo, NG tube was placed was suction was started. But earlier this morning patient pulled NG tube out. 1200 cc was out in total. Patient abdomen is less distended. He also has a large very loose bowel movement. Heart rate 104 WBC 12.2 Creatinine [address] Wren and Dr Toribio are on board 02/02 Patient feels better. Abdomen less distended Dr. Rock is on board. continue NG tube to suction His blood sugar running 74-93, decreased Lantus to 45 units at from 50 units WBC normalized 8.3, creatinine 1.3 Review of Systems: denies headache/fever/chills/nausea/vomiting/chest or abdominal pain/cough/dyspnea/diarrhea. Otherwise see above Constitutional Vitals: Vital Signs Temp Pulse Resp BP Pulse Ox 97.4 F 78 18 116/62 95 02/03/20 11:51 02/03/20 11:51 02/03/20 11:51 02/03/20 11:51 02/03/20 11:51 Period Temp Pulse Resp BP Sys/[place] Pulse Ox Last 24 Hr 97.4 F-97.7 F 75-98 108-150/59-76 95-99 Intake and Output 02/02/20 02/03/20 02/03/20 21:59 05:59 13:59 Intake Total 240 1345 Output Total 550 1050 Balance -310 295 Weight 93.242 kg Intake & Output: Intake & Output 02/02/20 02/03/20 02/03/20 21:59 05:59 13:59 Intake Total 240 1345 Output Total 550 1050 Balance -310 295 Weight 93.242 kg Intake: IV 985 Sodium Chloride 0.9% 1,000 ml @ 985 75 mls/hr IV .[id number] [facility] Rx#: [id number] Oral 240 360 Output: Gastric Drainage 150 600 NG/OG 150 600 Urine Catheter Amount 400 450 Other: Urine Appearance Clear Clear Sediment Sediment Suprapubic Sediment Sediment Urine Color Dark Yellow Dark Yellow Suprapubic Dark Yellow Dark Yellow Urine Odor Normal Normal Suprapubic Normal Stool Size Copious Moderate Copious Stool Color Brown Brown Brown Stool Consistency Liquid Soft Liquid # Bowel Movements 1 # of times incontinent of 1 1 1 Bowels Additional findings Additional findings: General: Alert, Awake, No acute Distress Eyes/N/T: EOMI, Head/Neck: neck supple, CV: RRR, No murmurs, Pulm: Clear b/l, no wheezing/rhonchi/rales Abd: soft, nontender, distended, decreased BSs, suprapubic catheter in place Ext: no clubbing/cyanosis/edema Neuro: Alert, no focal deficits, moves all extremities, Skin: warm/dry OBJ DATA Labs CBC & Chem 7: 02/03/20 05:20 02/03/20 05:20 Labs: Abnormal Lab Results 02/03/20 02/03/20 02/02/20 05:20 05:20 04:55 WBC 11.2 H RBC 4.24 L 4.23 L Hgb 12.9 L 12.6 L Hct 39.6 L 39.6 L RDW 14.8 H Plt Count 518 H Lymph % (Auto) 14.0 L 8.4 L [place] % (Auto) 12.1 H 13.9 H Lymph # (Auto) 1.16 L 0.94 L [place] # (Auto) 1.00 H 1.56 H Absolute Neutrophils 8.41 H Carbon Dioxide 21 L BUN 45 H Creatinine 1.3 H Glucose Magnesium AST ALT 49 H Albumin 2.7 L Globulin Albumin/Globulin Ratio 0.8 L 02/02/20 02/02/20 02/01/20 04:54 04:54 17:32 WBC 13.1 H RBC 4.32 L Hgb 13.1 L Hct 40.7 L RDW Plt Count 553 H Lymph % (Auto) 6.8 L [place] % (Auto) 14.2 H Lymph # (Auto) 0.89 L [place] # (Auto) 1.86 H Absolute Neutrophils 10.01 H Carbon Dioxide BUN 45 H Creatinine 1.5 H Glucose 115 H Magnesium 2.8 H AST 44 H ALT 64 H Albumin 3.1 L Globulin 3.9 H Albumin/Globulin Ratio 0.8 L 02/01/20 05:40 WBC RBC Hgb Hct RDW Plt Count Lymph % (Auto) [place] % (Auto) Lymph # (Auto) [place] # (Auto) Absolute Neutrophils Carbon Dioxide BUN 34 H Creatinine Glucose 116 H Magnesium AST 53 H ALT 68 H Albumin 2.9 L Globulin 3.8 H Albumin/Globulin Ratio 0.8 L Meds: Medications Acetaminophen (Tylenol) 650 mg PO Q4HP PRN PRN Reason: PAIN/FEVER > 101 Last Admin: 02/01/20 21:05 Dose: 650 mg Documented by: Hydrocodone Bitart/Acetaminophen ([place] 10/325mg) 1 tab PO Q4HP PRN; Protocol PRN Reason: Pain Last Admin: 01/31/20 22:49 Dose: 1 tab Documented by: Albuterol/Ipratropium (Duoneb) 3 ml NEB Q4HP PRN PRN Reason: Shortness Of Breath Aspirin (Aspirin) 81 mg PO DAILY [facility] Last Admin: 02/03/20 08:21 Dose: 81 mg Documented by: Atorvastatin Calcium (Lipitor) 40 mg PO QDAY [facility] Last Admin: 02/03/20 08:21 Dose: 40 mg Documented by: Bethanechol Chloride (Urecholine) 50 mg PO BID [facility] Last Admin: 02/03/20 08:27 Dose: 50 mg Documented by: Cefepime HCl (Maxipime) 2 gm IV Q12H [facility]; Protocol Last Admin: 02/03/20 08:27 Dose: 2 gm Documented by: Dextrose (Dextrose 50%) 25 ml IV PRN PRN PRN Reason: Hypoglycemia Diagnostic Test (Pha) (Accu-Chek) 1 each FS ACHS [facility] Last Admin: 02/03/20 11:21 Dose: 1 each Documented by: Docusate Sodium (Colace) 100 mg PO BID [facility] Last Admin: 02/03/20 08:36 Dose: Not Given Documented by: Enoxaparin Sodium (Lovenox) 40 mg SQ DAILY [facility] Last Admin: 02/03/20 08:22 Dose: 40 mg Documented by: Escitalopram Oxalate (Lexapro) 5 mg PO DAILY [facility] Last Admin: 02/03/20 08:21 Dose: 5 mg Documented by: Magnesium Sulfate (Magnesium Sulfate) 2 gm in 50 mls @ 50 mls/hr IV UD PRN PRN Reason: Magnesium </= 1.6 Potassium Chloride 40 meq/ (Dextrose) 520 mls @ 130 mls/hr IV UD PRN PRN Reason: Potassium < 3 Sodium Chloride (Sodium Chloride 0.9%) 1,000 mls @ 75 mls/hr IV .[id number] [facility] Last Admin: 02/03/20 01:52 Dose: 75 mls/hr Documented by: Insulin Glargine (Lantus) 45 unit SQ DAILY [facility] Last Admin: 02/03/20 09:39 Dose: Not Given Documented by: Insulin Human Lispro (Humalog) 0 unit SQ ACHS [facility]; Protocol Last Admin: 02/03/20 11:21 Dose: Not Given Documented by: Lactobacillus Rhamnosus (Culturelle) 1 cap PO BID [facility] Last Admin: 02/03/20 08:21 Dose: 1 cap Documented by: Lactulose (Cephulac) 20 gm PO DAILYP PRN PRN Reason: Constipation Last Admin: 02/01/20 03:45 Dose: 20 gm Documented by: Morphine Sulfate (Morphine) 2 mg IV Q4HP PRN; Protocol PRN Reason: Per Pain Protocol Omeprazole (Prilosec) 40 mg PO ACB [facility] Last Admin: 02/03/20 07:11 Dose: 40 mg Documented by: Ondansetron HCl (Zofran) 4 mg IV Q4HP PRN PRN Reason: Nausea And Vomiting Last Admin: 02/01/20 22:35 Dose: 4 mg Documented by: Polyethylene Glycol (Miralax) 17 gm PO DAILY [facility] Potassium Chloride (Kdur) 40 meq PO UD PRN PRN Reason: Potssium is 3-3.5 Potassium Chloride (Kdur) 40 meq PO UD PRN PRN Reason: Potassium < 3 Senna (Senokot) 2 tab PO DAILYP PRN PRN Reason: Constipation Last Admin: 02/01/20 15:24 Dose: 2 tab Documented by: Sodium Chloride (Saline Flush) 10 ml IV Q8 [facility] Last Admin: 02/03/20 13:51 Dose: Not Given Documented by: Tamsulosin HCl (Flomax) 0.8 mg PO QDAY [facility] Last Admin: 02/03/20 08:22 Dose: 0.8 mg Documented by: A/P Narrative A/P Narrative: 1. Sepsis w/lactic acidosis: 2/2 likely source given recent penile ulcer/cellulitis -Chest imaging unremarkable -WBC 8.3 today, lactic acidosis resolved 2. RADHA on CKD III: -improving, creatinine 1.3 3. b/l hydroureter: Urology Dr. Wren is on board. Really appreciate it. 4. Recent penile ulcer/cellulitis: suprapubic cath placed by Urology last admit 5. Hypernatermia w/dehydration: resolved 6. Mental delay: 7. DM: Decreased Lantus to 45 units daily from 50 units daily 8. h/o diastolic(grade I)CHF: 9. GERD: 10. Depression 11. Constipation: Had a large BM yesterday and a small BM today. 12. Esophageal stricture: f/u with GI as an outpt. 13. 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 Wren and Dr Toribio are on board - NG tube suction -IVF -Continue Cefepime, pending BC/UC -hold home aldactone/torsemide -basal and SSI -bowel regimen -pt/ot -ppx: lovenox/home ppi Time Spent With Patient Time: Total time spent is greater than 50% in coordination of care (as documented) at patient's floor/unit and/or counseling patient: QUALITY VTE Deep Vein Thrombosis/Pulmonary Embolism Present on Admission: No
--- NOTE | 2020-02-03 17:06 | XRay Report ---
CLINICAL INFORMATION: f/u COMPARISON: 02/02/2020 FINDINGS: NG tube coiled in the gastric fundus. The stomach and duodenum are decompressed. There are few loops of mildly dilated small bowel in the mid and left upper quadrant. The distal small bowel and colon are relatively decompressed. No free air. IMPRESSION: Nonspecific stool gas pattern. It is more likely atypical ileus than developing small bowel obstruction. Interpreted and Authenticated by: Lauro Rodney 02/03/20
[2020-02-03] MEDS ORDERED: POTASSIUM CHLORIDE 20 MEQ TABLET PO ONE (20:55)
[2020-02-04] MEDS: 0.9 % SODIUM CHLORIDE 10 ML SYRINGE IV SCH ×3 (04:36→20:52)
[2020-02-04] MEDS: 0.9 % SODIUM CHLORIDE 1,000 ML IV SCH (04:36)
[2020-02-04] MEDS ORDERED: DEXTROSE 50% 50 ML VIAL IV ONE (04:45)
[2020-02-04 06:40] LABS: Basophils # (Auto) 0.12 K/mcL (0.00-0.20); Basophils % (Auto) 1.4 % (0.0-2.0); Eosinophils # (Auto) 0.44 K/mcL (0.00-0.70); Eosinophils % (Auto) 5.1 % (0.0-7.0); Hematocrit 38.7 % (41.0-55.0); Hemoglobin 12.2 g/dL (13.5-16.5); Lymphocytes # (Auto) 1.23 K/mcL (1.50-4.80); Lymphocytes % (Auto) 14.2 % (15.0-49.0); Mean Cell Volume 94.4 fL (80.0-100.0); Mean Corpuscular HGB Conc 31.5 g/dL (31.0-36.0); Mean Platelet Volume 9.5 fL (7.4-10.4); Monocytes # (Auto) 0.97 K/mcL (0.10-0.90); Monocytes % (Auto) 11.2 % (1.0-12.0); Neutrophils % (Auto) 68.1 % (38.0-78.0); Platelet Count 545 K/mcL (140-440); Red Cell Distribution Width 14.7 % (11.5-14.5); WBC 8.7 K/mcL (4.5-11.0)
[2020-02-04 07:05] LABS: ALT/SGPT 41 U/L (<40); AST/SGOT 30 U/L (<40); Albumin 2.8 gm/dL (3.2-5.2); Albumin/Globulin Ratio 0.8 (1.0-2.3); Alkaline Phosphatase 100 U/L (39-117); Bilirubin,Total 0.2 mg/dL (0.1-1.0); Blood Urea Nitrogen 33 mg/dL (8-23); Calcium 9.3 mg/dL (8.6-10.4); Carbon Dioxide 21 mmol/L (22-30); Chloride 116 mmol/L (96-108); Globulin 3.7 gm/dL (2.2-3.7); Glomerular Filtration Rate 56; Glucose 60 mg/dL (70-105)
[2020-02-04] MEDS ORDERED: LACTATED RINGERS 1,000 ML IV SCH (07:45)
[2020-02-04] MEDS: INSULIN LISPRO 1 UNIT/0.01 ML UNIT SQ SCH ×5 (08:39→23:29)
[2020-02-04] MEDS: CEFEPIME 2 GM VIAL IV SCH ×2 (08:42→20:51)
[2020-02-04] MEDS: ENOXAPARIN 40 MG/0.4 ML SYRINGE SQ SCH (08:44)
[2020-02-04] MEDS: ESCITALOPRAM 10 MG TABLET PO SCH (08:47)
[2020-02-04] MEDS: DOCUSATE SODIUM 100 MG CAPSULE PO SCH ×2 (08:47→20:52)
[2020-02-04] MEDS: LACTOBACILLUS 1 CAPSULE PO SCH ×2 (08:47→20:52)
[2020-02-04] MEDS: ATORVASTATIN 40 MG TABLET PO SCH (08:47)
[2020-02-04] MEDS: ASPIRIN 81 MG TAB.CHEW PO SCH (08:49)
[2020-02-04] MEDS: TAMSULOSIN 0.4 MG CAPSULE PO SCH (08:49)
[2020-02-04] MEDS: OMEPRAZOLE 20 MG CAPSULE PO SCH (08:49)
[2020-02-04] MEDS: POLYETHYLENE GLYCOL 3350 17 GM PACKET PO SCH (08:50)
[2020-02-04] MEDS: INSULIN GLARGINE, HUMAN 1 UNIT/0.01 ML SQ SCH (08:53)
[2020-02-04] MEDS: BETHANECHOL 10 MG TABLET PO SCH ×2 (08:59→20:52)
[2020-02-04] MEDS: POTASSIUM CHLORIDE 20 MEQ TABLET PO PRN (10:26)
--- NOTE | 2020-02-04 11:37 | General Surgery Progress Note ---
SUBJECTIVE Subjective Patient information: Note initiated : 02/04/20 at 11:34 am Service Date, if different from initiated Date: [] Patient: Fritz Esquivel 70 y/o M admitted on 01/28/20 for Sweatiness. Chief Complaint: S: No abdominal pain, hungery NGT outputs falling 200 in last 24hrs O: VSS NGT output light bilious Abd rotund, soft, timpanitic - equivcally improved periphery warm A/P 70 yo man HD8 with ileus from resolved sepsis from urinary source. falling NGT output and improving distention. K Quite low at 3 Plan: Ileus management: - Would remove NGT tomorrow most likely - NGT to [facility], ok for PO/PT meds with 1hr clamp - Keep K above 4, and mag above 2 - Encourage early ambulation Stool burden - Miralax reduced to 17g daily - Home regiment upon discharge for 1-2 soft BM daily Will continue to follow with you, Pravin Deleon MD Constitutional Vitals: Vital Signs Temp Pulse Resp BP Pulse Ox 36.8 C 95 H 20 135/79 100 02/04/20 08:22 02/04/20 08:22 02/04/20 08:22 02/04/20 08:22 02/04/20 08:22 Period Temp Pulse Resp BP Sys/[place]gl[place] Pulse Ox Last 24 Hr 36.3 C-36.8 C 69-98 16-20 116-145/62-81 94-100 Intake and Output 02/03/20 02/04/20 02/04/20 21:59 05:59 13:59 Intake Total 1000 1521 Output Total 750 Balance 1000 771 Weight 92.896 kg Intake & Output: Intake & Output 02/03/20 02/04/20 02/04/20 21:59 05:59 13:59 Intake Total 1000 1521 Output Total 750 Balance 1000 771 Weight 92.896 kg Intake: IV 1000 991 Sodium Chloride 0.9% 1,000 ml @ 1000 991 75 mls/hr IV .[id number] [facility] Rx#: [id number] Oral 0 530 Output: Gastric Drainage 200 NG/OG 200 Urine Catheter Amount 550 Other: Urine Appearance Sediment Suprapubic Sediment Urine Color Straw Suprapubic Dark Yellow Stool Size Moderate Small Stool Color Brown Brown Yellow Stool Consistency Liquid Loose # of times incontinent of 1 1 Bowels A/P Time Spent With Patient Time: Total time spent is greater than 50% in coordination of care (as documented) at patient's floor/unit and/or counseling patient:
[2020-02-04] MEDS: POTASSIUM CHLORIDE 20 MEQ/15 ML ML PT SCH ×2 (12:20→16:11)
[2020-02-04] MEDS: DEXTROSE 5%-LR 1,000 ML IV SCH (15:47)
--- NOTE | 2020-02-04 16:58 | Internal Med Progress Note ---
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 With conservative management, his creatinine has improved to 1.6. No surgery is planned as there is concern about the mass invading vessels. Pathology from the colonoscopy is pending. Patient and family are considering radiation and chemotherapy vs conservative management. Met at the bedside to d/w patient and his daughter options for his hydronephrosis. Chief Complaint: [] Constitutional Vitals: Vital Signs Temp Pulse Resp BP Pulse Ox 98.3 F 90 20 153/82 97 02/04/20 13:00 02/04/20 13:00 02/04/20 13:00 02/04/20 13:00 02/04/20 13:00 Period Temp Pulse Resp BP Sys/Anglin Pulse Ox Last 24 Hr 97.4 F-98.3 F 73-98 18-20 129-153/72-82 94-100 Intake and Output 02/04/20 02/04/20 02/04/20 05:59 13:59 21:59 Intake Total 1521 355 236 Output Total 750 200 Balance 771 155 236 Intake & Output: Intake & Output 02/04/20 02/04/20 02/04/20 05:59 13:59 21:59 Intake Total 1521 355 236 Output Total 750 200 Balance 771 155 236 Intake: IV 991 Sodium Chloride 0.9% 1,000 ml @ 991 75 mls/hr IV .[id number] [facility] Rx#: [id number] Oral 530 355 236 Output: Gastric Drainage 200 200 NG/OG 200 200 Urine Catheter Amount 550 Other: Urine Appearance Sediment Suprapubic Sediment Urine Color Straw Suprapubic Dark Yellow Urine Odor Suprapubic Normal Stool Size Moderate Small Moderate Stool Color Brown Brown Brown Stool Consistency Liquid Loose Loose # Bowel Movements 2 # of times incontinent of 1 1 1 Bowels OBJ DATA Labs CBC & Chem 7: 02/04/20 05:22 02/04/20 05:22 Labs: Abnormal Lab Results 02/04/20 02/04/20 02/03/20 05:22 05:22 05:20 WBC RBC 4.10 L 4.24 L Hgb 12.2 L 12.9 L Hct 38.7 L 39.6 L RDW 14.7 H 14.8 H Plt Count 545 H Lymph % (Auto) 14.2 L 14.0 L [place] % (Auto) 12.1 H Lymph # (Auto) 1.23 L 1.16 L [place] # (Auto) 0.97 H 1.00 H Absolute Neutrophils Sodium 148 H Potassium 3.0 L Chloride 116 H Carbon Dioxide 21 L BUN 33 H Creatinine 1.3 H Glucose 60 L Magnesium AST ALT 41 H Albumin 2.8 L Globulin Albumin/Globulin Ratio 0.8 L 02/03/20 02/02/20 02/02/20 05:20 04:55 04:54 WBC 11.2 H RBC 4.23 L Hgb 12.6 L Hct 39.6 L RDW Plt Count 518 H Lymph % (Auto) 8.4 L [place] % (Auto) 13.9 H Lymph # (Auto) 0.94 L [place] # (Auto) 1.56 H Absolute Neutrophils 8.41 H Sodium Potassium Chloride Carbon Dioxide 21 L BUN 45 H Creatinine 1.3 H Glucose Magnesium 2.8 H AST ALT 49 H Albumin 2.7 L Globulin Albumin/Globulin Ratio 0.8 L 02/02/20 02/01/20 02/01/20 04:54 17:32 05:40 WBC 13.1 H RBC 4.32 L Hgb 13.1 L Hct 40.7 L RDW Plt Count 553 H Lymph % (Auto) 6.8 L [place] % (Auto) 14.2 H Lymph # (Auto) 0.89 L [place] # (Auto) 1.86 H Absolute Neutrophils 10.01 H Sodium Potassium Chloride Carbon Dioxide BUN 45 H 34 H Creatinine 1.5 H Glucose 115 H 116 H Magnesium AST 44 H 53 H ALT 64 H 68 H Albumin 3.1 L 2.9 L Globulin 3.9 H 3.8 H Albumin/Globulin Ratio 0.8 L 0.8 L Meds: Medications Acetaminophen (Tylenol) 650 mg PO Q4HP PRN PRN Reason: PAIN/FEVER > 101 Last Admin: 02/01/20 21:05 Dose: 650 mg Documented by: Hydrocodone Bitart/Acetaminophen ([place] 10/325mg) 1 tab PO Q4HP PRN; Protocol PRN Reason: Pain Last Admin: 01/31/20 22:49 Dose: 1 tab Documented by: Albuterol/Ipratropium (Duoneb) 3 ml NEB Q4HP PRN PRN Reason: Shortness Of Breath Aspirin (Aspirin) 81 mg PO DAILY [facility] Last Admin: 02/04/20 08:49 Dose: 81 mg Documented by: Atorvastatin Calcium (Lipitor) 40 mg PO QDAY [facility] Last Admin: 02/04/20 08:47 Dose: 40 mg Documented by: Bethanechol Chloride (Urecholine) 50 mg PO BID [facility] Last Admin: 02/04/20 08:59 Dose: 50 mg Documented by: Cefepime HCl (Maxipime) 2 gm IV Q12H [facility]; Protocol Last Admin: 02/04/20 08:42 Dose: 2 gm Documented by: Dextrose (Dextrose 50%) 25 ml IV PRN PRN PRN Reason: Hypoglycemia Last Admin: 02/04/20 09:02 Dose: 25 ml Documented by: Diagnostic Test (Pha) (Accu-Chek) 1 each FS [facility] Last Admin: 02/04/20 12:14 Dose: 1 each Documented by: Docusate Sodium (Colace) 100 mg PO BID [facility] Last Admin: 02/04/20 08:47 Dose: 100 mg Documented by: Enoxaparin Sodium (Lovenox) 40 mg SQ DAILY [facility] Last Admin: 02/04/20 08:44 Dose: 40 mg Documented by: Escitalopram Oxalate (Lexapro) 5 mg PO DAILY [facility] Last Admin: 02/04/20 08:47 Dose: 5 mg Documented by: Magnesium Sulfate (Magnesium Sulfate) 2 gm in 50 mls @ 50 mls/hr IV UD PRN PRN Reason: Magnesium </= 1.6 Potassium Chloride 40 meq/ (Dextrose) 520 mls @ 130 mls/hr IV UD PRN PRN Reason: Potassium < 3 Dextrose/Lactated Ringer's (Dextrose 5%-Lactated Ringers) 1,000 mls @ 75 mls/hr IV .[id number] [facility] Last Admin: 02/04/20 15:47 Dose: 75 mls/hr Documented by: Insulin Glargine (Lantus) 35 unit SQ DAILY [facility] Last Admin: 02/04/20 08:53 Dose: Not Given Documented by: Insulin Human Lispro (Humalog) 0 unit SQ ACHS [facility]; Protocol Last Admin: 02/04/20 12:19 Dose: Not Given Documented by: Lactobacillus Rhamnosus (Culturelle) 1 cap PO BID [facility] Last Admin: 02/04/20 08:47 Dose: 1 cap Documented by: Lactulose (Cephulac) 20 gm PO DAILYP PRN PRN Reason: Constipation Last Admin: 02/01/20 03:45 Dose: 20 gm Documented by: Morphine Sulfate (Morphine) 2 mg IV Q4HP PRN; Protocol PRN Reason: Per Pain Protocol Omeprazole (Prilosec) 40 mg PO ACB [facility] Last Admin: 02/04/20 08:49 Dose: 40 mg Documented by: Ondansetron HCl (Zofran) 4 mg IV Q4HP PRN PRN Reason: Nausea And Vomiting Last Admin: 02/01/20 22:35 Dose: 4 mg Documented by: Polyethylene Glycol (Miralax) 17 gm PO DAILY [facility] Last Admin: 02/04/20 08:50 Dose: 17 gm Documented by: Potassium Chloride (Kdur) 40 meq PO UD PRN PRN Reason: Potssium is 3-3.5 Last Admin: 02/04/20 10:26 Dose: 40 meq Documented by: Potassium Chloride (Kdur) 40 meq PO UD PRN PRN Reason: Potassium < 3 Potassium Chloride (Potassium Chloride) 40 meq PT Q4 [facility] Stop: 02/04/20 17:00 Last Admin: 02/04/20 16:11 Dose: 40 meq Documented by: Senna (Senokot) 2 tab PO DAILYP PRN PRN Reason: Constipation Last Admin: 02/01/20 15:24 Dose: 2 tab Documented by: Sodium Chloride (Saline Flush) 10 ml IV Q8 [facility] Last Admin: 02/04/20 13:35 Dose: Not Given Documented by: Tamsulosin HCl (Flomax) 0.8 mg PO QDAY [facility] Last Admin: 02/04/20 08:49 Dose: 0.8 mg Documented by: A/P Time Spent With Patient Time: Total time spent is greater than 50% in coordination of care (as documented) at patient's floor/unit and/or counseling patient: QUALITY VTE Deep Vein Thrombosis/Pulmonary Embolism Present on Admission: No
--- NOTE | 2020-02-04 20:42 | Internal Med Progress Note ---
SUBJECTIVE Subjective Patient information: Note initiated : 02/04/20 at 8:36 pm Service Date, if different from initiated Date: [] Patient: Fritz Esquivel 70 y/o M admitted on 01/28/20 for Sweatiness. Chief Complaint: [] Interval history: History of present illness: Mr. Esquivel is a 70 year old M Presents from [facility] due to being sweaty all night and feeling lightheaded and weak. Did have episode nausea vomiting last night as well. He has some degree of mental delay and history is most days obtained from chart. He had a rapid Covid test which was negative. He was afebrile in the ED but found to have a leukocytosis of 37,000. His lactate was 5.0. Had acute kidney injury. Elevated sodium. Low blood pressure on arrival. Given several liters of IV fluid in the ED. Imaging of the chest abdomen pelvis residual view of the lungs to be okay, there was a concern initially from aspiration. Did show hydroureters and hydronephrosis. Case discussed with Dr. Wren recently put in a suprapubic catheter for ulcer and cellulitis earlier in the month. Blood pressure stable. Patient also found of constipation. Says he was feeling fine yesterday morning but in the afternoon started feeling crummy and lightheaded weak and sweaty. 01/28 Feeling better today. Leukocytosis improving. Lactic acidosis resolved. Renal function slowly improving. pEnding cultures. 01/29 Patient does not have any complaints today. WBC 15.1 which was 24.3 yesterday Creatinine 1.5 which was 1.[address] Wren for Hydroureter 01/30 Patient does not have any new complaints. He told me this morning he had a little bowel movement last night. WBC normalized today, 9.9. Creatinine 1.3 today Liver enzymes AST 53 and LAT 58 today Abd xray - Large amount of colonic stool. fleet enema 01/31 No new complaints. He had a large bowel movement yesterday and a small bowel movement today. Morning labs not available today 02/01 Patient abdomen was more distended than yesterday. Also patient felt nauseated and vomiting yesterday. abdomen x-ray showed possible Issac syndrome and a mechanical obstruction cannot be excluded Discussed with general surgeon Dr. Lorenzo, NG tube was placed was suction was started. But earlier this morning patient pulled NG tube out. 1200 cc was out in total. Patient abdomen is less distended. He also has a large very loose bowel movement. Heart rate 104 WBC 12.2 Creatinine [address] Wren and Dr Toribio are on board 02/02 Patient feels better. Abdomen less distended Dr. Rock is on board. continue NG tube to suction His blood sugar running 74-93, decreased Lantus to 45 units at from 50 units WBC normalized 8.3, creatinine 1.3 02/03 Pt is on NG tube suction. [place] syndrome and hydroureter. Urologist Dr. Wren and Dr Toribio are on board Hypoglycemia - decreased lantus to 35 units daily D5LR 75ml/hr Review of Systems: denies headache/fever/chills/nausea/vomiting/chest or abdominal pain/cough/dyspnea/diarrhea. Otherwise see above Constitutional Vitals: Vital Signs Temp Pulse Resp BP Pulse Ox 97.6 F 95 H 20 136/72 99 02/04/20 17:00 02/04/20 17:00 02/04/20 17:00 02/04/20 17:00 02/04/20 17:00 Period Temp Pulse Resp BP Sys/Anglin Pulse Ox Last 24 Hr 97.4 F-98.3 F 90-98 18-20 129-153/72-82 94-100 Intake and Output 02/04/20 02/04/20 02/04/20 05:59 13:59 21:59 Intake Total 1521 355 236 Output Total 820 412 9169 Balance 771 155 -964 Intake & Output: Intake & Output 02/04/20 02/04/20 02/04/20 05:59 13:59 21:59 Intake Total 1521 355 236 Output Total 024 395 1588 Balance 771 155 -964 Intake: IV 991 Sodium Chloride 0.9% 1,000 ml @ 991 75 mls/hr IV .[id number] [facility] Rx#: [id number] Oral 530 355 236 Output: Gastric Drainage 200 200 600 NG/OG 200 200 600 Urine Catheter Amount 550 600 Other: Urine Appearance Sediment Clear Suprapubic Sediment Urine Color Straw Dark Yellow Suprapubic Dark Yellow Urine Odor Normal Suprapubic Normal Stool Size Moderate Large Small Stool Color Brown Brown Brown Yellow Yellow Stool Consistency Liquid Liquid Liquid Loose # Bowel Movements 2 # of times incontinent of 1 1 1 Bowels Additional findings Additional findings: General: Alert, Awake, No acute Distress Eyes/N/T: EOMI, Head/Neck: neck supple, CV: RRR, No murmurs, Pulm: Clear b/l, no wheezing/rhonchi/rales Abd: soft, nontender, distended, decreased BSs, suprapubic catheter in place Ext: no clubbing/cyanosis/edema Neuro: Alert, no focal deficits, moves all extremities, Skin: warm/dry OBJ DATA Labs CBC & Chem 7: 02/04/20 05:22 02/04/20 18:05 Labs: Abnormal Lab Results 02/04/20 02/04/20 02/03/20 05:22 05:22 05:20 WBC RBC 4.10 L 4.24 L Hgb 12.2 L 12.9 L Hct 38.7 L 39.6 L RDW 14.7 H 14.8 H Plt Count 545 H Lymph % (Auto) 14.2 L 14.0 L [place] % (Auto) 12.1 H Lymph # (Auto) 1.23 L 1.16 L [place] # (Auto) 0.97 H 1.00 H Absolute Neutrophils Sodium 148 H Potassium 3.0 L Chloride 116 H Carbon Dioxide 21 L BUN 33 H Creatinine 1.3 H Glucose 60 L Magnesium AST ALT 41 H Albumin 2.8 L Globulin Albumin/Globulin Ratio 0.8 L 02/03/20 02/02/20 02/02/20 05:20 04:55 04:54 WBC 11.2 H RBC 4.23 L Hgb 12.6 L Hct 39.6 L RDW Plt Count 518 H Lymph % (Auto) 8.4 L [place] % (Auto) 13.9 H Lymph # (Auto) 0.94 L [place] # (Auto) 1.56 H Absolute Neutrophils 8.41 H Sodium Potassium Chloride Carbon Dioxide 21 L BUN 45 H Creatinine 1.3 H Glucose Magnesium 2.8 H AST ALT 49 H Albumin 2.7 L Globulin Albumin/Globulin Ratio 0.8 L 02/02/20 04:54 WBC RBC Hgb Hct RDW Plt Count Lymph % (Auto) [place] % (Auto) Lymph # (Auto) [place] # (Auto) Absolute Neutrophils Sodium Potassium Chloride Carbon Dioxide BUN 45 H Creatinine 1.5 H Glucose 115 H Magnesium AST 44 H ALT 64 H Albumin 3.1 L Globulin 3.9 H Albumin/Globulin Ratio 0.8 L Meds: Medications Acetaminophen (Tylenol) 650 mg PO Q4HP PRN PRN Reason: PAIN/FEVER > 101 Last Admin: 02/01/20 21:05 Dose: 650 mg Documented by: Hydrocodone Bitart/Acetaminophen ([place] 10/325mg) 1 tab PO Q4HP PRN; Protocol PRN Reason: Pain Last Admin: 01/31/20 22:49 Dose: 1 tab Documented by: Albuterol/Ipratropium (Duoneb) 3 ml NEB Q4HP PRN PRN Reason: Shortness Of Breath Aspirin (Aspirin) 81 mg PO DAILY [facility] Last Admin: 02/04/20 08:49 Dose: 81 mg Documented by: Atorvastatin Calcium (Lipitor) 40 mg PO QDAY [facility] Last Admin: 02/04/20 08:47 Dose: 40 mg Documented by: Bethanechol Chloride (Urecholine) 50 mg PO BID [facility] Last Admin: 02/04/20 08:59 Dose: 50 mg Documented by: Cefepime HCl (Maxipime) 2 gm IV Q12H [facility]; Protocol Last Admin: 02/04/20 08:42 Dose: 2 gm Documented by: Dextrose (Dextrose 50%) 25 ml IV PRN PRN PRN Reason: Hypoglycemia Last Admin: 02/04/20 09:02 Dose: 25 ml Documented by: Diagnostic Test (Pha) (Accu-Chek) 1 each FS Q6 [facility] Last Admin: 02/04/20 18:07 Dose: 1 each Documented by: Docusate Sodium (Colace) 100 mg PO BID [facility] Last Admin: 02/04/20 08:47 Dose: 100 mg Documented by: Enoxaparin Sodium (Lovenox) 40 mg SQ DAILY [facility] Last Admin: 02/04/20 08:44 Dose: 40 mg Documented by: Escitalopram Oxalate (Lexapro) 5 mg PO DAILY [facility] Last Admin: 02/04/20 08:47 Dose: 5 mg Documented by: Magnesium Sulfate (Magnesium Sulfate) 2 gm in 50 mls @ 50 mls/hr IV UD PRN PRN Reason: Magnesium </= 1.6 Potassium Chloride 40 meq/ (Dextrose) 520 mls @ 130 mls/hr IV UD PRN PRN Reason: Potassium < 3 Dextrose/Lactated Ringer's (Dextrose 5%-Lactated Ringers) 1,000 mls @ 75 mls/hr IV .[id number] [facility] Last Admin: 02/04/20 15:47 Dose: 75 mls/hr Documented by: Insulin Glargine (Lantus) 35 unit SQ DAILY [facility] Last Admin: 02/04/20 08:53 Dose: Not Given Documented by: Insulin Human Lispro (Humalog) 0 unit SQ Q6 [facility]; Protocol Last Admin: 02/04/20 18:08 Dose: Not Given Documented by: Lactobacillus Rhamnosus (Culturelle) 1 cap PO BID [facility] Last Admin: 02/04/20 08:47 Dose: 1 cap Documented by: Lactulose (Cephulac) 20 gm PO DAILYP PRN PRN Reason: Constipation Last Admin: 02/01/20 03:45 Dose: 20 gm Documented by: Morphine Sulfate (Morphine) 2 mg IV Q4HP PRN; Protocol PRN Reason: Per Pain Protocol Omeprazole (Prilosec) 40 mg PO ACB [facility] Last Admin: 02/04/20 08:49 Dose: 40 mg Documented by: Ondansetron HCl (Zofran) 4 mg IV Q4HP PRN PRN Reason: Nausea And Vomiting Last Admin: 02/01/20 22:35 Dose: 4 mg Documented by: Polyethylene Glycol (Miralax) 17 gm PO DAILY [facility] Last Admin: 02/04/20 08:50 Dose: 17 gm Documented by: Potassium Chloride (Kdur) 40 meq PO UD PRN PRN Reason: Potssium is 3-3.5 Last Admin: 02/04/20 10:26 Dose: 40 meq Documented by: Potassium Chloride (Kdur) 40 meq PO UD PRN PRN Reason: Potassium < 3 Senna (Senokot) 2 tab PO DAILYP PRN PRN Reason: Constipation Last Admin: 02/01/20 15:24 Dose: 2 tab Documented by: Sodium Chloride (Saline Flush) 10 ml IV Q8 [facility] Last Admin: 02/04/20 13:35 Dose: Not Given Documented by: Tamsulosin HCl (Flomax) 0.8 mg PO QDAY [facility] Last Admin: 02/04/20 08:49 Dose: 0.8 mg Documented by: A/P Narrative A/P Narrative: 1. Sepsis w/lactic acidosis: 2/2 likely source given recent penile ulcer/ce llulitis -Chest imaging unremarkable 2. RADHA on CKD III: -improving, creatinine 1.3 3. b/l hydroureter: Urology Dr. Wren is on board. Really appreciate it. 4. Recent penile ulcer/cellulitis: suprapubic cath placed by Urology last admit 5. Hypernatermia w/dehydration: 148 6. Mental delay: 7. DM: insulin ss 8. Hypoglycema: Decreased Lantus to 35 units daily from 50 units daily D5IR 75ml/hr 8. h/o diastolic(grade I)CHF: 9. GERD: 10. Depression 11. Constipation: Had a large BM yesterday and a small BM today. 12. Esophageal stricture: f/u with GI as an outpt. 13. Possible [place] syndrome/mechanical obstruction can not be excluded P: - Urologist Dr. Wren and Dr Toribio are on board - NG tube suction -IVF -Continue Cefepime, pending BC/UC -hold home aldactone/torsemide -basal and SSI -bowel regimen -pt/ot -ppx: lovenox/home ppi Time Spent With Patient Time: Total time spent is greater than 50% in coordination of care (as documented) at patient's floor/unit and/or counseling patient: QUALITY VTE Deep Vein Thrombosis/Pulmonary Embolism Present on Admission: No
[2020-02-05] MEDS: DEXTROSE 5%-LR 1,000 ML IV SCH ×2 (05:04→17:07)
[2020-02-05] MEDS: INSULIN LISPRO 1 UNIT/0.01 ML UNIT SQ SCH ×4 (05:05→20:30)
[2020-02-05] MEDS: 0.9 % SODIUM CHLORIDE 10 ML SYRINGE IV SCH ×3 (05:05→20:30)
[2020-02-05] MEDS: OMEPRAZOLE 20 MG CAPSULE PO SCH (07:28)
[2020-02-05 08:07] LABS: Basophils # (Auto) 0.16 K/mcL (0.00-0.20); Basophils % (Auto) 1.8 % (0.0-2.0); Eosinophils # (Auto) 0.48 K/mcL (0.00-0.70); Eosinophils % (Auto) 5.3 % (0.0-7.0); Hematocrit 63.9 % (41.0-55.0); Hemoglobin 20.8 g/dL (13.5-16.5); Lymphocytes # (Auto) 1.63 K/mcL (1.50-4.80); Lymphocytes % (Auto) 17.9 % (15.0-49.0); Mean Cell Volume 92.3 fL (80.0-100.0); Mean Corpuscular HGB Conc 32.6 g/dL (31.0-36.0); Mean Platelet Volume 9.7 fL (7.4-10.4); Monocytes # (Auto) 0.67 K/mcL (0.10-0.90); Monocytes % (Auto) 7.3 % (1.0-12.0); Neutrophils % (Auto) 67.7 % (38.0-78.0); Platelet Count 238 K/mcL (140-440); RBC 6.92 M/mcL (4.50-5.90); Red Cell Distribution Width 16.5 % (11.5-14.5); WBC 9.1 K/mcL (4.5-11.0)
[2020-02-05] MEDS: POLYETHYLENE GLYCOL 3350 17 GM PACKET PO SCH (08:54)
[2020-02-05] MEDS: TAMSULOSIN 0.4 MG CAPSULE PO SCH (08:54)
[2020-02-05] MEDS: LACTOBACILLUS 1 CAPSULE PO SCH ×2 (08:54→20:29)
[2020-02-05] MEDS: ESCITALOPRAM 10 MG TABLET PO SCH (08:54)
[2020-02-05] MEDS: ASPIRIN 81 MG TAB.CHEW PO SCH (08:54)
[2020-02-05] MEDS: ENOXAPARIN 40 MG/0.4 ML SYRINGE SQ SCH (08:54)
[2020-02-05] MEDS: DOCUSATE SODIUM 100 MG CAPSULE PO SCH ×2 (08:55→20:29)
[2020-02-05] MEDS: ATORVASTATIN 40 MG TABLET PO SCH (08:55)
[2020-02-05] MEDS: BETHANECHOL 10 MG TABLET PO SCH ×2 (08:57→20:29)
[2020-02-05] MEDS: MUPIROCIN OINT 2% 22GM NARES SCH ×2 (08:57→20:29)
[2020-02-05 09:18] LABS: ALT/SGPT 44 U/L (<40); AST/SGOT 42 U/L (<40); Albumin 3.1 gm/dL (3.2-5.2); Albumin/Globulin Ratio 0.8 (1.0-2.3); Alkaline Phosphatase 108 U/L (39-117); Bilirubin,Direct < 0.2 mg/dL (<0.3); Bilirubin,Total 0.3 mg/dL (0.1-1.0); Blood Urea Nitrogen 21 mg/dL (8-23); Calcium 9.9 mg/dL (8.6-10.4); Carbon Dioxide 18 mmol/L (22-30); Chloride 115 mmol/L (96-108); Globulin 3.7 gm/dL (2.2-3.7); Glomerular Filtration Rate 61; Glucose 80 mg/dL (70-105); Lactate Dehydrogenase 282 U/L (135-225); Phosphorous 1.9 mg/dL (2.5-4.5); Triglycerides 132 mg/dL (<150)
--- NOTE | 2020-02-05 09:29 | General Surgery Progress Note ---
SUBJECTIVE Subjective Patient information: Note initiated : 02/05/20 at 9:26 am Service Date, if different from initiated Date: [] Patient: Fritz Esquivel 70 y/o M admitted on 01/28/20 for Sweatiness. Chief Complaint: [] S: removed own NGT overnight, no N or V since. hungery, endorses flatus, having BMs O: VSS Abd rotund, soft, still tympanitic over upper abdomen periphery warm A/P 70 yo man HD9 with resolving ileus from resolved sepsis from urinary source. Pt does not have colonic pseudoobstruction. Plan: Ileus management: - OK to keep NGT out as long as no nausea or vomiting - Start clear liquid diet, ok to advance if tolerates - Keep K above 4, and mag above 2 - Encourage early ambulation Stool burden - Miralax 17g daily - Home regiment upon discharge for 1-2 soft BM daily General Surgery will sign off Please call with any questions Pravin Deleon MD Constitutional Vitals: Vital Signs Temp Pulse Resp BP Pulse Ox 35.8 C L 89 16 111/69 96 02/05/20 07:47 02/05/20 07:47 02/05/20 07:47 02/05/20 07:47 02/05/20 07:47 Period Temp Pulse Resp BP Sys/[place]glin Pulse Ox Last 24 Hr 35.8 C-36.8 C 70-95 16-20 111-156/69-82 96-99 Intake and Output 02/04/20 02/05/20 02/05/20 21:59 05:59 13:59 Intake Total 236 996 Output Total 1200 500 Balance -964 496 Weight 89.811 kg Intake & Output: Intake & Output 02/04/20 02/05/20 02/05/20 21:59 05:59 13:59 Intake Total 236 996 Output Total 1200 500 Balance -964 496 Weight 89.811 kg Intake: IV 996 Dextrose 5%-Lactated Ringers 1, 996 000 ml @ 75 mls/hr IV .[id number] [facility] Rx#:[id number] Oral 236 0 Output: Gastric Drainage 600 NG/OG 600 Urine Catheter Amount 600 500 Other: Urine Appearance Clear Urine Color Dark Yellow Urine Odor Normal Stool Size Small Small Stool Color Brown Brown Yellow Stool Consistency Liquid Liquid Loose # Bowel Movements 2 1 # of times incontinent of 1 1 Bowels A/P Time Spent With Patient Time: Total time spent is greater than 50% in coordination of care (as documented) at patient's floor/unit and/or counseling patient:
[2020-02-05] MEDS: INSULIN GLARGINE, HUMAN 1 UNIT/0.01 ML SQ SCH (10:05)
[2020-02-05] MEDS: CEFEPIME 2 GM VIAL IV SCH ×2 (10:09→20:30)
--- NOTE | 2020-02-05 14:11 | Internal Med Progress Note ---
SUBJECTIVE Subjective Patient information: Note initiated : 02/05/20 at 2:05 pm Service Date, if different from initiated Date: [] Patient: Fritz Esquivel 70 y/o M admitted on 01/28/20 for Sweatiness. Chief Complaint: [] Interval history: History of present illness: Mr. Esquivel is a 70 year old M Presents from [facility] due to being sweaty all night and feeling lightheaded and weak. Did have episode nausea vomiting last night as well. He has some degree of mental delay and history is most days obtained from chart. He had a rapid Covid test which was negative. He was afebrile in the ED but found to have a leukocytosis of 37,000. His lactate was 5.0. Had acute kidney injury. Elevated sodium. Low blood pressure on arrival. Given several liters of IV fluid in the ED. Imaging of the chest abdomen pelvis residual view of the lungs to be okay, there was a concern initially from aspiration. Did show hydroureters and h ydronephrosis. Case discussed with Dr. Wren recently put in a suprapubic catheter for ulcer and cellulitis earlier in the month. Blood pressure stable. Patient also found of constipation. Says he was feeling fine yesterday morning but in the afternoon started feeling crummy and lightheaded weak and sweaty. 01/28 Feeling better today. Leukocytosis improving. Lactic acidosis resolved. Renal function slowly improving. pEnding cultures. 01/29 Patient does not have any complaints today. WBC 15.1 which was 24.3 yesterday Creatinine 1.5 which was 1.[address] Wren for Hydroureter 01/30 Patient does not have any new complaints. He told me this morning he had a little bowel movement last night. WBC normalized today, 9.9. Creatinine 1.3 today Liver enzymes AST 53 and LAT 58 today Abd xray - Large amount of colonic stool. fleet enema 01/31 No new complaints. He had a large bowel movement yesterday and a small bowel movement today. Morning labs not available today 02/01 Patient abdomen was more distended than yesterday. Also patient felt nauseated and vomiting yesterday. abdomen x-ray showed possible Issac syndrome and a mechanical obstruction can not be excluded Discussed with general surgeon Dr. Lorenzo, NG tube was placed was suction was started. But earlier this morning patient pulled NG tube out. 1200 cc was out in total. Patient abdomen is less distended. He also has a large very loose bowel movement. Heart rate 104 WBC 12.2 Creatinine 1[address] Wren and Dr Toribio are on board 02/02 Patient feels better. Abdomen less distended Dr. Rock is on board. continue NG tube to suction His blood sugar running 74-93, decreased Lantus to 45 units at from 50 units WBC normalized 8.3, creatinine 1.3 02/03 Pt is on NG tube suction. Trafford syndrome and hydroureter. Urologist Dr. Wren and Dr Toribio are on board Hypoglycemia - decreased lantus to 35 units daily D5LR 75ml/hr 02/04-improved ileus. NG discontinued. Multiple liquid mucoid BMs. Lantus lowered to 15 units daily. Suprapubic catheter draining clear urine. Started on p.o. clears per surgery. No overnight fever chills. White count 9.1, sodium 148, potassium 3.4, phosphorus 1.9 Constitutional Vitals: Vital Signs Temp Pulse Resp BP Pulse Ox 96.4 F L 89 16 111/69 96 02/05/20 07:47 02/05/20 07:47 02/05/20 07:47 02/05/20 07:47 02/05/20 07:47 Period Temp Pulse Resp BP Sys/[place] Pulse Ox Last 24 Hr 96.4 F-98.3 F 70-95 - 111-156/69-82 96-99 Intake and Output 02/05/20 02/05/20 02/05/20 05:59 13:59 21:59 Intake Total 996 Output Total 500 Balance 496 NG discontinued Resting comfortably Suprapubic catheter draining clear urine Intake & Output: Intake & Output 02/05/20 02/05/20 02/05/20 05:59 13:59 21:59 Intake Total 996 Output Total 500 Balance 496 Intake: IV 996 Dextrose 5%-Lactated Ringers 1, 996 000 ml @ 75 mls/hr IV .[id number] [facility] Rx#:[id number] Oral 0 Output: Urine Catheter Amount 500 Other: Urine Appearance Suprapubic Sediment Urine Color Suprapubic Dark Yellow Urine Odor Suprapubic Normal Stool Size Small Stool Color Brown Stool Consistency Liquid Loose # Bowel Movements 1 # of times incontinent of 1 Bowels OBJ DATA Labs CBC & Chem 7: 02/05/20 05:32 02/05/20 05:32 Labs: Abnormal Lab Results 02/05/20 02/05/20 02/04/20 05:32 05:32 05:22 RBC 6.92 H 4.10 L Hgb 20.8 H 12.2 L Hct 63.9 H 38.7 L RDW 16.5 H 14.7 H Plt Count 545 H Lymph % (Auto) 14.2 L [place] % (Auto) Lymph # (Auto) 1.23 L [place] # (Auto) 0.97 H Sodium 148 H Potassium Chloride 115 H Carbon Dioxide 18 L BUN Creatinine Glucose Phosphorus 1.9 L AST 42 H ALT 44 H Lactate Dehydrogenase 282 H Albumin 3.1 L Albumin/Globulin Ratio 0.8 L 02/04/20 02/03/20 02/03/20 05:22 05:20 05:20 RBC 4.24 L Hgb 12.9 L Hct 39.6 L RDW 14.8 H Plt Count Lymph % (Auto) 14.0 L [place] % (Auto) 12.1 H Lymph # (Auto) 1.16 L [place] # (Auto) 1.00 H Sodium 148 H Potassium 3.0 L Chloride 116 H Carbon Dioxide 21 L 21 L BUN 33 H 45 H Creatinine 1.3 H 1.3 H Glucose 60 L Phosphorus AST ALT 41 H 49 H Lactate Dehydrogenase Albumin 2.8 L 2.7 L Albumin/Globulin Ratio 0.8 L 0.8 L Meds: Medications Acetaminophen (Tylenol) 650 mg PO Q4HP PRN PRN Reason: PAIN/FEVER > 101 Last Admin: 02/01/20 21:05 Dose: 650 mg Documented by: Hydrocodone Bitart/Acetaminophen ([place] 10/325mg) 1 tab PO Q4HP PRN; Protocol PRN Reason: Pain Last Admin: 01/31/20 22:49 Dose: 1 tab Documented by: Albuterol/Ipratropium (Duoneb) 3 ml NEB Q4HP PRN PRN Reason: Shortness Of Breath Aspirin (Aspirin) 81 mg PO DAILY [facility] Last Admin: 02/05/20 08:54 Dose: 81 mg Documented by: Atorvastatin Calcium (Lipitor) 40 mg PO QDAY [facility] Last Admin: 02/05/20 08:55 Dose: 40 mg Documented by: Bethanechol Chloride (Urecholine) 50 mg PO BID [facility] Last Admin: 02/05/20 08:57 Dose: 50 mg Documented by: Cefepime HCl (Maxipime) 2 gm IV Q12H [facility]; Protocol Last Admin: 02/05/20 10:09 Dose: 2 gm Documented by: Dextrose (Dextrose 50%) 25 ml IV PRN PRN PRN Reason: Hypoglycemia Last Admin: 02/04/20 09:02 Dose: 25 ml Documented by: Diagnostic Test (Pha) (Accu-Chek) 1 each FS ACHS [facility] Docusate Sodium (Colace) 100 mg PO BID [facility] Last Admin: 02/05/20 08:55 Dose: 100 mg Documented by: Enoxaparin Sodium (Lovenox) 40 mg SQ DAILY [facility] Last Admin: 02/05/20 08:54 Dose: 40 mg Documented by: Escitalopram Oxalate (Lexapro) 5 mg PO DAILY [facility] Last Admin: 02/05/20 08:54 Dose: 5 mg Documented by: Magnesium Sulfate (Magnesium Sulfate) 2 gm in 50 mls @ 50 mls/hr IV UD PRN PRN Reason: Magnesium </= 1.6 Potassium Chloride 40 meq/ (Dextrose) 520 mls @ 130 mls/hr IV UD PRN PRN Reason: Potassium < 3 Dextrose/Lactated Ringer's (Dextrose 5%-Lactated Ringers) 1,000 mls @ 75 mls/hr IV .[id number] [facility] Last Admin: 02/05/20 05:04 Dose: 75 mls/hr Documented by: Insulin Glargine (Lantus) 35 unit SQ DAILY [facility] Last Admin: 02/05/20 10:05 Dose: Not Given Documented by: Insulin Human Lispro (Humalog) 0 unit SQ [facility]; Protocol Lactobacillus Rhamnosus (Culturelle) 1 cap PO BID [facility] Last Admin: 02/05/20 08:54 Dose: 1 cap Documented by: Lactulose (Cephulac) 20 gm PO DAILYP PRN PRN Reason: Constipation Last Admin: 02/01/20 03:45 Dose: 20 gm Documented by: Morphine Sulfate (Morphine) 2 mg IV Q4HP PRN; Protocol PRN Reason: Per Pain Protocol Mupirocin (Bactroban Oint 2%) 1 dose NARES BID [facility] Last Admin: 02/05/20 08:57 Dose: 1 dose Documented by: Omeprazole (Prilosec) 40 mg PO ACB [facility] Last Admin: 02/05/20 07:28 Dose: 40 mg Documented by: Ondansetron HCl (Zofran) 4 mg IV Q4HP PRN PRN Reason: Nausea And Vomiting Last Admin: 02/01/20 22:35 Dose: 4 mg Documented by: Polyethylene Glycol (Miralax) 17 gm PO DAILY [facility] Last Admin: 02/05/20 08:54 Dose: 17 gm Documented by: Potassium Chloride (Kdur) 40 meq PO UD PRN PRN Reason: Potssium is 3-3.5 Last Admin: 02/04/20 10:26 Dose: 40 meq Documented by: Potassium Chloride (Kdur) 40 meq PO UD PRN PRN Reason: Potassium < 3 Senna (Senokot) 2 tab PO DAILYP PRN PRN Reason: Constipation Last Admin: 02/01/20 15:24 Dose: 2 tab Documented by: Sodium Chloride (Saline Flush) 10 ml IV Q8 [facility] Last Admin: 02/05/20 05:05 Dose: Not Given Documented by: Tamsulosin HCl (Flomax) 0.8 mg PO QDAY [facility] Last Admin: 02/05/20 08:54 Dose: 0.8 mg Documented by: A/P Assessment and plan (1) Ileus: Status: Acute Narrative A/P Narrative: * Possible [place]/mechanical obstruction clinically resolved. NG discontinued. Managed by surgery. Started on clears. Multiple liquid mucoid bowel movements today. * Sepsis w/lactic acidosis: 2/2 likely source given recent penile ulcer/cellulitis. On cefepime * RADHA on CKD III:-improving, creatinine 1.3 * b/l hydroureter: Urology Dr. Wren on board. * Recent penile ulcer/cellulitis: suprapubic cath placed by Urology last admit * Hypernatermia w/dehydration: 148. 2000 cc free water deficit * Mental delay: * DM:Decreased Lantus to 15 units daily from 50 units daily * h/o diastolic(grade I)CHF:Compensaed * GERD: * Depression * Esophageal stricture: f/u with GI as an outpt. P: -Continue bowel obstruction/bilateral hydroureter management per surgery/urology -Diet advancement per surgery -Continue Cefepime, - lower Lantus -bowel regimen -pt/ot -ppx: lovenox/home ppi Time Spent With Patient Time: Total time spent is greater than 50% in coordination of care (as documented) at patient's floor/unit and/or counseling patient: QUALITY VTE Deep Vein Thrombosis/Pulmonary Embolism Present on Admission: No
[2020-02-05 19:47] LABS: Basophils # (Auto) 0.12 K/mcL (0.00-0.20); Basophils % (Auto) 0.9 % (0.0-2.0); Eosinophils # (Auto) 0.47 K/mcL (0.00-0.70); Eosinophils % (Auto) 3.4 % (0.0-7.0); Hematocrit 35.3 % (41.0-55.0); Hemoglobin 11.3 g/dL (13.5-16.5); Lymphocytes # (Auto) 1.45 K/mcL (1.50-4.80); Lymphocytes % (Auto) 10.4 % (15.0-49.0); Mean Cell Volume 94.6 fL (80.0-100.0); Mean Platelet Volume 9.4 fL (7.4-10.4); Monocytes # (Auto) 0.82 K/mcL (0.10-0.90); Monocytes % (Auto) 5.9 % (1.0-12.0); Neutrophils % (Auto) 79.4 % (38.0-78.0); Platelet Count 493 K/mcL (140-440); RBC 3.73 M/mcL (4.50-5.90); Red Cell Distribution Width 14.8 % (11.5-14.5); WBC 13.9 K/mcL (4.5-11.0)
[2020-02-06] MEDS: 0.9 % SODIUM CHLORIDE 10 ML SYRINGE IV SCH ×3 (04:19→20:16)
[2020-02-06] MEDS: DEXTROSE 5%-LR 1,000 ML IV SCH ×2 (06:34→06:59)
[2020-02-06] MEDS: OMEPRAZOLE 20 MG CAPSULE PO SCH (06:59)
[2020-02-06] MEDS: INSULIN LISPRO 1 UNIT/0.01 ML UNIT SQ SCH ×4 (07:00→20:15)
[2020-02-06 07:58] LABS: Basophils # (Auto) 0.09 K/mcL (0.00-0.20); Basophils % (Auto) 0.7 % (0.0-2.0); Eosinophils # (Auto) 0.56 K/mcL (0.00-0.70); Eosinophils % (Auto) 4.5 % (0.0-7.0); Hemoglobin 10.1 g/dL (13.5-16.5); Lymphocytes # (Auto) 1.61 K/mcL (1.50-4.80); Mean Cell Volume 93.8 fL (80.0-100.0); Mean Corpuscular HGB Conc 31.6 g/dL (31.0-36.0); Mean Platelet Volume 9.4 fL (7.4-10.4); Monocytes # (Auto) 0.79 K/mcL (0.10-0.90); Monocytes % (Auto) 6.4 % (1.0-12.0); Neutrophils % (Auto) 75.4 % (38.0-78.0); Platelet Count 437 K/mcL (140-440); RBC 3.41 M/mcL (4.50-5.90); Red Cell Distribution Width 14.5 % (11.5-14.5); WBC 12.3 K/mcL (4.5-11.0)
[2020-02-06] MEDS: TAMSULOSIN 0.4 MG CAPSULE PO SCH (08:23)
[2020-02-06] MEDS: ATORVASTATIN 40 MG TABLET PO SCH (08:24)
[2020-02-06] MEDS: ENOXAPARIN 40 MG/0.4 ML SYRINGE SQ SCH (08:24)
[2020-02-06] MEDS: ASPIRIN 81 MG TAB.CHEW PO SCH (08:24)
[2020-02-06] MEDS: LACTOBACILLUS 1 CAPSULE PO SCH ×2 (08:24→20:29)
[2020-02-06] MEDS: DOCUSATE SODIUM 100 MG CAPSULE PO SCH ×2 (08:24→20:30)
[2020-02-06] MEDS: ESCITALOPRAM 10 MG TABLET PO SCH (08:24)
[2020-02-06] MEDS: POLYETHYLENE GLYCOL 3350 17 GM PACKET PO SCH (08:30)
[2020-02-06] MEDS: INSULIN GLARGINE, HUMAN 1 UNIT/0.01 ML SQ SCH (08:30)
[2020-02-06] MEDS: MUPIROCIN OINT 2% 22GM NARES SCH ×2 (08:30→20:28)
[2020-02-06] MEDS: BETHANECHOL 10 MG TABLET PO SCH ×2 (08:31→20:28)
[2020-02-06 08:47] LABS: ALT/SGPT 38 U/L (<40); AST/SGOT 32 U/L (<40); Albumin 2.4 gm/dL (3.2-5.2); Albumin/Globulin Ratio 0.8 (1.0-2.3); Alkaline Phosphatase 87 U/L (39-117); Bilirubin,Direct < 0.2 mg/dL (<0.3); Bilirubin,Total 0.2 mg/dL (0.1-1.0); Blood Urea Nitrogen 15 mg/dL (8-23); Calcium 8.7 mg/dL (8.6-10.4); Carbon Dioxide 18 mmol/L (22-30); Chloride 110 mmol/L (96-108); Glomerular Filtration Rate 76; Glucose 111 mg/dL (70-105); Lactate Dehydrogenase 207 U/L (135-225); Phosphorous 2.3 mg/dL (2.5-4.5); Triglycerides 102 mg/dL (<150); Uric Acid 6.6 mg/dL (2.5-8.0)
[2020-02-06] MEDS: CEFEPIME 2 GM VIAL IV SCH ×2 (08:47→20:29)
[2020-02-06] MEDS: POTASSIUM CHLORIDE 20 MEQ TABLET PO PRN (14:14)
--- NOTE | 2020-02-06 15:15 | Internal Med Progress Note ---
SUBJECTIVE Subjective Patient information: Note initiated : 02/06/20 at 3:10 pm Service Date, if different from initiated Date: [] Patient: Fritz Esquivel 70 y/o M admitted on 01/28/20 for Sweatiness. Chief Complaint: [] Interval history: History of present illness: Mr. Esquivel is a 70 year old M Presents from [facility] due to being sweaty all night and feeling lightheaded and weak. Did have episode nausea vomiting last night as well. He has some degree of mental delay and history is most days obtained from chart. He had a rapid Covid test which was negative. He was afebrile in the ED but found to have a leukocytosis of 37,000. His lactate was 5.0. Had acute kidney injury. Elevated sodium. Low blood pressure on arrival. Given several liters of IV fluid in the ED. Imaging of the chest abdomen pelvis residual view of the lungs to be okay, there was a concern initially from aspiration. Did show hydroureters and h ydronephrosis. Case discussed with Dr. Wren recently put in a suprapubic catheter for ulcer and cellulitis earlier in the month. Blood pressure stable. Patient also found of constipation. Says he was feeling fine yesterday morning but in the afternoon started feeling crummy and lightheaded weak and sweaty. 01/28 Feeling better today. Leukocytosis improving. Lactic acidosis resolved. Renal function slowly improving. pEnding cultures. 01/29 Patient does not have any complaints today. WBC 15.1 which was 24.3 yesterday Creatinine 1.5 which was 1.[address] Wren for Hydroureter 01/30 Patient does not have any new complaints. He told me this morning he had a little bowel movement last night. WBC normalized today, 9.9. Creatinine 1.3 today Liver enzymes AST 53 and LAT 58 today Abd xray - Large amount of colonic stool. fleet enema 01/31 No new complaints. He had a large bowel movement yesterday and a small bowel movement today. Morning labs not available today 02/01 Patient abdomen was more distended than yesterday. Also patient felt nauseated and vomiting yesterday. abdomen x-ray showed possible Issac syndrome and a mechanical obstruction can not be excluded Discussed with general surgeon Dr. Lorenzo, NG tube was placed was suction was started. But earlier this morning patient pulled NG tube out. 1200 cc was out in total. Patient abdomen is less distended. He also has a large very loose bowel movement. Heart rate 104 WBC 12.2 Creatinine 1.[address] Wren and Dr Toribio are on board 02/02 Patient feels better. Abdomen less distended Dr. Rock is on board. continue NG tube to suction His blood sugar running 74-93, decreased Lantus to 45 units at from 50 units WBC normalized 8.3, creatinine 1.3 02/03 Pt is on NG tube suction. Canal [place] syndrome and hydroureter. Urologist Dr. Wrne and Dr Toribio are on board Hypoglycemia - decreased lantus to 35 units daily D5LR 75ml/hr 02/04-improved ileus. NG discontinued. Multiple liquid mucoid BMs. Lantus lowered to 15 units daily. Suprapubic catheter draining clear urine. Started on p.o. clears per surgery. No overnight fever chills. White count 9.1, sodium 148, potassium 3.4, phosphorus 1.9 02/05-patient transition to CC diet, multiple bowel movements. White count downtrending to 12.3, potassium 2.5 on aggressive replacement, phosphorus 2.3, anticipate discharge in 24 hours pending electrolyte replacement/ability to tolerate oral diet. Constitutional Vitals: Vital Signs Temp Pulse Resp BP Pulse Ox 97.9 F 91 H 22 136/73 98 02/06/20 11:56 02/06/20 11:56 02/06/20 11:56 02/06/20 11:56 02/06/20 11:56 Period Temp Pulse Resp BP Sys/[place] Pulse Ox Last 24 Hr 97.1 F-98.3 F 69-97 16-24 120-149/73-82 94-100 Intake and Output 02/06/20 02/06/20 02/06/20 05:59 13:59 21:59 Intake Total 100 1000 800 Output Total 375 850 Balance -275 1000 -50 Alert oriented No anxiety Tolerating diet Nondistended abdomen Intake & Output: Intake & Output 02/06/20 02/06/20 02/06/20 05:59 13:59 21:59 Intake Total 100 1000 800 Output Total 375 850 Balance -275 1000 -50 Intake: IV 1000 Dextrose 5%-Lactated Ringers 1, 1000 000 ml @ 75 mls/hr IV .[id number] [facility] Rx#:[id number] Oral 100 800 Output: Urine Catheter Amount 375 850 Other: Meal Lunch Percent of Meal Consumed 100% Feeding Ability Independent Urine Appearance Clear Clear Clear Urine Color Bright Yellow Bright Yellow Pale Urine Odor Normal Normal Stool Size Moderate Stool Color Brown Stool Consistency Liquid Loose # Bowel Movements 1 2 # of times incontinent of 1 Bowels OBJ DATA Labs CBC & Chem 7: 02/06/20 05:18 02/06/20 05:18 Labs: Abnormal Lab Results 02/06/20 02/06/20 02/05/20 05:18 05:18 18:05 WBC 12.3 H 13.9 H RBC 3.41 L 3.73 L Hgb 10.1 L 11.3 L Hct 32.0 L 35.3 L RDW 14.8 H Plt Count 493 H Neut % (Auto) 79.4 H Lymph % (Auto) 13.0 L 10.4 L Lymph # (Auto) 1.45 L [place] # (Auto) Absolute Neutrophils 9.29 H 11.05 H Sodium Potassium 2.5 L* Chloride 110 H Carbon Dioxide 18 L BUN Creatinine Glucose 111 H Phosphorus 2.3 L AST ALT Lactate Dehydrogenase Total Protein 5.4 L Albumin 2.4 L Albumin/Globulin Ratio 0.8 L 02/05/20 02/05/20 02/04/20 05:32 05:32 05:22 WBC RBC 6.92 H 4.10 L Hgb 20.8 H 12.2 L Hct 63.9 H 38.7 L RDW 16.5 H 14.7 H Plt Count 545 H Neut % (Auto) Lymph % (Auto) 14.2 L Lymph # (Auto) 1.23 L [place] # (Auto) 0.97 H Absolute Neutrophils Sodium 148 H Potassium Chloride 115 H Carbon Dioxide 18 L BUN Creatinine Glucose Phosphorus 1.9 L AST 42 H ALT 44 H Lactate Dehydrogenase 282 H Total Protein Albumin 3.1 L Albumin/Globulin Ratio 0.8 L 02/04/20 05:22 WBC RBC Hgb Hct RDW Plt Count Neut % (Auto) Lymph % (Auto) Lymph # (Auto) [place] # (Auto) Absolute Neutrophils Sodium 148 H Potassium 3.0 L Chloride 116 H Carbon Dioxide 21 L BUN 33 H Creatinine 1.3 H Glucose 60 L Phosphorus AST ALT 41 H Lactate Dehydrogenase Total Protein Albumin 2.8 L Albumin/Globulin Ratio 0.8 L Meds: Medications Acetaminophen (Tylenol) 650 mg PO Q4HP PRN PRN Reason: PAIN/FEVER > 101 Last Admin: 02/01/20 21:05 Dose: 650 mg Documented by: Hydrocodone Bitart/Acetaminophen ([place] 10/325mg) 1 tab PO Q4HP PRN; Protocol PRN Reason: Pain Last Admin: 01/31/20 22:49 Dose: 1 tab Documented by: Albuterol/Ipratropium (Duoneb) 3 ml NEB Q4HP PRN PRN Reason: Shortness Of Breath Aspirin (Aspirin) 81 mg PO DAILY [facility] Last Admin: 02/06/20 08:24 Dose: 81 mg Documented by: Atorvastatin Calcium (Lipitor) 40 mg PO QDAY [facility] Last Admin: 02/06/20 08:24 Dose: 40 mg Documented by: Bethanechol Chloride (Urecholine) 50 mg PO BID [facility] Last Admin: 02/06/20 08:31 Dose: 50 mg Documented by: Cefepime HCl (Maxipime) 2 gm IV Q12H [facility]; Protocol Last Admin: 02/06/20 08:47 Dose: 2 gm Documented by: Dextrose (Dextrose 50%) 25 ml IV PRN PRN PRN Reason: Hypoglycemia Last Admin: 02/04/20 09:02 Dose: 25 ml Documented by: Diagnostic Test (Pha) (Accu-Chek) 1 each FS ACHS [facility] Last Admin: 02/06/20 11:06 Dose: 1 each Documented by: Docusate Sodium (Colace) 100 mg PO BID [facility] Last Admin: 02/06/20 08:24 Dose: 100 mg Documented by: Enoxaparin Sodium (Lovenox) 40 mg SQ DAILY [facility] Last Admin: 02/06/20 08:24 Dose: 40 mg Documented by: Escitalopram Oxalate (Lexapro) 5 mg PO DAILY [facility] Last Admin: 02/06/20 08:24 Dose: 5 mg Documented by: Magnesium Sulfate (Magnesium Sulfate) 2 gm in 50 mls @ 50 mls/hr IV UD PRN PRN Reason: Magnesium </= 1.6 Potassium Chloride 40 meq/ (Dextrose) 520 mls @ 130 mls/hr IV UD PRN PRN Reason: Potassium < 3 Last Admin: 02/06/20 11:05 Dose: 130 mls/hr Documented by: Dextrose/Lactated Ringer's (Dextrose 5%-Lactated Ringers) 1,000 mls @ 75 mls/hr IV .[id number] [facility] Last Admin: 02/06/20 06:59 Dose: 75 mls/hr Documented by: Insulin Glargine (Lantus) 15 unit SQ DAILY [facility] Last Admin: 02/06/20 08:30 Dose: 15 units Documented by: Insulin Human Lispro (Humalog) 0 unit SQ ACHS [facility]; Protocol Last Admin: 02/06/20 11:07 Dose: Not Given Documented by: Lactobacillus Rhamnosus (Culturelle) 1 cap PO BID [facility] Last Admin: 02/06/20 08:24 Dose: 1 cap Documented by: Lactulose (Cephulac) 20 gm PO DAILYP PRN PRN Reason: Constipation Last Admin: 02/01/20 03:45 Dose: 20 gm Documented by: Morphine Sulfate (Morphine) 2 mg IV Q4HP PRN; Protocol PRN Reason: Per Pain Protocol Mupirocin (Bactroban Oint 2%) 1 dose NARES BID [facility] Last Admin: 02/06/20 08:30 Dose: 1 dose Documented by: Omeprazole (Prilosec) 40 mg PO ACB [facility] Last Admin: 02/06/20 06:59 Dose: 40 mg Documented by: Ondansetron HCl (Zofran) 4 mg IV Q4HP PRN PRN Reason: Nausea And Vomiting Last Admin: 02/01/20 22:35 Dose: 4 mg Documented by: Polyethylene Glycol (Miralax) 17 gm PO DAILY [facility] Last Admin: 02/06/20 08:30 Dose: 17 gm Documented by: Potassium Chloride (Kdur) 40 meq PO UD PRN PRN Reason: Potssium is 3-3.5 Last Admin: 02/06/20 14:14 Dose: 40 meq Documented by: Potassium Chloride (Kdur) 40 meq PO UD PRN PRN Reason: Potassium < 3 Last Admin: 02/06/20 09:33 Dose: 40 meq Documented by: Senna (Senokot) 2 tab PO DAILYP PRN PRN Reason: Constipation Last Admin: 02/01/20 15:24 Dose: 2 tab Documented by: Sodium Chloride (Saline Flush) 10 ml IV Q8 [facility] Last Admin: 02/06/20 13:22 Dose: Not Given Documented by: Tamsulosin HCl (Flomax) 0.8 mg PO QDAY [facility] Last Admin: 02/06/20 08:23 Dose: 0.8 mg Documented by: A/P Assessment and plan (1) Ileus: Status: Acute Narrative A/P Narrative: * Possible Issac/mechanical obstruction clinically resolved. Tolerating diet advancement. Will discharge on aggressive bowel regime * Sepsis w/lactic acidosis: 2/2 likely source given recent penile ulcer/cellulitis. Clinically resolved. Discontinue antibiotics in 24 hours * RADHA on CKD III:-Clinically resolved, creatinine creatinine down from 2.4-> 1 * b/l hydroureter: Secondary to mechanical obstruction from bowel impaction . Clinically resolved. * * Recent penile ulcer/cellulitis: suprapubic cath placed by Urology last admit * Hypernatermia w/dehydration: Resolved with correction of free water deficit down from 1 48->1 40 * Mental delay: * DM:Decreased Lantus to 15 units daily from 50 units daily * h/o diastolic(grade I)CHF:Compensaed * GERD: * Depression * Esophageal stricture: f/u with GI as an outpt. Plan: -Diet advancement/aggressive bowel regimen -DC antibiotics 24 hours --pt/ot -ppx: lovenox/home ppi -Discharge likely in 24 hours Time Spent With Patient Time: Total time spent is greater than 50% in coordination of care (as documented) at patient's floor/unit and/or counseling patient: QUALITY VTE Deep Vein Thrombosis/Pulmonary Embolism Present on Admission: No
[2020-02-06] MEDS ORDERED: NEUTRA PHOS 1 PACKET PO PRN (15:16)
[2020-02-06 17:08] LABS: POC Blood Urea Nitrogen 9 mg/dL (6-20); POC CO2 13 mmol/L (22-30); POC Calcium, Ionized 1.31 mmEq/L (1.16-1.32); POC Chloride 109 mEq/L (96-108); POC Creatinine 0.7 mg/dL (0.6-1.2); POC Glucose, Random > 700 mg/dL; POC Hematocrit 26 % (41-55); POC Potassium 4.6 mEql/L (3.3-5.1); POC Sodium 138 mEq/L (133-145)
[2020-02-07] MEDS: DEXTROSE 5%-LR 1,000 ML IV SCH ×3 (00:43→07:11)
[2020-02-07] MEDS: 0.9 % SODIUM CHLORIDE 10 ML SYRINGE IV SCH ×2 (05:17→11:59)
[2020-02-07] MEDS: DOCUSATE SODIUM 100 MG CAPSULE PO SCH (07:11)
[2020-02-07] MEDS: POLYETHYLENE GLYCOL 3350 17 GM PACKET PO SCH (07:13)
[2020-02-07] MEDS: INSULIN LISPRO 1 UNIT/0.01 ML UNIT SQ SCH ×2 (07:49→11:23)
[2020-02-07] MEDS: ATORVASTATIN 40 MG TABLET PO SCH (08:29)
[2020-02-07] MEDS: ASPIRIN 81 MG TAB.CHEW PO SCH (08:29)
[2020-02-07] MEDS: LACTOBACILLUS 1 CAPSULE PO SCH (08:29)
[2020-02-07] MEDS: OMEPRAZOLE 20 MG CAPSULE PO SCH (08:30)
[2020-02-07] MEDS: TAMSULOSIN 0.4 MG CAPSULE PO SCH (08:30)
[2020-02-07] MEDS: ESCITALOPRAM 10 MG TABLET PO SCH (08:30)
[2020-02-07] MEDS: BETHANECHOL 10 MG TABLET PO SCH (08:31)
[2020-02-07] MEDS: CEFEPIME 2 GM VIAL IV SCH (08:32)
[2020-02-07] MEDS: ENOXAPARIN 40 MG/0.4 ML SYRINGE SQ SCH (08:34)
[2020-02-07] MEDS: INSULIN GLARGINE, HUMAN 1 UNIT/0.01 ML SQ SCH (08:34)
[2020-02-07] MEDS: MUPIROCIN OINT 2% 22GM NARES SCH (08:35)
[2020-02-07 09:50] LABS: ALT/SGPT 46 U/L (<40); AST/SGOT 36 U/L (<40); Albumin 2.7 gm/dL (3.2-5.2); Albumin/Globulin Ratio 0.9 (1.0-2.3); Alkaline Phosphatase 104 U/L (39-117); Bilirubin,Direct < 0.2 mg/dL (<0.3); Bilirubin,Total 0.3 mg/dL (0.1-1.0); Blood Urea Nitrogen 11 mg/dL (8-23); Calcium 9.2 mg/dL (8.6-10.4); Carbon Dioxide 19 mmol/L (22-30); Chloride 108 mmol/L (96-108); Globulin 3.1 gm/dL (2.2-3.7); Glomerular Filtration Rate 87; Glucose 119 mg/dL (70-105); Lactate Dehydrogenase 220 U/L (135-225); Phosphorous 2.8 mg/dL (2.5-4.5); Triglycerides 153 mg/dL (<150); Uric Acid 5.2 mg/dL (2.5-8.0)
--- NOTE | 2020-02-07 11:22 | Discharge Summary ---
Discharge Provider Provider Patient information: Note initiated : 02/07/20 at 11:17 am Service Date, if different from initiated Date: [] Patient: Fritz Esquivel 70 y/o M admitted on 01/28/20 for Sweatiness. Discharge diagnosis * Ileus with bowel impaction Amasa/mechanical obstruction clinically resolved. Tolerating diet advancement. Discharging with aggressive bowel regimen * Obstructive uropathy with hydroureter secondary to impacted bowel with extrinsic ureteric obstruction. Clinically resolved * Sepsis w/lactic acidosis: 2/2 obstructive uropathy. Recent penile ulcer/cellulitis. Clinically resolved on antibiotics. * RADHA on CKD III:-Clinically resolved, creatinine creatinine down from 2.4-> 1 * Recent penile ulcer/cellulitis: suprapubic cath placed by Urology last admit * Hypernatermia w/dehydration: Resolved with correction of free water deficit down from 1 48->1 40 * Mental delay: at baseline * DM: Continue lower dose of Lantus and uptitrate as indicated * h/o diastolic(grade I)CHF: Compensated * GERD: * Depression * Esophageal stricture: f/u with GI as an outpt. Brief hospital course History of present illness: Mr. Esquivel is a 70 year old M Presents from [facility] due to being sweaty all night and feeling lightheaded and weak. Did have episode nausea vomiting last night as well. He has some degree of mental delay and history is most days obtained from chart. He had a rapid Covid test which was negative. He was afebrile in the ED but found to have a leukocytosis of 37,000. His lactate was 5.0. Had acute kidney injury. Elevated sodium. Low blood pressure on arrival. Given several liters of IV fluid in the ED. Imaging of the chest abdomen pelvis residual view of the lungs to be okay, there was a concern initially from aspiration. Did show hydroureters and hydronephrosis. Case discussed with Dr. Wren recently put in a suprapubic catheter for ulcer and cellulitis earlier in the month. Blood pressure stable. Patient also found of constipation. Says he was feeling fine yesterday morning but in the afternoon started feeling crummy and lightheaded weak and sweaty. 01/28 Feeling better today. Leukocytosis improving. Lactic acidosis resolved. Renal function slowly improving. pEnding cultures. 01/29 Patient does not have any complaints today. WBC 15.1 which was 24.3 yesterday Creatinine 1.5 which was 1.[address] Wren for Hydroureter 01/30 Patient does not have any new complaints. He told me this morning he had a little bowel movement last night. WBC normalized today, 9.9. Creatinine 1.3 today Liver enzymes AST 53 and LAT 58 today Abd xray - Large amount of colonic stool. fleet enema 01/31 No new complaints. He had a large bowel movement yesterday and a small bowel movement today. Morning labs not available today 02/01 Patient abdomen was more distended than yesterday. Also patient felt nauseated and vomiting yesterday. 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 Lorenzo, NG tube was placed was suction was started. But earlier this morning patient pulled NG tube out. 1200 cc was out in total. Patient abdomen is less distended. He also has a large very loose bowel movement. Heart rate 104 WBC 12.2 Creatinine 1[address] Wren and Dr Toribio are on board 02/02 Patient feels better. Abdomen less distended Dr. Rock is on board. continue NG tube to suction His blood sugar running 74-93, decreased Lantus to 45 units at from 50 units WBC normalized 8.3, creatinine 1.3 02/03 Pt is on NG tube suction. Amasa syndrome and hydroureter. Urologist Dr. Wren and Dr Toribio are on board Hypoglycemia - decreased lantus to 35 units daily D5LR 75ml/hr 02/04-improved ileus. NG discontinued. Multiple liquid mucoid BMs. Lantus lowered to 15 units daily. Suprapubic catheter draining clear urine. Started on p.o. clears per surgery. No overnight fever chills. White count 9.1, sodium 148, potassium 3.4, phosphorus 1.9 02/05-patient transition to CC diet, multiple bowel movements. White count downtrending to 12.3, potassium 2.5 on aggressive replacement, phosphorus 2.3, anticipate discharge in 24 hours pending electrolyte replacement/ability to tolerate oral diet. 02/06-patient doing well. No overnight events. Tolerating diet. On aggressive bowel regimen to prevent further stool impaction. Antibiotics will be discontinued. Sepsis resolved. Acute kidney injury resolved creatinine now at baseline. Ambulating. Tolerating therapies. Transferring to SNF. Date of admission: 01/28/20 13:34 Discharge date: 02/07/20 Primary care physician: LAURIE Evans Consults: 01/28/20 Consult to Physician [CONS] Stat Comment: Consulting Provider: Max Wren Reason For Exam: Physician to Consult Consult to Physician [CONS] Stat Comment: Consulting Provider: Mark Anthony Hawley Reason For Exam: Physician to Consult 01/30/20 10:39 Consult to Physician [CONS] Routine Comment: Consulting Provider: Max Wren Reason For Exam: Physician to Consult 02/01/20 22:43 Consult to Physician [CONS] Routine Comment: Consulting Provider: Pravin Deleon Reason For Exam: Physician to Consult Discharge Meds Discharge Medications Home Medications spironolactone 25 mg tablet 25 mg PO QAM tab 12/27/17 [History Confirmed 01/28/20 Last Taken 01/16/20] omeprazole 20 mg capsule,delayed release 40 mg PO QDAY cap 12/28/17 [History Confirmed 01/28/20 Last Taken 01/16/20] cholecalciferol (vitamin D3) 100 mcg (4,000 unit) tablet 4,000 unit PO QDAY #90 tab 04/27/19 [Rx Confirmed 01/28/20 Last Taken 01/16/20] potassium chloride 10 mEq tablet,extended release(part/cryst) 10 meq PO QDAY #30 tab 08/06/19 [Rx Confirmed 01/28/20 Last Taken 01/16/20] atorvastatin 40 mg tablet 40 mg PO QDAY #30 tab 08/13/19 [Rx Confirmed 01/28/20 Last Taken 01/16/20] dulaglutide 0.75 mg/0.5 mL subcutaneous pen injector 1.5 mg SUB-Q QWEEK 09/06/19 [History Confirmed 01/28/20 Last Taken 01/14/20] tamsulosin 0.4 mg capsule 0.8 mg PO QDAY cap 09/11/19 [History Confirmed 01/28/20 Last Taken 01/15/20] torsemide 20 mg tablet 40 mg PO QDAY tab 09/11/19 [History Confirmed 01/28/20 Last Taken 01/16/20] acetaminophen 325 mg capsule 650 mg PO Q4H PRN 10/29/19 [History Confirmed 01/28/20 Last Taken 01/10/20] aspirin 81 mg tablet,delayed release 81 mg PO QDAY 10/29/19 [History Confirmed 01/28/20 Last Taken 01/16/20] bethanechol chloride 50 mg tablet 50 mg PO BID 10/29/19 [History Confirmed 01/28/20 Last Taken 01/15/20] ferrous sulfate 325 mg (65 mg iron) tablet 325 mg PO QDAY 10/29/19 [History Confirmed 01/28/20 Last Taken 01/16/20] fexofenadine 180 mg tablet 180 mg PO Q24H 10/29/19 [History Confirmed 01/28/20 Last Taken 01/15/20] escitalopram oxalate 5 mg tablet 5 mg PO QDAY 11/28/19 [History Confirmed 01/28/20 Last Taken 01/16/20] Adult Probiotic 100 mg BID 01/16/20 [History Confirmed 01/28/20 Last Taken 01/16/20] cholecalciferol (vitamin D3) 50,000 units WEEKLY 01/16/20 [History Confirmed 01/28/20 Last Taken 01/14/20] insulin lispro See Rx Instructions .ROUTE .COMPLEX 01/16/20 [History Confirmed 01/28/20 Last Taken 01/16/20 07:30] Lantus U-100 Insulin 15 unit SQ DAILY #10 ml 02/07/20 [Rx Last Taken Unknown] Polyethylene Glycol 3350 [Miralax] 17 gm PO DAILY #30 applic 02/07/20 [Rx Last Taken Unknown] docusate sodium 100 mg PO BID #60 cap 02/07/20 [Rx Last Taken Unknown] hydrocodone-acetaminophen 1 tab PO Q4 PRN #10 tab 02/07/20 [Rx Last Taken Unknown] lactulose 20 gm PO DAILYP PRN #30 ml 02/07/20 [Rx Last Taken Unknown] sennosides [Senna Lax] 2 tab PO HS #60 tab 02/07/20 [Rx Last Taken Unknown] COURSE Hospital Course Hospital course: . Discharge diagnosis: . Time Spent with Patient Time attestation: Total time spent providing and/or coordinating discharge services: EXAM Constitutional Vitals: Temp Pulse Resp BP Pulse Ox 97.8 F 85 18 132/75 97 02/07/20 08:00 02/07/20 08:00 02/07/20 08:00 02/07/20 08:00 02/07/20 08:00 Discharge Data Data Completed and Pending Labs on day of discharge: Labs from last 24 hours 02/07/20 02/07/20 02/06/20 08:08 08:08 16:53 WBC Pending RBC Pending Hgb Pending Hct Pending POC Hct 26 L MCV Pending MCH Pending MCHC Pending RDW Pending Plt Count Pending MPV Pending Neut % (Auto) Pending POC Sodium 138 Sodium 141 POC Potassium 4.6 Potassium 3.7 POC Chloride 109 H Chloride 108 Carbon Dioxide 19 L POC Total CO2 13 L Anion Gap 14.0 POC BUN 9 BUN 11 Creatinine 0.9 POC Creatinine 0.7 GFR Calculation 87 Glucose 119 H POC Glucose > 700 H* Uric Acid 5.2 Calcium 9.2 POC WB Ioniz Calcium 1.31 Phosphorus 2.8 Magnesium 1.7 Total Bilirubin 0.3 Direct Bilirubin < 0.2 GGT 19 AST 36 ALT 46 H Alkaline Phosphatase 104 Lactate Dehydrogenase 220 Total Protein 5.8 L Albumin 2.7 L Globulin 3.1 Albumin/Globulin Ratio 0.9 L Triglycerides 153 H 02/06/20 16:04 WBC RBC Hgb Hct POC Hct Pending MCV MCH MCHC RDW Plt Count MPV Neut % (Auto) POC Sodium Pending Sodium POC Potassium Pending Potassium POC Chloride Pending Chloride Carbon Dioxide POC Total CO2 Pending Anion Gap POC BUN Pending BUN Creatinine POC Creatinine Pending GFR Calculation Glucose POC Glucose Pending Uric Acid Calcium POC WB Ioniz Calcium Pending Phosphorus Magnesium Total Bilirubin Direct Bilirubin GGT AST ALT Alkaline Phosphatase Lactate Dehydrogenase Total Protein Albumin Globulin Albumin/Globulin Ratio Triglycerides Discharge Plan Patient/Caregiver Discharge Instructions Activity: ambulate only with your walker Diet: Consistent Carbohydrate Activity Restrictions/Additional Instructions: Follow-up PCP in 5 to 7 days Continue aggressive bowel regimen with MiraLAX/lactulose/docusate and senna to prevent bowel impaction Follow-up with GI as outpatient for esophageal stricture evaluation Follow-up with urology for management of suprapubic catheter Uptitrate Lantus based on morning sugars. Dose reduced from 50-> 15 units on discharge due to episodes of hypoglycemia Return to ER worsening fever chills Prescriptions: New sennosides [Senna Lax] 8.6 mg Tablet 2 tab PO HS Qty: 60 RF: 0 docusate sodium 100 mg Capsule 100 mg PO BID Qty: 60 RF: 0 lactulose 20 gram/30 mL Solution 20 gm PO DAILYP PRN (Reason: Constipation) Qty: 30 RF: 0 Polyethylene Glycol 3350 [Miralax] 17 gm PO DAILY Qty: 30 RF: 1 Continued potassium chloride [Klor-Con M10] 10 mEq tablet,ER particles/crystals 10 meq PO QDAY Qty: 30 RF: 4 atorvastatin [Lipitor] 40 mg tablet 40 mg PO QDAY Qty: 30 RF: 4 spironolactone 25 mg tablet 25 mg PO QAM RF: 0 omeprazole 20 mg capsule,delayed release(DR/EC) 40 mg PO QDAY RF: 0 dulaglutide 0.75 mg/0.5 mL pen injector 1.5 mg SUB-Q QWEEK RF: 0 tamsulosin 0.4 mg capsule 0.8 mg PO QDAY RF: 0 torsemide 20 mg tablet 40 mg PO QDAY RF: 0 cholecalciferol (vitamin D3) 4,000 unit tablet 4,000 unit PO QDAY Qty: 90 RF: 4 acetaminophen 325 mg capsule 650 mg PO Q4H PRN (Reason: Pain) RF: 0 aspirin [Adult Aspirin Regimen] 81 mg tablet,delayed release (DR/EC) 81 mg PO QDAY RF: 0 bethanechol chloride 50 mg tablet 50 mg PO BID RF: 0 ferrous sulfate 325 mg (65 mg iron) tablet 325 mg PO QDAY RF: 0 fexofenadine [Allergy Relief (fexofenadine)] 180 mg tablet 180 mg PO Q24H RF: 0 escitalopram oxalate [Lexapro] 5 mg tablet 5 mg PO QDAY RF: 0 Adult Probiotic 100 mg 100 mg BID RF: 0 cholecalciferol (vitamin D3) 50,000 unit 50,000 units WEEKLY RF: 0 insulin lispro 100 units/ml See Rx Instructions .ROUTE .COMPLEX RF: 0 hydrocodone-acetaminophen 10-325 mg tablet 1 tab PO Q4 PRN (Reason: Pain) Qty: 10 RF: 0 Changed Lantus U-100 Insulin 100 unit/mL Solution 15 unit SQ DAILY Qty: 10 RF: 4 Follow Up Plan Follow up with: Emiliano Juárez MD [Physician] - (Penile wound) Wilberto Rivera ARNP [Primary Care Provider] - Patient Disposition: Xfer SNF Prognosis: Fair Rehab Potential: Fair I certify that the patient requires SNF services: Yes Overall status at discharge: patient is progressing back to baseline Discharge Orders: Discharge Order (Routine); Ordered 02/07/20 Ordered By: Juan KNAPP VTE Deep Vein Thrombosis/Pulmonary Embolism Present on Admission: No
== END 2020-02-07 13:40 | DRG 872 ==
LOC: ED 07:50 → ICU 13:34 → MEDSUR 01-29 17:55
PROVIDERS: ADMIT Internal Medicine; ATTEND Internal Medicine

== ENCOUNTER 2022-06-15 02:07 | Inpatient (IN) ==
[2022-06-15] MEDS ORDERED: IOPAMIDOL 100 ML BOTTLE IV ONE (02:08)
--- NOTE | 2022-06-15 02:35 | Emergency Department Note ---
Abdominal Pain HPI General Chief Complaint: Abdominal Pain Stated Complaint: ABD DISTENTION Time Seen by Provider: 06/15/22 02:11 Source: patient and EMS Mode of arrival: EMS Limitations: no limitations and altered mental status History of Present Illness HPI Narrative: Narrative: Patient presents to the ED with complaints of worsening abdominal distention x1 week. Patient states is just acute bloating. Denies fever, chills, nausea, vomiting, diarrhea, constipation, dysuria, hematuria, urinary frequency, cardiac chest pain. Patient denies any other alleviating or aggravating factors. Related Data Home Medications Medication Instructions Recorded Confirmed dulaglutide 0.75 mg/0.5 mL 1.5 mg subcut QWEEK 09/06/19 06/15/22 subcutaneous pen injector tamsulosin 0.4 mg capsule 0.8 mg PO QDAY 09/11/19 06/15/22 acetaminophen 325 mg capsule 650 mg PO Q4H PRN Pain 10/29/19 06/15/22 aspirin 81 mg tablet,delayed 81 mg PO QDAY 10/29/19 06/15/22 release (Adult Aspirin Regimen) bethanechol chloride 50 mg tablet 50 mg PO BID 10/29/19 06/15/22 ferrous sulfate 325 mg (65 mg 325 mg PO QDAY 02/14/20 06/15/22 iron) tablet glipizide 10 mg tablet 15 mg PO QDAY 08/21/20 06/15/22 loratadine 10 mg capsule 10 mg PO QDAY 08/26/20 06/15/22 melatonin 3 mg capsule 3 mg PO HS PRN Sleep 08/26/20 06/15/22 aripiprazole 5 mg tablet (Abilify) 5 mg PO QDAY 12/22/21 06/15/22 cholecalciferol (vitamin D3) 50,000 units subcut WEEKLY 12/22/21 06/15/22 escitalopram oxalate 5 mg tablet 20 mg PO QDAY 12/22/21 06/15/22 (Lexapro) insulin glargine 100 unit/mL 10 unit subcut DAILY 12/22/21 06/15/22 subcutaneous solution (Lantus U-100 Insulin) spironolactone 25 mg tablet 50 mg PO QDAY 12/22/21 06/15/22 torsemide 20 mg tablet 40 mg PO BID 11/15/22 05/09/23 bisacodyl 10 mg rectal suppository 10 mg TN QDAY PRN Constipation 03/28/22 06/15/22 (Dulcolax (bisacodyl)) bisacodyl 5 mg tablet,delayed 10 mg PO PRN PRN Constipation 03/28/22 06/15/22 release (Dulcolax (bisacodyl)) magnesium hydroxide 400 mg/5 mL 400 mg PO QDAY PRN Constipation 03/28/22 06/15/22 oral suspension (Milk of Magnesia) sodium phosphates 19 gram-7 118 ml TN PRN PRN Constipation 03/28/22 06/15/22 gram/118 mL enema (Fleet Enema) olanzapine 5 mg disintegrating 5 mg PO PRN PRN Agitation 06/15/22 06/15/22 tablet Previous Rx's Medication Instructions Recorded cholecalciferol (vitamin D3) 100 4,000 unit PO QDAY #90 tabs 04/27/19 mcg (4,000 unit) tablet potassium chloride 10 mEq 10 meq PO QDAY #30 tabs 08/06/19 tablet,extended release(part/cryst) (Klor-Con M) sennosides 8.6 mg tablet (Senna 2 tab PO HS #60 tabs 02/07/20 Lax) Allergies Allergy/AdvReac Type Severity Reaction Status Date / Time piperacillin [From Zosyn] Allergy Mild Rash Verified 06/15/22 02:21 tazobactam [From Zosyn] Allergy Mild Rash Verified 06/15/22 02:21 Sulfa (Sulfonamide Allergy Unknown Unknown Verified 06/15/22 02:21 Antibiotics) Review of Systems ROS ROS Narrative: Narrative: All systems ED: reviewed and negative except as stated. PFSH Narrative Patient History Narrative: Narrative: Medical/Surgical/Family History All Active Problems (Updated 06/15/22 @ 05:47 by Andreas Lieberman DO) Colitis (Acute) Leukocytosis (Acute) Acidosis, lactic (Acute) Colon obstruction (Acute) Acute dehydration (Acute) Constipation (Acute) Colitis (Acute) Shortness of breath (Chronic) Asthma (Chronic) Bronchitis (Chronic) Anxiety (Chronic) Arthritis (Chronic) Diabetes (Chronic) Mentally challenged (Chronic) Elevated liver enzymes (Chronic) Gout (Chronic) Hypertension (Chronic) Fatigue (Chronic) Knee pain (Chronic) Poor hygiene (Chronic) Urinary retention (Chronic) Morelos catheter in place (Chronic) Obstructive uropathy (Chronic) Hypoglycemia (Chronic) Leukocytosis (Chronic) Bilateral hydronephrosis (Chronic) Weakness (Chronic) Edema (Chronic) Benign prostatic hyperplasia (Chronic) GERD (gastroesophageal reflux disease) (Chronic) Status post insertion of Morelos catheter (Chronic) Bladder mass (Acute) 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) Vitamin D deficiency (Chronic) Secondary hyperparathyroidism of renal origin (Chronic) Localized edema due to fluid overload (Chronic) Balanitis (Acute) Cellulitis (Acute) Elevated serum creatinine (Acute) Hydronephrosis (Acute) Urethral erosion by catheter (Acute) Necrosis (Acute) Sepsis (Acute) Urinary tract infection associated with cystostomy catheter (Acute) Hypoxia (Acute) Status post excisional debridement (Acute) Ileus (Acute) Open wound of penis (Acute) Chronic kidney disease (CKD) stage G3a/A1, moderately decreased glomerular filtration rate (GFR) between 45-59 mL/min/1.73 square meter and albuminuria creatinine ratio less than 30 mg/g (Chronic) Anemia due to stage 3a chronic kidney disease (Chronic) Encounter for care or replacement of suprapubic tube (Chronic) Incontinence of feces (Acute) Medical History Anxiety Arthritis Asthma Benign prostatic hyperplasia Bilateral hydronephrosis Bronchitis Diabetes Edema Elevated liver enzymes Fatigue Morelos catheter in place GERD (gastroesophageal reflux disease) Gout Hypertension Hypoglycemia Knee pain Leukocytosis Mentally challenged Obstructive uropathy Poor hygiene Shortness of breath Urinary retention Weakness Surgical History History of colonoscopy Dr. Guevara History of surgery Dr. Wren 01/16/2020-Radical debridment of penis, cystoscopy, and suprapubic catheter. Status post insertion of Morelos catheter Family History Mother Diabetes Father Heart disease Social History Smoking Status: Never smoker Alcohol Intake Frequency: does not drink Substance Use: does not use Exam Narrative Narrative: Narrative: General Limitations: no limitations and altered mental status General appearance: Absent in distress ENT ENT: Present normal oropharynx and mucous membranes moist Chest Chest: Present normal inspection; Absent tenderness Respiratory Respiratory: Present normal lung sounds bilaterally; Absent respiratory distress Cardiovascular Cardiovascular: Present normal rhythm and tachycardia Adbominal Abdominal: Present distention and diminished bowel sounds; Absent tenderness Extremities Extremities: Present normal capillary refill Back Back: Absent CVA tenderness (R) or CVA tenderness (L) Neurological Neurological: Present alert and oriented X3 Psychiatric Psychiatric: Present normal affect and normal mood Skin Skin: Present warm (WNL) and intact Course Course Course Narrative: Patient was evaluated for abdominal distention as well as nausea. Labs were obtained show the patient had elevated white cell count. Lactic acid was within normal limits. Renal function was compromised with elevated BUN and creatinine of 1.7. Patient was given some IV fluids. Also given some IV Zofran for his nausea. CT abdomen pelvis obtained with image reviewed myself which shows colonic obstruction. He also had some distention of the small bowel. NG tube was placed. Abdominal x-ray obtained with image reviewed myself which shows NG tube in correct position. Patient started on IV Cipro and IV Flagyl. Case discussed with on-call surgeon, Dr. Em, who has agreed to admit the patient. Reevaluation(s) Reevaluation #1: Patient remains hemodynamic stable. No new complaints at this time. Time: 03:20 Consultations Consultation #1: Case discussed with on-call surgeon, Dr. Em who agrees the patient be admitted to his service. Time: 05:14 Vital Signs Vital signs: Vital Signs Temperature 98.0 F 06/15/22 02:09 Pulse Rate 102 H 06/15/22 02:09 Respiratory Rate 20 06/15/22 02:09 Blood Pressure 142/98 06/15/22 02:09 Pulse Oximetry (%) 95 06/15/22 02:09 Oxygen Delivery Method Room Air 06/15/22 02:09 Temperature 98.0 F 06/15/22 02:09 Pulse Rate 92 H 06/15/22 05:15 Respiratory Rate 20 06/15/22 02:09 Blood Pressure 127/68 06/15/22 06:01 Pulse Oximetry (%) 96 06/15/22 04:09 Oxygen Delivery Method Room Air 06/15/22 02:09 [facility] Narrative Medical decision making narrative: Narrative: Differential Diagnosis Differential Diagnosis: Ascites, abdominal distention Medical Records Medical records reviewed: Yes I reviewed the patient's medical records. Lab Data Lab results reviewed: Yes I reviewed the patient's lab results. 05/09/23 02:58 Labs: Lab Results 06/15/22 06/15/22 06/15/22 Range/Units 02:58 02:58 03:00 WBC 12.5 H (4.5-11.0) K/mcL RBC 4.48 L (4.63-6.08) M/mcL Hgb 13.6 L (13.7-17.5) g/dL Hct 40.7 (40.1-51.0) % POC Hct (41-55) MCV 90.8 (80.0-100.0) fL MCH 30.4 (26.0-34.0) pg MCHC 33.4 (31.0-36.0) g/dL RDW 14.3 (11.5-14.5) % Plt Count 414 (140-440) K/mcL MPV 9.4 (8.8-12.5) fL Immature Gran % (Auto) 0.3 (0.0-0.5) % Neut % (Auto) 88.5 H (38.0-78.0) % Lymph % (Auto) 3.4 L (15.5-49.0) % [place] % (Auto) 7.5 (1.0-12.0) % Eos % (Auto) 0 (0.0-7.0) % Baso % (Auto) 0.3 (0.0-2.0) % Lymph # (Auto) 0.43 L (1.50-4.80) K/mcL [place] # (Auto) 0.94 H (0.10-0.90) K/mcL Eos # (Auto) 0 (0.00-0.70) K/mcL Baso # (Auto) 0.04 (0.00-0.30) K/mcL Immature Gran # 0.04 (0.00-0.05) K/mcl Absolute Neutrophils 11.05 H (1.80-8.00) K/mcL POC VBG pH (7.32-7.42) POC VBG pCO2 at Temp (41-51) POC VBG pO2 (25-40) POC VBG HCO3 (24-28) POC VBG Total CO2 (25-29) POC Venous O2 Sat (40-70) POC VBG Base Excess (-2-2) VBG Lactic Acid (0.5-2) POC Sodium (133-145) POC Potassium (3.3-5.1) POC Chloride (96-108) POC Total CO2 (22-30) POC BUN (6-20) POC Creatinine (0.6-1.2) POC Glucose (70-105) POC WB Ioniz Calcium (1.16-1.32) Total Bilirubin 0.5 (0.1-1.0) mg/dL Direct Bilirubin < 0.2 (0-0.3) mg/dL AST 16 (<40) U/L ALT 14 (<40) U/L Alkaline Phosphatase 92 (39-117) U/L Total Protein 7.8 (5.9-8.4) gm/dL Albumin 3.8 (3.2-5.2) gm/dL Globulin 4.0 H (2.2-3.7) gm/dL Procalcitonin 0.18 H (<0.10) ng/mL Urine Color Urine Appearance (Clear) Urine pH (5.0-9.0) Ur Specific [place] (1.000-1.035) Urine Protein (Negative) mg/dL Urine Glucose (UA) (Negative) mg/dL Urine Ketones (Negative) mg/dL Urine Occult Blood (Negative) mg/dL Urine Nitrate (Negative) Urine Bilirubin (Negative) mg/dL Urine Urobilinogen mg/dL Ur Leukocyte Esterase (Negative) /uL Urine RBC (0-3) /hpf Urine WBC (0-4) /hpf Ur Squamous Epith Cells (0-4) /hpf Urine Bacteria (0) /hpf Hyaline Casts (0-2) /lph Urine Mucus (None) /hpf Ur Culture Indicated? 06/15/22 06/15/22 06/15/22 Range/Units 03:06 03:12 04:32 WBC (4.5-11.0) K/mcL RBC (4.63-6.08) M/mcL Hgb (13.7-17.5) g/dL Hct (40.1-51.0) % POC Hct 44.0 (41-55) MCV (80.0-100.0) fL MCH (26.0-34.0) pg MCHC (31.0-36.0) g/dL RDW (11.5-14.5) % Plt Count (140-440) K/mcL MPV (8.8-12.5) fL Immature Gran % (Auto) (0.0-0.5) % Neut % (Auto) (38.0-78.0) % Lymph % (Auto) (15.5-49.0) % [place] % (Auto) (1.0-12.0) % Eos % (Auto) (0.0-7.0) % Baso % (Auto) (0.0-2.0) % Lymph # (Auto) (1.50-4.80) K/mcL [place] # (Auto) (0.10-0.90) K/mcL Eos # (Auto) (0.00-0.70) K/mcL Baso # (Auto) (0.00-0.30) K/mcL Immature Gran # (0.00-0.05) K/mcl Absolute Neutrophils (1.80-8.00) K/mcL POC VBG pH 7.38 (7.32-7.42) POC VBG pCO2 at Temp 23.7 L (41-51) POC VBG pO2 71 H (25-40) POC VBG HCO3 14.1 L (24-28) POC VBG Total CO2 15.0 L (25-29) POC Venous O2 Sat 94.0 H (40-70) POC VBG Base Excess -11.0 L (-2-2) VBG Lactic Acid 0.8 (0.5-2) POC Sodium 135 (133-145) POC Potassium 3.4 (3.3-5.1) POC Chloride 109 H (96-108) POC Total CO2 16.0 L (22-30) POC BUN 39 H (6-20) POC Creatinine 1.7 H (0.6-1.2) POC Glucose 165 H (70-105) POC WB Ioniz Calcium 1.24 (1.16-1.32) Total Bilirubin (0.1-1.0) mg/dL Direct Bilirubin (0-0.3) mg/dL AST (<40) U/L ALT (<40) U/L Alkaline Phosphatase (39-117) U/L Total Protein (5.9-8.4) gm/dL Albumin (3.2-5.2) gm/dL Globulin (2.2-3.7) gm/dL Procalcitonin (<0.10) ng/mL Urine Color Yellow Urine Appearance Cloudy A (Clear) Urine pH 5.0 (5.0-9.0) Ur Specific [place] 1.036 (1.000-1.035) Urine Protein 30 A (Negative) mg/dL Urine Glucose (UA) Negative (Negative) mg/dL Urine Ketones Negative (Negative) mg/dL Urine Occult Blood 0.03 (Negative) mg/dL Urine Nitrate Negative (Negative) Urine Bilirubin Negative (Negative) mg/dL Urine Urobilinogen Negative mg/dL Ur Leukocyte Esterase 500 A (Negative) /uL Urine RBC 25 H (0-3) /hpf Urine WBC > 182 H (0-4) /hpf Ur Squamous Epith Cells 0 (0-4) /hpf Urine Bacteria Few A (0) /hpf Hyaline Casts 33 H (0-2) /lph Urine Mucus Few A (None) /hpf Ur Culture Indicated? yes Radiology Data Radiology results reviewed: Yes I reviewed the patient's radiology results. Radiology results narrative: CT abdomen pelvis obtained with image reviewed myself, agree with radiologist interpretation EKG Data EKG #1: EKG attestation: Yes I reviewed and interpreted this EKG. EKG shows normal: sinus rhythm Rate: tachycardia Rhythm: NSR [place]/QRS: normal Heart block present: None ST segment elevation in: None ST segment depression in: None QTc: normal QRS morphology: Present normal Interpretation: no acute changes Core Measures AMI Core Measures Followed: Yes Discharge Plan Patient/Caregiver Discharge Instructions Pt seen by [facility]/PA only: No Clinical Impression: Colon obstruction, Acute dehydration Patient Disposition: Xfer As Inpt ([facility]) Condition: Fair Follow up with: No,PCP [Primary Care Provider] - Prescriptions: No Action potassium chloride [Klor-Con M10] 10 mEq tablet,ER particles/crystals 10 meq PO QDAY Qty: 30 4RF dulaglutide 0.75 mg/0.5 mL pen injector 1.5 mg SUB-Q QWEEK tamsulosin 0.4 mg capsule 0.8 mg PO QDAY torsemide 20 mg tablet 40 mg PO BID cholecalciferol (vitamin D3) 4,000 unit tablet 4,000 unit PO QDAY Qty: 90 4RF acetaminophen 325 mg capsule 650 mg PO Q4H PRN (Reason: Pain) aspirin [Adult Aspirin Regimen] 81 mg tablet,delayed release (DR/EC) 81 mg PO QDAY bethanechol chloride 50 mg tablet 50 mg PO BID escitalopram oxalate [Lexapro] 5 mg tablet 20 mg PO QDAY loratadine 10 mg capsule 10 mg PO QDAY melatonin 3 mg capsule 3 mg PO HS PRN (Reason: Sleep) spironolactone 25 mg tablet 50 mg PO QDAY aripiprazole [Abilify] 5 mg tablet 5 mg PO QDAY insulin glargine [Lantus U-100 Insulin] 100 unit/mL solution 10 unit subcut DAILY cholecalciferol (vitamin D3) 50,000 unit 50,000 units subcut WEEKLY sennosides [Senna Lax] 8.6 mg Tablet 2 tab PO HS Qty: 60 0RF magnesium hydroxide [Milk of Magnesia] 400 mg/5 mL Suspension 400 mg PO QDAY PRN (Reason: Constipation) bisacodyl [Dulcolax (bisacodyl)] 10 mg Suppository 10 mg TN QDAY PRN (Reason: Constipation) Rx Instructions: Give after no BM for 5 days. Fleet Enema 19-7 gram/118 mL Enema 118 ml TN PRN PRN (Reason: Constipation) Rx Instructions: Give within 12 hours of suppository, if no BM and call MD for further instructions if no results within 6 hours bisacodyl [Dulcolax (bisacodyl)] 5 mg Tablet,Delayed Release (Dr/Ec) 10 mg PO PRN PRN (Reason: Constipation) Rx Instructions: Give for no BM in 4 days. olanzapine 5 mg Tablet,Disintegrating 5 mg PO PRN PRN (Reason: Agitation) Rx Instructions: PRN agitation ferrous sulfate 325 mg (65 mg iron) tablet 325 mg PO QDAY glipizide 10 mg tablet 15 mg PO QDAY
[2022-06-15 03:14] LABS: POC Calcium, Ionized 1.24 (1.16-1.32); POC Creatinine 1.7 (0.6-1.2); POC Potassium 3.4 (3.3-5.1)
[2022-06-15] MEDS ORDERED: ONDANSETRON 4 MG/2 ML VIAL IV ONE (03:15)
[2022-06-15] MEDS ORDERED: 0.9 % SODIUM CHLORIDE 500 ML IV ONE (03:25)
[2022-06-15 03:50] LABS: Basophils # (Auto) 0.04 K/mcL (0.00-0.30); Basophils % (Auto) 0.3 % (0.0-2.0); Eosinophils # (Auto) 0 K/mcL (0.00-0.70); Eosinophils % (Auto) 0 % (0.0-7.0); Hematocrit 40.7 % (40.1-51.0); Hemoglobin 13.6 g/dL (13.7-17.5); Lymphocytes # (Auto) 0.43 K/mcL (1.50-4.80); Lymphocytes % (Auto) 3.4 % (15.5-49.0); Mean Cell Volume 90.8 fL (80.0-100.0); Mean Corpuscular HGB Conc 33.4 g/dL (31.0-36.0); Mean Platelet Volume 9.4 fL (8.8-12.5); Monocytes # (Auto) 0.94 K/mcL (0.10-0.90); Monocytes % (Auto) 7.5 % (1.0-12.0); Neutrophils % (Auto) 88.5 % (38.0-78.0); Platelet Count 414 K/mcL (140-440); RBC 4.48 M/mcL (4.63-6.08); Red Cell Distribution Width 14.3 % (11.5-14.5); WBC 12.5 K/mcL (4.5-11.0)
[2022-06-15 04:18] LABS: ALT/SGPT 14 U/L (<40); AST/SGOT 16 U/L (<40); Albumin 3.8 gm/dL (3.2-5.2); Alkaline Phosphatase 92 U/L (39-117); Bilirubin,Direct < 0.2 mg/dL (0-0.3); Bilirubin,Total 0.5 mg/dL (0.1-1.0)
--- NOTE | 2022-06-15 04:58 | Cat Scan Report ---
CLINICAL INFORMATION: Abdominal pain and distention COMPARISON: Abdomen and pelvic CTs 01/28/2020 03/28/2022 TECHNIQUE: Following enteric contrast, 80 cc of Isovue-370 were injected intravenously, and 60 seconds later, 0.625 mm helical slices were obtained from the mid heart through the subtrochanteric regions. Following reconstruction, 2.5 mm sagittal, coronal and axial reformatted images were processed and reviewed at bone, lung and soft tissue windows. Five minutes later, 0.625 mm helical slices were obtained from the mid heart through the kidneys and viewed at soft tissue windows.The exam was performed using radiation dose optimization techniques including, but not limited to, automated exposure control, adjustment of the mA and/or kV according to patient size and use of iterative reconstruction technique. FINDINGS: The lung bases show a small infiltrate in the posterior medial left lower lobe with patchy atelectasis in the remaining lower lobe. Small right pleural effusion noted. There is moderate wall thickening of the distal esophagus suggesting peptic disease. The visualized heart is normal in size. There is extremely heavy aortic valve calcification noted. There is also mild calcification of the mitral valve. Abdominal images show minimal fatty change within the liver, but no focal hepatic lesion. Gallbladder and bile ducts are normal: CBD is 5 mm. 8 mm cystic lesion in the anterior pancreatic body and an 8 mm cystic lesion in the posterior pancreatic tail are normal unchanged. These are likely simple cysts rather than IPMN. Bilateral renal cysts are stable-no significant renal abnormality. Both adrenal glands, spleen and aorta, including aortic branches are normal in size configuration and attenuation without focal lesion. There is no free air, free fluid or adenopathy. Pelvic images show suprapubic catheter properly positioned in the urinary bladder resulting in complete decompression. Prostate and seminal vesicles are grossly normal. The ileum and colon are markedly dilated to the distal sigmoid colon where there is abrupt tapering due to a high-grade lesion stricture. Stomach and duodenum are normal. There is modest amount of stool within the rectum. Bone windows show grade 1 L5-S1 spondylolisthesis with broad disc protrusion resulting in severe bilateral IV foraminal narrowing impinging the exiting L5 nerve roots. No other osseous lesions. IMPRESSION: 1. High-grade stricture of the distal sigmoid colon resulting in partial colonic obstruction. Consider Hypaque enema to confirm diagnosis. 2. 8 mm cystic lesion in the anterior pancreatic body and 8 mm cystic lesion in the posterior pancreatic tail. These are both stable and likely represent simple cysts and not IPMN. 3. Small infiltrate posterior left lower lobe-new. This could indicate pneumonia. Small right pleural effusion noted 4. Concentric wall thickening of the distal esophagus likely due to peptic disease. 5. Grade 1 L5-S1 spondylolisthesis and broad disc protrusion resulting in severe bilateral IV foraminal narrowing Interpreted and Authenticated by: Lauro Rodney 06/15/22
[2022-06-15] MEDS ORDERED: metroNIDAZOLE 500 MG/100 ML BAG IV ONE (05:05)
[2022-06-15] MEDS ORDERED: CIPROFLOXACIN 500 MG TABLET PO ONE (05:05)
[2022-06-15 05:42] LABS: Appearance,Urine CLOUDY (Clear); Bacteria,Urine FEW /hpf (0); Bilirubin,Urine Negative (Negative); Color,Urine YELLOW; Culture Indicated,Urine yes; Glucose,Urine (UA) Negative (Negative); Ketones,Urine Negative (Negative); Leukocyte Esterase,Urine 500 /uL (Negative); Mucus,Urine FEW /hpf; Nitrate,Urine Negative (Negative); Protein,Urine 30 mg/dL (Negative); Specific Gravity,Urine 1.036 (1.000-1.035); Urine Blood 0.03 mg/dL (Negative); Urine Hyaline Cast 33 /lph (0-2); Urine RBC 25 /hpf (0-3); Urine Squamous Epithelial Cell 0 /hpf (0-4); Urine WBC > 182 /hpf (0-4); Urobilinogen,Urine Negative
[2022-06-15] MEDS ORDERED: NALOXONE HCL 0.4 MG/ML VIAL IV PRN (05:42)
[2022-06-15] MEDS ORDERED: ONDANSETRON 4 MG/2 ML VIAL IV PRN (05:42)
[2022-06-15] MEDS ORDERED: PROMETHAZINE 25 MG/ML VIAL IM PRN (05:42)
[2022-06-15] MEDS: 0.9 % SODIUM CHLORIDE 1,000 ML IV SCH ×2 (06:20→17:40)
[2022-06-15] MEDS ORDERED: DEXTROSE 31 GM ORAL.SUSP PO PRN (08:06)
[2022-06-15] MEDS ORDERED: DEXTROSE 50% 50 ML VIAL IV PRN (08:06)
--- NOTE | 2022-06-15 09:12 | XRay Report ---
CLINICAL INFORMATION: NG tube placement COMPARISON: None. FINDINGS: NG tube tip overlies the gastric body. Multiple loops of markedly dilated small and large bowel in the upper abdomen are compatible with distal colonic obstruction. No free air. IMPRESSION: NG tube in satisfactory position. Distal colonic obstruction Interpreted and Authenticated by: Lauro Rodney 06/15/22
--- NOTE | 2022-06-15 09:25 | XRay Report ---
CLINICAL INFORMATION: copd;preop COMPARISON: 03/28/2022 FINDINGS: Heart size accentuated by portable technique left rotation and suboptimal aspiration and within normal limits. NG tube extends off the film-at least to the gastric body. Mediastinum and pulmonary vessels are normal. Minor left basilar atelectasis noted. IMPRESSION: Minor left basilar atelectasis. Interpreted and Authenticated by: Lauro Rodney 06/15/22
[2022-06-15] MEDS ORDERED: DIATRIZOATE MEGLU/DIATRIZO SOD 120 ML BOTTLE PO ONE (10:19)
[2022-06-15] MEDS: CIPROFLOXACIN 400 MG/200 ML BAG IV SCH ×2 (10:19→20:37)
[2022-06-15] MEDS: METOCLOPRAMIDE 10 MG/2 ML VIAL IV SCH ×4 (10:31→23:26)
[2022-06-15] MEDS: metroNIDAZOLE 500 MG/100 ML BAG IV SCH ×4 (11:05→23:43)
[2022-06-15] MEDS ORDERED: PYRIDOSTIGMINE BROMIDE 10 MG/2 ML AMPUL SC SCH (12:00)
--- NOTE | 2022-06-15 12:02 | XRay Report ---
CLINICAL INFORMATION: to evaluate distal sigmoid stricture / compression COMPARISON: Abdomen and pelvic CT 06/15/2022 TECHNIQUE: With the patient in supine position, water-soluble Gastrografin was infused indwelling rectal catheter was images were obtained during colonic filling. Total fluoroscopy time two minutes 29 seconds FINDINGS: There is a high-grade annular stricture of the proximal sigmoid colon with mucosal irregularity highly suspicious for Apple core lesion seen in adenocarcinoma. 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
[2022-06-15] MEDS: INSULIN LISPRO 1 UNIT/0.01 ML UNIT SQ SCH ×3 (12:12→20:43)
--- NOTE | 2022-06-15 12:58 | General Surg History&Physical ---
HPI History of Present Illness Patient information: Note initiated : 06/15/22 at 12:56 pm Service Date, if different from initiated Date: [] Patient: Fritz Esquivel 72 y/o M admitted on 06/15/22 for ABD DISTENTION. Chief Complaint: [] Chief complaint: Issac syndrome History of present illness: Mr. Esquivel is a 72 year old M with long-term history of progressive colonic enlargement and recurrent episodes of severe constipation. Patient was initially evaluated in January 2020 when he presented with massive dilation of his colon with large fecal burden and extensive air. 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 He was treated nonoperatively and gradually improved. He was subsequently discharged and has had problems with constipation since that time. He underwent colonoscopy by gastroenterology on 07/29/2021. He was found to have a redundant colon and a small polyp of the cecum but no neoplastic lesion. He resides in a nursing care facility and his interim status is unknown. The patient cannot verbalize what has happened to him in the interim. He was seen on 03/28/2022 and was noted to have a high-grade stricture of the distal rectosigmoid. He responded to nonoperative management and decompressed. He has greater than a 1 week history of progressive enlargement of his bowel and he presents to the emergency room with massive dilation of stomach small bowel and colon extending down to his distal rectum. In the distal rectum there is an area of high-grade stricture which may be related to compression from the extended bowel. Plans will be made for a single contrast enema to evaluate the distal rectosigmoid. He has been using milk of magnesia, Dulcolax tablets, Dulcolax suppositories with marginal results. Constitutional Constitutional: Present excessive sweating, fatigue, frequent falls, lethargy, weakness and weight gain EENT Ears: Present decreased hearing Nose, mouth and throat: Present abnormal hearing, bleeding gums, dental pain, dizziness, dry mouth and headache(s) Cardiovascular Cardiovascular: Present dyspnea on exertion, leg edema and pedal edema; Absent chest pain with activity or palpatations Respiratory Respiratory: Present dyspnea on exertion; Absent wheezing Gastrointestinal Gastrointestinal: Present change in bowel habits, constipation, diarrhea, fecal incontinence, loose stools and nausea Genitourinary Genitourinary: change in urinary stream, difficulty urinating, urinary frequency, urinary incontinence and other (Chronic suprapubic catheter) Musculoskeletal Musculoskeletal: Present abnormal gait, limited range of motion, muscle weakness, myalgias and stiffness Neurological Neurological: Present abnormal gait, abnormal movements, behavioral changes, focal weakness and lack of coordination Psychiatric Psychiatric: Present behavioral changes, depression, difficulty concentrating and mood swings Hematologic/Lymphatic Hematologic/Lymphatic: Absent easy bleeding, easy bruising or lymphadenopathy Allergic/Immunologic Allergic/Immunologic: Absent tongue swelling, throat swelling, uticaria, wheezing or lip swelling PFSH PFSH All Active Problems Primary chronic pseudo-obstruction of colon (Acute) Colitis (Acute) Leukocytosis (Acute) Acidosis, lactic (Acute) Colon obstruction (Acute) Acute dehydration (Acute) Constipation (Acute) Colitis (Acute) Shortness of breath (Chronic) Asthma (Chronic) Bronchitis (Chronic) Anxiety (Chronic) Arthritis (Chronic) Diabetes (Chronic) Mentally challenged (Chronic) Elevated liver enzymes (Chronic) Gout (Chronic) Hypertension (Chronic) Fatigue (Chronic) Knee pain (Chronic) Poor hygiene (Chronic) Urinary retention (Chronic) Morelos catheter in place (Chronic) Obstructive uropathy (Chronic) Hypoglycemia (Chronic) Leukocytosis (Chronic) Bilateral hydronephrosis (Chronic) Weakness (Chronic) Edema (Chronic) Benign prostatic hyperplasia (Chronic) GERD (gastroesophageal reflux disease) (Chronic) Status post insertion of Morelos catheter (Chronic) Bladder mass (Acute) 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) Vitamin D deficiency (Chronic) Secondary hyperparathyroidism of renal origin (Chronic) Localized edema due to fluid overload (Chronic) Balanitis (Acute) Cellulitis (Acute) Elevated serum creatinine (Acute) Hydronephrosis (Acute) Urethral erosion by catheter (Acute) Necrosis (Acute) Sepsis (Acute) Urinary tract infection associated with cystostomy catheter (Acute) Hypoxia (Acute) Status post excisional debridement (Acute) Ileus (Acute) Open wound of penis (Acute) Chronic kidney disease (CKD) stage G3a/A1, moderately decreased glomerular fi ltration rate (GFR) between 45-59 mL/min/1.73 square meter and albuminuria creatinine ratio less than 30 mg/g (Chronic) Anemia due to stage 3a chronic kidney disease (Chronic) Encounter for care or replacement of suprapubic tube (Chronic) Incontinence of feces (Acute) Medical History Anxiety Arthritis Asthma Benign prostatic hyperplasia Bilateral hydronephrosis Bronchitis Diabetes Edema Elevated liver enzymes Fatigue Morelos catheter in place GERD (gastroesophageal reflux disease) Gout Hypertension Hypoglycemia Knee pain Leukocytosis Mentally challenged Obstructive uropathy Poor hygiene Shortness of breath Urinary retention Weakness Surgical History History of colonoscopy Dr. Guevara History of surgery Dr. Wren 01/16/2020-Radical debridment of penis, cystoscopy, and suprapubic catheter. Status post insertion of Morelos catheter Family History Mother Diabetes Father Heart disease Social History caregiver/support person: Yes household members: alone marital status: single education level: high school smoking status: Never smoker alcohol intake frequency: does not drink substance use type: does not use MEDS/ALLERGIES Home Medications and Allergies Home Medications Medication Instructions Recorded Confirmed Type cholecalciferol (vitamin D3) 100 4,000 unit PO QDAY #90 tabs 04/27/19 06/15/22 Rx mcg (4,000 unit) tablet potassium chloride 10 mEq 10 meq PO QDAY #30 tabs 08/06/19 06/15/22 Rx tablet,extended release(part/cryst) (Klor-Con M) dulaglutide 0.75 mg/0.5 mL 1.5 mg subcut QWEEK 09/06/19 06/15/22 History subcutaneous pen injector tamsulosin 0.4 mg capsule 0.8 mg PO QDAY 09/11/19 06/15/22 History acetaminophen 325 mg capsule 650 mg PO Q4H PRN Pain 10/29/19 06/15/22 History aspirin 81 mg tablet,delayed 81 mg PO QDAY 10/29/19 06/15/22 History release (Adult Aspirin Regimen) bethanechol chloride 50 mg tablet 50 mg PO BID 10/29/19 06/15/22 History sennosides 8.6 mg tablet (Senna 2 tab PO HS #60 tabs 02/07/20 06/15/22 Rx Lax) ferrous sulfate 325 mg (65 mg 325 mg PO QDAY 02/14/20 06/15/22 History iron) tablet glipizide 10 mg tablet 15 mg PO QDAY 08/21/20 06/15/22 History loratadine 10 mg capsule 10 mg PO QDAY 08/26/20 06/15/22 History melatonin 3 mg capsule 3 mg PO HS PRN Sleep 08/26/20 06/15/22 History aripiprazole 5 mg tablet (Abilify) 5 mg PO QDAY 12/22/21 06/15/22 History cholecalciferol (vitamin D3) 50,000 units subcut WEEKLY 12/22/21 06/15/22 Hist ory escitalopram oxalate 5 mg tablet 20 mg PO QDAY 12/22/21 06/15/22 History (Lexapro) insulin glargine 100 unit/mL 10 unit subcut DAILY 12/22/21 06/15/22 History subcutaneous solution (Lantus U-100 Insulin) spironolactone 25 mg tablet 50 mg PO QDAY 12/22/21 06/15/22 History torsemide 20 mg tablet 40 mg PO BID 12/22/21 06/15/22 History bisacodyl 10 mg rectal suppository 10 mg CA QDAY PRN Constipation 03/28/22 06/15/22 History (Dulcolax (bisacodyl)) bisacodyl 5 mg tablet,delayed 10 mg PO PRN PRN Constipation 03/28/22 06/15/22 History release (Dulcolax (bisacodyl)) magnesium hydroxide 400 mg/5 mL 400 mg PO QDAY PRN Constipation 03/28/22 06/15/22 History oral suspension (Milk of Magnesia) sodium phosphates 19 gram-7 118 ml CA PRN PRN Constipation 03/28/22 06/15/22 History gram/118 mL enema (Fleet Enema) olanzapine 5 mg disintegrating 5 mg PO PRN PRN Agitation 06/15/22 06/15/22 History tablet Allergies Allergy/AdvReac Type Severity Reaction Status Date / Time piperacillin [From Zosyn] Allergy Mild Rash Verified 06/15/22 02:21 tazobactam [From Zosyn] Allergy Mild Rash Verified 06/15/22 02:21 Sulfa (Sulfonamide Allergy Unknown Unknown Verified 06/15/22 02:21 Antibiotics) Physical Examination Vital Signs Vital signs: Temp Pulse Resp BP Pulse Ox O2 Del Method 98.1 F 83 14 124/70 95 Room Air 06/15/22 08:00 06/15/22 08:00 06/15/22 08:00 06/15/22 08:00 06/15/22 08:00 06/15/22 08:00 General physical appearance General physical exam: well developed, no distress, no pain, chronically ill and obese Eyes Eye exam: PERRL and normal ocular movement ENT ENT exam: no congestion, decreased hearing and poor long term Head Head exam IM: Present atraumatic, normal inspection and normocephalic Neck Neck exam: no masses, no bruits, trachea midline, no lymphadenopathy and no venous distension Cardiovascular Cardiovascular exam IM: Present normal rate and rhythm, RRR, +S1 and +S2; Absent JVD Respiratory Respiratory exam: normal expansion, normal respiratory effort and clear to auscultation Abdomen Abdomen: Present bowel sounds (Hyperactive, high-pitched with borborygmus, rushes, splashes, gurgling) and distended (Massively distended bladder nontender) Hernia: Absent none Genitourinary Genitourinary (Male): Present other (Suprapubic catheter with irritation history) Rectum Rectum: Present normal sphincter tone and no hemorrhoids Integumentary Integumentary: Present no rash, no growths and no abnormal pigmentation Neurologic Neurologic: Present disoriented and confused Musculoskeletal Musculoskeletal: Present other (Unable to adequately evaluate) Psychiatric Psychiatric: Present oriented to person and speech is normal; Absent oriented to time, oriented to place or memory intact Results Labs 06/16/22 05:24 06/16/22 05:23 Labs: Abnormal lab results 06/15/22 06/15/22 06/15/22 Range/Units 02:58 02:58 03:00 WBC 12.5 H (4.5-11.0) K/mcL RBC 4.48 L (4.63-6.08) M/mcL Hgb 13.6 L (13.7-17.5) g/dL Neut % (Auto) 88.5 H (38.0-78.0) % Lymph % (Auto) 3.4 L (15.5-49.0) % Lymph # (Auto) 0.43 L (1.50-4.80) K/mcL [place] # (Auto) 0.94 H (0.10-0.90) K/mcL Absolute Neutrophils 11.05 H (1.80-8.00) K/mcL POC VBG pCO2 at Temp (41-51) POC VBG pO2 (25-40) POC VBG HCO3 (24-28) POC VBG Total CO2 (25-29) POC Venous O2 Sat (40-70) POC VBG Base Excess (-2-2) POC Chloride (96-108) POC Total CO2 (22-30) POC BUN (6-20) POC Creatinine (0.6-1.2) POC Glucose (70-105) Globulin 4.0 H (2.2-3.7) gm/dL Procalcitonin 0.18 H (<0.10) ng/mL Urine Appearance (Clear) Urine Protein (Negative) mg/dL Ur Leukocyte Esterase (Negative) /uL Urine RBC (0-3) /hpf Urine WBC (0-4) /hpf Urine Bacteria (0) /hpf Hyaline Casts (0-2) /lph Urine Mucus (None) /hpf 06/15/22 06/15/22 06/15/22 Range/Units 03:06 03:12 04:32 WBC (4.5-11.0) K/mcL RBC (4.63-6.08) M/mcL Hgb (13.7-17.5) g/dL Neut % (Auto) (38.0-78.0) % Lymph % (Auto) (15.5-49.0) % Lymph # (Auto) (1.50-4.80) K/mcL [place] # (Auto) (0.10-0.90) K/mcL Absolute Neutrophils (1.80-8.00) K/mcL POC VBG pCO2 at Temp 23.7 L (41-51) POC VBG pO2 71 H (25-40) POC VBG HCO3 14.1 L (24-28) POC VBG Total CO2 15.0 L (25-29) POC Venous O2 Sat 94.0 H (40-70) POC VBG Base Excess -11.0 L (-2-2) POC Chloride 109 H (96-108) POC Total CO2 16.0 L (22-30) POC BUN 39 H (6-20) POC Creatinine 1.7 H (0.6-1.2) POC Glucose 165 H (70-105) Globulin (2.2-3.7) gm/dL Procalcitonin (<0.10) ng/mL Urine Appearance Cloudy A (Clear) Urine Protein 30 A (Negative) mg/dL Ur Leukocyte Esterase 500 A (Negative) /uL Urine RBC 25 H (0-3) /hpf Urine WBC > 182 H (0-4) /hpf Urine Bacteria Few A (0) /hpf Hyaline Casts 33 H (0-2) /lph Urine Mucus Few A (None) /hpf Diabetes panel 06/15/22 Range/Units 02:58 AST 16 (<40) U/L ALT 14 (<40) U/L Alkaline Phosphatase 92 (39-117) U/L Total Protein 7.8 (5.9-8.4) gm/dL Albumin 3.8 (3.2-5.2) gm/dL Calcium panel 06/15/22 Range/Units 02:58 Albumin 3.8 (3.2-5.2) gm/dL Adrenal panel 06/15/22 Range/Units 02:58 Total Bilirubin 0.5 (0.1-1.0) mg/dL AST 16 (<40) U/L ALT 14 (<40) U/L Alkaline Phosphatase 92 (39-117) U/L Total Protein 7.8 (5.9-8.4) gm/dL Albumin 3.8 (3.2-5.2) gm/dL All other labs normal. A/P Assessment and plan (1) Primary chronic pseudo-obstruction of colon: Status: Acute (2) Colon obstruction: Status: Acute (3) Acute dehydration: Status: Acute (4) Constipation: Status: Acute (5) Hypertension: Status: Chronic (6) Urethral erosion by catheter: Status: Acute Qualifiers: Encounter type: initial encounter Qualified Code(s): T83.89XA - Other specified complication of genitourinary prosthetic devices, implants and grafts, initial encounter; N36.8 - Other specified disorders of urethra (7) Urinary tract infection associated with cystostomy catheter: Status: Acute Qualifiers: Encounter type: initial encounter Qualified Code(s): T83.510A - Infection and inflammatory reaction due to cystostomy catheter, initial e ncounter; N39.0 - Urinary tract infection, site not specified (8) Incontinence of feces: Status: Acute Comment: states no awareness. Dried stool noted on his person, clothing, catheter, wheelchair Qualifiers: Fecal incontinence type: unspecified Qualified Code(s): R15.9 - Full incontinence of feces Plan Urgent Gastrografin enema Reglan 10 mg IV every 6 hours Regonol 5mg SC Q6H NG SUCTION SERIAL ABDOMINAL X-RAYS Time Spent With Patient Time: Total time spent is greater than 50% in coordination of care (as documented) at patient's floor/unit and/or counseling patient:
[2022-06-15] MEDS: PYRIDOSTIGMINE BROMIDE 10 MG/2 ML AMPUL SC SCH ×2 (17:40→23:44)
--- NOTE | 2022-06-15 18:21 | XRay Report ---
CLINICAL INFORMATION: colonic obstruction COMPARISON: 06/15/2022 FINDINGS: NG tube is in stable position overlying the gastric body. Mild distention of the small large bowel appreciated with the caliber decreased since exam earlier today. IMPRESSION: Distal colonic obstruction pattern. Decreased small large bowel caliber since exam earlier today Interpreted and Authenticated by: Lauro Rodney 06/15/22
[2022-06-16] MEDS: 0.9 % SODIUM CHLORIDE 1,000 ML IV SCH ×4 (05:10→23:45)
[2022-06-16] MEDS: METOCLOPRAMIDE 10 MG/2 ML VIAL IV SCH ×4 (05:10→23:23)
[2022-06-16] MEDS: PYRIDOSTIGMINE BROMIDE 10 MG/2 ML AMPUL SC SCH ×4 (05:10→23:24)
[2022-06-16] MEDS: metroNIDAZOLE 500 MG/100 ML BAG IV SCH ×4 (05:10→23:23)
[2022-06-16 06:09] LABS: Basophils # (Auto) 0.07 K/mcL (0.00-0.30); Basophils % (Auto) 0.8 % (0.0-2.0); Eosinophils # (Auto) 0.17 K/mcL (0.00-0.70); Eosinophils % (Auto) 1.9 % (0.0-7.0); Hematocrit 36.4 % (40.1-51.0); Hemoglobin 11.9 g/dL (13.7-17.5); Lymphocytes % (Auto) 11.3 % (15.5-49.0); Mean Cell Volume 92.2 fL (80.0-100.0); Mean Corpuscular HGB Conc 32.7 g/dL (31.0-36.0); Mean Platelet Volume 9.4 fL (8.8-12.5); Monocytes # (Auto) 0.92 K/mcL (0.10-0.90); Monocytes % (Auto) 10.4 % (1.0-12.0); Neutrophils % (Auto) 75.4 % (38.0-78.0); Platelet Count 372 K/mcL (140-440); RBC 3.95 M/mcL (4.63-6.08); Red Cell Distribution Width 14.5 % (11.5-14.5); WBC 8.9 K/mcL (4.5-11.0)
--- NOTE | 2022-06-16 07:10 | EKG ---
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 Measurements Intervals Louise Rate: 109 P: 59 [place]: 174 QRS: 91 QRSD: 119 T: -30 QT: 354 QTc: 477 Interpretive Statements Sinus tachycardia Probable left atrial enlargement Electronically Signed On 06-16-2022 7:09:47 PDT by Lauro Tejeda M.D. /[email or web address]/[email or web address]/[id number].pdf
[2022-06-16] MEDS ORDERED: DEXTROSE 50% 50 ML SYRINGE IV PRN (07:30)
[2022-06-16] MEDS: INSULIN LISPRO 1 UNIT/0.01 ML UNIT SQ SCH ×4 (07:42→20:23)
[2022-06-16 07:57] LABS: ALT/SGPT 11 U/L (<40); AST/SGOT 11 U/L (<40); Albumin/Globulin Ratio 0.8 (1.0-2.3); Alkaline Phosphatase 70 U/L (39-117); Bilirubin,Direct < 0.2 mg/dL (0-0.3); Bilirubin,Total 0.2 mg/dL (0.1-1.0); Blood Urea Nitrogen 28 mg/dL (8-23); Calcium 8.8 mg/dL (8.6-10.4); Carbon Dioxide 17 mmol/L (22-30); Chloride 114 mmol/L (96-108); Globulin 3.7 gm/dL (2.2-3.7); Glomerular Filtration Rate 55; Glucose 69 mg/dL (70-105); Lactate Dehydrogenase 140 U/L (135-225); Phosphorous 2.6 mg/dL (2.5-4.5); Triglycerides 64 mg/dL (<150); Uric Acid 9.6 mg/dL (2.5-8.0)
[2022-06-16] MEDS ORDERED: POTASSIUM CHLORIDE 40 MEQ in DEXTROSE 5% IN WATER 500 ML IV ONE ×2 (09:30→13:30)
[2022-06-16] MEDS: CIPROFLOXACIN 400 MG/200 ML BAG IV SCH ×2 (09:43→20:15)
--- NOTE | 2022-06-16 11:53 | XRay Report ---
CLINICAL INFORMATION: colonic obstruction COMPARISON: 06/15/2022 FINDINGS: NG tube is in stable position overlying the gastric body. Mild distention of the small large bowel is unchanged from yesterday No free air. IMPRESSION: Distal colonic obstruction pattern. No change from yesterday. Interpreted and Authenticated by: Lauro Rodney 06/16/22
--- NOTE | 2022-06-16 14:55 | General Surgery Progress Note ---
SUBJECTIVE Subjective Patient information: Note initiated : 06/16/22 at 2:53 pm Service Date, if different from initiated Date: [] Patient: Fritz Esquivel 72 y/o M admitted on 06/15/22 for ABD DISTENTION. Chief Complaint: [] Principal diagnosis: Colonic pseudoobstruction Interval history: Patient is gradually improving. He denies having any abdominal pain. His abdomen is soft and and he has had multiple bowel movements. He complains of thirst. White blood count 8.9, hemoglobin 11.9, hematocrit 36.4, potassium 2.4, BUN 28, creatinine 1.3. Constitutional Vitals: Vital Signs Temp Pulse Resp BP Pulse Ox O2 Del Method 97.7 F 70 12 118/62 98 Room Air 06/16/22 12:00 06/16/22 12:00 06/16/22 12:00 06/16/22 12:00 06/16/22 12:00 06/16/22 12:00 Period Temp Pulse Resp BP Sys/[place]glin Pulse Ox O2 Del Method O2 Flow Rate Last 24 Hr 97.4 F-98.1 F 70-85 12-14 111-136/62-73 96-98 Room Air-Room Air Intake and Output 06/16/22 06/16/22 06/16/22 03:59 11:59 19:59 Intake Total 1300 160 300 Output Total 1460 425 Balance -160 -265 300 Weight 180 lb 3.2 oz Patient Weight 06/17/22 03:59 Weight 180 lb 3.2 oz Intake & Output: Intake & Output 06/16/22 06/16/22 06/16/22 03:59 11:59 19:59 Intake Total 1300 160 300 Output Total 1460 425 Balance -160 -265 300 Weight 180 lb 3.2 oz Intake: IV 1300 100 300 Sodium Chloride 0.9% 1,000 ml @ 1000 100 mls/hr IV .Q10H [facility] Rx#: [id number] Oral 0 60 Output: Gastric Drainage 1035 425 Left Nare 1035 425 Urine Catheter Amount 425 Other: Urine Appearance Cloudy Clear Suprapubic Clear Urine Color Yellow Yellow Suprapubic Yellow Urine Odor Strong Stool Size Large Smear Stool Color Brown Brown Stool Consistency Liquid Soft Watery Loose # of times incontinent of 1 1 Bowels Respiratory Respiratory exam: Present normal respiratory exam and CTAB; Absent respiratory distress Cardiovascular Cardiovascular exam: Present normal rate and rhythm, RRR, +S1 and +S2 GI/Abdominal GI/Abdominal exam: Present soft, distended and hyperactive bowel sounds; Absent tenderness Extremities Exam Extremities exam: Present normal inspection, pedal edema and neurovascular intact Neurological Exam Neurological exam: Absent motor sensory deficit Psychiatric Psychiatric exam: Present anxious and flat affect A/P Assessment and plan (1) Primary chronic pseudo-obstruction of colon: Status: Acute (2) Constipation: Status: Acute (3) Chronic kidney disease (CKD) stage G3a/A1, moderately decreased glomerular filtration rate (GFR) between 45-59 mL/min/1.73 square meter and albuminuria creatinine ratio less than 30 mg/g: Status: Chronic (4) Incontinence of feces: Status: Acute Comment: states no awareness. Dried stool noted on his person, clothing, catheter, wheelchair Qualifiers: Fecal incontinence type: unspecified Qualified Code(s): R15.9 - Full incontinence of feces Plan Discontinue nasogastric tube Advance to full liquid diet Pyridostigmine bromide early in the morning Follow-up abdominal x-rays in the a.m. Time Spent With Patient Time: Total time spent is greater than 50% in coordination of care (as documented) at patient's floor/unit and/or counseling patient:
[2022-06-17] MEDS: morphine 2 MG/ML VIAL IV PRN (00:31)
[2022-06-17] MEDS: metroNIDAZOLE 500 MG/100 ML BAG IV SCH ×4 (05:20→23:18)
[2022-06-17] MEDS: METOCLOPRAMIDE 10 MG/2 ML VIAL IV SCH ×3 (05:20→17:06)
[2022-06-17 06:09] LABS: Basophils # (Auto) 0.05 K/mcL (0.00-0.30); Basophils % (Auto) 0.7 % (0.0-2.0); Eosinophils # (Auto) 0.32 K/mcL (0.00-0.70); Eosinophils % (Auto) 4.6 % (0.0-7.0); Hematocrit 32.6 % (40.1-51.0); Hemoglobin 10.7 g/dL (13.7-17.5); Lymphocytes % (Auto) 19.9 % (15.5-49.0); Mean Cell Volume 90.3 fL (80.0-100.0); Mean Corpuscular HGB Conc 32.8 g/dL (31.0-36.0); Mean Platelet Volume 9.3 fL (8.8-12.5); Monocytes # (Auto) 0.94 K/mcL (0.10-0.90); Monocytes % (Auto) 13.4 % (1.0-12.0); Neutrophils % (Auto) 61.3 % (38.0-78.0); Platelet Count 327 K/mcL (140-440); RBC 3.61 M/mcL (4.63-6.08); Red Cell Distribution Width 14.6 % (11.5-14.5)
[2022-06-17 07:10] LABS: ALT/SGPT 10 U/L (<40); AST/SGOT 12 U/L (<40); Albumin 2.7 gm/dL (3.2-5.2); Albumin/Globulin Ratio 0.9 (1.0-2.3); Alkaline Phosphatase 61 U/L (39-117); Bilirubin,Direct < 0.2 mg/dL (0-0.3); Bilirubin,Total 0.3 mg/dL (0.1-1.0); Blood Urea Nitrogen 17 mg/dL (8-23); Calcium 8.4 mg/dL (8.6-10.4); Carbon Dioxide 20 mmol/L (22-30); Chloride 114 mmol/L (96-108); Globulin 3.1 gm/dL (2.2-3.7); Glomerular Filtration Rate 67; Glucose 91 mg/dL (70-105); Lactate Dehydrogenase 134 U/L (135-225); Phosphorous 1.7 mg/dL (2.5-4.5); Triglycerides 46 mg/dL (<150); Uric Acid 8.7 mg/dL (2.5-8.0)
[2022-06-17] MEDS: INSULIN LISPRO 1 UNIT/0.01 ML UNIT SQ SCH ×5 (07:20→22:23)
[2022-06-17] MEDS ORDERED: POTASSIUM PHOSPHATE 40 MEQ in DEXTROSE 5% IN WATER 500 ML IV ONE ×2 (08:30→12:30)
[2022-06-17] MEDS: CIPROFLOXACIN 400 MG/200 ML BAG IV SCH ×2 (08:32→20:25)
[2022-06-17] MEDS: ARIPIPRAZOLE 5 MG TABLET PO SCH (08:45)
[2022-06-17] MEDS: ESCITALOPRAM 20 MG TABLET PO SCH (08:46)
[2022-06-17] MEDS: 0.9 % SODIUM CHLORIDE 1,000 ML IV SCH ×3 (09:42→23:19)
--- NOTE | 2022-06-17 12:37 | XRay Report ---
CLINICAL INFORMATION: Distal colonic obstruction COMPARISON: 06/16/2022 FINDINGS: Small and large bowel remain moderately dilated to the level of the known stricture in the mid sigmoid colon. No significant change from yesterday. NG tube is now out. No free air, or soft tissue mass. IMPRESSION: High-grade distal colonic obstruction pattern. No change from yesterday. NG tube now out. Interpreted and Authenticated by: Lauro Rodney 06/17/22
[2022-06-17] MEDS: PYRIDOSTIGMINE 60 MG TABLET PO SCH ×2 (15:00→20:25)
--- NOTE | 2022-06-17 17:39 | General Surgery Progress Note ---
SUBJECTIVE Subjective Patient information: Note initiated : 06/17/22 at 5:35 pm Service Date, if different from initiated Date: [] Patient: Fritz Esquivel 72 y/o M admitted on 06/15/22 for ABD DISTENTION. Chief Complaint: [] Principal diagnosis: Colonic pseudoobstruction Interval history: Patient initially seem to be improving however now his abdomen is more distended and is tighter. He does not complain of pain. He has not had significant bowel movement in the past 36 hours. Vital signs are stable. He is afebrile. White blood count 7, hemoglobin 10.7, hematocrit 32.6, potassium 3.9, BUN 17, creatinine 1.1, phosphorus 1.7, Constitutional Vitals: Vital Signs Temp Pulse Resp BP Pulse Ox O2 Del Method 98.0 F 63 16 111/62 96 Room Air 06/17/22 15:15 06/17/22 15:15 06/17/22 15:15 06/17/22 15:15 06/17/22 15:15 06/17/22 15:15 Period Temp Pulse Resp BP Sys/[place] Pulse Ox O2 Del Method O2 Flow Rate Last 24 Hr 97.8 F-98.3 F 56-64 13-16 103-137/58-71 96-97 Room Air-Room Air Intake and Output 06/17/22 06/17/22 06/17/22 03:59 11:59 19:59 Intake Total 700 1850 2008.0909 Output Total 600 700 Balance 700 1250 1309.0909 Intake & Output: Intake & Output 06/17/22 06/17/22 06/17/22 03:59 11:59 19:59 Intake Total 700 1850 2008.0909 Output Total 600 700 Balance 700 1250 1309.0909 Intake: IV 300 4738 844.0256 Sodium Chloride 0.9% 1,000 ml @ 1000 100 mls/hr IV .Q10H [facility] Rx#: [id number] Potassium Phosphate 40 Meq In 509.0909 Dextrose 5% in Water 500 ml @ 127.273 mls/hr IV ONCE ONE Rx#: [id number] Oral [id number] Output: Urine Catheter Amount 600 700 Other: Meal Lunch Percent of Meal Consumed 100% Feeding Ability Assist with Tray Set Up Urine Appearance Clear Clear Sediment Sediment Urine Color Yellow Dark Yellow Suprapubic Yellow Urine Odor Normal Strong Stool Size Smear Smear Smear Stool Color Brown Brown Brown # Bowel Movements 1 Respiratory Respiratory exam: Present normal respiratory exam and CTAB; Absent respiratory distress Cardiovascular Cardiovascular exam: Present normal rate and rhythm, RRR, +S1 and +S2 GI/Abdominal GI/Abdominal exam: Present soft, distended and hyperactive bowel sounds; Absent tenderness Extremities Exam Extremities exam: Present normal inspection, pedal edema and neurovascular intact Neurological Exam Neurological exam: Absent motor sensory deficit Psychiatric Psychiatric exam: Present anxious and flat affect A/P Assessment and plan (1) Primary chronic pseudo-obstruction of colon: Status: Acute (2) Acute dehydration: Status: Acute (3) Constipation: Status: Acute (4) Mentally challenged: Status: Chronic (5) Obstructive uropathy: Status: Chronic Plan Patient's clinical status has not improved He will be started on pyridostigmine every 6 hours Follow-up x-rays will be performed in the morning If not significantly improved we will schedule for subtotal colectomy with ileostomy Time Spent With Patient Time: Total time spent is greater than 50% in coordination of care (as documented) at patient's floor/unit and/or counseling patient:
[2022-06-18] MEDS: METOCLOPRAMIDE 10 MG/2 ML VIAL IV SCH ×4 (00:02→17:22)
[2022-06-18] MEDS: metroNIDAZOLE 500 MG/100 ML BAG IV SCH ×3 (05:26→17:22)
[2022-06-18] MEDS: 0.9 % SODIUM CHLORIDE 1,000 ML IV SCH ×2 (06:08→15:38)
[2022-06-18 06:55] LABS: ALT/SGPT 12 U/L (<40); AST/SGOT 13 U/L (<40); Albumin 2.8 gm/dL (3.2-5.2); Albumin/Globulin Ratio 0.8 (1.0-2.3); Alkaline Phosphatase 65 U/L (39-117); Bilirubin,Direct < 0.2 mg/dL (0-0.3); Bilirubin,Total 0.3 mg/dL (0.1-1.0); Blood Urea Nitrogen 8 mg/dL (8-23); Calcium 8.3 mg/dL (8.6-10.4); Carbon Dioxide 18 mmol/L (22-30); Chloride 111 mmol/L (96-108); Globulin 3.5 gm/dL (2.2-3.7); Glomerular Filtration Rate 75; Glucose 89 mg/dL (70-105); Lactate Dehydrogenase 196 U/L (135-225); Phosphorous 2.6 mg/dL (2.5-4.5); Triglycerides 65 mg/dL (<150); Uric Acid 7.2 mg/dL (2.5-8.0)
[2022-06-18] MEDS: INSULIN LISPRO 1 UNIT/0.01 ML UNIT SQ SCH ×4 (07:34→20:16)
[2022-06-18] MEDS ORDERED: POTASSIUM PHOSPHATE 40 MEQ in DEXTROSE 5% IN WATER 500 ML IV ONE ×2 (07:45→11:45)
--- NOTE | 2022-06-18 09:50 | XRay Report ---
CLINICAL INFORMATION: Distal colonic obstruction COMPARISON: 06/17/2022 FINDINGS: Small and large bowel are markedly dilated to the level of the known stricture in the mid sigmoid colon. The colon caliber as increased from yesterday's exam.No free air, or soft tissue mass. IMPRESSION: High-grade distal colonic obstruction pattern. Worsening from yesterday Interpreted and Authenticated by: Lauro Rodney 06/18/22
[2022-06-18] MEDS: CIPROFLOXACIN 400 MG/200 ML BAG IV SCH ×2 (10:00→21:30)
[2022-06-18] MEDS: ESCITALOPRAM 20 MG TABLET PO SCH (10:01)
[2022-06-18] MEDS: ARIPIPRAZOLE 5 MG TABLET PO SCH (10:01)
[2022-06-18] MEDS: PYRIDOSTIGMINE 60 MG TABLET PO SCH ×5 (10:01→20:15)
--- NOTE | 2022-06-18 11:30 | General Surgery Progress Note ---
SUBJECTIVE Subjective Patient information: Note initiated : 06/18/22 at 11:26 am Service Date, if different from initiated Date: [] Patient: Fritz Esquivel 72 y/o M admitted on 06/15/22 for ABD DISTENTION. Chief Complaint: [] Principal diagnosis: Colonic pseudoobstruction Interval history: Patient is clinically stable. He is beginning to respond to the oral PYRIDOSTIGMINE. He had a large bowel movement last night but the measured volume of 1000 cc. He also passes a lot of flatus. His abdomen is softer and less distended his x-rays or interpreted as being worse. He does not complain of any pain and he has no tenderness on exam. Plan will be to continue him on PYRIDOSTIGMINE and increase the dosage to 5 times daily. He has not had any change and heart rate or blood pressure at the present dose. Constitutional Vitals: Vital Signs Temp Pulse Resp BP Pulse Ox O2 Del Method 98.3 F 55 L 18 127/69 97 Room Air 06/18/22 11:18 06/18/22 11:18 06/18/22 04:00 06/18/22 11:18 06/18/22 11:18 06/18/22 11:18 Period Temp Pulse Resp BP Sys/[place] Pulse Ox O2 Del Method O2 Flow Rate Last 24 Hr 97.4 F-98.3 F 55-63 16-18 101-140/62-88 95-97 Room Air-Room Air Intake and Output 06/17/22 06/18/22 06/18/22 19:59 03:59 11:59 Intake Total 2618.1818 500 340 Output Total 700 1600 100 Balance -1099 240 Weight 196 lb 9.6 oz Intake & Output: Intake & Output 06/17/22 06/18/22 06/18/22 19:59 03:59 11:59 Intake Total 2618.1818 500 340 Output Total 700 1600 100 Balance -1100 240 Weight 196 lb 9.6 oz Intake: Nourishment/Supplement quantity 240 (ml) IV 1218.1818 300 100 Potassium Phosphate 40 Meq In 1018.1818 Dextrose 5% in Water 500 ml @ 127.273 mls/hr IV ONCE ONE Rx#: [id number] Oral 1400 200 0 Output: Urine Catheter Amount 700 600 100 Stool 1000 Other: Meal Lunch Percent of Meal Consumed 100% Feeding Ability Assist with Tray Set Up Nourishment/Supplement name Chicken broth Urine Appearance Clear Sediment Sediment Sediment Suprapubic Sediment Urine Color Dark Yellow Yellow Yellow Suprapubic Yellow Yellow Urine Odor Strong Stool Size Smear Large Stool Color Brown Brown Brown Stool Consistency Liquid Loose # Bowel Movements 2 # of times incontinent of 2 Bowels Respiratory Respiratory exam: Present normal respiratory exam and CTAB; Absent respiratory distress Cardiovascular Cardiovascular exam: Present normal rate and rhythm, RRR, +S1 and +S2 GI/Abdominal GI/Abdominal exam: Present soft, distended and hyperactive bowel sounds; Absent tenderness Extremities Exam Extremities exam: Present normal inspection, pedal edema and neurovascular intact Neurological Exam Neurological exam: Absent motor sensory deficit Psychiatric Psychiatric exam: Present anxious and flat affect A/P Assessment and plan (1) Primary chronic pseudo-obstruction of colon: Status: Acute (2) Diabetes: Status: Chronic (3) GERD (gastroesophageal reflux disease): Status: Chronic Plan PYRIDOSTIGMINE 60 mg 5 times daily Full liquid diet as tolerated with oral supplements Time Spent With Patient Time: Total time spent is greater than 50% in coordination of care (as documented) at patient's floor/unit and/or counseling patient:
[2022-06-19] MEDS: METOCLOPRAMIDE 10 MG/2 ML VIAL IV SCH ×5 (00:05→23:28)
[2022-06-19] MEDS: metroNIDAZOLE 500 MG/100 ML BAG IV SCH ×3 (00:05→11:22)
[2022-06-19] MEDS: 0.9 % SODIUM CHLORIDE 1,000 ML IV SCH ×3 (03:45→14:01)
[2022-06-19] MEDS: PYRIDOSTIGMINE 60 MG TABLET PO SCH ×5 (07:27→20:09)
[2022-06-19] MEDS: INSULIN LISPRO 1 UNIT/0.01 ML UNIT SQ SCH ×4 (07:39→20:09)
[2022-06-19 07:49] LABS: ALT/SGPT 11 U/L (<40); AST/SGOT 12 U/L (<40); Albumin 2.6 gm/dL (3.2-5.2); Albumin/Globulin Ratio 0.9 (1.0-2.3); Alkaline Phosphatase 59 U/L (39-117); Bilirubin,Direct < 0.2 mg/dL (0-0.3); Bilirubin,Total 0.2 mg/dL (0.1-1.0); Blood Urea Nitrogen 6 mg/dL (8-23); Calcium 7.9 mg/dL (8.6-10.4); Carbon Dioxide 15 mmol/L (22-30); Chloride 114 mmol/L (96-108); Glomerular Filtration Rate 75; Glucose 85 mg/dL (70-105); Lactate Dehydrogenase 182 U/L (135-225); Phosphorous 3.4 mg/dL (2.5-4.5); Triglycerides 58 mg/dL (<150); Uric Acid 6.3 mg/dL (2.5-8.0)
[2022-06-19] MEDS ORDERED: POTASSIUM CHLORIDE 20 MEQ TABLET PO ONE (07:58)
[2022-06-19] MEDS: ESCITALOPRAM 20 MG TABLET PO SCH (08:37)
[2022-06-19] MEDS: CIPROFLOXACIN 400 MG/200 ML BAG IV SCH (08:37)
[2022-06-19] MEDS: POTASSIUM CHLORIDE 40 MEQ in DEXTROSE 5% IN WATER 500 ML IV SCH ×2 (08:37→13:33)
[2022-06-19] MEDS: ARIPIPRAZOLE 5 MG TABLET PO SCH (08:37)
[2022-06-19] MEDS: morphine 2 MG/ML VIAL IV PRN (09:27)
--- NOTE | 2022-06-19 12:56 | General Surgery Progress Note ---
SUBJECTIVE Subjective Patient information: Note initiated : 06/19/22 at 12:53 pm Service Date, if different from initiated Date: [] Patient: Fritz Esquivel 72 y/o M admitted on 06/15/22 for ABD DISTENTION. Chief Complaint: [] Principal diagnosis: Colonic pseudoobstruction Interval history: Patient is doing well. He had 8 bowel movements for the past 24 hours some of which were very large. He does not have any abdominal pain. He denies nausea. He is passing copious flatus. He is tolerating full liquids with caloric supplements well. Constitutional Vitals: Vital Signs Temp Pulse Resp BP Pulse Ox O2 Del Method 98.1 F 60 17 92/74 99 Room Air 06/19/22 11:55 06/19/22 11:55 06/19/22 03:25 06/19/22 11:55 06/19/22 11:55 06/19/22 11:55 Period Temp Pulse Resp BP Sys/[place] Pulse Ox O2 Del Method O2 Flow Rate Last 24 Hr 97.2 F-98.2 F 57-64 16-18 92-127/61-98 95-99 Room Air-Room Air Intake and Output 06/19/22 06/19/22 06/19/22 03:59 11:59 19:59 Intake Total 2468.1818 840 300 Output Total 1000 560 Balance 1468.1818 280 300 Intake & Output: Intake & Output 06/19/22 06/19/22 06/19/22 03:59 11:59 19:59 Intake Total 2468.1818 840 300 Output Total 1000 560 Balance 1468.1818 280 300 Intake: Nourishment/Supplement quantity 340 (ml) IV 2418.1818 100 300 Sodium Chloride 0.9% 1,000 ml @ 1000 100 mls/hr IV .Q10H [facility] Rx#: [id number] Potassium Phosphate 40 Meq In 1018.1818 Dextrose 5% in Water 500 ml @ 127.273 mls/hr IV ONCE ONE Rx#: [id number] Oral 50 400 Output: Urine Catheter Amount 1000 Void Amount 560 Other: Meal Breakfast Percent of Meal Consumed 50% Feeding Ability Assist with Tray Set Up Nourishment/Supplement name Chicken broth Urine Appearance Clear Clear Urine Color Dark Yellow Yellow Dark Yellow Suprapubic Yellow Urine Odor Strong Normal Stool Size Large Small Stool Color Brown Brown Yellow Yellow Stool Consistency Loose Soft Loose # Bowel Movements 2 # of times incontinent of 1 1 Bowels Respiratory Respiratory exam: Present normal respiratory exam and CTAB; Absent respiratory distress Cardiovascular Cardiovascular exam: Present normal rate and rhythm, RRR, +S1 and +S2 GI/Abdominal GI/Abdominal exam: Present soft, distended and hyperactive bowel sounds; Absent guarding or tenderness Extremities Exam Extremities exam: Present normal inspection, pedal edema and neurovascular intact Neurological Exam Neurological exam: Absent motor sensory deficit Psychiatric Psychiatric exam: Present anxious and flat affect A/P Assessment and plan (1) Primary chronic pseudo-obstruction of colon: Status: Acute (2) Diabetes: Status: Chronic (3) GERD (gastroesophageal reflux disease): Status: Chronic Plan PYRIDOSTIGMINE 60 mg 5 times daily Full liquid diet as tolerated Abdominal x-rays in department tomorrow Time Spent With Patient Time: Total time spent is greater than 50% in coordination of care (as documented) at patient's floor/unit and/or counseling patient:
[2022-06-19] MEDS ORDERED: oxyCODONE/APAP 5/325MG TABLET PO PRN (16:51)
[2022-06-19] MEDS: 0.9 % SODIUM CHLORIDE 10 ML SYRINGE IV SCH (23:29)
[2022-06-20] MEDS: 0.9 % SODIUM CHLORIDE 10 ML SYRINGE IV SCH ×3 (05:15→20:11)
[2022-06-20] MEDS: METOCLOPRAMIDE 10 MG/2 ML VIAL IV SCH ×3 (05:15→17:11)
[2022-06-20 07:59] LABS: Basophils % (Auto) 1.1 % (0.0-2.0); Eosinophils # (Auto) 0.37 K/mcL (0.00-0.70); Eosinophils % (Auto) 4.1 % (0.0-7.0); Hematocrit 38.1 % (40.1-51.0); Hemoglobin 11.9 g/dL (13.7-17.5); Lymphocytes # (Auto) 1.23 K/mcL (1.50-4.80); Lymphocytes % (Auto) 13.6 % (15.5-49.0); Mean Cell Volume 92.9 fL (80.0-100.0); Mean Corpuscular HGB Conc 31.2 g/dL (31.0-36.0); Monocytes # (Auto) 0.83 K/mcL (0.10-0.90); Monocytes % (Auto) 9.2 % (1.0-12.0); Neutrophils % (Auto) 71.6 % (38.0-78.0); Platelet Count 355 K/mcL (140-440); WBC 9.1 K/mcL (4.5-11.0)
[2022-06-20 08:20] LABS: ALT/SGPT 11 U/L (<40); AST/SGOT 16 U/L (<40); Albumin 2.8 gm/dL (3.2-5.2); Albumin/Globulin Ratio 0.8 (1.0-2.3); Alkaline Phosphatase 63 U/L (39-117); Bilirubin,Direct < 0.2 mg/dL (0-0.3); Bilirubin,Total 0.2 mg/dL (0.1-1.0); Blood Urea Nitrogen 4 mg/dL (8-23); Calcium 8.4 mg/dL (8.6-10.4); Carbon Dioxide 13 mmol/L (22-30); Chloride 118 mmol/L (96-108); Globulin 3.3 gm/dL (2.2-3.7); Glomerular Filtration Rate 67; Glucose 85 mg/dL (70-105); Lactate Dehydrogenase 224 U/L (135-225); Phosphorous 2.2 mg/dL (2.5-4.5); Triglycerides 76 mg/dL (<150)
[2022-06-20] MEDS: ESCITALOPRAM 20 MG TABLET PO SCH (08:59)
[2022-06-20] MEDS: PYRIDOSTIGMINE 60 MG TABLET PO SCH ×5 (08:59→20:10)
[2022-06-20] MEDS: ARIPIPRAZOLE 5 MG TABLET PO SCH (08:59)
[2022-06-20] MEDS: 0.9 % SODIUM CHLORIDE 1,000 ML IV SCH ×2 (08:59→13:48)
[2022-06-20] MEDS: INSULIN LISPRO 1 UNIT/0.01 ML UNIT SQ SCH ×4 (08:59→20:10)
--- NOTE | 2022-06-20 10:20 | General Surgery Progress Note ---
SUBJECTIVE Subjective Patient information: Note initiated : 06/20/22 at 10:20 am Service Date, if different from initiated Date: [] Patient: Fritz Esquivel 72 y/o M admitted on 06/15/22 for ABD DISTENTION. Chief Complaint: [] Principal diagnosis: Colonic pseudoobstruction Interval history: Resting comfortably this morning. Continues to pass flatus, have bowel movements. No new complaints today. Constitutional Vitals: Vital Signs Temp Pulse Resp BP Pulse Ox O2 Del Method 97.2 F 59 L 15 119/64 95 Room Air 06/20/22 03:14 06/20/22 03:14 06/20/22 03:14 06/20/22 03:14 06/20/22 03:14 06/20/22 03:14 Period Temp Pulse Resp BP Sys/[place] Pulse Ox O2 Del Method O2 Flow Rate Last 24 Hr 97.2 F-98.2 F 56-66 15-17 92-126/64-74 95-99 Room Air-Room Air Intake and Output 06/19/22 06/20/22 06/20/22 19:59 03:59 11:59 Intake Total 3060 100 Output Total 1100 Balance 3060 -1000 Weight 192 lb 4.8 oz Intake & Output: Intake & Output 06/19/22 06/20/22 06/20/22 19:59 03:59 11:59 Intake Total 3060 100 Output Total 1100 Balance 3060 -1000 Weight 192 lb 4.8 oz Intake: IV 2340 Sodium Chloride 0.9% 1,000 ml @ 1000 100 mls/hr IV .Q10H [facility] Rx#: [id number] Potassium Chloride 40 Meq In 1040 Dextrose 5% in Water 500 ml @ 130 mls/hr IV Q4H [facility] Rx#: [id number] Oral 720 100 Output: Void Amount 1100 Other: Meal Dinner Percent of Meal Consumed 50% Feeding Ability Assist with Tray Set Up Urine Appearance Sediment Suprapubic Sediment Urine Color Dark Yellow Suprapubic Dark Yellow Urine Odor Strong Stool Size Large Moderate Stool Color Yellow Brown Yellow Stool Consistency Liquid Loose Loose # of times incontinent of 1 Bowels Respiratory Respiratory exam: Present normal respiratory exam and CTAB; Absent respiratory distress Cardiovascular Cardiovascular exam: Present normal rate and rhythm, RRR, +S1 and +S2 GI/Abdominal GI/Abdominal exam: Present soft, distended and hyperactive bowel sounds; Absent guarding or tenderness Extremities Exam Extremities exam: Present normal inspection, pedal edema and neurovascular intact Neurological Exam Neurological exam: Absent motor sensory deficit Psychiatric Psychiatric exam: Present anxious and flat affect A/P Assessment and plan (1) Primary chronic pseudo-obstruction of colon: Plan: Continues to pass flatus have bowel movements. No new changes today. Continue with diet as written. Status: Acute Time Spent With Patient Time: Total time spent is greater than 50% in coordination of care (as documented) at patient's floor/unit and/or counseling patient:
--- NOTE | 2022-06-20 13:02 | XRay Report ---
CLINICAL INFORMATION: Distal colonic obstruction COMPARISON: 06/17/2022 FINDINGS: Small and large bowel are markedly dilated to the level of the known stricture in the mid sigmoid colon. The colon caliber as increased from yesterday's exam.No free air, or soft tissue mass. IMPRESSION: High-grade distal colonic obstruction pattern. No change Interpreted and Authenticated by: Lauro Rodney 06/20/22
[2022-06-20] MEDS ORDERED: POTASSIUM PHOSPHATE 80 MEQ in DEXTROSE 5% IN WATER 500 ML IV ONE (23:16)
[2022-06-20] MEDS ORDERED: POTASSIUM CHLORIDE 80 MEQ in DEXTROSE 5% IN WATER 1,000 ML IV ONE (23:24)
[2022-06-20] MEDS ORDERED: POTASSIUM CHLORIDE 20 MEQ/10 ML VIAL IV ONE (23:31)
[2022-06-21] MEDS: METOCLOPRAMIDE 10 MG/2 ML VIAL IV SCH ×3 (00:19→11:31)
[2022-06-21] MEDS: 0.9 % SODIUM CHLORIDE 1,000 ML IV SCH (04:04)
[2022-06-21] MEDS: 0.9 % SODIUM CHLORIDE 10 ML SYRINGE IV SCH ×3 (05:27→20:13)
[2022-06-21] MEDS: INSULIN LISPRO 1 UNIT/0.01 ML UNIT SQ SCH ×4 (07:17→20:13)
[2022-06-21] MEDS: PYRIDOSTIGMINE 60 MG TABLET PO SCH ×5 (08:03→20:14)
[2022-06-21] MEDS: ESCITALOPRAM 20 MG TABLET PO SCH (08:03)
[2022-06-21] MEDS: ARIPIPRAZOLE 5 MG TABLET PO SCH (08:03)
[2022-06-21 12:48] LABS: ALT/SGPT 12 U/L (<40); AST/SGOT 19 U/L (<40); Albumin 2.8 gm/dL (3.2-5.2); Albumin/Globulin Ratio 0.8 (1.0-2.3); Alkaline Phosphatase 55 U/L (39-117); Bilirubin,Total 0.2 mg/dL (0.1-1.0); Blood Urea Nitrogen 4 mg/dL (8-23); Calcium 8.7 mg/dL (8.6-10.4); Carbon Dioxide 11 mmol/L (22-30); Chloride 115 mmol/L (96-108); Globulin 3.6 gm/dL (2.2-3.7); Glomerular Filtration Rate 67; Glucose 111 mg/dL (70-105)
--- NOTE | 2022-06-21 14:32 | General Surgery Progress Note ---
SUBJECTIVE Subjective Patient information: Note initiated : 06/21/22 at 2:23 pm Service Date, if different from initiated Date: [] Patient: Fritz Esquivel 72 y/o M admitted on 06/15/22 for ABD DISTENTION. Chief Complaint: [] Principal diagnosis: Colonic pseudoobstruction Interval history: Patient continues to do well. He has no complaints. He is having 5+ bowel movements per day. He denies abdominal pain no nausea. His abdomen is less distended and is soft. He does not have any tenderness. Constitutional Vitals: Vital Signs Temp Pulse Resp BP Pulse Ox O2 Del Method 97.8 F 54 L 18 105/61 97 Room Air 06/21/22 12:00 06/21/22 12:00 06/21/22 12:00 06/21/22 12:00 06/21/22 12:00 06/21/22 12:00 Period Temp Pulse Resp BP Sys/[place] Pulse Ox O2 Del Method O2 Flow Rate Last 24 Hr 97.3 F-98.6 F 54-77 16-20 95-119/57-67 93-97 Room Air-Room Air Intake and Output 06/21/22 06/21/22 06/21/22 03:59 11:59 19:59 Intake Total 1068.1818 240 Output Total 500 Balance 568.1818 240 Weight 186 lb 1.6 oz Intake & Output: Intake & Output 06/21/22 06/21/22 06/21/22 03:59 11:59 19:59 Intake Total 1068.1818 240 Output Total 500 Balance 568.1818 240 Weight 186 lb 1.6 oz Intake: IV 618.1818 Sodium Chloride 0.9% 1,000 ml @ 100 50 mls/hr IV .Q20H [facility] Rx#: [id number] Potassium Phosphate 80 Meq In 518.1818 Dextrose 5% in Water 500 ml @ 127.273 mls/hr IV ONCE ONE Rx#: [id number] Oral 450 240 Output: Urine Catheter Amount 500 Other: Meal Lunch Percent of Meal Consumed 25% Feeding Ability Assist with Tray Set Up Urine Appearance Clear Urine Color Dark Yellow Suprapubic Dark Yellow Urine Odor Strong Stool Size Moderate Large Stool Color Yellow Brown Yellow Stool Consistency Liquid Watery Loose Loose # of times incontinent of 1 Bowels Respiratory Respiratory exam: Present normal respiratory exam and CTAB; Absent respiratory distress Cardiovascular Cardiovascular exam: Present normal rate and rhythm, RRR, +S1 and +S2 GI/Abdominal GI/Abdominal exam: Present soft, distended and hyperactive bowel sounds; Absent guarding or tenderness Extremities Exam Extremities exam: Present normal inspection, pedal edema and neurovascular intact Neurological Exam Neurological exam: Absent motor sensory deficit Psychiatric Psychiatric exam: Present anxious and flat affect A/P Assessment and plan (1) Primary chronic pseudo-obstruction of colon: Status: Acute (2) Constipation: Status: Acute (3) Hypertension: Status: Chronic (4) 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
--- NOTE | 2022-06-21 14:34 | Discharge Summary ---
Discharge Provider Provider IMPORTANT FOLLOW-UP INFORMATION FOR PCP: Patient information: Note initiated : 06/21/22 at 2:32 pm Service Date, if different from initiated Date: [] Patient: Fritz Esquivel 72 y/o M admitted on 06/15/22 for ABD DISTENTION. Chief Complaint: [] Date of admission: 06/15/22 08:40 Discharge date: 06/21/22 Primary care physician: PCP No Admitting clinician: Felipe Em Attending physician on admission: Felipe Em Consults: 06/15/22 Consult to Physician [CONS] Stat Comment: Consulting Provider: Felipe Em Reason For Exam: Physician to Consult Attending physician on discharge: Felipe Em Discharging clinician: Felipe Em COURSE Hospital Course Hospital course: 72-year-old male admitted with a history massive distention lack of bowel movements. He was seen in the emergency room where he was noted to have Intestinal distention including stomach small bowel and colon down to his rectum. CT suggests that he had a stricture however he has had the same clinical picture since January 2020. He was admitted at that time and treated nonoperatively. In the interim he has had colonoscopy which did not reveal any abnormality of his distal rectosigmoid. This procedure was performed in July 2021. He has had any difficulty in the interim.. The patient was treated with nasogastric decompression and had a single contrast enema performed. There was a suggestion of a stricture however the patient emptied his colon without difficulty and had at least 7 bowel movements. He was started on regonol for 2 days and then started on pyridostigmine. On oral pyridostigmine he had up to 7 large bowel movements per day. Patient has not had any obstructive symptoms. He has no discomfort. He denies nausea vomiting. Nasogastric tube has been removed. He is now tolerating regular diet and is having 5-7 bowel movements per day. Patient does not need to have further diagnostic work-up and he is transferred to longterm facility for close follow-up. Discharge diagnosis: Chronic colonic pseudoobstruction Secondary discharge diagnosis: Hypokalemia Chronic constipation Diabetes mellitus Hypertension BPH with lower urinary tract symptoms Hypertension Chronic kidney disease Reason for admission: Possible colonic obstruction Procedures: None Pertinent studies/significant findings: Single contrast enema Complications: None Time Spent with Patient Time attestation: Total time spent providing and/or coordinating discharge services: Time spent: Less than 30 minutes Physical Examination Vital Signs Vital signs: Temp Pulse Resp BP Pulse Ox O2 Del Method 97.8 F 54 L 18 105/61 97 Room Air 06/21/22 12:00 06/21/22 12:00 06/21/22 12:00 06/21/22 12:00 06/21/22 12:00 06/21/22 12:00 General physical appearance General physical exam: well developed, well nourished and no distress Eyes Eye exam: PERRL and normal ocular movement ENT ENT exam: no congestion, decreased hearing and poor alf Head Head exam IM: Present atraumatic, normal inspection and normocephalic Neck Neck exam: no masses, no bruits, trachea midline, no lymphadenopathy and no venous distension Cardiovascular Cardiovascular exam IM: Present normal rate and rhythm, RRR, +S1 and +S2; Absent JVD Respiratory Respiratory exam: normal expansion, normal respiratory effort and clear to auscultation Abdomen Abdomen: Present soft, non tender and distended; Absent organomegaly or guarding Hernia: Absent none Genitourinary Genitourinary (Male): Present other (Suprapubic catheter with irritation) Rectum Rectum: Present normal sphincter tone and no hemorrhoids Integumentary Integumentary: Present no rash, no growths and no abnormal pigmentation Neurologic Neurologic: Present disoriented and confused Musculoskeletal Musculoskeletal: Present other (Unable to adequately evaluate) Psychiatric Psychiatric: Present oriented to person and speech is normal; Absent oriented to time, oriented to place or memory intact Discharge Plan Patient/Caregiver Discharge Instructions Activity: increase activity as tolerated Diet: Consistent Carbohydrate Prescriptions: New pyridostigmine bromide 60 mg tablet 120 mg PO TID MDD 6 Qty: 120 5RF polyethylene glycol 3350 [Miralax] 17 gram powder in packet 17 g PO BID Qty: 100 12RF Continued potassium chloride [Klor-Con M10] 10 mEq tablet,ER particles/crystals 10 meq PO QDAY Qty: 30 4RF dulaglutide 0.75 mg/0.5 mL pen injector 1.5 mg SUB-Q QWEEK tamsulosin 0.4 mg capsule 0.8 mg PO QDAY torsemide 20 mg tablet 40 mg PO BID cholecalciferol (vitamin D3) 4,000 unit tablet 4,000 unit PO QDAY Qty: 90 4RF acetaminophen 325 mg capsule 650 mg PO Q4H PRN (Reason: Pain) aspirin [Adult Aspirin Regimen] 81 mg tablet,delayed release (DR/EC) 81 mg PO QDAY bethanechol chloride 50 mg tablet 50 mg PO BID escitalopram oxalate [Lexapro] 5 mg tablet 20 mg PO QDAY loratadine 10 mg capsule 10 mg PO QDAY melatonin 3 mg capsule 3 mg PO HS PRN (Reason: Sleep) spironolactone 25 mg tablet 50 mg PO QDAY aripiprazole [Abilify] 5 mg tablet 5 mg PO QDAY insulin glargine [Lantus U-100 Insulin] 100 unit/mL solution 10 unit subcut DAILY cholecalciferol (vitamin D3) 50,000 unit 50,000 units subcut WEEKLY sennosides [Senna Lax] 8.6 mg Tablet 2 tab PO HS Qty: 60 0RF magnesium hydroxide [Milk of Magnesia] 400 mg/5 mL Suspension 400 mg PO QDAY PRN (Reason: Constipation) bisacodyl [Dulcolax (bisacodyl)] 10 mg Suppository 10 mg NH QDAY PRN (Reason: Constipation) Rx Instructions: Give after no BM for 5 days. Fleet Enema 19-7 gram/118 mL Enema 118 ml NH PRN PRN (Reason: Constipation) Rx Instructions: Give within 12 hours of suppository, if no BM and call MD for further instructions if no results within 6 hours bisacodyl [Dulcolax (bisacodyl)] 5 mg Tablet,Delayed Release (Dr/Ec) 10 mg PO PRN PRN (Reason: Constipation) Rx Instructions: Give for no BM in 4 days. olanzapine 5 mg Tablet,Disintegrating 5 mg PO PRN PRN (Reason: Agitation) Rx Instructions: PRN agitation ferrous sulfate 325 mg (65 mg iron) tablet 325 mg PO QDAY glipizide 10 mg tablet 15 mg PO QDAY Other Ambulatory Orders: OT Discharge Order (Routine) Location: None Selected Ordered By: Felipe Em Physical Therapy at Discharge - General (Routine) Location: None Selected Ordered By: Felipe Em Prescription drug monitoring program results: PDMP not reviewed Follow Up Plan Follow up with: Felipe Em MD [Physician] - (OFFICE APPOINTMENT IN 2 WEEKS) No,PCP [Primary Care Provider] - Patient Disposition: Xfer SNF Prognosis: Fair Rehab Potential: Fair I certify that the patient requires SNF services: Yes Overall status at discharge: patient is progressing back to baseline Discharge Orders: Discharge Order (Routine); Ordered 06/22/22 Ordered By: Felipe Em Pending Pending Pending: Resuscitation Status Resuscitate (Full Code) Diet Consistent Carbohydrate Diet Start TueJune 21 1425 Dextrose (Dextrose 50% 50 Ml Syringe) 0 ml IV UD PRN PRN Reason: Per Sliding Scale Last Admin: 06/16/22 07:33 Dose: 25 ml Documented By: ROJAS Diagnostic Test (Pha) (Accu-Chek 1 Each Strip) 1 each FS ACHS ALBINA Last Admin: 06/21/22 11:09 Dose: 1 each Documented By: Admin: 06/21/22 07:17 Dose: 1 each Documented By: Admin: 06/20/22 20:05 Dose: 1 each Documented By: Admin: 06/20/22 17:11 Dose: 1 each Documented By: Admin: 06/20/22 11:46 Dose: 1 each Documented By: Admin: 06/20/22 08:59 Dose: 1 each Documented By: Admin: 06/19/22 20:09 Dose: 1 each Documented By: Admin: 06/19/22 16:22 Dose: 1 each Documented By: Admin: 06/19/22 11:22 Dose: 1 each Documented By: Admin: 06/19/22 07:27 Dose: 1 each Documented By: Admin: 06/18/22 20:15 Dose: 1 each Documented By: Admin: 06/18/22 17:00 Dose: 1 each Documented By: Admin: 06/18/22 11:40 Dose: 1 each Documented By: Admin: 06/18/22 07:00 Dose: 1 each Documented By: Admin: 06/17/22 22:28 Dose: 1 each Documented By: Admin: 06/17/22 17:06 Dose: 1 each Documented By: Admin: 06/17/22 11:54 Dose: 1 each Documented By: Admin: 06/17/22 07:21 Dose: 1 each Documented By: Admin: 06/16/22 20:19 Dose: 1 each Documented By: Admin: 06/16/22 16:10 Dose: 1 each Documented By: Admin: 06/16/22 11:52 Dose: 1 each Documented By: Admin: 06/16/22 08:00 Dose: 1 each Documented By: Admin: 06/16/22 07:18 Dose: 1 each Documented By: Admin: 06/15/22 20:42 Dose: 1 each Documented By: Admin: 06/15/22 17:39 Dose: 1 each Documented By: Admin: 06/15/22 12:12 Dose: 1 each Documented By: LONI Escitalopram Oxalate (Escitalopram 20 Mg Tablet) 20 mg PO DAILY [facility] Last Admin: 06/21/22 08:03 Dose: 20 mg Documented By: Admin: 06/20/22 08:59 Dose: 20 mg Documented By: Admin: 06/19/22 08:37 Dose: 20 mg Documented By: Admin: 06/18/22 10:01 Dose: 20 mg Documented By: Admin: 06/17/22 08:46 Dose: 20 mg Documented By: Co-signed By: Insulin Human Lispro (Insulin Lispro 1 Unit/0.01 Ml Unit) 0 unit SQ [facility]; Protocol Last Admin: 06/21/22 11:11 Dose: Not Given Documented By: Admin: 06/21/22 07:17 Dose: Not Given Documented By: Admin: 06/20/22 20:10 Dose: 4 units Documented By: Admin: 06/20/22 17:12 Dose: Not Given Documented By: Admin: 06/20/22 11:47 Dose: Not Given Documented By: Admin: 06/20/22 08:59 Dose: Not Given Documented By: Admin: 06/19/22 20:09 Dose: Not Given Documented By: Admin: 06/19/22 17:11 Dose: 4 units Documented By: Admin: 06/19/22 12:00 Dose: 6 units Documented By: Admin: 06/19/22 07:39 Dose: Not Given Documented By: Admin: 06/18/22 20:16 Dose: Not Given Documented By: Admin: 06/18/22 17:22 Dose: 6 units Documented By: Admin: 06/18/22 13:24 Dose: Not Given Documented By: Admin: 06/18/22 07:34 Dose: Not Given Documented By: Admin: 06/17/22 22:23 Dose: Not Given Documented By: Admin: 06/17/22 17:06 Dose: 6 units Documented By: Admin: 06/17/22 11:44 Dose: 2 units Documented By: Co-signed By: Admin: 06/17/22 07:20 Dose: Not Given Documented By: Admin: 06/16/22 20:23 Dose: 4 units Documented By: Admin: 06/16/22 17:06 Dose: 4 units Documented By: Admin: 06/16/22 13:00 Dose: Not Given Documented By: Admin: 06/16/22 07:42 Dose: Not Given Documented By: Admin: 06/15/22 20:43 Dose: Not Given Documented By: Admin: 06/15/22 17:39 Dose: Not Given Documented By: Admin: 06/15/22 12:12 Dose: Not Given Documented By: LONI Morphine Sulfate (Morphine 2 Mg/Ml Vial) 2 mg IV Q4HP PRN; Protocol PRN Reason: Per Pain Protocol Last Admin: 06/19/22 09:27 Dose: 2 mg Documented By: Admin: 06/17/22 00:31 Dose: 2 mg Documented By: LEÓN Oxycodone/Acetaminophen (Oxycodone/Apap 5/325mg Tablet) 1 tab PO Q4HP PRN; Protocol PRN Reason: Per Pain Protocol Last Admin: 06/21/22 00:16 Dose: 1 tab Documented By: VILMA Pyridostigmine [place] (Pyridostigmine 60 Mg Tablet) 60 mg PO 5XD ALBINA Last Admin: 06/21/22 11:31 Dose: 60 mg Documented By: Admin: 06/21/22 08:03 Dose: 60 mg Documented By: Admin: 06/20/22 20:10 Dose: 60 mg Documented By: Admin: 06/20/22 17:12 Dose: 60 mg Documented By: Admin: 06/20/22 13:48 Dose: 60 mg Documented By: Admin: 06/20/22 11:46 Dose: 60 mg Documented By: Admin: 06/20/22 08:59 Dose: 60 mg Documented By: Admin: 06/19/22 20:09 Dose: 60 mg Documented By: Admin: 06/19/22 17:06 Dose: 60 mg Documented By: Admin: 06/19/22 13:36 Dose: 60 mg Documented By: Admin: 06/19/22 11:22 Dose: 60 mg Documented By: Admin: 06/19/22 07:27 Dose: 60 mg Documented By: Admin: 06/18/22 20:15 Dose: 60 mg Documented By: Admin: 06/18/22 17:22 Dose: 60 mg Documented By: Admin: 06/18/22 15:37 Dose: 60 mg Documented By: Admin: 06/18/22 11:40 Dose: 60 mg Documented By: ROJAS Sodium Chloride (0.9 % Sodium Chloride 10 Ml Syringe) 10 ml IV Q8 ALBINA Last Admin: 06/21/22 05:27 Dose: 10 ml Documented By: Admin: 06/20/22 20:11 Dose: 10 ml Documented By: Admin: 06/20/22 13:48 Dose: Not Given Documented By: Admin: 06/20/22 05:15 Dose: 10 ml Documented By: Admin: 06/19/22 23:29 Dose: 10 ml Documented By: AYANNA Shift Summary 06/21/22 02:41 Shift Summary by Damaris Goldsmith Pt AOx4 with some delay, this is pt's baseline. Incontinent of bowel multiple times through the night- loose, green, seedy. Calazime lotion applied to rectal and sacral area, vasiliy care performed, [place] care performed on SPC. Chem panel re sulted in K value of 3.2, 80 mEq K IV started per Dr. Em. Pt complained of 8/10 pain (per Rashid-Mendoza pain scale) in IV insertion site. No swelling, redness, or infiltration present during IV infusion or with pulsatile flush. Ice pack applied to left arm, 5mg Percocet PO given per PRN med order, pt still reporting no changes in pain level after 45 minutes- 50mg/5ml Lidocaine added to K IV fluids. Pt comfortable in bed, no complaints. Initialized on 06/21/22 02:41 - END OF NOTE
[2022-06-21] MEDS ORDERED: METOCLOPRAMIDE 10 MG TABLET PO SCH (17:00)
[2022-06-21] MEDS: POTASSIUM CHLORIDE 20 MEQ TABLET PO SCH (17:13)
[2022-06-22] MEDS: INSULIN LISPRO 1 UNIT/0.01 ML UNIT SQ SCH ×2 (07:09→11:26)
[2022-06-22] MEDS: 0.9 % SODIUM CHLORIDE 10 ML SYRINGE IV SCH ×2 (08:20→13:40)
[2022-06-22] MEDS: PYRIDOSTIGMINE 60 MG TABLET PO SCH ×3 (09:14→13:40)
[2022-06-22] MEDS: ESCITALOPRAM 20 MG TABLET PO SCH (09:14)
[2022-06-22] MEDS: ARIPIPRAZOLE 5 MG TABLET PO SCH (09:14)
[2022-06-22] MEDS: POTASSIUM CHLORIDE 20 MEQ TABLET PO SCH (09:14)
== END 2022-06-22 14:52 | DRG 392 ==
LOC: ED 02:07 → MEDSUR 08:40
PROVIDERS: ADMIT Family Medicine Adult Medicine; ATTEND Family Medicine Adult Medicine

== ENCOUNTER 2022-07-13 10:34 | Inpatient (IN) ==
[2022-07-13 11:25] LABS: POC Calcium, Ionized 1.21 (1.16-1.32); POC Potassium 5.1 (3.3-5.1)
--- NOTE | 2022-07-13 11:43 | XRay Report ---
INDICATION: weakness, recent pneumonia, diffuse rhonchi TECHNIQUE: AP portable semiupright chest x-ray COMPARISON: Previous examination dated 06/15/2022 FINDINGS: Lungs:Focal infiltrate at the right lung base. Appearance is consistent with pneumonia. This is a new finding since previous examination. Lungs are otherwise negative Heart, vascular:No significant cardiomegaly. Pulmonary vascularity is normal. No pulmonary edema or pulmonary congestion Mediastinum, destiny:No mediastinal widening. No hilar mass Pleura:No pleural fluid. No pleural-based mass or calcification Skeletal:Negative. IMPRESSION: Right basilar infiltrate consistent with pneumonia Interpreted and Authenticated by: Lauro Mary 07/13/22
[2022-07-13 11:51] LABS: Basophils # (Auto) 0.09 K/mcL (0.00-0.30); Basophils % (Auto) 0.8 % (0.0-2.0); Eosinophils # (Auto) 0.19 K/mcL (0.00-0.70); Eosinophils % (Auto) 1.6 % (0.0-7.0); Hematocrit 42.8 % (40.1-51.0); Hemoglobin 12.7 g/dL (13.7-17.5); Lymphocytes # (Auto) 1.17 K/mcL (1.50-4.80); Lymphocytes % (Auto) 9.9 % (15.5-49.0); Mean Corpuscular HGB Conc 29.7 g/dL (31.0-36.0); Mean Platelet Volume 9.6 fL (8.8-12.5); Monocytes # (Auto) 0.72 K/mcL (0.10-0.90); Monocytes % (Auto) 6.1 % (1.0-12.0); Neutrophils % (Auto) 80.8 % (38.0-78.0); Platelet Count 496 K/mcL (140-440); RBC 4.46 M/mcL (4.63-6.08); WBC 11.8 K/mcL (4.5-11.0)
[2022-07-13] MEDS ORDERED: AZITHROMYCIN 250 MG TABLET PO ONE (11:51)
[2022-07-13] MEDS ORDERED: cefTRIAXone 1 GM VIAL IV ONE (11:51)
[2022-07-13 12:12] LABS: ALT/SGPT 63 U/L (<40); AST/SGOT 30 U/L (<40); Albumin 2.9 gm/dL (3.2-5.2); Alkaline Phosphatase 176 U/L (39-117); Bilirubin,Direct < 0.2 mg/dL (0-0.3); Bilirubin,Total 0.3 mg/dL (0.1-1.0); Globulin 5.9 gm/dL (2.2-3.7)
--- NOTE | 2022-07-13 12:21 | Emergency Department Note ---
HPI General Chief complaint: Weakness Stated complaint: PNA Time Seen by Provider: 07/13/22 10:35 Source: patient and EMS Mode of arrival: EMS Limitations: no limitations History of Present Illness HPI Narrative: Narrative: This is a 72-year-old male with a history of cognitive deficit, GERD, hyperlipidemia, urinary retention with suprapubic catheter in place nonrheumatic or aortic valve stenosis gait difficulties, BPH obliquely, issac syndrome, diabetes on insulin, with diabetic chronic kidney disease, asthma, autistic disorder, noninfective gastroenteritis and colitis, ileus, generalized edema, constipation with recent treatment of pneumonia with azithromycin and Ceftin. The patient comes from [facility] with the concerns of increased lethargy per the staff. The patient here is alert and able answer all my questions and is able to follow commands. He denies feeling short of breath or having chest pain he reports he has been having some lower abdominal pain that he reports just started since he got to the emergency department. There is been no reported fevers at home. He has been having some more loose stools here in the emergency department. Related Data Home Medications Medication Instructions Recorded Confirmed dulaglutide 0.75 mg/0.5 mL 1.5 mg subcut QWEEK 09/06/19 07/13/22 subcutaneous pen injector tamsulosin 0.4 mg capsule 0.8 mg PO QDAY 09/11/19 07/13/22 acetaminophen 325 mg capsule 650 mg PO Q4H PRN Pain 10/29/19 07/13/22 aspirin 81 mg tablet,delayed 81 mg PO QDAY 10/29/19 07/13/22 release (Adult Aspirin Regimen) bethanechol chloride 50 mg tablet 50 mg PO BID 10/29/19 07/13/22 ferrous sulfate 325 mg (65 mg 325 mg PO QDAY 02/14/20 07/06/22 iron) tablet glipizide 10 mg tablet 15 mg PO QDAY 08/21/20 07/13/22 loratadine 10 mg capsule 10 mg PO QDAY 08/26/20 07/13/22 melatonin 3 mg capsule 3 mg PO HS PRN Sleep 08/26/20 07/13/22 aripiprazole 5 mg tablet (Abilify) 5 mg PO QDAY 12/22/21 07/13/22 cholecalciferol (vitamin D3) 50,000 units subcut WEEKLY 12/22/21 07/06/22 escitalopram oxalate 5 mg tablet 20 mg PO QDAY 12/22/21 07/13/22 (Lexapro) insulin glargine 100 unit/mL 10 unit subcut DAILY 12/22/21 07/13/22 subcutaneous solution (Lantus U-100 Insulin) spironolactone 25 mg tablet 50 mg PO QDAY 12/22/21 07/13/22 torsemide 20 mg tablet 40 mg PO BID 12/22/21 07/13/22 bisacodyl 10 mg rectal suppository 10 mg IA QDAY PRN Constipation 03/28/22 07/13/22 (Dulcolax (bisacodyl)) bisacodyl 5 mg tablet,delayed 10 mg PO PRN PRN Constipation 03/28/22 07/13/22 release (Dulcolax (bisacodyl)) magnesium hydroxide 400 mg/5 mL 400 mg PO QDAY PRN Constipation 03/28/22 07/06/22 oral suspension (Milk of Magnesia) sodium phosphates 19 gram-7 118 ml IA PRN PRN Constipation 03/28/22 07/13/22 gram/118 mL enema (Fleet Enema) olanzapine 5 mg disintegrating 5 mg PO PRN PRN Agitation 06/15/22 07/13/22 tablet Milk of Magnesia 1,200 mg PO DAILY PRN Constipation 07/13/22 07/13/22 cefuroxime axetil 500 mg tablet 500 mg PO BID 07/13/22 07/13/22 glucagon 1 mg injection kit 1 mg IM PRN PRN Hypoglycemia 07/13/22 07/13/22 ipratropium 0.5 mg-albuterol 3 mg 3 ml inhalation Q4HP PRN sob / 07/13/22 07/13/22 (2.5 mg base)/3 mL nebulization wheezing soln metoclopramide HCl 10 mg tablet 10 mg PO BID 07/13/22 07/13/22 (Reglan) Previous Rx's Medication Instructions Recorded cholecalciferol (vitamin D3) 100 4,000 unit PO QDAY #90 tabs 04/27/19 mcg (4,000 unit) tablet potassium chloride 10 mEq 10 meq PO QDAY #30 tabs 08/06/19 tablet,extended release(part/cryst) (Klor-Con M) sennosides 8.6 mg tablet (Senna 2 tab PO HS #60 tabs 02/07/20 Lax) polyethylene glycol 3350 17 gram 17 g PO BID CONSTIPATION #100 ea 06/22/22 oral powder packet (Miralax) pyridostigmine bromide 60 mg tablet 120 mg PO TID intestinal 06/22/22 pseudo-obstruction(olgovies syndrome) #120 tabs Allergies Allergy/AdvReac Type Severity Reaction Status Date / Time piperacillin [From Zosyn] Allergy Mild Rash Verified 07/06/22 09:35 tazobactam [From Zosyn] Allergy Mild Rash Verified 07/06/22 09:35 Sulfa (Sulfonamide Allergy Unknown Unknown Verified 07/06/22 09:35 Antibiotics) Review of Systems ROS ROS Narrative: Narrative: All systems ED: reviewed and negative except as stated. COUNTS INCLUDE 234 BEDS AT THE [facility] Narrative Patient History Narrative: Narrative: Medical/Surgical/Family History All Active Problems (Updated 07/13/22 @ 18:39 by Ja Gale PA-C) Pneumonia (Acute) Acute UTI (Acute) Primary chronic pseudo-obstruction of colon (Acute) Colitis (Acute) Leukocytosis (Acute) Acidosis, lactic (Acute) Colon obstruction (Acute) Acute dehydration (Acute) Constipation (Acute) Colitis (Acute) Shortness of breath (Chronic) Asthma (Chronic) Bronchitis (Chronic) Anxiety (Chronic) Arthritis (Chronic) Diabetes (Chronic) Mentally challenged (Chronic) Elevated liver enzymes (Chronic) Gout (Chronic) Hypertension (Chronic) Fatigue (Chronic) Knee pain (Chronic) Poor hygiene (Chronic) Urinary retention (Chronic) Morelos catheter in place (Chronic) Obstructive uropathy (Chronic) Hypoglycemia (Chronic) Leukocytosis (Chronic) Bilateral hydronephrosis (Chronic) Weakness (Chronic) Edema (Chronic) Benign prostatic hyperplasia (Chronic) GERD (gastroesophageal reflux disease) (Chronic) Status post insertion of Morelos catheter (Chronic) Bladder mass (Acute) 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) Vitamin D deficiency (Chronic) Secondary hyperparathyroidism of renal origin (Chronic) Localized edema due to fluid overload (Chronic) Balanitis (Acute) Cellulitis (Acute) Elevated serum creatinine (Acute) Hydronephrosis (Acute) Urethral erosion by catheter (Acute) Necrosis (Acute) Sepsis (Acute) Urinary tract infection associated with cystostomy catheter (Acute) Hypoxia (Acute) Status post excisional debridement (Acute) Ileus (Acute) Open wound of penis (Acute) Chronic kidney disease (CKD) stage G3a/A1, moderately decreased glomerular filtration rate (GFR) between 45-59 mL/min/1.73 square meter and albuminuria creatinine ratio less than 30 mg/g (Chronic) Anemia due to stage 3a chronic kidney disease (Chronic) Encounter for care or replacement of suprapubic tube (Chronic) Incontinence of feces (Acute) Medical History Anxiety Arthritis Asthma Benign prostatic hyperplasia Bilateral hydronephrosis Bronchitis Diabetes Edema Elevated liver enzymes Fatigue Morelos catheter in place GERD (gastroesophageal reflux disease) Gout Hypertension Hypoglycemia Knee pain Leukocytosis Mentally challenged Obstructive uropathy Poor hygiene Shortness of breath Urinary retention Weakness Surgical History History of colonoscopy Dr. Guevara History of surgery Dr. Wren 01/16/2020-Radical debridment of penis, cystoscopy, and sup rapubic catheter. Status post insertion of Morelos catheter Family History Mother Diabetes Father Heart disease Social History Smoking Status: Never smoker Alcohol Intake Frequency: does not drink Substance Use: does not use Exam Narrative Narrative: Narrative: General: Alert, in no acute distress Head: No trauma normocephalic. Cardiovascular: Regular rate and rhythm no murmur Respiratory: Mild Rales in right lower lobe, diffuse rhonchi, no respiratory distress upon my exam Abdomen pelvis: Abdomen is soft there is tenderness in left lower quadrant and suprapubic area. There is no guarding no rebound tenderness. Negative Diaz sign. No tenderness over McBurney's point. Back: Negative CVA tenderness bilaterally Neuro: Patient is alert and oriented x3 Psych: Normal affect, normal mood Skin: Warm, no rash, normal color General Limitations: no limitations Course Vital Signs Vital signs: Vital Signs Temperature 98.1 F 07/13/22 10:35 Pulse Rate 84 07/13/22 10:35 Respiratory Rate 19 07/13/22 10:35 Blood Pressure 135/89 07/13/22 10:35 Pulse Oximetry (%) 97 07/13/22 10:35 Oxygen Delivery Method Room Air 07/13/22 10:35 Temperature 98.1 F 07/13/22 10:35 Pulse Rate 100 H 07/13/22 17:34 Respiratory Rate 19 07/13/22 10:35 Blood Pressure 108/68 07/13/22 18:00 Pulse Oximetry (%) 97 07/13/22 17:34 Oxygen Delivery Method Room Air 07/13/22 15:47 Oxygen Flow Rate (L/min) 1 07/13/22 15:32 MDM MDM Narrative Medical decision making narrative: Narrative: Differential diagnosis: UTI, pneumonia, sepsis, diverticulitis Independent lab ordered and reviewed by me: CBC shows a leukocytosis at 11.8 stable H&H elevated absolute neutrophil count [id number] Chem-8 shows a creatinine of 2.0 BUN of 57 glucose of about 123 UA is nitrite positive and suggestive of urinary tract infection VBG lactic acid normal lactate Procalcitonin 0.13 Blood cultures x2 pending CT abdomen pelvis without contrast ruling out diverticulitis IMPRESSION: 1. Distended colon contains gas and stool. There is generalized colonic wall thickening. Colon has been decompressed since 06/15/2022 2. A well-defined discrete mass is not identified. Findings are probably secondary to Issac's syndrome 3. Suprapubic bladder catheter. Generalized lateral wall thickening. There is a round density adjacent to the left side of the bladder wall which is probably a bladder diverticulum 4. Right lower lobe consolidation and right middle lobe groundglass infiltrate consistent with pneumonia 5. Small left adrenal adenoma is unchanged 6. Subtle low-density lesions in the body of the pancreas are better seen on previous contrast-enhanced studies. No detectable interval change Chest x-ray shows a right lower lobe basilar infiltrate consistent with pneumonia Medications ordered: 1 g Rocephin, 500 mg azithromycin for pneumonia 500 cc of NS for mild tachycardia Pending ID consult for UTI: Disposition decision making Patient does not need to SIRS criteria and lactic acid is normal Blood cultures are pending Patient arrived here on room air but as he has been here his oxygen saturation has continued to deteriorate and his oxygen saturation went into the mid 80s which required us to put him on a 2 L nasal cannula. We are waiting for the urine to see if it was infected in the meantime I did order azithromycin and ceftriaxone IV for the pneumonia. I reviewed the patient's last urine culture that was done last month and it grew out Pseudomonas aeruginosa's E. coli and P stuartii. Stuartii was resistant to everything except it was intermediate to cefepime and Zosyn. The Pseudomonas and E. coli was sensitive to Zosyn. I called Dr. Johnson to see what he would recommend to see if we should wait for the current culture to grow out or treat this empirically with Zosyn and the patient does have an allergy to Zosyn and gets a rash but we could premedicate him with the Benadryl. Dr. Johnson rec ommended an infectious disease consult which I have initiated. CURB-65 Score for Pneumonia Severity from [email or web address] on 07/13/2022 All calculations should be rechecked by clinician prior to use RESULT SUMMARY: 2 points Moderate risk group: 6.8% 30-day mortality. Consider inpatient treatment or outpatient with close followup. INPUTS: Confusion > 0 = No BUN >19 mg/dL (>7 mmol/L urea) > 1 = Yes Respiratory Rate &ge;30 > 0 = No Systolic BP <90 mmHg or Diastolic BP &le;60 mmHg > 0 = No Age &ge;65 > 1 = Yes We titrated the patient down off the oxygen and he is maintaining oxygen saturation above 92%. The patient is at moderate risk for the curb 65. Due to the patient going to need IV antibiotics which is quite expensive the facility will not do them outpatient and so the patient will need to be admitted for the IV antibiotics for his multidrug-resistant urinary tract infection and pneumonia. I spoke with infectious disease Dr. Newberry her number is [phone] she recommended seeing if the bacteria were sensitive to amikacin. Which I did check and only the Pseudomonas was susceptible to. She then recommended Zerbaxa 1.5 g every 8 hours IV which would cover atypical lung and urine bacteria. If that is unavailable as she recommended Avycaz. Zerbaxa was available we are able to get it from [facility] in [facility] our pharmacy orders that which should be here on the . Dr. Newberry also wanted us to add doxycycline for good coverage on the pneumonia since the patient had failed outpatient treatment it appeared on Ceftin and azithromycin Dr. Newberry said that if the patient was admitted which the patient will be since they have to receive expensive IV antibiotics that cannot be given at the facility that she would consult on the patient tomorrow. I spoke with Dr. Alarcon who agreed to admit the patient for further evaluation and treatment of multidrug-resistant catheter associated urinary tract infection and pneumonia Lab Data 07/13/22 11:21 Labs: Lab Results 07/13/22 07/13/22 07/13/22 Range/Units 11:21 11:21 11:22 WBC 11.8 H (4.5-11.0) K/mcL RBC 4.46 L (4.63-6.08) M/mcL Hgb 12.7 L (13.7-17.5) g/dL Hct 42.8 (40.1-51.0) % POC Hct 44.0 (41-55) MCV 96.0 (80.0-100.0) fL MCH 28.5 (26.0-34.0) pg MCHC 29.7 L (31.0-36.0) g/dL RDW 14.0 (11.5-14.5) % Plt Count 496 H (140-440) K/mcL MPV 9.6 (8.8-12.5) fL Immature Gran % (Auto) 0.8 H (0.0-0.5) % Neut % (Auto) 80.8 H (38.0-78.0) % Lymph % (Auto) 9.9 L (15.5-49.0) % [place] % (Auto) 6.1 (1.0-12.0) % Eos % (Auto) 1.6 (0.0-7.0) % Baso % (Auto) 0.8 (0.0-2.0) % Lymph # (Auto) 1.17 L (1.50-4.80) K/mcL [place] # (Auto) 0.72 (0.10-0.90) K/mcL Eos # (Auto) 0.19 (0.00-0.70) K/mcL Baso # (Auto) 0.09 (0.00-0.30) K/mcL Immature Gran # 0.09 H (0.00-0.05) K/mcl Absolute Neutrophils 9.55 H (1.80-8.00) K/mcL POC VBG pH (7.32-7.42) POC VBG pCO2 at Temp (41-51) POC VBG pO2 (25-40) POC VBG HCO3 (24-28) POC VBG Total CO2 (25-29) POC Venous O2 Sat (40-70) POC VBG Base Excess (-2-2) VBG Lactic Acid (0.5-2) POC Sodium 138 (133-145) POC Potassium 5.1 (3.3-5.1) POC Chloride 100 (96-108) POC Total CO2 29.0 (22-30) POC Anion Gap 15.0 (8.0-16.0) POC BUN 57 H (6-20) POC Creatinine 2.0 H (0.6-1.2) POC Glucose 123 H (70-105) POC WB Ioniz Calcium 1.21 (1.16-1.32) Total Bilirubin 0.3 (0.1-1.0) mg/dL Direct Bilirubin < 0.2 (0-0.3) mg/dL AST 30 (<40) U/L ALT 63 H (<40) U/L Alkaline Phosphatase 176 H (39-117) U/L Total Protein 8.8 H (5.9-8.4) gm/dL Albumin 2.9 L (3.2-5.2) gm/dL Globulin 5.9 H (2.2-3.7) gm/dL Procalcitonin (<0.10) ng/mL Urine Color Urine Appearance (Clear) Urine pH (5.0-9.0) Ur Specific [place] (1.000-1.035) Urine Protein (Negative) mg/dL Urine Glucose (UA) (Negative) mg/dL Urine Ketones (Negative) mg/dL Urine Occult Blood (Negative) mg/dL Urine Nitrate (Negative) Urine Bilirubin (Negative) mg/dL Urine Urobilinogen mg/dL Ur Leukocyte Esterase (Negative) /uL Urine RBC (0-3) /hpf Urine WBC (0-4) /hpf Ur Squamous Epith Cells (0-4) /hpf Ur Transition Epith Cell (0-2) /hpf Urine Bacteria (0) /hpf Hyaline Casts (0-2) /lph Granular Casts (0-0) /lph Urine Mucus (None) /hpf Ur Culture Indicated? 06/06/23 06/06/23 06/06/23 Range/Units 12:01 13:00 13:01 WBC (4.5-11.0) K/mcL RBC (4.63-6.08) M/mcL Hgb (13.7-17.5) g/dL Hct (40.1-51.0) % POC Hct (41-55) MCV (80.0-100.0) fL MCH (26.0-34.0) pg MCHC (31.0-36.0) g/dL RDW (11.5-14.5) % Plt Count (140-440) K/mcL MPV (8.8-12.5) fL Immature Gran % (Auto) (0.0-0.5) % Neut % (Auto) (38.0-78.0) % Lymph % (Auto) (15.5-49.0) % [place] % (Auto) (1.0-12.0) % Eos % (Auto) (0.0-7.0) % Baso % (Auto) (0.0-2.0) % Lymph # (Auto) (1.50-4.80) K/mcL [place] # (Auto) (0.10-0.90) K/mcL Eos # (Auto) (0.00-0.70) K/mcL Baso # (Auto) (0.00-0.30) K/mcL Immature Gran # (0.00-0.05) K/mcl Absolute Neutrophils (1.80-8.00) K/mcL POC VBG pH 7.46 H (7.32-7.42) POC VBG pCO2 at Temp 47.7 (41-51) POC VBG pO2 44 H (25-40) POC VBG HCO3 33.8 H (24-28) POC VBG Total CO2 35.0 H (25-29) POC Venous O2 Sat 82.0 H (40-70) POC VBG Base Excess 10.0 H* (-2-2) VBG Lactic Acid 0.9 (0.5-2) POC Sodium (133-145) POC Potassium (3.3-5.1) POC Chloride (96-108) POC Total CO2 (22-30) POC Anion Gap (8.0-16.0) POC BUN (6-20) POC Creatinine (0.6-1.2) POC Glucose (70-105) POC WB Ioniz Calcium (1.16-1.32) Total Bilirubin (0.1-1.0) mg/dL Direct Bilirubin (0-0.3) mg/dL AST (<40) U/L ALT (<40) U/L Alkaline Phosphatase (39-117) U/L Total Protein (5.9-8.4) gm/dL Albumin (3.2-5.2) gm/dL Globulin (2.2-3.7) gm/dL Procalcitonin 0.13 H (<0.10) ng/mL Urine Color Yellow Urine Appearance Cloudy A (Clear) Urine pH 5.0 (5.0-9.0) Ur Specific [place] 1.011 (1.000-1.035) Urine Protein Negative (Negative) mg/dL Urine Glucose (UA) Negative (Negative) mg/dL Urine Ketones Negative (Negative) mg/dL Urine Occult Blood Negative (Negative) mg/dL Urine Nitrate Pos A (Negative) Urine Bilirubin Negative (Negative) mg/dL Urine Urobilinogen Negative mg/dL Ur Leukocyte Esterase 500 A (Negative) /uL Urine RBC 5 H (0-3) /hpf Urine WBC > 182 H (0-4) /hpf Ur Squamous Epith Cells 1 (0-4) /hpf Ur Transition Epith Cell < 1 (0-2) /hpf Urine Bacteria Mod A (0) /hpf Hyaline Casts 16 H (0-2) /lph Granular Casts 5 H (0-0) /lph Urine Mucus Few A (None) /hpf Ur Culture Indicated? yes Discharge Plan Patient/Caregiver Discharge Instructions Pt seen by [facility] DIRECT[facility]/PA only: Yes Clinical Impression: Pneumonia, Acute UTI (urinary tract infection) Patient Disposition: Xfer As Inpt ([facility]) Follow up with: No,PCP [Primary Care Provider] - Prescriptions: No Action potassium chloride [Klor-Con M10] 10 mEq tablet,ER particles/crystals 10 meq PO QDAY Qty: 30 4RF dulaglutide 0.75 mg/0.5 mL pen injector 1.5 mg SUB-Q QWEEK tamsulosin 0.4 mg capsule 0.8 mg PO QDAY torsemide 20 mg tablet 40 mg PO BID cholecalciferol (vitamin D3) 4,000 unit tablet 4,000 unit PO QDAY Qty: 90 4RF acetaminophen 325 mg capsule 650 mg PO Q4H PRN (Reason: Pain) aspirin [Adult Aspirin Regimen] 81 mg tablet,delayed release (DR/EC) 81 mg PO QDAY bethanechol chloride 50 mg tablet 50 mg PO BID escitalopram oxalate [Lexapro] 5 mg tablet 20 mg PO QDAY loratadine 10 mg capsule 10 mg PO QDAY melatonin 3 mg capsule 3 mg PO HS PRN (Reason: Sleep) spironolactone 25 mg tablet 50 mg PO QDAY aripiprazole [Abilify] 5 mg tablet 5 mg PO QDAY insulin glargine [Lantus U-100 Insulin] 100 unit/mL solution 10 unit subcut DAILY cholecalciferol (vitamin D3) 50,000 unit 50,000 units subcut WEEKLY sennosides [Senna Lax] 8.6 mg Tablet 2 tab PO HS Qty: 60 0RF magnesium hydroxide [Milk of Magnesia] 400 mg/5 mL Suspension 400 mg PO QDAY PRN (Reason: Constipation) bisacodyl [Dulcolax (bisacodyl)] 10 mg Suppository 10 mg IA QDAY PRN (Reason: Constipation) Rx Instructions: Give after no BM for 5 days. Fleet Enema 19-7 gram/118 mL Enema 118 ml IA PRN PRN (Reason: Constipation) Rx Instructions: Give within 12 hours of suppository, if no BM and call MD for further instructions if no results within 6 hours bisacodyl [Dulcolax (bisacodyl)] 5 mg Tablet,Delayed Release (Dr/Ec) 10 mg PO PRN PRN (Reason: Constipation) Rx Instructions: Give for no BM in 4 days. olanzapine 5 mg Tablet,Disintegrating 5 mg PO PRN PRN (Reason: Agitation) Rx Instructions: PRN agitation pyridostigmine bromide 60 mg tablet 120 mg PO TID MDD 6 Qty: 120 5RF polyethylene glycol 3350 [Miralax] 17 gram powder in packet 17 g PO BID Qty: 100 12RF Glucagon Emergency Kit 1 mg Kit 1 mg IM PRN PRN (Reason: Hypoglycemia) ipratropium-albuterol 0.5 mg-3 mg(2.5 mg base)/3 mL Solution For Nebulization 3 ml INHALATION Q4HP PRN (Reason: sob / wheezing) cefuroxime axetil 500 mg Tablet 500 mg PO BID metoclopramide HCl [Reglan] 10 mg Tablet 10 mg PO BID Milk of Magnesia 1,200 mg PO DAILY PRN (Reason: Constipation) ferrous sulfate 325 mg (65 mg iron) tablet 325 mg PO QDAY glipizide 10 mg tablet 15 mg PO QDAY
--- NOTE | 2022-07-13 13:28 | Cat Scan Report ---
INDICATION: LLQ/suprapubic pain, chronic suprapubic cath. COMPARISON: Previous CT scans dated 06/15/2022, 03/28/2022, 01/28/2020. Previous plain film examinations dated 07/06/2022, 06/20/2022 TECHNIQUE: Axial images were obtained through the abdomen and pelvis. Sagittally and coronally reformatted images. FINDINGS: Lung bases:Right lower lobe consolidation consistent with pneumonia. Groundglass infiltrates in the right middle lobe may be related to infection. These findings are new. Left lung base is negative Liver:Negative to the limits of noncontrast enhanced examination. Liver contour is smooth without evidence for cirrhosis Gallbladder, bilary:No calcified gallstones. No gallbladder wall thickening. No pericholecystic fluid. No dilated bile ducts Spleen:No splenomegaly Pancreas:Small low density lesions in the body of the pancreas appear stable. No new pancreatic abnormality. No pancreatic duct dilatation. No evidence for pancreatitis Adrenal glands:13 mm left adrenal nodule. This is unchanged. Right adrenal gland is negative Kidneys,ureters,bladder:Exophytic left renal cyst is stable. There is no hydronephrosis. No obstructing or nonobstructing renal calculi No hydroureter. No ureteral calculus. There is a suprapubic bladder catheter in place. There is marked bladder wall thickening. There is intravesical gas and fluid. There is a round density which is adjacent to the left side of the urinary bladder. This contains gas. This measures 2.2 x 3.0 cm. This is probably a bladder diverticulum Gastrointestinal:Colon is distended and there is a large amount of fecal material within the rectum and distal sigmoid colon. There is gas in the descending colon and transverse colon. Colonic distention is decreased since previous examinations consistent with improvement and decompression. There is generalized colonic wall thickening. No discrete colonic mass identified. Appearance is probably secondary to old obese syndrome. A well-defined mass at the level of the distal rectum or anus is not identified. There is small bowel fluid and mild dilatation. This appears improved Negative stomach and duodenum. No focal abnormality. Appendix: The appendix is negative Vascular:No abdominal aortic aneurysm Lymphatic:No retroperitoneal adenopathy. No significant mesenteric adenopathy. Mesentery, peritoneum:No free intraperitoneal fluid. No intra-abdominal abscess. No pneumoperitoneum Reproductive:Prostate is not significantly enlarged Musculoskeletal:No lumbar compression fractures. Very severe degenerative disc disease at L5-S1. There is grade 2 spondylolisthesis due to facet arthropathy. No lumbar compression fractures. Pelvis is negative. No anterior abdominal wall or inguinal hernia. IMPRESSION: 1. Distended colon contains gas and stool. There is generalized colonic wall thickening. Colon has been decompressed since 06/15/2022 2. A well-defined discrete mass is not identified. Findings are probably secondary to [place]'s syndrome 3. Suprapubic bladder catheter. Generalized lateral wall thickening. There is a round density adjacent to the left side of the bladder wall which is probably a bladder diverticulum 4. Right lower lobe consolidation and right middle lobe groundglass infiltrate consistent with pneumonia 5. Small left adrenal adenoma is unchanged 6. Subtle low-density lesions in the body of the pancreas are better seen on previous contrast-enhanced studies. No detectable interval change The exam was performed using radiation dose optimization techniques including, but not limited to, automated exposure control, adjustment of the mA and/or kV according to patient size and use of iterative reconstruction technique. Interpreted and Authenticated by: Lauro Mary 07/13/22
[2022-07-13] MEDS ORDERED: AZITHROMYCIN 500 MG in DEXTROSE 5% IN WATER 250 ML IV ONE (13:29)
[2022-07-13 13:54] LABS: Appearance,Urine CLOUDY (Clear); Bacteria,Urine MOD /hpf (0); Bilirubin,Urine Negative (Negative); Color,Urine YELLOW; Culture Indicated,Urine yes; Glucose,Urine (UA) Negative (Negative); Ketones,Urine Negative (Negative); Leukocyte Esterase,Urine 500 /uL (Negative); Mucus,Urine FEW /hpf; Nitrate,Urine POS (Negative); Protein,Urine Negative (Negative); Specific Gravity,Urine 1.011 (1.000-1.035); Urine Blood Negative (Negative); Urine Granular Cast 5 /lph (0-0); Urine Hyaline Cast 16 /lph (0-2); Urine RBC 5 /hpf (0-3); Urine Squamous Epithelial Cell 1 /hpf (0-4); Urine Transitional Epi Cells < 1 /hpf (0-2); Urine WBC > 182 /hpf (0-4); Urobilinogen,Urine Negative
--- NOTE | 2022-07-13 17:33 | Internal Med History&Physical ---
HPI History of Present Illness Patient information: Note initiated : 07/13/22 at 5:31 pm Service Date, if different from initiated Date: [] Patient: Fritz Esquivel 72 y/o M admitted on for PNA. 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 Patient is a limited historian, he was alert and able to answer most of the questions. He reported he had mild lower abdominal pain that just started when he arrived to the emergency department, he had some loose stool in ER. He denied feeling any worse, he reports he feels good for the most part. No chest pain, no palpitations, no shortness of breath. He denies any fever, chills, abdominal pain, suprapubic pain. On presentation blood pressure was stable, tachycardia with heart rate 103, respiratory rate not recorded. CBC shows a leukocytosis at 11.8, stable H&H,. Becku-qt-hqir Chem-8 shows K 5.1, creatinine of 2.0 BUN of 57 glucose of about 123. No lactic acidosis. Procalcitonin 0.13. UA positive for nitrate, leukocyte esterase, RBC, WBC and bacteria suggestive of urinary tract infection. CT scan abdomen and pelvis without contrast showed findings secondary to Issac's syndrome however colon is now decompressed. No hydronephrosis. Right lower lobe consolidation and middle lobe groundglass infiltrate consistent with pneumonia. Patient with history of resistant UTI. Admission was requested. Review of system. He reported he had mild lower abdominal pain that just started when he arrived to the emergency department, he had some loose stool in ER. He denied feeling any worse, he reports he feels good for the most part. No chest pain, no palpitations, no shortness of breath. He denies any fever, chills, abdominal pain, suprapubic pain. Physical examination General: Alert, in no acute distress Head: Non traumatic normocephalic. Cardiovascular: Regular rate and rhythm no murmur Respiratory: Mild Rales in right lower lobe, no respiratory distress or tachypnea Abdomen pelvis: Abdomen soft, nondistended, nontender Back: Negative CVA tenderness bilaterally Neuro: Patient is alert and oriented. No abnormal movements or shakes Psych: Normal affect, normal mood Skin: Warm, no rash, normal color Assessment and plan Urinary tract infection in the setting of suprapubic catheter. Patient with history of UTI with resistant organism. UA is positive for infection. ID consulted in ER. Dr. Newberry ph no [phone] recommended Zerbaxa 1.5 g every 8 hours IV which would cover atypical lung and urine bacteria. If that is unavailable as she recommended Avycaz and also doxycycline. Discussed with pharmacy they are arranging for this antibiotic. Follow final urine culture. Pneumonia. CT scan with right lower lobe consolidation and right middle lobe infiltrate. Patient has received antibiotics as outpatient. Per ID Avycaz should cover for urinary and lung infection. Acute hypoxemic respiratory failure. Secondary to above. Continue pulmonary toileting. Continue antibiotics Acute kidney injury on chronic kidney disease. Lpxef-dv-[id number] creatinine 2.0. Will hydrate and repeat BMP and electrolytes Dehydration. Likely prerenal. Will hydrate with IV fluids and monitor Chronic colonic pseudoobstruction. Colon is decompressed on CT. Continue with aggressive bowel regimen Diabetes mellitus 2. Continue home dose insulin. Insulin sliding scale. Monitor BG's. Obtain A1c Hypertension. Continue home medications Critical care time 50 minutes PFSH PFS All Active Problems (Updated 07/13/22 @ 18:39 by Ja Gale PA-C) Pneumonia (Acute) Acute UTI (Acute) Primary chronic pseudo-obstruction of colon (Acute) Colitis (Acute) Leukocytosis (Acute) Acidosis, lactic (Acute) Colon obstruction (Acute) Acute dehydration (Acute) Constipation (Acute) Colitis (Acute) Shortness of breath (Chronic) Asthma (Chronic) Bronchitis (Chronic) Anxiety (Chronic) Arthritis (Chronic) Diabetes (Chronic) Mentally challenged (Chronic) Elevated liver enzymes (Chronic) Gout (Chronic) Hypertension (Chronic) Fatigue (Chronic) Knee pain (Chronic) Poor hygiene (Chronic) Urinary retention (Chronic) Morelos catheter in place (Chronic) Obstructive uropathy (Chronic) Hypoglycemia (Chronic) Leukocytosis (Chronic) Bilateral hydronephrosis (Chronic) Weakness (Chronic) Edema (Chronic) Benign prostatic hyperplasia (Chronic) GERD (gastroesophageal reflux disease) (Chronic) Status post insertion of Morelos catheter (Chronic) Bladder mass (Acute) 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) Vitamin D deficiency (Chronic) Secondary hyperparathyroidism of renal origin (Chronic) Localized edema due to fluid overload (Chronic) Balanitis (Acute) Cellulitis (Acute) Elevated serum creatinine (Acute) Hydronephrosis (Acute) Urethral erosion by catheter (Acute) Necrosis (Acute) Sepsis (Acute) Urinary tract infection associated with cystostomy catheter (Acute) Hypoxia (Acute) Status post excisional debridement (Acute) Ileus (Acute) Open wound of penis (Acute) Chronic kidney disease (CKD) stage G3a/A1, moderately decreased glomerular filtration rate (GFR) between 45-59 mL/min/1.73 square meter and albuminuria creatinine ratio less than 30 mg/g (Chronic) Anemia due to stage 3a chronic kidney disease (Chronic) Encounter for care or replacement of suprapubic tube (Chronic) Incontinence of feces (Acute) Medical History Anxiety Arthritis Asthma Benign prostatic hyperplasia Bilateral hydronephrosis Bronchitis Diabetes Edema Elevated liver enzymes Fatigue Morelos catheter in place GERD (gastroesophageal reflux disease) Gout Hypertension Hypoglycemia Knee pain Leukocytosis Mentally challenged Obstructive uropathy Poor hygiene Shortness of breath Urinary retention Weakness Surgical History History of colonoscopy Dr. Guevara History of surgery Dr. Wren 01/16/2020-Radical debridment of penis, cystoscopy, and suprapubic catheter. Status post insertion of Moerlos catheter Family History Mother Diabetes Father Heart disease Social History caregiver/support person: Yes household members: alone marital status: single education level: high school smoking status: Never smoker alcohol intake frequency: does not drink substance use type: does not use MEDS/ALLERGIES Home Medications and Allergies Home Medications Medication Instructions Recorded Confirmed Type cholecalciferol (vitamin D3) 100 4,000 unit PO QDAY #90 tabs 04/27/19 07/13/22 Rx mcg (4,000 unit) tablet potassium chloride 10 mEq 10 meq PO QDAY #30 tabs 08/06/19 07/13/22 Rx tablet,extended release(part/cryst) (Klor-Con M) dulaglutide 0.75 mg/0.5 mL 1.5 mg subcut QWEEK 09/06/19 07/13/22 History subcutaneous pen injector tamsulosin 0.4 mg capsule 0.8 mg PO QDAY 09/11/19 07/13/22 History acetaminophen 325 mg capsule 650 mg PO Q4H PRN Pain 10/29/19 07/13/22 History aspirin 81 mg tablet,delayed 81 mg PO QDAY 10/29/19 07/13/22 History release (Adult Aspirin Regimen) bethanechol chloride 50 mg tablet 50 mg PO BID 10/29/19 07/13/22 History sennosides 8.6 mg tablet (Senna 2 tab PO HS #60 tabs 02/07/20 07/13/22 Rx Lax) ferrous sulfate 325 mg (65 mg 325 mg PO QDAY 02/14/20 07/06/22 History iron) tablet glipizide 10 mg tablet 15 mg PO QDAY 08/21/20 07/13/22 History loratadine 10 mg capsule 10 mg PO QDAY 08/26/20 07/13/22 History melatonin 3 mg capsule 3 mg PO HS PRN Sleep 08/26/20 07/13/22 History aripiprazole 5 mg tablet (Abilify) 5 mg PO QDAY 12/22/21 07/13/22 History cholecalciferol (vitamin D3) 50,000 units subcut WEEKLY 12/22/21 07/06/22 History escitalopram oxalate 5 mg tablet 20 mg PO QDAY 12/22/21 07/13/22 History (Lexapro) insulin glargine 100 unit/mL 10 unit subcut DAILY 12/22/21 07/13/22 History subcutaneous solution (Lantus U-100 Insulin) spironolactone 25 mg tablet 50 mg PO QDAY 12/22/21 07/13/22 History torsemide 20 mg tablet 40 mg PO BID 12/22/21 07/13/22 History bisacodyl 10 mg rectal suppository 10 mg OR QDAY PRN Constipation 03/28/22 07/13/22 History (Dulcolax (bisacodyl)) bisacodyl 5 mg tablet,delayed 10 mg PO PRN PRN Constipation 03/28/22 07/13/22 History release (Dulcolax (bisacodyl)) magnesium hydroxide 400 mg/5 mL 400 mg PO QDAY PRN Constipation 03/28/22 07/06/22 History oral suspension (Milk of Magnesia) sodium phosphates 19 gram-7 118 ml OR PRN PRN Constipation 03/28/22 07/13/22 History gram/118 mL enema (Fleet Enema) olanzapine 5 mg disintegrating 5 mg PO PRN PRN Agitation 06/15/22 07/13/22 History tablet polyethylene glycol 3350 17 gram 17 g PO BID CONSTIPATION #100 ea 06/22/22 07/13/22 Rx oral powder packet (Miralax) pyridostigmine bromide 60 mg tablet 120 mg PO TID intestinal 06/22/22 07/13/22 Rx pseudo-obstruction(olgovies syndrome) #120 tabs Milk of Magnesia 1,200 mg PO DAILY PRN Constipation 07/13/22 07/13/22 History cefuroxime axetil 500 mg tablet 500 mg PO BID 07/13/22 07/13/22 History glucagon 1 mg injection kit 1 mg IM PRN PRN Hypoglycemia 07/13/22 07/13/22 History ipratropium 0.5 mg-albuterol 3 mg 3 ml inhalation Q4HP PRN sob / 07/13/22 07/13/22 History (2.5 mg base)/3 mL nebulization wheezing soln metoclopramide HCl 10 mg tablet 10 mg PO BID 07/13/22 07/13/22 History (Reglan) Allergies Allergy/AdvReac Type Severity Reaction Status Date / Time piperacillin [From Zosyn] Allergy Mild Rash Verified 07/06/22 09:35 tazobactam [From Zosyn] Allergy Mild Rash Verified 07/06/22 09:35 Sulfa (Sulfonamide Allergy Unknown Unknown Verified 07/06/22 09:35 Antibiotics) EXAM Constitutional Vitals: Temp Pulse Resp BP Pulse Ox O2 Del Method O2 Flow Rate 98.1 F 101 H 19 88/52 93 Room Air 1 07/13/22 10:35 07/13/22 17:15 07/13/22 10:35 07/13/22 17:15 07/13/22 17:15 07/13/22 15:47 07/13/22 15:32 DATA Data Completed and Pending Labs: Labs from last 24 hours 07/13/22 07/13/22 07/13/22 13:01 13:00 12:01 WBC RBC Hgb Hct POC Hct MCV MCH MCHC RDW Plt Count MPV Immature Gran % (Auto) Neut % (Auto) Lymph % (Auto) [place] % (Auto) Eos % (Auto) Baso % (Auto) Lymph # (Auto) [place] # (Auto) Eos # (Auto) Baso # (Auto) Immature Gran # Absolute Neutrophils POC VBG pH 7.46 H POC VBG pCO2 at Temp 47.7 POC VBG pO2 44 H POC VBG HCO3 33.8 H POC VBG Total CO2 35.0 H POC Venous O2 Sat 82.0 H POC VBG Base Excess 10.0 H* VBG Lactic Acid 0.9 POC Sodium POC Potassium POC Chloride POC Total CO2 POC Anion Gap POC BUN POC Creatinine POC Glucose POC WB Ioniz Calcium Total Bilirubin Direct Bilirubin AST ALT Alkaline Phosphatase Total Protein Albumin Globulin Procalcitonin 0.13 H Urine Color Yellow Urine Appearance Cloudy A Urine pH 5.0 Ur Specific Mcgill 1.011 Urine Protein Negative Urine Glucose (UA) Negative Urine Ketones Negative Urine Occult Blood Negative Urine Nitrate Pos A Urine Bilirubin Negative Urine Urobilinogen Negative Ur Leukocyte Esterase 500 A Urine RBC 5 H Urine WBC > 182 H Ur Squamous Epith Cells 1 Ur Transition Epith Cell < 1 Urine Bacteria Mod A Hyaline Casts 16 H Granular Casts 5 H Urine Mucus Few A Ur Culture Indicated? yes 07/13/22 07/13/22 07/13/22 11:22 11:21 11:21 WBC 11.8 H RBC 4.46 L Hgb 12.7 L Hct 42.8 POC Hct 44.0 MCV 96.0 MCH 28.5 MCHC 29.7 L RDW 14.0 Plt Count 496 H MPV 9.6 Immature Gran % (Auto) 0.8 H Neut % (Auto) 80.8 H Lymph % (Auto) 9.9 L [place] % (Auto) 6.1 Eos % (Auto) 1.6 Baso % (Auto) 0.8 Lymph # (Auto) 1.17 L [place] # (Auto) 0.72 Eos # (Auto) 0.19 Baso # (Auto) 0.09 Immature Gran # 0.09 H Absolute Neutrophils 9.55 H POC VBG pH POC VBG pCO2 at Temp POC VBG pO2 POC VBG HCO3 POC VBG Total CO2 POC Venous O2 Sat POC VBG Base Excess VBG Lactic Acid POC Sodium 138 POC Potassium 5.1 POC Chloride 100 POC Total CO2 29.0 POC Anion Gap 15.0 POC BUN 57 H POC Creatinine 2.0 H POC Glucose 123 H POC WB Ioniz Calcium 1.21 Total Bilirubin 0.3 Direct Bilirubin < 0.2 AST 30 ALT 63 H Alkaline Phosphatase 176 H Total Protein 8.8 H Albumin 2.9 L Globulin 5.9 H Procalcitonin Urine Color Urine Appearance Urine pH Ur Specific Mcgill Urine Protein Urine Glucose (UA) Urine Ketones Urine Occult Blood Urine Nitrate Urine Bilirubin Urine Urobilinogen Ur Leukocyte Esterase Urine RBC Urine WBC Ur Squamous Epith Cells Ur Transition Epith Cell Urine Bacteria Hyaline Casts Granular Casts Urine Mucus Ur Culture Indicated? A/P Time Spent With Patient Time: Total time spent is greater than 50% in coordination of care (as documented) at patient's floor/unit and/or counseling patient:
[2022-07-13] MEDS ORDERED: [UNRECOGNIZED DRUG - OTHER] IV SCH (18:15)
[2022-07-13] MEDS: DOXYCYCLINE 100 MG in DEXTROSE 5% IN WATER 100 ML IV SCH (18:29)
[2022-07-13] MEDS: TAZOBACTAM IV SCH (19:50)
[2022-07-13] MEDS: SODIUM CHLORIDE 0.9% IV SCH (19:50)
[2022-07-13] MEDS: CEFTOLOZANE IV SCH (19:50)
[2022-07-13] MEDS ORDERED: 0.9 % SODIUM CHLORIDE 1,000 ML IV SCH (20:00)
[2022-07-13] MEDS ORDERED: ONDANSETRON 4 MG/2 ML VIAL IV PRN (20:39)
[2022-07-13] MEDS ORDERED: MAGNESIUM HYDROXIDE 30 ML ORAL.SUSP PO PRN (20:39)
[2022-07-13] MEDS ORDERED: BISACODYL 5 MG TABLET PO PRN (20:39)
[2022-07-13] MEDS ORDERED: IPRATROPIUM/ALBUTEROL 3 ML AMPUL.NEB NEB PRN (20:39)
[2022-07-13] MEDS ORDERED: CHOLECALCIFEROL 50000 UNIT SUB-Q SCH (20:39)
[2022-07-13] MEDS ORDERED: MILK OF MAGNESIA PO PRN (20:39)
[2022-07-13] MEDS ORDERED: DEXTROSE 31 GM ORAL.SUSP PO PRN (20:39)
[2022-07-13] MEDS ORDERED: DEXTROSE 50% 50 ML VIAL IV PRN (20:39)
[2022-07-13] MEDS ORDERED: BISACODYL 10 MG SUPP.RECT PR PRN (20:39)
[2022-07-13] MEDS ORDERED: FLEETS ADULT ENEMA PR PRN (20:39)
[2022-07-13] MEDS: 0.9 % SODIUM CHLORIDE 10 ML SYRINGE IV SCH (20:50)
[2022-07-13] MEDS ORDERED: SENNOSIDES 1 TABLET PO SCH (21:00)
[2022-07-13] MEDS ORDERED: MELATONIN 3 MG TABLET PO PRN (21:07)
[2022-07-13] MEDS ORDERED: OLANZapine 5 MG TABLET PO PRN (21:12)
[2022-07-13] MEDS: INSULIN LISPRO 1 UNIT/0.01 ML UNIT SQ SCH (22:04)
[2022-07-13] MEDS: PYRIDOSTIGMINE 60 MG TABLET PO SCH (22:05)
[2022-07-13] MEDS: POLYETHYLENE GLYCOL 3350 17 GM PACKET PO SCH (22:22)
[2022-07-13] MEDS: 0.9 % SODIUM CHLORIDE 1,000 ML IV SCH (22:22)
[2022-07-13] MEDS: SENNOSIDES 1 TABLET PO SCH (22:23)
[2022-07-13] MEDS: TORSEMIDE 10 MG TABLET PO SCH (22:23)
[2022-07-13] MEDS: METOCLOPRAMIDE 10 MG TABLET PO SCH (22:23)
[2022-07-13] MEDS: DOCUSATE SODIUM 100 MG CAPSULE PO SCH (22:23)
[2022-07-13 22:33] LABS: Estimated Average Glucose(eAG) 123 mg/dL; Hemoglobin A1C 5.9 % Hgb (4.0-6.0)
[2022-07-14] MEDS: SODIUM CHLORIDE 0.9% IV SCH ×3 (06:04→22:34)
[2022-07-14] MEDS: CEFTOLOZANE IV SCH ×3 (06:04→22:34)
[2022-07-14] MEDS: TAZOBACTAM IV SCH ×3 (06:04→22:34)
[2022-07-14] MEDS: 0.9 % SODIUM CHLORIDE 10 ML SYRINGE IV SCH ×3 (06:07→21:32)
[2022-07-14 06:54] LABS: Basophils % (Auto) 0.8 % (0.0-2.0); Eosinophils # (Auto) 0.18 K/mcL (0.00-0.70); Eosinophils % (Auto) 1.5 % (0.0-7.0); Hematocrit 37.6 % (40.1-51.0); Hemoglobin 11.6 g/dL (13.7-17.5); Lymphocytes # (Auto) 1.32 K/mcL (1.50-4.80); Lymphocytes % (Auto) 10.9 % (15.5-49.0); Mean Cell Volume 93.1 fL (80.0-100.0); Mean Corpuscular HGB Conc 30.9 g/dL (31.0-36.0); Mean Platelet Volume 9.4 fL (8.8-12.5); Monocytes # (Auto) 0.92 K/mcL (0.10-0.90); Monocytes % (Auto) 7.6 % (1.0-12.0); Neutrophils % (Auto) 78.8 % (38.0-78.0); Platelet Count 463 K/mcL (140-440); RBC 4.04 M/mcL (4.63-6.08); Red Cell Distribution Width 13.5 % (11.5-14.5); WBC 12.1 K/mcL (4.5-11.0)
[2022-07-14 07:32] LABS: ALT/SGPT 43 U/L (<40); AST/SGOT 23 U/L (<40); Albumin 2.8 gm/dL (3.2-5.2); Albumin/Globulin Ratio 0.5 (1.0-2.3); Alkaline Phosphatase 153 U/L (39-117); Bilirubin,Total 0.2 mg/dL (0.1-1.0); Blood Urea Nitrogen 52 mg/dL (8-23); Calcium 9.8 mg/dL (8.6-10.4); Carbon Dioxide 26 mmol/L (22-30); Chloride 96 mmol/L (96-108); Globulin 5.5 gm/dL (2.2-3.7); Glomerular Filtration Rate 46; Glucose 114 mg/dL (70-105)
--- NOTE | 2022-07-14 07:36 | Internal Med Progress Note ---
SUBJECTIVE Subjective Patient information: Note initiated : 07/14/22 at 7:33 am Service Date, if different from initiated Date: [] Patient: Fritz Esquivel 72 y/o M admitted on 07/13/22 for PNA. 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 Patient is a limited historian, he was alert and able to answer most of the questions. He reported he had mild lower abdominal pain that just started when he arrived to the emergency department, he had some loose stool in ER. He denied feeling any worse, he reports he feels good for the most part. No chest pain, no palpitations, no shortness of breath. He denies any fever, chills, abdominal pain, suprapubic pain. On presentation blood pressure was stable, tachycardia with heart rate 103, respiratory rate not recorded. CBC shows a leukocytosis at 11.8, stable H&H,. P [id number] Chem-8 shows K 5.1, creatinine of 2.0 BUN of 57 glucose of about 123. No lactic acidosis. Procalcitonin 0.13. UA positive for nitrate, leukocyte esterase, RBC, WBC and bacteria suggestive of urinary tract infection. CT scan abdomen and pelvis without contrast showed findings seconda ry to Shubert's syndrome however colon is now decompressed. No hydronephrosis. Right lower lobe consolidation and middle lobe groundglass infiltrate consistent with pneumonia. Patient with history of resistant UTI. Admission was requested. 07/14. Overnight tachycardia is slowly improving. WBC elevated at 12.1 up from 11.8 yesterday. Renal functions and electrolytes stable. Creatinine down to 1.5 from 2.0 yesterday. ALT and alk phos slightly improved. Urine culture is pending. He has a superficial wound in his sacral area, wound care nurse border dressing over the area. Review of system. Patient reports no fever or chills He denied any abdominal pain, nausea vomiting or diarrhea No chest pain, palpitations Denies dysuria or hematuria Physical examination General: Alert, in no acute distress Head: Non traumatic normocephalic. Cardiovascular: Regular rate and rhythm no murmur Respiratory: Mild Rales in right lower lobe, no respiratory distress or tachypnea Abdomen pelvis: Abdomen soft, nondistended, nontender Back: Negative CVA tenderness bilaterally : No suprapubic tenderness, suprapubic catheter site without any erythema Neuro: Patient is alert and oriented. No abnormal movements or shakes Psych: Normal affect, normal mood Skin: Warm, no rash, normal color Assessment and plan Urinary tract infection in the setting of suprapubic catheter. Patient with history of UTI with resistant organism. UA is positive for infection. ID consulted in ER. Dr. Newberry ph no [phone] recommended Zerbaxa 1.5 g every 8 hours IV which would cover atypical lung and urine bacteria, also recommended doxycycline. Follow final culture data. Discussed with warehouse selector, ID will follow Pneumonia. CT scan with right lower lobe consolidation and right middle lobe infiltrate. Patient has received antibiotics as outpatient. Per ID Zerbaxa should cover for urinary and lung infection. Acute hypoxemic respiratory failure. Secondary to above. Continue pulmonary toileting. Continue antibiotics Acute kidney injury on chronic kidney disease. Serum creatinine down to 1.5 from 2.0 Dehydration. Improved with IV fluids Chronic colonic pseudoobstruction. Colon is decompressed on CT. Continue with aggressive bowel regimen Diabetes mellitus 2. Continue home dose insulin. Insulin sliding scale. Monitor BG's. A1c 5.9. Hypertension. Continue home medications DVT prophylaxis in place Full code Total time taken 42 minutes Constitutional Vitals: Vital Signs Temp Pulse Resp BP Pulse Ox O2 Del Method O2 Flow Rate 98.2 F 96 H 16 108/64 93 Room Air 1 07/14/22 02:35 07/14/22 02:35 07/14/22 02:35 07/14/22 02:35 07/14/22 02:35 07/14/22 02:35 07/13/22 15:32 Period Temp Pulse Resp BP Sys/[place] Pulse Ox O2 Del Method O2 Flow Rate Last 24 Hr 98.1 F-98.5 F 84-105 14-19 88-135/52-103 85-100 Nasal Cannula- Room Air 1-2 Intake and Output 07/13/22 07/14/22 07/14/22 19:59 03:59 11:59 Intake Total 350 340 Output Total 950 Balance 350 -610 Weight 73.346 kg Intake & Output: Intake & Output 07/13/22 07/14/22 07/14/22 19:59 03:59 11:59 Intake Total 350 340 Output Total 950 Balance 350 -610 Weight 73.346 kg Intake: IV 350 100 Zithromax 500 mg In Dextrose 5% 250 in Water 250 ml @ 250 mls/hr IV ONCE ONE Rx#:[id number] Zerbaxa 1.5 gm In Sodium 100 Chloride 0.9% 100 ml @ 100 mls/ hr IV Q8H [facility] Rx#:[id number] Vibramycin 100 mg In Dextrose 5 100 % in Water 100 ml @ 100 mls/hr IV Q12H [facility] Rx#:[id number] Oral 240 Output: Urine Catheter Amount 950 Other: Urine Appearance Cloudy Suprapubic Clear Urine Color Yellow Suprapubic Dark Yellow OBJ DATA Labs 07/14/22 06:13 07/14/22 06:13 Labs: Abnormal Lab Results 07/14/22 07/14/22 07/13/22 06:13 06:13 13:01 WBC 12.1 H RBC 4.04 L Hgb 11.6 L Hct 37.6 L MCHC 30.9 L Plt Count 463 H Immature Gran % (Auto) Neut % (Auto) 78.8 H Lymph % (Auto) 10.9 L Lymph # (Auto) 1.32 L Tyrrell # (Auto) 0.92 H Immature Gran # Absolute Neutrophils 9.51 H POC VBG pH 7.46 H POC VBG pO2 44 H POC VBG HCO3 33.8 H POC VBG Total CO2 35.0 H POC Venous O2 Sat 82.0 H POC VBG Base Excess 10.0 H* POC BUN BUN 52 H Creatinine 1.5 H POC Creatinine Glucose 114 H POC Glucose ALT 43 H Alkaline Phosphatase 153 H Total Protein Albumin 2.8 L Globulin 5.5 H Albumin/Globulin Ratio 0.5 L Procalcitonin Urine Appearance Urine Nitrate Ur Leukocyte Esterase Urine RBC Urine WBC Urine Bacteria Hyaline Casts Granular Casts Urine Mucus 07/13/22 07/13/22 07/13/22 13:00 12:01 11:22 WBC RBC Hgb Hct MCHC Plt Count Immature Gran % (Auto) Neut % (Auto) Lymph % (Auto) Lymph # (Auto) Tyrrell # (Auto) Immature Gran # Absolute Neutrophils POC VBG pH POC VBG pO2 POC VBG HCO3 POC VBG Total CO2 POC Venous O2 Sat POC VBG Base Excess POC BUN 57 H BUN Creatinine POC Creatinine 2.0 H Glucose POC Glucose 123 H ALT Alkaline Phosphatase Total Protein Albumin Globulin Albumin/Globulin Ratio Procalcitonin 0.13 H Urine Appearance Cloudy A Urine Nitrate Pos A Ur Leukocyte Esterase 500 A Urine RBC 5 H Urine WBC > 182 H Urine Bacteria Mod A Hyaline Casts 16 H Granular Casts 5 H Urine Mucus Few A 07/13/22 07/13/22 11:21 11:21 WBC 11.8 H RBC 4.46 L Hgb 12.7 L Hct MCHC 29.7 L Plt Count 496 H Immature Gran % (Auto) 0.8 H Neut % (Auto) 80.8 H Lymph % (Auto) 9.9 L Lymph # (Auto) 1.17 L Tyrrell # (Auto) Immature Gran # 0.09 H Absolute Neutrophils 9.55 H POC VBG pH POC VBG pO2 POC VBG HCO3 POC VBG Total CO2 POC Venous O2 Sat POC VBG Base Excess POC BUN BUN Creatinine POC Creatinine Glucose POC Glucose ALT 63 H Alkaline Phosphatase 176 H Total Protein 8.8 H Albumin 2.9 L Globulin 5.9 H Albumin/Globulin Ratio Procalcitonin Urine Appearance Urine Nitrate Ur Leukocyte Esterase Urine RBC Urine WBC Urine Bacteria Hyaline Casts Granular Casts Urine Mucus Meds: Medications Acetaminophen (Acetaminophen 325 Mg Tablet) 650 mg PO Q4HP PRN PRN Reason: PAIN/FEVER > 101 Albuterol/Ipratropium (Ipratropium/Albuterol 3 Ml Ampul.Neb) 3 ml NEB Q4HP PRN PRN Reason: sob / wheezing Aspirin (Aspirin 81 Mg Tab.Chew) 81 mg PO DAILY [facility] Bethanechol Chloride (Bethanechol 25 Mg Tablet) 50 mg PO BID [facility] Bisacodyl (Bisacodyl 5 Mg Tablet) 10 mg PO DAILYP PRN PRN Reason: Constipation Bisacodyl (Bisacodyl 10 Mg Supp.Rect) 10 mg [place] QDAY PRN PRN Reason: Constipation Dextrose (Dextrose 50% 50 Ml Vial) 0 ml IV UD PRN PRN Reason: Per Sliding Scale Diagnostic Test (Pha) (Accu-Chek 1 Each Strip) 1 each FS ACHS [facility] Last Admin: 07/13/22 22:03 Dose: 1 each Docusate Sodium (Docusate Sodium 100 Mg Capsule) 100 mg PO BID [facility] Last Admin: 07/13/22 22:23 Dose: 100 mg Escitalopram Oxalate (Escitalopram 20 Mg Tablet) 20 mg PO DAILY [facility] Ferrous Sulfate (Ferrous Sulfate 325 Mg Tablet) 325 mg PO QDAY [facility] Glipizide (Glipizide 5 Mg Tablet) 15 mg PO QAMAC [facility] Glucose (Dextrose 31 Gm Oral.Susp) 15 gm PO PRN PRN PRN Reason: Hypoglycemia Doxycycline Hyclate 100 mg/ (Dextrose) 100 mls @ 100 mls/hr IV Q12H [facility]; Protocol Last Infusion: 07/13/22 19:49 Dose: Infused Sodium Chloride (Sodium Chloride 0.9%) 1,000 mls @ 50 mls/hr IV .Q20H [facility] Last Admin: 07/13/22 22:10 Dose: Not Given Sodium Chloride (Sodium Chloride 0.9%) 1,000 mls @ 75 mls/hr IV .[id number] [facility] Last Admin: 07/13/22 22:22 Dose: 75 mls/hr CEFTOLOZANE/TAZOBACTAM 1.5 gm/ (Sodium Chloride) 100 mls @ 100 mls/hr IV Q8H [facility] Last Admin: 07/14/22 06:04 Dose: 100 mls/hr Insulin Glargine (Insulin Glargine, Human 1 Unit/0.01 Ml) 10 unit SQ DAILY [facility] Insulin Human Lispro (Insulin Lispro 1 Unit/0.01 Ml Unit) 0 unit SQ [facility]; Protocol Last Admin: 07/13/22 22:04 Dose: Not Given Loratadine (Loratadine 10 Mg Tablet) 10 mg PO DAILY [facility] Magnesium Hydroxide (Magnesium Hydroxide 30 Ml Oral.Susp) 30 ml PO DAILYP PRN PRN Reason: Constipation Melatonin (Melatonin 3 Mg Tablet) 3 mg PO HSP PRN PRN Reason: Sleep Metoclopramide HCl (Metoclopramide 10 Mg Tablet) 10 mg PO BID [facility] Last Admin: 07/13/22 22:23 Dose: 10 mg Non-Formulary Medication (Cholecalciferol (Vitamin D3)) 50,000 units SUB-Q WEEKLY [facility] Non-Formulary Medication (Dulaglutide) 1.5 mg SUB-Q QWEEK [facility] Olanzapine (Olanzapine 5 Mg Tablet) 5 mg PO DAILYP PRN PRN Reason: Agitation Ondansetron HCl (Ondansetron 4 Mg/2 Ml Vial) 4 mg IV Q6HP PRN PRN Reason: Nausea And Vomiting Polyethylene Glycol (Polyethylene Glycol 3350 17 Gm Packet) 17 gm PO BID [facility] Last Admin: 07/13/22 22:22 Dose: 17 gm Potassium Chloride (Potassium Chloride 10 Meq Tablet) 10 meq PO QAC [facility] Pyridostigmine [place] (Pyridostigmine 60 Mg Tablet) 120 mg PO TID [facility] Last Admin: 07/13/22 22:05 Dose: Not Given Senna (Sennosides 1 Tablet) 2 tab PO HS [facility] Last Admin: 07/13/22 22:23 Dose: 2 tab Sodium Biphosphate/Sodium Phosphate (Fleets Adult Enema) 1 dose [place] DAILYP PRN PRN Reason: Constipation Sodium Chloride (0.9 % Sodium Chloride 10 Ml Syringe) 10 ml IV Q8 [facility] Last Admin: 07/14/22 06:07 Dose: Not Given Spironolactone (Spironolactone 25 Mg Tablet) 50 mg PO QDAY [facility] Tamsulosin HCl (Tamsulosin 0.4 Mg Capsule) 0.8 mg PO QDAY [facility] Torsemide (Torsemide 10 Mg Tablet) 40 mg PO BID [facility] Last Admin: 07/13/22 22:23 Dose: 40 mg Vitamin D (Vitamin D3 25 Mcg Tablet) 100 mcg PO DAILY [facility] A/P Time Spent With Patient Time: Total time spent is greater than 50% in coordination of care (as documented) at patient's floor/unit and/or counseling patient: QUALITY Stroke Symptom Onset Unknown: No VTE Deep Vein Thrombosis/Pulmonary Embolism Present on Admission: No
[2022-07-14] MEDS: INSULIN LISPRO 1 UNIT/0.01 ML UNIT SQ SCH ×4 (08:56→20:51)
[2022-07-14] MEDS ORDERED: BETHANECHOL 25 MG TABLET PO SCH (09:00)
[2022-07-14] MEDS: DOXYCYCLINE 100 MG in DEXTROSE 5% IN WATER 100 ML IV SCH ×2 (09:39→21:32)
[2022-07-14] MEDS: SPIRONOLACTONE 25 MG TABLET PO SCH (09:40)
[2022-07-14] MEDS: TAMSULOSIN 0.4 MG CAPSULE PO SCH (09:40)
[2022-07-14] MEDS: TORSEMIDE 10 MG TABLET PO SCH ×2 (09:40→21:10)
[2022-07-14] MEDS: VITAMIN D3 25 MCG TABLET PO SCH (09:40)
[2022-07-14] MEDS: ESCITALOPRAM 20 MG TABLET PO SCH (09:41)
[2022-07-14] MEDS: glipiZIDE 5 MG TABLET PO SCH (09:41)
[2022-07-14] MEDS: DOCUSATE SODIUM 100 MG CAPSULE PO SCH ×2 (09:42→21:10)
[2022-07-14] MEDS: LORATADINE 10 MG TABLET PO SCH (09:42)
[2022-07-14] MEDS: ARIPIPRAZOLE 5 MG TABLET PO SCH (09:42)
[2022-07-14] MEDS: FERROUS SULFATE 325 MG TABLET PO SCH (09:42)
[2022-07-14] MEDS: POLYETHYLENE GLYCOL 3350 17 GM PACKET PO SCH ×2 (09:42→21:11)
[2022-07-14] MEDS: ASPIRIN 81 MG TAB.CHEW PO SCH (09:42)
[2022-07-14] MEDS: METOCLOPRAMIDE 10 MG TABLET PO SCH ×2 (09:43→21:10)
[2022-07-14] MEDS: POTASSIUM CHLORIDE 10 MEQ TABLET PO SCH (11:59)
[2022-07-14] MEDS: PYRIDOSTIGMINE 60 MG TABLET PO SCH ×3 (11:59→21:09)
[2022-07-14] MEDS: INSULIN GLARGINE, HUMAN 1 UNIT/0.01 ML SQ SCH (11:59)
[2022-07-14] MEDS: 0.9 % SODIUM CHLORIDE 1,000 ML IV SCH ×2 (12:00→23:20)
[2022-07-14] MEDS: BETHANECHOL 10 MG TABLET PO SCH (21:09)
[2022-07-14] MEDS: SENNOSIDES 1 TABLET PO SCH (21:11)
[2022-07-15 05:50] LABS: Basophils # (Auto) 0.08 K/mcL (0.00-0.30); Basophils % (Auto) 0.6 % (0.0-2.0); Eosinophils # (Auto) 0.14 K/mcL (0.00-0.70); Eosinophils % (Auto) 1.1 % (0.0-7.0); Hematocrit 38.7 % (40.1-51.0); Hemoglobin 11.8 g/dL (13.7-17.5); Lymphocytes # (Auto) 1.31 K/mcL (1.50-4.80); Lymphocytes % (Auto) 10.5 % (15.5-49.0); Mean Cell Volume 93.5 fL (80.0-100.0); Mean Corpuscular HGB Conc 30.5 g/dL (31.0-36.0); Mean Platelet Volume 9.6 fL (8.8-12.5); Monocytes # (Auto) 0.88 K/mcL (0.10-0.90); Monocytes % (Auto) 7.1 % (1.0-12.0); Neutrophils % (Auto) 80.1 % (38.0-78.0); Platelet Count 457 K/mcL (140-440); RBC 4.14 M/mcL (4.63-6.08); Red Cell Distribution Width 13.7 % (11.5-14.5); WBC 12.4 K/mcL (4.5-11.0)
[2022-07-15] MEDS ORDERED: TAZOBACTAM IV SCH ×3 (06:00→22:00)
[2022-07-15] MEDS ORDERED: CEFTOLOZANE IV SCH ×3 (06:00→22:00)
[2022-07-15] MEDS ORDERED: SODIUM CHLORIDE 0.9% IV SCH ×3 (06:00→22:00)
[2022-07-15] MEDS: 0.9 % SODIUM CHLORIDE 10 ML SYRINGE IV SCH ×3 (06:01→20:41)
[2022-07-15] MEDS: 0.9 % SODIUM CHLORIDE 1,000 ML IV SCH ×3 (06:09→20:40)
[2022-07-15 06:12] LABS: ALT/SGPT 34 U/L (<40); AST/SGOT 21 U/L (<40); Albumin 2.6 gm/dL (3.2-5.2); Albumin/Globulin Ratio 0.4 (1.0-2.3); Alkaline Phosphatase 156 U/L (39-117); Bilirubin,Total 0.2 mg/dL (0.1-1.0); Blood Urea Nitrogen 52 mg/dL (8-23); Calcium 9.8 mg/dL (8.6-10.4); Carbon Dioxide 26 mmol/L (22-30); Chloride 98 mmol/L (96-108); Globulin 5.8 gm/dL (2.2-3.7); Glomerular Filtration Rate 40; Glucose 87 mg/dL (70-105)
[2022-07-15] MEDS: POTASSIUM CHLORIDE 10 MEQ TABLET PO SCH (07:05)
[2022-07-15] MEDS: glipiZIDE 5 MG TABLET PO SCH (07:05)
[2022-07-15] MEDS: INSULIN LISPRO 1 UNIT/0.01 ML UNIT SQ SCH ×4 (07:21→20:59)
[2022-07-15] MEDS: TORSEMIDE 10 MG TABLET PO SCH ×2 (08:55→20:45)
[2022-07-15] MEDS: DOCUSATE SODIUM 100 MG CAPSULE PO SCH ×2 (08:55→20:40)
[2022-07-15] MEDS: VITAMIN D3 25 MCG TABLET PO SCH (08:55)
[2022-07-15] MEDS: ASPIRIN 81 MG TAB.CHEW PO SCH (08:55)
[2022-07-15] MEDS: METOCLOPRAMIDE 10 MG TABLET PO SCH ×2 (08:56→20:46)
[2022-07-15] MEDS: FERROUS SULFATE 325 MG TABLET PO SCH (08:56)
[2022-07-15] MEDS: LORATADINE 10 MG TABLET PO SCH (08:56)
[2022-07-15] MEDS: ESCITALOPRAM 20 MG TABLET PO SCH (08:56)
[2022-07-15] MEDS: TAMSULOSIN 0.4 MG CAPSULE PO SCH (08:56)
[2022-07-15] MEDS: ARIPIPRAZOLE 5 MG TABLET PO SCH (08:56)
[2022-07-15] MEDS: SPIRONOLACTONE 25 MG TABLET PO SCH (08:56)
[2022-07-15] MEDS: BETHANECHOL 10 MG TABLET PO SCH ×2 (08:57→20:40)
[2022-07-15] MEDS: PYRIDOSTIGMINE 60 MG TABLET PO SCH ×3 (08:57→20:46)
[2022-07-15] MEDS: POLYETHYLENE GLYCOL 3350 17 GM PACKET PO SCH ×2 (09:02→20:46)
--- NOTE | 2022-07-15 09:50 | Infectious Disease Consult ---
Telemedicine Intake Start Time: 09:49 (AM PST ) Patient location: Med/Surg Unit [facility] Date of Consult Consult Date: 07/13/22 Requesting physician: Avi Alarcon Primary Care Provider: PCP No Consult Narrative Patient Information: This is a 72-year-old male with extensive past medical history mentioned below sent from [facility] on 07/13 after showing increased lethargy. As per chart, patient was being treated with Azithromycin + Ceftin in the facility for pneumonia. Of note, patient has suprapubic catheter due to urinary retention and has had hx of recurrent UTIs. Most recent UCx obtained on 06/15/22 +PsAr +E. coli +P. stuartii. Upon admission, pt was afebrile but tachycardic (103bpm), decreasing O2 sat (85%) requiring oxygen, bp 97/71mmHg. Initial wbc with mild leukocytosis (11.8k), UA+ cloudy, nitrite+, leuk est 500, wbc >182, bact moderate. CXR c/w right basilar infiltrate +pneumonia (new finding). CT a/p c/w RLL and RML ground glass infiltrate consistent with pneumonia. BCX and UCx still pending. Given prior hx of MDROs, pt was given 1 dose of aminoglycoside and started on Zerbaxa + Doxycycline for pneumonia while awaiting results. Reason for consult: Pneumonia / UTI cc:: CC: Avi Alarcon MD Constitutional Constitutional: Present fatigue (as per chart patient had increased lethargy) Respiratory Respiratory: Present cough (recalls "some shortness of breath" but denies phlegm production ) Gastrointestinal Additional comments: denies Genitourinary Genitourinary: as per HPI Musculoskeletal Additional comments: denies Integumentary Additional comments: denies Neurological Additional comments: denies PFSH PFSH All Active Problems (Updated 07/15/22 @ 11:23 by Gabrielle Newberry MD) Infection due to ESBL-producing Escherichia coli (Acute) Complicated UTI (urinary tract infection) (Acute) Multifocal pneumonia (Acute) Pneumonia (Acute) Acute UTI (Acute) Primary chronic pseudo-obstruction of colon (Acute) Colitis (Acute) Leukocytosis (Acute) Acidosis, lactic (Acute) Colon obstruction (Acute) Acute dehydration (Acute) Constipation (Acute) Colitis (Acute) Shortness of breath (Chronic) Asthma (Chronic) Bronchitis (Chronic) Anxiety (Chronic) Arthritis (Chronic) Diabetes (Chronic) Mentally challenged (Chronic) Elevated liver enzymes (Chronic) Gout (Chronic) Hypertension (Chronic) Fatigue (Chronic) Knee pain (Chronic) Poor hygiene (Chronic) Urinary retention (Chronic) Morelos catheter in place (Chronic) Obstructive uropathy (Chronic) Hypoglycemia (Chronic) Leukocytosis (Chronic) Bilateral hydronephrosis (Chronic) Weakness (Chronic) Edema (Chronic) Benign prostatic hyperplasia (Chronic) GERD (gastroesophageal reflux disease) (Chronic) Status post insertion of Morelos catheter (Chronic) Bladder mass (Acute) 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) Vitamin D deficiency (Chronic) Secondary hyperparathyroidism of renal origin (Chronic) Localized edema due to fluid overload (Chronic) Balanitis (Acute) Cellulitis (Acute) Elevated serum creatinine (Acute) Hydronephrosis (Acute) Urethral erosion by catheter (Acute) Necrosis (Acute) Sepsis (Acute) Urinary tract infection associated with cystostomy catheter (Acute) Hypoxia (Acute) Status post excisional debridement (Acute) Ileus (Acute) Open wound of penis (Acute) Chronic kidney disease (CKD) stage G3a/A1, moderately decreased glomerular filtration rate (GFR) between 45-59 mL/min/1.73 square meter and albuminuria creatinine ratio less than 30 mg/g (Chronic) Anemia due to stage 3a chronic kidney disease (Chronic) Encounter for care or replacement of suprapubic tube (Chronic) Incontinence of feces (Acute) Medical History Anxiety Arthritis Asthma Benign prostatic hyperplasia Bilateral hydronephrosis Bronchitis Diabetes Edema Elevated liver enzymes Fatigue Morelos catheter in place GERD (gastroesophageal reflux disease) Gout Hypertension Hypoglycemia Knee pain Leukocytosis Mentally challenged Obstructive uropathy Poor hygiene Shortness of breath Urinary retention Weakness Surgical History History of colonoscopy Dr. Guevara History of surgery Dr. Wren 01/16/2020-Radical debridment of penis, cystoscopy, and suprapubic catheter. Status post insertion of Morelos catheter Family History Mother Diabetes Father Heart disease Social History caregiver/support person: Yes household members: alone marital status: single education level: high school smoking status: Never smoker alcohol intake frequency: does not drink substance use type: does not use MEDS/ALLERGIES Home Medications and Allergies Home Medications Medication Instructions Recorded Confirmed Type cholecalciferol (vitamin D3) 100 4,000 unit PO QDAY #90 tabs 04/27/19 07/13/22 Rx mcg (4,000 unit) tablet potassium chloride 10 mEq 10 meq PO QDAY #30 tabs 08/06/19 07/13/22 Rx tablet,extended release(part/cryst) (Klor-Con M) dulaglutide 0.75 mg/0.5 mL 1.5 mg subcut QWEEK 09/06/19 07/13/22 History subcutaneous pen injector tamsulosin 0.4 mg capsule 0.8 mg PO QDAY 09/11/19 07/13/22 History acetaminophen 325 mg capsule 650 mg PO Q4H PRN Pain 10/29/19 07/13/22 History aspirin 81 mg tablet,delayed 81 mg PO QDAY 10/29/19 07/13/22 History release (Adult Aspirin Regimen) bethanechol chloride 50 mg tablet 50 mg PO BID 10/29/19 07/13/22 History sennosides 8.6 mg tablet (Senna 2 tab PO HS #60 tabs 02/07/20 07/13/22 Rx Lax) ferrous sulfate 325 mg (65 mg 325 mg PO QDAY 02/14/20 07/14/22 History iron) tablet glipizide 10 mg tablet 15 mg PO QDAY 08/21/20 07/13/22 History loratadine 10 mg capsule 10 mg PO QDAY 08/26/20 07/13/22 History melatonin 3 mg capsule 3 mg PO HS PRN Sleep 08/26/20 07/13/22 History aripiprazole 5 mg tablet (Abilify) 5 mg PO QDAY 12/22/21 07/13/22 History cholecalciferol (vitamin D3) 50,000 units subcut WEEKLY 12/22/21 07/14/22 History escitalopram oxalate 5 mg tablet 20 mg PO QDAY 12/22/21 07/13/22 History (Lexapro) insulin glargine 100 unit/mL 10 unit subcut DAILY 12/22/21 07/13/22 History subcutaneous solution (Lantus U-100 Insulin) spironolactone 25 mg tablet 50 mg PO QDAY 12/22/21 07/13/22 History torsemide 20 mg tablet 40 mg PO BID 12/22/21 07/13/22 History bisacodyl 10 mg rectal suppository 10 mg OR QDAY PRN Constipation 03/28/22 07/13/22 History (Dulcolax (bisacodyl)) bisacodyl 5 mg tablet,delayed 10 mg PO PRN PRN Constipation 03/28/22 07/13/22 History release (Dulcolax (bisacodyl)) magnesium hydroxide 400 mg/5 mL 400 mg PO QDAY PRN Constipation 03/28/22 History oral suspension (Milk of Magnesia) sodium phosphates 19 gram-7 118 ml OR PRN PRN Constipation 03/28/22 07/13/22 History gram/118 mL enema (Fleet Enema) olanzapine 5 mg disintegrating 5 mg PO PRN PRN Agitation 06/15/22 07/13/22 History tablet polyethylene glycol 3350 17 gram 17 g PO BID CONSTIPATION #100 ea 06/22/22 07/13/22 Rx oral powder packet (Miralax) pyridostigmine bromide 60 mg tablet 120 mg PO TID intestinal 06/22/22 07/13/22 Rx pseudo-obstruction(olgovies syndrome) #120 tabs Milk of Magnesia 1,200 mg PO DAILY PRN Constipation 07/13/22 07/13/22 History cefuroxime axetil 500 mg tablet 500 mg PO BID 07/13/22 07/13/22 History glucagon 1 mg injection kit 1 mg IM PRN PRN Hypoglycemia 07/13/22 07/13/22 History ipratropium 0.5 mg-albuterol 3 mg 3 ml inhalation Q4HP PRN sob / 07/13/22 07/13/22 History (2.5 mg base)/3 mL nebulization wheezing soln metoclopramide HCl 10 mg tablet 10 mg PO BID 07/13/22 07/13/22 History (Reglan) Allergies Allergy/AdvReac Type Severity Reaction Status Date / Time piperacillin [From Zosyn] Allergy Mild Rash Verified 07/06/22 09:35 tazobactam [From Zosyn] Allergy Mild Rash Verified 07/06/22 09:35 Sulfa (Sulfonamide Allergy Unknown Unknown Verified 07/06/22 09:35 Antibiotics) Physical Examination Vital Signs Vital signs: Temp Pulse Resp BP Pulse Ox O2 Del Method O2 Flow Rate 97.9 F 105 H 20 115/67 93 Room Air 1 07/15/22 07:51 07/15/22 07:51 07/15/22 04:00 07/15/22 07:51 07/15/22 07:51 07/15/22 07:51 07/13/22 15:32 Constitutional General appearance: alert and other (Physical exam performed via telemedicine with nurse's aide. Chronically ill, no distress, coughing+) EENT Eyes pulmonary: nonicteric ENT: other (edentulous ) Respiratory Effort: normal Extremities Extremities: no cyanosis Musculoskeletal Musculoskeletal: other (sitting by the chair ) Neurologic Neurological: other (alert, oriented in person and place only (states that we are in the year 1900)) Psychiatric Psychiatric: affect normal Results Laboratory Findings 07/15/22 05:16 07/15/22 05:16 Abnormal lab findings: Abnormal Labs 07/13/22 07/13/22 07/13/22 11:21 11:21 11:22 WBC 11.8 H RBC 4.46 L Hgb 12.7 L Hct MCHC 29.7 L Plt Count 496 H Immature Gran % (Auto) 0.8 H Neut % (Auto) 80.8 H Lymph % (Auto) 9.9 L Lymph # (Auto) 1.17 L [place] # (Auto) Immature Gran # 0.09 H Absolute Neutrophils 9.55 H POC VBG pH POC VBG pO2 POC VBG HCO3 POC VBG Total CO2 POC Venous O2 Sat POC VBG Base Excess POC BUN 57 H BUN Creatinine POC Creatinine 2.0 H Glucose POC Glucose 123 H ALT 63 H Alkaline Phosphatase 176 H Total Protein 8.8 H Albumin 2.9 L Globulin 5.9 H Albumin/Globulin Ratio Procalcitonin Urine Appearance Urine Nitrate Ur Leukocyte Esterase Urine RBC Urine WBC Urine Bacteria Hyaline Casts Granular Casts Urine Mucus 07/13/22 07/13/22 07/13/22 12:01 13:00 13:01 WBC RBC Hgb Hct MCHC Plt Count Immature Gran % (Auto) Neut % (Auto) Lymph % (Auto) Lymph # (Auto) [place] # (Auto) Immature Gran # Absolute Neutrophils POC VBG pH 7.46 H POC VBG pO2 44 H POC VBG HCO3 33.8 H POC VBG Total CO2 35.0 H POC Venous O2 Sat 82.0 H POC VBG Base Excess 10.0 H* POC BUN BUN Creatinine POC Creatinine Glucose POC Glucose ALT Alkaline Phosphatase Total Protein Albumin Globulin Albumin/Globulin Ratio Procalcitonin 0.13 H Urine Appearance Cloudy A Urine Nitrate Pos A Ur Leukocyte Esterase 500 A Urine RBC 5 H Urine WBC > 182 H Urine Bacteria Mod A Hyaline Casts 16 H Granular Casts 5 H Urine Mucus Few A 07/14/22 07/14/22 07/15/22 06:13 06:13 05:16 WBC 12.1 H 12.4 H RBC 4.04 L 4.14 L Hgb 11.6 L 11.8 L Hct 37.6 L 38.7 L MCHC 30.9 L 30.5 L Plt Count 463 H 457 H Immature Gran % (Auto) 0.6 H Neut % (Auto) 78.8 H 80.1 H Lymph % (Auto) 10.9 L 10.5 L Lymph # (Auto) 1.32 L 1.31 L [place] # (Auto) 0.92 H Immature Gran # 0.07 H Absolute Neutrophils 9.51 H 9.96 H POC VBG pH POC VBG pO2 POC VBG HCO3 POC VBG Total CO2 POC Venous O2 Sat POC VBG Base Excess POC BUN BUN 52 H Creatinine 1.5 H POC Creatinine Glucose 114 H POC Glucose ALT 43 H Alkaline Phosphatase 153 H Total Protein Albumin 2.8 L Globulin 5.5 H Albumin/Globulin Ratio 0.5 L Procalcitonin Urine Appearance Urine Nitrate Ur Leukocyte Esterase Urine RBC Urine WBC Urine Bacteria Hyaline Casts Granular Casts Urine Mucus 07/15/22 05:16 WBC RBC Hgb Hct MCHC Plt Count Immature Gran % (Auto) Neut % (Auto) Lymph % (Auto) Lymph # (Auto) [place] # (Auto) Immature Gran # Absolute Neutrophils POC VBG pH POC VBG pO2 POC VBG HCO3 POC VBG Total CO2 POC Venous O2 Sat POC VBG Base Excess POC BUN BUN 52 H Creatinine 1.7 H POC Creatinine Glucose POC Glucose ALT Alkaline Phosphatase 156 H Total Protein Albumin 2.6 L Globulin 5.8 H Albumin/Globulin Ratio 0.4 L Procalcitonin Urine Appearance Urine Nitrate Ur Leukocyte Esterase Urine RBC Urine WBC Urine Bacteria Hyaline Casts Granular Casts Urine Mucus Microbiology: Microbiology 07/13/22 13:10 Blood Blood Culture - Preliminary 07/13/22 13:00 Blood Blood Culture - Preliminary Diagnostic Findings Chest x-ray: report reviewed CT scan - chest: report reviewed A/P Assessment and plan (1) Multifocal pneumonia: Assessment and plan: This is a 72M pmhx many comorbidities including urinary retention (with suprapubic catheter) , recurrent UTIs, admitted on 07/13 after presenting from [facility] with increased lethargy. Upon admission, pt was ta chycardic with decreased O2 sat. On labs w/ mild leukocytosis, mild increased pct, UA+, CXR and CT a/p consistent with RLL + RML multifocal pneumonia. Plan: - obtain Strept pneumoniae urinary antigen - obtain legionella urinary antigen - obtain MRSA nasal swab - follow up blood culture results - ok to discontinue Zerbaxa at this moment - start Meropenem 1g IV q12hrs; if urinary antigens for legionella and strep pneumo are negative, and blood culture shows no growth, ok to switch to Ertapenem 1g IV daily upon discharge through midline. Patient will need a 10 day course treatment for multifocal pneumonia - complete 7 day course Doxycycline 100mg IV q12hrs; if patient tolerates PO, ok to switch to Doxycycline PO to complete course - keep aspiration precautions - will follow up for eventualities Status: Acute (2) Complicated UTI (urinary tract infection): Assessment and plan: UCX+ >100k E. coli #1 and 10k-20k E. coli #2; ESBL confirmed. I contacted the microlab, both E. coli strains are susceptible to Doripenem, Imipenem, Ertapenem, and Meropenem Plan: - practice contact precautions - keep suprapubic catheter clean and follow up outpatient with Urology Status: Acute (3) Infection due to ESBL-producing Escherichia coli: Status: Acute Time Spent With Patient Time: Total time spent is greater than 50% in coordination of care (as documented) at patient's floor/unit and/or counseling patient: Initial: Total time with patient: 40 - 54 minutes Attestation: Gabrielle Newberry MD #[phone]
[2022-07-15] MEDS: ACETAMINOPHEN 325 MG TABLET PO PRN ×2 (11:31→20:39)
[2022-07-15] MEDS: DOXYCYCLINE 100 MG in DEXTROSE 5% IN WATER 100 ML IV SCH (12:34)
[2022-07-15] MEDS: INSULIN GLARGINE, HUMAN 1 UNIT/0.01 ML SQ SCH (13:19)
--- NOTE | 2022-07-15 17:32 | Internal Med Progress Note ---
SUBJECTIVE Subjective Patient information: Note initiated : 07/15/22 at 5:22 pm Service Date, if different from initiated Date: [] Patient: Fritz Esquivel 72 y/o M admitted on 07/13/22 for PNA. Chief Complaint: [] Additional PMFSH (Level 3 Only): This is a 72-year-old male with a history of autistic disorder, cognitive deficits, recurrent UTIs resistant microbial infection, BPH with urinary retention status post suprapubic catheter, diabetes mellitus 2 on insulin, Issac's syndrome/colonic pseudoobstruction, constipation, hypertension, CKD stage III, , nonrheumatic aortic valve stenosis, asthma, GERD, hyperlipidemia, gait difficulties [facility] and receiving treatment for pneumonia with azithromycin and Ceftin is presented after staff got concerned regarding patient becoming lethargic. Patient is a limited historian, he was alert and able to answer most of the questions. He reported he had mild lower abdominal pain that just started when he arrived to the emergency department, he had some loose stool in ER. He denied feeling any worse, he reports he feels good for the most part. No chest pain, no palpitations, no shortness of breath. He denies any fever, chills, abdominal pain, suprapubic pain. On presentation blood pressure was stable, tachycardia with heart rate 103, respiratory rate not recorded. CBC shows a leukocytosis at 11.8, stable H&H,. [id number] Chem-8 shows K 5.1, creatinine of 2.0 BUN of 57 glucose of about 123. No lactic acidosis. Procalcitonin 0.13. UA positive for nitrate, leukocyte esterase, RBC, WBC and bacteria suggestive of urinary tract infecti on. 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 No hydronephrosis. Right lower lobe consolidation and middle lobe groundglass infiltrate consistent with pneumonia. Patient with history of resistant UTI. Admission was requested. 07/14. Overnight tachycardia is slowly improving. WBC elevated at 12.1 up from 11.8 yesterday. Renal functions and electrolytes stable. Creatinine down to 1.5 from 2.0 yesterday. ALT and alk phos slightly improved. Urine culture is pending. He has a superficial wound in his sacral area, wound care nurse border dressing over the area. 07/15. Feels better. Satting on room air, denies any shortness of breath. Wondering when he will be able to go home. CX+ >100k E. coli #1 and 10k-20k E. coli #2; ESBL confirmed. ID note reviewed Review of system. Patient reports no fever or chills He denied any abdominal pain, nausea vomiting or diarrhea No chest pain, palpitations Denies dysuria or hematuria Physical examination General: Alert, in no acute distress Head: Non traumatic normocephalic. Cardiovascular: Regular rate and rhythm no murmur Respiratory: Mild Rales in right lower lobe, no respiratory distress or tachypnea Abdomen pelvis: Abdomen soft, nondistended, nontender Back: Negative CVA tenderness bilaterally : No suprapubic tenderness, suprapubic catheter site without any erythema Neuro: Patient is alert and oriented. No abnormal movements or shakes Psych: Normal affect, normal mood Skin: Warm, no rash, normal color Assessment and plan Complicated urinary tract infection in the setting of suprapubic catheter. Patient with history of UTI with resistant organism. UCX+ >100k E. coli #1 and 10k-20k E. coli #2; ESBL confirmed. ID consult appreciated. both E. coli strains are susceptible to Doripenem, Imipenem, Ertapenem, and Meropenem. Discontinue Zerbaxa, start patient on meropenem 1 g every 12 hours per renal function. Obtain strep pneumoniae urinary antigen, Legionella urinary antigen, MRSA screen and if negative and blood cultures no growth okay to switch to ertapenem 1 g daily upon discharge through midline. Patient will need 10-day course treatment for multifocal pneumonia. Patient to complete 7 days course of doxycycline, will switch to doxycycline p.o. to complete course. ID consulted in ER. Dr. Newberry ph no [phone] scan with right lower lobe consolidation and right middle lobe infiltrate. Changed to meropenem 1 g twice daily renally dosed. Obtain strep pneumoniae urinary antigen, Legionella urinary antigen, MRSA screen and if negative and blood cultures no growth okay to switch to ertapenem 1 g daily upon discharge through midline. Patient will need 10-day course treatment for multifocal pneumonia. Patient to complete 7 days course of doxycycline, will switch to doxycycline p.o. to complete course. Acute hypoxemic respiratory failure. Secondary to above. Continue pulmonary toileting. Continue antibiotics Acute kidney injury on chronic kidney disease. Serum creatinine down to 1.5 from 2.0 Dehydration. Improved with IV fluids Chronic colonic pseudoobstruction. Colon is decompressed on CT. Continue with aggressive bowel regimen Diabetes mellitus 2. Continue home dose insulin. Insulin sliding scale. Monitor BG's. A1c 5.9. Hypertension. Continue home medications DVT prophylaxis in place Full code Total time taken 42 minutes Constitutional Vitals: Vital Signs Temp Pulse Resp BP Pulse Ox O2 Del Method O2 Flow Rate 97.7 F 88 20 119/76 95 Room Air 1 07/15/22 15:47 07/15/22 15:47 07/15/22 04:00 07/15/22 15:47 07/15/22 15:47 07/15/22 15:47 07/13/22 15:32 Period Temp Pulse Resp BP Sys/Anlgin Pulse Ox O2 Del Method O2 Flow Rate Last 24 Hr 97.5 F-98.5 F 88-105 18-20 103-121/67-77 92-96 Room Air-Room Air Intake and Output 07/15/22 07/15/22 07/15/22 03:59 11:59 19:59 Intake Total 200 1460 540 Output Total 700 1750 450 Balance -500 -290 90 Intake & Output: Intake & Output 07/15/22 07/15/22 07/15/22 03:59 11:59 19:59 Intake Total 200 1460 540 Output Total 700 1750 450 Balance -500 -290 90 Intake: IV 200 1100 200 Sodium Chloride 0.9% 1,000 ml @ 1000 75 mls/hr IV .[id number] [facility] Rx#: [id number] Zerbaxa 1.5 gm In Sodium 100 100 100 Chloride 0.9% 100 ml @ 100 mls/ hr IV Q8H [facility] Rx#:[id number] Vibramycin 100 mg In Dextrose 5 100 100 % in Water 100 ml @ 100 mls/hr IV Q12H [facility] Rx#:[id number] Oral 360 340 Output: Urine Catheter Amount 700 1750 450 Other: Meal Lunch Percent of Meal Consumed 25% Feeding Ability Assist with Tray Set Up Urine Appearance Clear Clear Clear Suprapubic Clear Urine Color Yellow Yellow Yellow Pale Suprapubic Pale Urine Odor Normal Normal Normal Stool Size Large Large Stool Color Brown Brown Stool Consistency Soft Liquid Loose Loose # of times incontinent of 2 1 Bowels OBJ DATA Labs 07/15/22 05:16 07/15/22 05:16 Labs: Abnormal Lab Results 07/15/22 07/15/22 07/14/22 05:16 05:16 06:13 WBC 12.4 H RBC 4.14 L Hgb 11.8 L Hct 38.7 L MCHC 30.5 L Plt Count 457 H Immature Gran % (Auto) 0.6 H Neut % (Auto) 80.1 H Lymph % (Auto) 10.5 L Lymph # (Auto) 1.31 L Valley # (Auto) Immature Gran # 0.07 H Absolute Neutrophils 9.96 H POC VBG pH POC VBG pO2 POC VBG HCO3 POC VBG Total CO2 POC Venous O2 Sat POC VBG Base Excess POC BUN BUN 52 H 52 H Creatinine 1.7 H 1.5 H POC Creatinine Glucose 114 H POC Glucose ALT 43 H Alkaline Phosphatase 156 H 153 H Total Protein Albumin 2.6 L 2.8 L Globulin 5.8 H 5.5 H Albumin/Globulin Ratio 0.4 L 0.5 L Procalcitonin Urine Appearance Urine Nitrate Ur Leukocyte Esterase Urine RBC Urine WBC Urine Bacteria Hyaline Casts Granular Casts Urine Mucus 07/14/22 07/13/22 07/13/22 06:13 13:01 13:00 WBC 12.1 H RBC 4.04 L Hgb 11.6 L Hct 37.6 L MCHC 30.9 L Plt Count 463 H Immature Gran % (Auto) Neut % (Auto) 78.8 H Lymph % (Auto) 10.9 L Lymph # (Auto) 1.32 L Valley # (Auto) 0.92 H Immature Gran # Absolute Neutrophils 9.51 H POC VBG pH 7.46 H POC VBG pO2 44 H POC VBG HCO3 33.8 H POC VBG Total CO2 35.0 H POC Venous O2 Sat 82.0 H POC VBG Base Excess 10.0 H* POC BUN BUN Creatinine POC Creatinine Glucose POC Glucose ALT Alkaline Phosphatase Total Protein Albumin Globulin Albumin/Globulin Ratio Procalcitonin 0.13 H Urine Appearance Urine Nitrate Ur Leukocyte Esterase Urine RBC Urine WBC Urine Bacteria Hyaline Casts Granular Casts Urine Mucus 07/13/22 07/13/22 07/13/22 12:01 11:22 11:21 WBC RBC Hgb Hct MCHC Plt Count Immature Gran % (Auto) Neut % (Auto) Lymph % (Auto) Lymph # (Auto) Valley # (Auto) Immature Gran # Absolute Neutrophils POC VBG pH POC VBG pO2 POC VBG HCO3 POC VBG Total CO2 POC Venous O2 Sat POC VBG Base Excess POC BUN 57 H BUN Creatinine POC Creatinine 2.0 H Glucose POC Glucose 123 H ALT 63 H Alkaline Phosphatase 176 H Total Protein 8.8 H Albumin 2.9 L Globulin 5.9 H Albumin/Globulin Ratio Procalcitonin Urine Appearance Cloudy A Urine Nitrate Pos A Ur Leukocyte Esterase 500 A Urine RBC 5 H Urine WBC > 182 H Urine Bacteria Mod A Hyaline Casts 16 H Granular Casts 5 H Urine Mucus Few A 07/13/22 11:21 WBC 11.8 H RBC 4.46 L Hgb 12.7 L Hct MCHC 29.7 L Plt Count 496 H Immature Gran % (Auto) 0.8 H Neut % (Auto) 80.8 H Lymph % (Auto) 9.9 L Lymph # (Auto) 1.17 L Valley # (Auto) Immature Gran # 0.09 H Absolute Neutrophils 9.55 H POC VBG pH POC VBG pO2 POC VBG HCO3 POC VBG Total CO2 POC Venous O2 Sat POC VBG Base Excess POC BUN BUN Creatinine POC Creatinine Glucose POC Glucose ALT Alkaline Phosphatase Total Protein Albumin Globulin Albumin/Globulin Ratio Procalcitonin Urine Appearance Urine Nitrate Ur Leukocyte Esterase Urine RBC Urine WBC Urine Bacteria Hyaline Casts Granular Casts Urine Mucus Meds: Medications Acetaminophen (Acetaminophen 325 Mg Tablet) 650 mg PO Q4HP PRN PRN Reason: PAIN/FEVER > 101 Last Admin: 07/15/22 11:31 Dose: 650 mg Albuterol/Ipratropium (Ipratropium/Albuterol 3 Ml Ampul.Neb) 3 ml NEB Q4HP PRN PRN Reason: sob / wheezing Aspirin (Aspirin 81 Mg Tab.Chew) 81 mg PO DAILY [facility] Last Admin: 07/15/22 08:55 Dose: 81 mg Bethanechol Chloride (Bethanechol 10 Mg Tablet) 50 mg PO BID [facility] Last Admin: 07/15/22 08:57 Dose: 50 mg Bisacodyl (Bisacodyl 5 Mg Tablet) 10 mg PO DAILYP PRN PRN Reason: Constipation Bisacodyl (Bisacodyl 10 Mg Supp.Rect) 10 mg IN QDAY PRN PRN Reason: Constipation Dextrose (Dextrose 50% 50 Ml Vial) 0 ml IV UD PRN PRN Reason: Per Sliding Scale Diagnostic Test (Pha) (Accu-Chek 1 Each Strip) 1 each FS ACHS [facility] Last Admin: 07/15/22 16:31 Dose: 1 each Docusate Sodium (Docusate Sodium 100 Mg Capsule) 100 mg PO BID [facility] Last Admin: 07/15/22 08:55 Dose: 100 mg Escitalopram Oxalate (Escitalopram 20 Mg Tablet) 20 mg PO DAILY [facility] Last Admin: 07/15/22 08:56 Dose: 20 mg Ferrous Sulfate (Ferrous Sulfate 325 Mg Tablet) 325 mg PO QDAY [facility] Last Admin: 07/15/22 08:56 Dose: 325 mg Glipizide (Glipizide 5 Mg Tablet) 15 mg PO QAMAC [facility] Last Admin: 07/15/22 07:05 Dose: 15 mg Glucose (Dextrose 31 Gm Oral.Susp) 15 gm PO PRN PRN PRN Reason: Hypoglycemia Doxycycline Hyclate 100 mg/ (Dextrose) 100 mls @ 100 mls/hr IV Q12H [facility]; Protocol Last Infusion: 07/15/22 13:47 Dose: Infused Sodium Chloride (Sodium Chloride 0.9%) 1,000 mls @ 75 mls/hr IV .[id number] [facility] Last Admin: 07/15/22 13:13 Dose: Not Given CEFTOLOZANE/TAZOBACTAM 0.75 gm (/ Sodium Chloride) 100 mls @ 100 mls/hr IV Q8H [facility] Insulin Glargine (Insulin Glargine, Human 1 Unit/0.01 Ml) 10 unit SQ DAILY [facility] Last Admin: 07/15/22 13:19 Dose: 10 units Insulin Human Lispro (Insulin Lispro 1 Unit/0.01 Ml Unit) 0 unit SQ [facility]; Protocol Last Admin: 07/15/22 16:31 Dose: Not Given Loratadine (Loratadine 10 Mg Tablet) 10 mg PO DAILY [facility] Last Admin: 07/15/22 08:56 Dose: 10 mg Magnesium Hydroxide (Magnesium Hydroxide 30 Ml Oral.Susp) 30 ml PO DAILYP PRN PRN Reason: Constipation Melatonin (Melatonin 3 Mg Tablet) 3 mg PO HSP PRN PRN Reason: Sleep Metoclopramide HCl (Metoclopramide 10 Mg Tablet) 10 mg PO BID [facility] Last Admin: 07/15/22 08:56 Dose: 10 mg Olanzapine (Olanzapine 5 Mg Tablet) 5 mg PO DAILYP PRN PRN Reason: Agitation Ondansetron HCl (Ondansetron 4 Mg/2 Ml Vial) 4 mg IV Q6HP PRN PRN Reason: Nausea And Vomiting Polyethylene Glycol (Polyethylene Glycol 3350 17 Gm Packet) 17 gm PO BID [facility] Last Admin: 07/15/22 09:02 Dose: Not Given Potassium Chloride (Potassium Chloride 10 Meq Tablet) 10 meq PO QAMCC [facility] Last Admin: 07/15/22 07:05 Dose: 10 meq Pyridostigmine Babcock (Pyridostigmine 60 Mg Tablet) 120 mg PO TID [facility] Last Admin: 07/15/22 16:31 Dose: 120 mg Senna (Sennosides 1 Tablet) 2 tab PO HS [facility] Last Admin: 07/14/22 21:11 Dose: 2 tab Sodium Biphosphate/Sodium Phosphate (Fleets Adult Enema) 1 dose IN DAILYP PRN PRN Reason: Constipation Sodium Chloride (0.9 % Sodium Chloride 10 Ml Syringe) 10 ml IV Q8 [facility] Last Admin: 07/15/22 14:39 Dose: Not Given Spironolactone (Spironolactone 25 Mg Tablet) 50 mg PO QDAY [facility] Last Admin: 07/15/22 08:56 Dose: 50 mg Tamsulosin HCl (Tamsulosin 0.4 Mg Capsule) 0.8 mg PO QDAY [facility] Last Admin: 07/15/22 08:56 Dose: 0.8 mg Torsemide (Torsemide 10 Mg Tablet) 40 mg PO BID [facility] Last Admin: 07/15/22 08:55 Dose: 40 mg Vitamin D (Vitamin D3 25 Mcg Tablet) 100 mcg PO DAILY [facility] Last Admin: 07/15/22 08:55 Dose: 100 mcg A/P Time Spent With Patient Time: Total time spent is greater than 50% in coordination of care (as documented) at patient's floor/unit and/or counseling patient: QUALITY Stroke Symptom Onset Unknown: No VTE Deep Vein Thrombosis/Pulmonary Embolism Present on Admission: No
[2022-07-15] MEDS: DOXYCYCLINE HYCLATE 100 MG TABLET.ORL PO SCH (20:39)
[2022-07-15] MEDS: TAZOBACTAM IV SCH (20:41)
[2022-07-15] MEDS: CEFTOLOZANE IV SCH (20:41)
[2022-07-15] MEDS: SODIUM CHLORIDE 0.9% IV SCH (20:41)
[2022-07-15] MEDS: SENNOSIDES 1 TABLET PO SCH (20:47)
[2022-07-16] MEDS: 0.9 % SODIUM CHLORIDE 1,000 ML IV SCH (00:35)
[2022-07-16] MEDS: 0.9 % SODIUM CHLORIDE 10 ML SYRINGE IV SCH ×2 (05:10→12:08)
[2022-07-16] MEDS: SODIUM CHLORIDE 0.9% IV SCH (05:10)
[2022-07-16] MEDS: CEFTOLOZANE IV SCH (05:10)
[2022-07-16] MEDS: TAZOBACTAM IV SCH (05:10)
[2022-07-16 06:21] LABS: Basophils % (Auto) 0.9 % (0.0-2.0); Eosinophils # (Auto) 0.24 K/mcL (0.00-0.70); Eosinophils % (Auto) 2.1 % (0.0-7.0); Hemoglobin 11.2 g/dL (13.7-17.5); Lymphocytes # (Auto) 1.48 K/mcL (1.50-4.80); Mean Cell Volume 93.4 fL (80.0-100.0); Mean Corpuscular HGB Conc 30.3 g/dL (31.0-36.0); Mean Platelet Volume 9.7 fL (8.8-12.5); Monocytes # (Auto) 0.88 K/mcL (0.10-0.90); Monocytes % (Auto) 7.7 % (1.0-12.0); Neutrophils % (Auto) 75.9 % (38.0-78.0); Platelet Count 435 K/mcL (140-440); RBC 3.96 M/mcL (4.63-6.08); Red Cell Distribution Width 13.7 % (11.5-14.5); WBC 11.4 K/mcL (4.5-11.0)
[2022-07-16 06:48] LABS: ALT/SGPT 30 U/L (<40); AST/SGOT 20 U/L (<40); Albumin 2.6 gm/dL (3.2-5.2); Albumin/Globulin Ratio 0.5 (1.0-2.3); Alkaline Phosphatase 126 U/L (39-117); Bilirubin,Total 0.2 mg/dL (0.1-1.0); Blood Urea Nitrogen 45 mg/dL (8-23); Calcium 9.6 mg/dL (8.6-10.4); Carbon Dioxide 27 mmol/L (22-30); Chloride 104 mmol/L (96-108); Globulin 5.3 gm/dL (2.2-3.7); Glomerular Filtration Rate 50; Glucose 59 mg/dL (70-105)
[2022-07-16] MEDS: glipiZIDE 5 MG TABLET PO SCH (07:27)
[2022-07-16] MEDS: INSULIN LISPRO 1 UNIT/0.01 ML UNIT SQ SCH ×2 (07:28→12:04)
[2022-07-16] MEDS: ARIPIPRAZOLE 5 MG TABLET PO SCH (08:41)
[2022-07-16] MEDS: LORATADINE 10 MG TABLET PO SCH (08:41)
[2022-07-16] MEDS: DOCUSATE SODIUM 100 MG CAPSULE PO SCH (08:41)
[2022-07-16] MEDS: SPIRONOLACTONE 25 MG TABLET PO SCH (08:41)
[2022-07-16] MEDS: POTASSIUM CHLORIDE 10 MEQ TABLET PO SCH (08:41)
[2022-07-16] MEDS: ASPIRIN 81 MG TAB.CHEW PO SCH (08:41)
[2022-07-16] MEDS: TORSEMIDE 10 MG TABLET PO SCH (08:42)
[2022-07-16] MEDS: TAMSULOSIN 0.4 MG CAPSULE PO SCH (08:42)
[2022-07-16] MEDS: FERROUS SULFATE 325 MG TABLET PO SCH (08:42)
[2022-07-16] MEDS: ESCITALOPRAM 20 MG TABLET PO SCH (08:43)
[2022-07-16] MEDS: INSULIN GLARGINE, HUMAN 1 UNIT/0.01 ML SQ SCH (08:43)
[2022-07-16] MEDS: METOCLOPRAMIDE 10 MG TABLET PO SCH (08:43)
[2022-07-16] MEDS: POLYETHYLENE GLYCOL 3350 17 GM PACKET PO SCH (08:43)
[2022-07-16] MEDS: PYRIDOSTIGMINE 60 MG TABLET PO SCH (08:43)
[2022-07-16] MEDS: VITAMIN D3 25 MCG TABLET PO SCH (08:44)
[2022-07-16] MEDS: BETHANECHOL 10 MG TABLET PO SCH (08:44)
[2022-07-16] MEDS: DOXYCYCLINE HYCLATE 100 MG TABLET.ORL PO SCH (08:57)
[2022-07-16] MEDS ORDERED: MEROPENEM 1 GM in 0.9 % SODIUM CHLORIDE 50 ML IV SCH (09:00)
--- NOTE | 2022-07-16 11:09 | Discharge Summary ---
Discharge Provider Provider IMPORTANT FOLLOW-UP INFORMATION FOR PCP: Patient information: Note initiated : 07/16/22 at 11:07 am Service Date, if different from initiated Date: [] Patient: Fritz Esquivel 72 y/o M admitted on 07/13/22 for PNA. 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 Patient is a limited historian, he was alert and able to answer most of the questions. He reported he had mild lower abdominal pain that just started when he arrived to the emergency department, he had some loose stool in ER. Patient was also hypoxic briefly in ER and required supplemental oxygen. he denied feeling any worse, he reports he feels good for the most part. No chest pain, no palpitations, no shortness of breath. He denies any fever, chills, abdominal pain, suprapubic pain. On presentation blood pressure was stable, tachycardia with heart rate 103, respiratory rate not recorded. CBC shows a leukocytosis at 11.8, stable H&H,. Thrzz-dd-leix Chem-8 shows K 5.1, creatinine of 2.0 BUN of 57 glucose of about 123. No lactic acidosis. Procalcitonin 0.13. UA positive for nitrate, leukocyte esterase, RBC, WBC and bacteria suggestive of urinary tract infection. 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 No hydronephrosis. Right lower lobe consolidation and middle lobe groundglass infiltrate consistent with pneumonia. Patient with history of resistant UTI.UCx obtained on 06/15/22 +PsAr +E. coli +P. stuartii. Admission was requested. 07/14. Overnight tachycardia is slowly improving. WBC elevated at 12.1 up from 11.8 yesterday. Renal functions and electrolytes stable. Creatinine down to 1.5 from 2.0 yesterday. ALT and alk phos slightly improved. Urine culture is pending. He has a superficial wound in his sacral area, wound care nurse border dressing over the area. 07/15. Feels better. Satting on room air, denies any shortness of breath. Wondering when he will be able to go home. CX+ >100k E. coli #1 and 10k-20k E. coli #2; ESBL confirmed. ID note reviewed 07/16. Patient remains afebrile overnight. Leukocytosis 11.4 down from 12.4 yesterday, hemoglobin stable at 11.2. Chemistries unremarkable. Urine Streptococcus pneumonia antigen negative, urine Legionella antigen pending. Blood cultures from 07/13 remain negative to date. Discharge diagnoses Complicated urinary tract infection in the setting of suprapubic catheter. Patient with history of UTI with resistant organism. UCX+ >100k E. coli #1 and 10k-20k E. coli #2; ESBL confirmed. ID consult appreciated. both E. coli strains are susceptible to Doripenem, Imipenem, Ertapenem, and Meropenem. Patient initially received Zerbaxa, per ID this was discontinued and patient started on meropenem 1 g every 12 hours per renal function. Streptococcus pneumoniae urinary antigen negative, Legionella urinary antigen pending, MRSA screen pending. Blood cultures remains negative from 07/13. Patient will need 10 days course of antibiotic for multifocal pneumonia. Midline will be placed. Patient will complete 7-day course of doxycycline p.o. Patient will be discharged to SNF where he will complete his antibiotic course. ID consulted. Dr. Newberry ph no [phone] appreciated Pneumonia. CT scan with right lower lobe consolidation and right middle lobe infiltrate. Changed from Zerbaxa to meropenem 1 g twice daily renally dosed. negative strep pneumoniae urinary antigen, Legionella urinary antigen pending, MRSA screen pending. Blood cultures remains negative from 07/13. Patient will need 10 days course of antibiotic for multifocal pneumonia. Midline will be placed. Patient will complete 7-day course of doxycycline p.o. Patient will be discharged to SNF where he will complete his antibiotic course. Acute hypoxemic respiratory failure. resolved Acute kidney injury on chronic kidney disease. Serum creatinine down to 1.4 from 2.0 on admission Dehydration. Resolved Chronic colonic pseudoobstruction. Colon is decompressed on CT. Continue with aggressive bowel regimen Diabetes mellitus 2. Continue home dose insulin. Insulin sliding scale. Monitor BG's. A1c 5.9. Hypertension. Continue home medications Full code Physical examination General: Alert, in no acute distress Head: Non traumatic normocephalic. Cardiovascular: Regular rate and rhythm no murmur Respiratory: Few occasional Rales in bases, otherwise chest is clear, satting well on room air Abdomen pelvis: Abdomen soft, nondistended, nontender Back: Negative CVA tenderness bilaterally : No suprapubic tenderness, suprapubic catheter site without any erythema Neuro: Patient is alert and oriented. No abnormal movements or shakes Psych: Normal affect, normal mood Skin: Warm, no rash, normal color Total time taken 42 minutes Discharge diagnosis: Pneumonia, complicated UTI, respiratory failure, acute kidney injury Time Spent with Patient Time attestation: Total time spent providing and/or coordinating discharge services: Time spent: Greater than 30 minutes EXAM Constitutional Vitals: Temp Pulse Resp BP Pulse Ox O2 Del Method O2 Flow Rate 98.1 F 100 H 18 111/64 95 Room Air 1 07/16/22 08:00 07/16/22 08:00 07/16/22 08:00 07/16/22 08:00 07/16/22 08:00 07/16/22 08:00 07/13/22 15:32 Discharge Data Data Completed and Pending Labs on day of discharge: Labs from last 24 hours 07/16/22 07/16/22 07/15/22 05:15 05:15 21:24 WBC 11.4 H RBC 3.96 L Hgb 11.2 L Hct 37.0 L MCV 93.4 MCH 28.3 MCHC 30.3 L RDW 13.7 Plt Count 435 MPV 9.7 Immature Gran % (Auto) 0.4 Neut % (Auto) 75.9 Lymph % (Auto) 13.0 L [place] % (Auto) 7.7 Eos % (Auto) 2.1 Baso % (Auto) 0.9 Lymph # (Auto) 1.48 L [place] # (Auto) 0.88 Eos # (Auto) 0.24 Baso # (Auto) 0.10 Immature Gran # 0.05 Absolute Neutrophils 8.62 H Sodium 142 Potassium 3.5 Chloride 104 Carbon Dioxide 27 Anion Gap 11.0 BUN 45 H Creatinine 1.4 H GFR Calculation 50 Glucose 59 L Calcium 9.6 Total Bilirubin 0.2 AST 20 ALT 30 Alkaline Phosphatase 126 H Total Protein 7.9 Albumin 2.6 L Globulin 5.3 H Albumin/Globulin Ratio 0.5 L Urine Legionella Ag Ur Strep pneumoniae Ag Negative 07/15/22 21:23 WBC RBC Hgb Hct MCV MCH MCHC RDW Plt Count MPV Immature Gran % (Auto) Neut % (Auto) Lymph % (Auto) [place] % (Auto) Eos % (Auto) Baso % (Auto) Lymph # (Auto) [place] # (Auto) Eos # (Auto) Baso # (Auto) Immature Gran # Absolute Neutrophils Sodium Potassium Chloride Carbon Dioxide Anion Gap BUN Creatinine GFR Calculation Glucose Calcium Total Bilirubin AST ALT Alkaline Phosphatase Total Protein Albumin Globulin Albumin/Globulin Ratio Urine Legionella Ag Pending Ur Strep pneumoniae Ag Preliminary micro results at discharge 07/13/22 13:10 Blood Culture - Preliminary Blood 07/13/22 13:00 Blood Culture - Preliminary Blood 07/13/22 12:01 Urine Culture - Preliminary Urine - Suprapubic Escherichia coli Escherichia coli#2 Discharge Plan Patient/Caregiver Discharge Instructions Activity: increase activity as tolerated Diet: Consistent Carbohydrate Instructions: Bacterial Pneumonia (GEN), Catheter-associated Urinary Tract Infection (GEN) Prescriptions: New meropenem 500 mg Recon Soln 1 gm IV Q12 Qty: 16 0RF doxycycline hyclate 100 mg Tablet 100 mg PO BID Qty: 14 0RF Continued potassium chloride [Klor-Con M10] 10 mEq tablet,ER particles/crystals 10 meq PO QDAY Qty: 30 4RF dulaglutide 0.75 mg/0.5 mL pen injector 1.5 mg SUB-Q QWEEK tamsulosin 0.4 mg capsule 0.8 mg PO QDAY torsemide 20 mg tablet 40 mg PO BID cholecalciferol (vitamin D3) 4,000 unit tablet 4,000 unit PO QDAY Qty: 90 4RF acetaminophen 325 mg capsule 650 mg PO Q4H PRN (Reason: Pain) aspirin [Adult Aspirin Regimen] 81 mg tablet,delayed release (DR/EC) 81 mg PO QDAY bethanechol chloride 50 mg tablet 50 mg PO BID escitalopram oxalate [Lexapro] 5 mg tablet 20 mg PO QDAY loratadine 10 mg capsule 10 mg PO QDAY melatonin 3 mg capsule 3 mg PO HS PRN (Reason: Sleep) spironolactone 25 mg tablet 50 mg PO QDAY aripiprazole [Abilify] 5 mg tablet 5 mg PO QDAY insulin glargine [Lantus U-100 Insulin] 100 unit/mL solution 10 unit subcut DAILY cholecalciferol (vitamin D3) 50,000 unit 50,000 units subcut WEEKLY sennosides [Senna Lax] 8.6 mg Tablet 2 tab PO HS Qty: 60 0RF magnesium hydroxide [Milk of Magnesia] 400 mg/5 mL Suspension 400 mg PO QDAY PRN (Reason: Constipation) bisacodyl [Dulcolax (bisacodyl)] 10 mg Suppository 10 mg [place] QDAY PRN (Reason: Constipation) Rx Instructions: Give after no BM for 5 days. Fleet Enema 19-7 gram/118 mL Enema 118 ml NJ PRN PRN (Reason: Constipation) Rx Instructions: Give within 12 hours of suppository, if no BM and call MD for further instructions if no results within 6 hours bisacodyl [Dulcolax (bisacodyl)] 5 mg Tablet,Delayed Release (Dr/Ec) 10 mg PO PRN PRN (Reason: Constipation) Rx Instructions: Give for no BM in 4 days. olanzapine 5 mg Tablet,Disintegrating 5 mg PO PRN PRN (Reason: Agitation) Rx Instructions: PRN agitation pyridostigmine bromide 60 mg tablet 120 mg PO TID MDD 6 Qty: 120 5RF polyethylene glycol 3350 [Miralax] 17 gram powder in packet 17 g PO BID Qty: 100 12RF glucagon 1 mg Kit 1 mg IM PRN PRN (Reason: Hypoglycemia) ipratropium-albuterol 0.5 mg-3 mg(2.5 mg base)/3 mL Solution For Nebulization 3 ml INHALATION Q4HP PRN (Reason: sob / wheezing) metoclopramide HCl [Reglan] 10 mg Tablet 10 mg PO BID Milk of Magnesia 1,200 mg PO DAILY PRN (Reason: Constipation) ferrous sulfate 325 mg (65 mg iron) tablet 325 mg PO QDAY glipizide 10 mg tablet 15 mg PO QDAY Discontinued cefuroxime axetil 500 mg Tablet 500 mg PO BID Follow Up Plan Follow up with: No,PCP [Primary Care Provider] - Patient Disposition: Xfer SNF Rehab Potential: Fair I certify that the patient requires SNF services: Yes Overall status at discharge: patient is progressing back to baseline Discharge Orders: Discharge Order (Routine); Ordered 07/16/22 Ordered By: Avi KNAPP VTE Deep Vein Thrombosis/Pulmonary Embolism Present on Admission: No
[2022-07-20] MEDS ORDERED: DULAGLUTIDE 0.75 MG/0.5 ML SUB-Q SCH (09:00)
[2022-07-21 20:21] LABS: Legionella Antigen Urine-SO NOT DETECTED
== END 2022-07-16 14:15 | DRG 193 ==
LOC: ED 10:34 → MEDSUR 20:29
PROVIDERS: ADMIT Internal Medicine; ATTEND Internal Medicine